=== PATIENT | female | born 1965 | race Caucasian/White ===

== ENCOUNTER 2022-09-02 13:11 | Outpatient (CLI) | payer MEDICAID, SELFPAY ==
--- OUTSIDE RECORDS SUMMARY | 2022-09-02 13:14 | XMS_ITS ---
:1965 Author Care Team Providers Name Role Phone Kari Ortez Primary Care Provider Unavailable Allergies Code Code System Name Reaction Severity Status Onset 622814 RxNorm Enbrel ? ? Active ? 083162 RxNorm Humira Headache Moderate to Severe Active ? Morphine Sulfate ? ? Active ? 272236 RxNorm Remicade Headache ? Active ? 738614 RxNorm Topamax ? ? Active ? Trazodone ? ? Active ? Medications Name Status Start Date Stop Date ? ? Belbuca 150 mcg buccal film Completed ? 05/18 PLACE 1 FILM BY BUCCAL ROUTE TWICE ROSA Y AGAINST THE INSIDE OF THE CHEEK, HOLDING IN PLACE FOR 5 SECONDS, Belbuca 75 mcg buccal film Completed ? 06/07 PLACE 1 FILM BY BUCCAL ROUTE TWICE ROSA Y AGAINST THE INSIDE OF THE CHEEK, HOLDING IN PLACE FOR 5 SECONDS, cefuroxime axetil 500 mg tablet Completed ? 06/07/2022 TAKE 1 TABLET BY MOUTH TWICE DAILY celecoxib 100 mg capsule Active ? Not jared ilable TAKE ONE CAPSULE BY MOUTH TWICE A DAY cephalexin 500 mg capsule Completed ? 2021 TAKE ONE CAPSULE BY MOUTH THREE TIMES DAILY cholecalciferol (vitamin D3) 1,250 mcg (50,000 unit) capsule Act barry ? Not available TK 1 C PO 1 TIME A WK FOR 12 WKS Cimzia 400 mg/2 mL (200 mg/mL x 2) subcutaneous syringe Active ? Not available kit ciprofloxacin 500 mg tablet Completed ? 01/15 TAKE 1 TABLET BY MOUTH TWICE DAILY clobetasol 0.05 % topical cream Completed ? 06/07/2022 TWICE A DAY TO AFFECTED AREA ON FEET FOR UP TO 2 WEEKS PER [place] H Cosentyx Pen 150 mg/mL subcutaneous Completed ? 01/27/2021 dextroamphetamine-amphetamine 10 mg tablet Active ? Not available TAKE ONE TABLET BY MOUTH TWICE A DAY dextroamphetamine-amphetamine 15 mg tablet Completed ? 06/07/2022 TAKE ONE TABLET BY MOUTH TWICE A DAY. AT LEAST 4-6 HOURS APART dextroamphetamine-amphetamine 5 mg tablet Completed ? 06/07/2022 diclofenac 1 % topical gel Active ? Not a vailable APPLY TOPICALLY 3 TIMES EVERY DAY TO THE AFFECTED AREA(S) FOR R O/OA dicyclomine 10 mg capsule Completed ? 2021 TAKE 1 CAPSULE BY MOUTH FOUR TIMES DAILY dicyclomine 20 mg tablet Completed ? 022 TAKE 1/2 TABLET (10MG) BY MOUTH FOUR TIMES A DAY estradiol 0.01% (0.1 mg/gram) vaginal cream Active ? Not available INSERT 1 GRAM vaginally 5 TIMES A WEEK IN THE EVENING Evenity 210 mg/2.34 mL (105 mg/1.17 mL x 2) subcutaneous syringe Active ? Not available Inject by subcutaneous route. fluconazole 150 mg tablet Completed ? 2021 TAKE ONE TABLET BY MOUTH ONCE fluticasone propionate 50 mcg/actuation nasal spray,suspension A ctive ? Not available INSTILL 2 SPRAYS IN EACH NOSTRIL DAILY gabapentin 300 mg capsule Active ? Not av ailable TAKE ONE CAPSULE BY MOUTH TWICE A DAY hydrocodone 5 mg-acetaminophen 325 mg tablet Completed ? 01/27/2021 TK 1 TO 2 TS PO Q 6 H PRN ketorolac 10 mg tablet Completed ? 2 TAKE ONE TABLET BY MOUTH THREE TIMES DAILY NEEDED meloxicam 15 mg tablet Completed ? 1 TAKE 1 TABLET BY MOUTH EVERY DAY WITH FOOD NEEDED ondansetron 4 mg disintegrating tablet Completed ? 06/07/2022 take 1 tablet by mouth every 8 hours if needed for nausea oxycodone 10 mg tablet Completed ? 1 oxycodone 5 mg tablet Completed ? 01/27/2021 TAKE 1 TABLET BY MOUTH EVERY 4 TO 6 HOURS NEEDED FOR POST-OP PAIN oxycodone-acetaminophen 7.5 mg-325 mg tablet Active ? Not available TAKE ONE TABLET BY MOUTH EVERY SIX HOURS NEEDED, M AX 3/DAY FOR CHRONIC PAIN Stimulant Laxative Plus 8.6 mg-50 mg tablet Active ? Not available TAKE TWO TABLETS BY MOUTH TWICE DAILY EVERY DAY NEEDED. sumatriptan 50 mg tablet Active ? Not jared ilable TAKE ONE TABLET BY MOUTH AT ONSET OF HE ADACHE, MAY REPEAT EVERY 2 HOURS NEEDED. MAX 200MG/24HRS tizanidine 4 mg tablet Completed ? 1 TK 1 T PO Q 8 H PRN trazodone 100 mg tablet Active ? Not avai lable TAKE ONE TABLET BY MOUTH EVERY DAY FOR INSOMNIA trazodone 50 mg tablet Completed ? 2 TAKE ONE TABLET BY MOUTH DAILY vitamin A Completed ? 06/07/2022 Problems No Known Problems Procedures Date Name Performed by ? 09/17/2020 Unlisted Px Foot/toes Information not av ailable Notes: Left Foot tendon Repair, Heel s pur & Fascia Release. ? Gastric Bypass for Obesity Information n ot available Notes: *Surgery Date: 2005 ? Augmentation of Breast with Immediate In sertion of Breast Prosthesis Information not available Notes: *Surgery Date: 1999 ? Hysterectomy NOS Information not avai lable Notes: *Surgery Date: 2005 ? Operation on Bladder Information not jared ilable Notes: *Surgery Date: 2007 *Notes: Santi dder sling Notes: 05/26/2020: *Procedure Name: *O THER ENT Surgery Results Lab Results Date Name Specimen Result Interpretation Description Value Range Status Address ? 01/27/2021 HPV DNA, VAGINA&VAGINA ? HPV negative negative [facility] High-risk High for HPV [facility]. type 16. Health - Type 16 Lab: [address], [place] ? ? VAGINA&VAGINA ? HPV negative negative [facility] High for HPV for HPV [facility] Risk type 18. type 18. Health - Type 18 Lab: [address], [place] ? ? VAGINA&VAGINA ? HPV negative negative [facility] Other for other for other [facility] High high risk high risk Heal th - Risk HPV HPV Lab: [address], [place] 01/27/2021 Pap, LB VAGINA&VAGINA ? Case see note ? [facility] - Lab: [address], [place] ? Hemoglobin ? Finger 12.0 g/dL 12.0-15.0 ? [id number] (Hb), stick g/dL ale_burnsv il Fingerstick Hemoglo le: [address], [place] Past Encounters 06/07/2022 Gynecologic Examination; Dyspareunia; At [facility] Korey Melendez DO: [address] [facility] [address], [address], [place] [address], Ph. Social History Tobacco Smoking Status Never Smoker Vaccine List None recorded. Plan of Care Reminders Provider Appointments None recorded. ? ? Lab None recorded. ? ? Referral None recorded. ? ? Procedures None recorded. ? ? Surgeries None recorded. ? ? Imaging None recorded. ? ? Vitals 06/07/2022 11:00AM G_ANNUAL EXAM Height Weight BMI Blood Pressure 5 ft 6 in 145 lbs 23.4 kg/m2 120/72 mm[Hg] 01/27/2021 01:30PM G_ANNUAL EXAM Height Weight BMI Blood Pressure 5 ft 6 in 170 lbs 27.4 kg/m2 134/82 mm[Hg] 09/17/2019 Height Weight BMI Blood Pressure 5 ft 6 in 177.63 lbs 28.67 kg/m2 122/84 mm[Hg] 04/25/2018 Height Weight BMI Blood Pressure 5 ft 6 in 183 lbs 29.54 kg/m2 110/76 mm[Hg] 04/05/2018 Height Weight BMI Blood Pressure 5 ft 6 in 183 lbs 29.54 kg/m2 132/84 mm[Hg]
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
--- OUTSIDE RECORDS SUMMARY | 2022-09-02 13:14 | XMS_ITS | Clinical Summary ---
:1965 Author Organization [facility] [place] [address] Care Team Providers Name Role Phone Lito Rajan MD Primary Care Provider Pablo Oliver MD Unavailable Allergies Active Allergy Reactions Severity Noted Date Comments Etanercept Headache 12/24/2014 PN: Headaches Adalimumab Headache 06/26/2020 Methotrexate Itching 04/12/2018 Morphine Nausea And Vomiting 07/22/2006 Prednisone Agitation Unknown 09/30/2016 Pregabalin Headache 12/24/2014 PN: Headache, b rain fogginess Infliximab Headache 06/26/2020 Medications Medication Sig Dispensed Refills Start Date End Date Status fluticasone, 50 mcg Inhale 2 Sprays 0 Active per actuation, nasal into both nostrils (FLONASE) 50 once daily. mcg/Actuation nasal spray acetaminophen SR Take 2 tablets by 0 01/12/2014 Active (TYLENOL ARTHRITIS) mouth. 650 mg Extended-Release tablet diphenhydrAMINE-aceta Take 2 tablets by 0 Active minophen 25-500 mg mouth. (TYLENOL PM) 25-500 mg tablet estrogens, conjugated 0 04/06/2018 Active (PREMARIN) 0.625 mg/gram vaginal cream dextroamphetamine-amp Take 5 mg by mouth 0 9 Active hetamine (ADDERALL) 5 2 times daily mg tablet tiZANidine (ZANAFLEX) TK 1 T PO Q 8 H 0 04/06/2019 Active 4 mg tablet PRN Ascorbic Take by mouth. 0 06/26/2020 Acti ve Acid-Collagen (COLLAGEN PLUS VITAMIN C) 125-740 mg cap lactobacillus 0 Active combination no.4 (PROBIOTIC) 3 billion cell cap cholecalciferol, 0 Act barry Vitamin D3, (VITAMIN D-3) 2,000 unit tablet oxyCODONE-acetaminoph Take 1 tablet by 0 06/26/2020 Active en, 7.5-325 mg, mouth every 4 (PERCOCET) per tablet hours if needed for Pain diclofenac sodium Apply topically to 0 06/26/2020 Active (SOLARAZE) 3 % gel affected area(s) 2 times daily. secukinumab Inject 0 06/26/2020 Active (COSENTYX) 150 mg/mL subcutaneous. syrg biotin 1 mg cap Take 1 capsule by 0 06/26/2020 Active mouth. multivitamin capsule 0 Active romosozumab-aqqg Inject 2.34 mL 0 08/07/2020 Active (EVENITY) subcutaneous every 210mg/2.34mL ( 4 weeks. 105mg/1.17mLx2) syringe ergocalciferol Take 50,000 units 0 Active (VITAMIN D2; DRISDOL) by mouth. 50,000 unit capsule Magnesium Oxide 500 Take by mouth. 0 Active mg tab sumatriptan succinate Take by mouth. 0 Active (IMITREX ORAL) VITAMIN A ORAL Take by mouth. 0 Active CALCIUM ORAL Take by mouth. 0 Ac tive WalkerIndications: Walker with front 1 Device 0 09/16/2020 Active Ankle instability, wheels for home left use. celecoxib (CELEBREX) Take 1 Capsule 60 Capsule 0 05/08/2021 Active 100 mg (100 mg) by mouth capsuleIndications: 2 times daily if Peroneal tendonitis, needed for Pain. 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 Peroneal tendon injury, left, subsequent encounter Ankle instability, left 08/07/2020 Osteoporosis with current pathological fracture 2019 Routine adult health maintenance 11/04/2016 Overview: Colonoscopy 10/2016 normal repeat in 10 y ears History of marijuana use 09/15/2016 Chronic back pain greater than 3 months duration 09/15 ARTHRITIS, RHEUMATOID 01/11/2013 Trochanteric and glut medius bursitis 01/12/2012 Esophageal reflux 12/22/2005 HEADACHE 08/10/2005 ARTHRITIS, RHEUMATOID 02/13/2004 ALLERGIES 06/23/2001 DISORDER, DEPRESSIVE NEC 10/11/2000 Resolved Problems Problem Noted Date Resolved Date SINUSITIS 12/16/2003 12/30/2003 MOOD SWINGS 12/10/2003 01/12/2012 OBESITY - NOS 12/10/2003 09/15/2016 Immunizations Name Administration Dates Next Due Influenza, IIV3 (Age >=3 years) 08/31/2006, 08/10/2005 Td, Preservative Free (age >= 7 Years) 07/18/2006 Tuberculin (PPD) 06/24/2004 Family History Medical History Relation Name Comments Skin cancer Father Skin cancer Maternal Grandfather Relation Name Status Comments Father Maternal Grandfather Social History Tobacco Use Types Packs/Day Years Used Date Never Smoker 0 Smokeless Tobacco: Never Used Tobacco Cessation: Counseling Given: Yes Alcohol Use Standard Drinks/Week Comments Yes 0 (1 standard drink = 0.6 oz pure alcoho l) Alcoholic Drinks - occasional Physical Activity Answer Date Recorded On average, how many days per week do you engage in moderate 0 days 06/26/2020 to strenuous exercise (like walking fast, running, jogging, dancing, swimming, biking, or other activities that cause a light or heavy sweat)? On average, how many minutes do you engage in exercise at No t asked this level? Sex Assigned at Date Recorded Not on file Obstetrics History Last Filed Vital Signs Vital Sign Reading Time Taken Comments Blood Pressure 117/63 09/16/2020 3:30 PM HEAD MIXER Pulse 72 09/16/2020 3:30 PM HEAD MIXER Temperature 36 ??C (96.8 ??F) 09/16/2020 3:30 PM HEAD MIXER Respiratory Rate 16 09/16/2020 3:30 PM HEAD MIXER Oxygen Saturation 98% 09/16/2020 3:30 PM HEAD MIXER Inhaled Oxygen Concentration - - Weight 75.1 kg (165 lb 9.1 oz) 09/16/2020 8:30 AM HEAD MIXER Height 167.6 cm (5' 6) 09/16/2020 8:30 AM HEAD MIXER Body Mass Index 26.72 09/16/2020 8:30 AM HEAD MIXER Plan of Treatment Scheduled Procedures Name Priority Associated Diagnoses Date/Time REPAIR TENDON LEG Tier 4 Compartment syndrome of right lower extremity, subsequent encounter Health Maintenance Due Date Last Done Comments COVID-19 vaccine series (#1) 02/12/1967 Tdap 1977 Depression screening for age 12+ 1978 Mammogram for age 45-75 05/16/2013 05/16/2012 Tetanus booster 07/18/2016 07/18/2006 Zoster (shingles) series for age 1008/14/2016 50+ (1 of 2) Lipids for age 45-75 05/16/2017 05/16/2012, 04/22/2004, 04/22/2004 Pap test for age 21-65 03/21/2021 03/21/2018, 03/21/2018, 08/17/2011, Additional history exists BMI (ht and wt on same day) for 06/26/2021 06/26/2020, 03/17, age 18+ 06/11/2016 Influenza for age 50-64 06/17/2022 08/31/2006, 08/10/2005 Colonoscopy through age 75 11/04/2026 11/04/2016, 7, 11/04/2016 Hepatitis C screening for age Completed 01/17/2004 18-79 Medical Devices Implanted Type Area Automatic Typewriter Inspector Device Shelf Model / Identifier Expiration Date Ser ial / Lot Ancr Sut 2.3mm Iconix 2 W/2 Strand #2 Force Fiber - [id number] Left: Mt 07/09/2021 [id number] / Implanted: Qty: 1 on 09/16/2020 by Angelina soto, Dwayne Taylor MD at [facility] [employer] / [id number] Results Not on filefrom Last 3 Months Insurance Payer Benefit Plan / Subscriber ID Effective Dates Phone Addre ss Type Group ARE [employer] [id number] 2021-Present [address] [place] [address] UTY Contract 10/17/2006 [address] CONTRACT,JANEI (Work) [address] [address] [place] [id number] Advance Directives Latest Code Status on File Code Status Date Activated Date Inactivated Comments Full Code 09/16/2020 7:37 AM 09/16/2020 5:31 PM Code Status Discussion: Per Existing Order Discussed Full Code 07/25/2006 6:08 PM 07/28/2006 2:46 PM Full Code 07/25/2006 8:50 AM 07/25/2006 6:08 PM Care Teams Certified Orthotist Practice Manager Relationship Specialty Start Date End Date Lito Rajan MD PCP - General 01/31/08 Pablo Oliver MD Internal Medicine 07/02/20 [id number] [address] [place] [id number]
[2022-09-02 15:22] LABS: Chloride* 107 mmol/L (96-114); Potassium* 4.1 mmol/L (3.6-5.1); Sodium* 140 mmol/L (135-149)
[2022-09-02 15:25] LABS: Blood Urea Nitrogen* 21 mg/dL (7-30); Carbon Dioxide* 27 mmol/L (20-32); Creatinine* 0.5 mg/dL (0.5-1.5); Estimated Glomerular Filt Rate 110 ml/min; Glucose* 67 mg/dL (60-115)
== END 2022-09-02 13:12 | disposition home or self-care (01) ==
LOC: NFLDREF 13:12
PROVIDERS: PCP Internal Medicine; Visit Provider Internal Medicine
DX: R53.83 Other fatigue (principal)
CPT/HCPCS: 80048

== ENCOUNTER 2022-09-22 13:20 | Outpatient (CLI) | payer MEDICAID, SELFPAY ==
--- OUTSIDE RECORDS SUMMARY | 2022-09-22 13:38 | XMS_ITS | Encounter Summary ---
:1965 Author Organization [facility] Address [address] [place] [address]. [place] [address] Care Team Providers Name Role Phone Frw, None Unavailable Unavailable Clinic, [facility] Primary Care Provider [phone] Reason for Visit Auth/Cert (Routine) Specialty Diagnoses / Procedures Referred By Contact Refer red To Contact Surgery Diagnoses Stenosis, spinal, lumbar Stenosis, spinal, lumbar [M48.061] Periop Services Procedures PERC LAMINO-/LAMINECTOMY INDIR IMAG GUIDE LUMBAR ZZC ARTHRODESIS ANT INTERBODY INC DISCECTOMY, CERVICAL BELOW C2 CERVICAL 5- CERVICAL 6 ANTERIOR CERVICAL DISCECTOMY AND FUSION [address] [place] [address] Phone: Fax: Referral ID Status Reason Start Date Expiration Date Visits Requ ested Visits Authorized [id number] 1 1 Encounter Details Date Type Department Care Team Description 09/07/2022 Surgery [facility] , 1. Anterior cervical PeriOp Services Andreas Hull MD decompression, C5-C6. 2. [address] [facility] [place]ED[place] [address] fusion, C5-C6. 3. [id number] [place] [address] Anterior [phone] instrumentation , C5-C6. (Work) 4. Placement of titanium interbody graft, C5-C6. Surgery Details Date/Time Status Location OR Service Patient Case Case Traum a Class Class Type Case? 11/22/22 2:20 Posted OR OR 04 Orthopedics Same Day PM Surgery Panel 1 Procedure [facility] Anes Op Region Wound Class Commen ts 1. Anterior cervical decompression, Bilateral General Spine I-Clean C5-C6. 2. Anterior cervical fusion, C5-C6. 3. Anterior instrumentation, C5-C6. 4. Placement of titanium interbody graft, C5-C6. Surgeon Surgeon Role Service Panel Andreas Alex MD Primary Orthopedics 1 Andreas Alex MD Primary Orthopedics 1 Rajendra Watson PA-C Assisting Orthopedics 1 Special Needs Spinal Cord Simulator, [facility] (pt to bring controller)[facility] documented in this encounter Social History Tobacco Use Types Packs/Day Years Used Date Smoking Tobacco: Never Smokeless Tobacco: Never Tobacco Cessation: Counseling Given: Not Answered Comments: Vape pen for cannibus Alcohol Use Standard Drinks/Week Comments Not Currently 0 (1 standard drink = 0.6 oz pure alcoho l) Sex Assigned at Date Recorded Female 08/31/2022 2:31 PM NECKTIE CENTRALIZING MACHINE OPERATOR Travel History Travel Start Travel End [place] 07/25/2022 08/25/2022 COVID-19 Exposure Response Date Recorded In the last 10 days, have you been in contact No / Unsure 09/07/2022 12:38 PM NECKTIE CENTRALIZING MACHINE OPERATOR with someone who was confirmed or suspected to have Coronavirus/COVID-19? documented as of this encounter Last Filed Vital Signs Vital Sign Reading Time Taken Comments Blood Pressure 114/80 09/07/2022 1:57 PM NECKTIE CENTRALIZING MACHINE OPERATOR Pulse 60 09/07/2022 1:57 PM NECKTIE CENTRALIZING MACHINE OPERATOR Temperature 37.4 ??C (99.4 ??F) 09/07/2022 1:57 PM NECKTIE CENTRALIZING MACHINE OPERATOR Respiratory Rate 16 09/07/2022 1:57 PM NECKTIE CENTRALIZING MACHINE OPERATOR Oxygen Saturation 96% 09/07/2022 1:57 PM NECKTIE CENTRALIZING MACHINE OPERATOR Inhaled Oxygen Concentration - - Weight 65.9 kg (145 lb 4.8 oz) 09/07/2022 1:10 PM NECKTIE CENTRALIZING MACHINE OPERATOR Height 165.1 cm (5' 5) 08/25/2022 1:00 PM NECKTIE CENTRALIZING MACHINE OPERATOR Body Mass Index 24.18 08/25/2022 1:00 PM NECKTIE CENTRALIZING MACHINE OPERATOR documented in this encounter Discharge Summaries Andreas Alex MD - 09/08/2022 6:27 AM CST Physician Discharge Summary Patient ID: Rukhsana Ortizland [id number] 57 year old 1965 Admit date: 09/07/2022 Discharge date and time: 09/08/2022 Admitting Physician: Andreas Alex MD Discharge Physician: same Admission Diagnoses: Stenosis, spinal, lumbar [M48.061] Cervical radiculopathy [M54.12] Discharge Diagnoses: same Admission Condition: good Discharged Condition: good Indication for Admission: cervical surgery Hospital Course: unremarkable Consults: none Significant Diagnostic Studies: none Treatments: surgery: ACDF C5-C6 Discharge Exam: GENERAL APPEARANCE: healthy, alert and no distress EYES: Eyes grossly normal to inspection, PERRL and conjunctivae and sclerae normal HENT: ear canals and TM's normal, nose and mouth without ulcers or lesions, oropharynx clear and oral mucous membranes moist NECK: no adenopathy, no asymmetry, masses, or scars and thyroid normal to palpation RESP: lungs clear to auscultation - no rales, rhonchi or wheezes BREAST: normal without masses, tenderness or nipple discharge and no palpable axillary masses or adenopathy CV: regular rates and rhythm, normal S1 S2, no S3 or S4, no murmur, click or rub, no peripheral edema and peripheral pulses strong ABDOMEN: soft, nontender, no hepatosplenomegaly, no masses and bowel sounds normal (female): normal female external genitalia, vaginal mucosa pink, moist, well rugated and normal cervix, adnexae, and uterus without masses. Normal vaginal discharge MS: no musculoskeletal defects are noted and gait is age appropriate without ataxia SKIN: no suspicious lesions or rashes NEURO: Normal strength and tone, sensory exam grossly normal, mentation intact and speech normal PSYCH: mentation appears normal and affect normal/bright Disposition: home Patient Instructions: Current Discharge Medication List START taking these medications Details acetaminophen (TYLENOL) 325 MG tablet Take 2 tablets (650 mg) by mouth every 4 hours as needed for mild pain Qty: 50 tablet, Refills: 0 Associated Diagnoses: Cervical radiculopathy gabapentin (NEURONTIN) 300 MG capsule Take two capsules by mouth at bedtime first night, then increase to three capsules by mouth at bedtime second night and following nights Qty: 45 capsule, Refills: 0 Associated Diagnoses: Cervical radiculopathy hydrOXYzine (ATARAX) 25 MG tablet Take 1 tablet (25 mg) by mouth every 6 hours as needed for itching(and nausea) Qty: 30 tablet, Refills: 0 Associated Diagnoses: Cervical radiculopathy methocarbamol (ROBAXIN) 750 MG tablet Take 1 tablet (750 mg) by mouth every 6 hours as needed for muscle spasms (muscle spasm) Qty: 60 tablet, Refills: 0 Associated Diagnoses: Cervical radiculopathy oxyCODONE (ROXICODONE) 5 MG tablet Take 1-2 tablets (5-10 mg) by mouth every 4 hours as needed for moderate to severe pain Qty: 26 tablet, Refills: 0 Associated Diagnoses: Cervical radiculopathy senna-docusate (SENOKOT-S/PERICOLACE) 8.6-50 MG tablet Take 1 tablet by mouth daily Qty: 30 tablet, Refills: 0 Associated Diagnoses: Cervical radiculopathy CONTINUE these medications which have NOT CHANGED Details diphenhydrAMINE-acetaminophen (TYLENOL PM) 25-500 MG tablet Take 2 tablets by mouth nightly as needed Magnesium Oxide 500 MG TABS Take by mouth 2 times daily multivitamin w/minerals (THERA-VIT-M) tablet Take 1 tablet by mouth daily !! NONFORMULARY daily [place] !! NONFORMULARY daily Medical Cannibus THC (liquid), CBD (pills) oxyCODONE-acetaminophen (PERCOCET) 7.5-325 MG per tablet Take 1 tablet by mouth every 6 hours as needed for severe pain Up to 4 times per day as needed SUMAtriptan (IMITREX) 25 MG tablet Take by mouth at onset of headache for migraine Not sure of dose TRAZODONE HCL PO Take 100 mg by mouth nightly as needed for sleep TYLENOL ARTHRITIS EXT RELIEF 650 MG OR TBCR 2 TABLETS EVERY 8 HOURS NEEDED !! - Potential duplicate medications found. Please discuss with provider. STOP taking these medications celecoxib (CELEBREX) 100 MG capsule Comments: Reason for Stopping: Activity: activity as tolerated, activity as tolerated and no driving for today, ambulate in house and no heavy lifting, pushing, pulling with the implant side for 2 months Diet: regular diet Wound Care: keep wound clean and dry Follow-up with Rk in 6 weeks. Signed: Andreas Alex MD 09/08/2022 6:27 AM TIE CENTRALIZING MACHINE OPERATOR documented in this encounter Medications at Time of Discharge Medication Sig Dispensed Refills Start Date End Date acetaminophen (TYLENOL) Take 2 tablets (650 50 tablet 0 325 MG tabletIndications: mg) by mouth every 4 Cervical radiculopathy hours as needed for mild pain diphenhydrAMINE-acetamino Take 2 tablets by 0 phen (TYLENOL PM) 25-500 mouth nightly as MG tablet needed gabapentin (NEURONTIN) Take two capsules by 45 capsule 0 300 MG mouth at bedtime capsuleIndications: first night, then Cervical radiculopathy increase to three capsules by mouth at bedtime second night and following nights hydrOXYzine (ATARAX) 25 Take 1 tablet (25 mg) 30 tablet 0 1 11/07/2021 MG tabletIndications: by mouth every 6 Cervical radiculopathy hours as needed for itching (and nausea) Magnesium Oxide 500 MG Take by mouth 2 times 0 TABS daily methocarbamol (ROBAXIN) Take 1 tablet (750 60 tablet 0 08/18 750 MG tabletIndications: mg) by mouth every 6 Cervical radiculopathy hours as needed for muscle spasms (muscle spasm) multivitamin w/minerals Take 1 tablet by 0 (THERA-VIT-M) tablet mouth daily NONFORMULARY daily [place] 0 NONFORMULARY daily Medical 0 Cannibus THC (liquid), CBD (pills) oxyCODONE (ROXICODONE) 5 Take 1-2 tablets 26 tablet 0 09/07 MG tabletIndications: (5-10 mg) by mouth Cervical radiculopathy every 4 hours as needed for moderate to severe pain oxyCODONE-acetaminophen Take 1 tablet by 0 (PERCOCET) 7.5-325 MG per mouth every 6 hours tablet as needed for severe pain Up to 4 times per day as needed senna-docusate Take 1 tablet by 30 tablet 0 09/07/2022 (SENOKOT-S/PERICOLACE) mouth daily 8.6-50 MG tabletIndications: Cervical radiculopathy SUMAtriptan (IMITREX) 25 Take by mouth at 0 MG tablet onset of headache for migraine Not sure of dose TRAZODONE HCL PO Take 100 mg by mouth 0 nightly as needed for sleep TYLENOL ARTHRITIS EXT 2 TABLETS EVERY 8 0 RELIEF 650 MG OR TBCR HOURS NEEDED documented as of this encounter Progress Notes Jackie Mcneil, PT - 09/08/2022 11:00 AM CST 09/08/22 0904 Appointment Info Signing Clinician's Name / Credentials (PT) BUBBA Wade Student Supervision On-site supervision provided;Direct supervision provided;Line of sight supervision provided;Direct Patient Contact Provided;Therapy services provided with the co-signing licensed therapist guiding and directing the services, and providing the skilled judgement and assessment throughout the session Living Environment People in Home spouse Living Environment Comments Patient reports that she lives in a renovated garage with single step toenter Self-Care Usual Activity Tolerance moderate Current Activity Tolerance moderate Equipment Currently Used at Home cane, straight (when ambulating longer distances secondary to left hip pain) Fall history within last six months no General Information Onset of Illness/Injury or Date of Surgery 09/07/22 Referring Physician Andreas Alex MD Patient/Family Therapy Goals Statement (PT) Return to home Pertinent History of Current Problem (include personal factors and/or comorbidities that impact the POC) POD#1 s/p anterior fusion C5-6 Existing Precautions/Restrictions (Per MD: activity as tolerated, activity as tolerated and no driving for today, ambulate in house and no heavy lifting, pushing, pulling with the implant side for 2 months) Cognition Orientation Status (Cognition) oriented x 4 Pain Assessment Patient Currently in Pain Yes, see Vital Sign flowsheet (at left hip and cervical spine) Integumentary/Edema Integumentary/Edema Comments see nursing notes Posture Posture Not impaired Range of Motion (ROM) Range of Motion ROM deficits secondary to surgical procedure;ROM deficits secondary to pain Strength (Manual Muscle Testing) Strength (Manual Muscle Testing) strength is WFL Bed Mobility Comment, (Bed Mobility) Independent with head of bed raised Transfers Comment, (Transfers) Graded assist from SBA to independent with no assistive device Gait/Stairs (Locomotion) Comment, (Gait/Stairs) Patient amb over 300 feet with graded assist from SBA to independent. Patientwith no loss of balance, does have antalgic gait pattern secondary to left hip pain. Patient negotiated 4 steps with 2 handrails and SBA, negotiated 4 steps with single handrail and SBA. Balance Balance Comments No loss of balance noted during session; patient did state that her balance has been decreasing lately. Clinical Impression Criteria for Skilled Therapeutic Intervention Evaluation only PT Diagnosis (PT) Impaired mobility following surgical procedure Influenced by the following impairments pain Functional limitations due to impairments patient is able to demonstrate all functional mobility required for discharge to home Clinical Presentation (PT Evaluation Complexity) Stable/Uncomplicated Clinical Presentation Rationale clinical judgement Clinical Decision Making (Complexity) low complexity Anticipated Equipment Needs at Discharge (PT) (none- patient has cane for use at home if needed.) Risk & Benefits of therapy have been explained evaluation/treatment results reviewed;care plan/treatment goals reviewed;risks/benefits reviewed;current/potential barriers reviewed;participants voiced agreement with care plan;participants included;patient PT Total Evaluation Time PT Eval, Low Complexity Minutes ([id number]) 15 PT Discharge Planning PT Plan dc PT Discharge Recommendation (DC Rec) home with assist PT Rationale for DC Rec Patient demonstrated safe, functional mobility for return to home with spouse providing supervision with single stair negotiation PT Brief overview of current status SBA with amb over 300 feet, supervision with stair negotiation Total Session Time Total Session Time (sum of timed and untimed services) 15 Armida Adams RN - 09/07/2022 5:59 PM CST Per REMINGTON Neumann, 6 prescriptions sent via secure tube to 6th floor ortho at this time. 6th floor notified of access code. Andreas Tariq MD - 09/07/2022 5:24 PM CST Pre operative history and physical exam was evaluated. Patient is safe to proceed with surgery. Pastmedical history pertinent for chronic anemia. Expected blood loss <50mL ?? Andreas Alex MD Orthopedic Spine Surgery [facility] Pager- [phone] TIE CENTRALIZING MACHINE OPERATOR Ronel Mujica RN - 09/07/2022 2:44 PM CST Nasal nosin done as well as preop sages wipes in anterior neck area. Ronel Mujica RN on 09/07/2022 at 2:46 PM TIE CENTRALIZING MACHINE OPERATOR Ronel Mujica RN - 09/07/2022 2:30 PM CST Patient H&P states that patient is not cleared for surgery. Pre admitting called the office ofthe doctor for clarification and the office reports that the doctor is out of the office until afterThanksgiving. MAYUR Laurent has reviewed the chart and is okay proceeding with surgery as planned with no further labs or testing. Ronel Mujica RN on 09/07/2022 at 2:33 PM TIE CENTRALIZING MACHINE OPERATOR documented in this encounter H&P Notes Ed Laurent DO - 09/07/2022 2:08 PM CST I have reviewed the surgical (or preoperative) H&P that is linked to this encounter, and examined the patient. There are no significant changes Clinical Conditions Present on Arrival: Clinically Significant Risk Factors Present on Admission TIE CENTRALIZING MACHINE OPERATOR Source Note - Outside, Provider - 09/06/2022 2:38 PM NECKTIE CENTRALIZING MACHINE OPERATOR documented in this encounter Miscellaneous Notes Plan of Care - Niya Gerber RN - 09/07/2022 11:50 PM CST Patient vital signs are at baseline: No. 02 - 2L Patient able to ambulate as they were prior to admission or with assist devices provided by therapies during their stay: No. ax1 with walker and gait belt. Patient MUST void prior to discharge: Yes Patient able to tolerate oral intake: Yes Pain has adequate pain control using Oral analgesics: Yes Does patient have an identified motorcoach driver: Yes Has goal D/C date and time been discussed with patient: No A&Ox4. Voiding adequately via bedside commode. 650cc, clear, yellow. Dressing C,D&I. TIE CENTRALIZING MACHINE OPERATOR Plan of Care - Reema Streeter RN - 09/07/2022 11:33 PM CST Patient vital signs are at baseline: Yes Patient able to ambulate as they were prior to admission or with assist devices provided by therapies during their stay: No, Reason: PT eval needed Patient MUST void prior to discharge: Yes Patient able to tolerate oral intake: Yes Pain has adequate pain control using Oral analgesics: Yes Does patient have an identified motorcoach driver: Yes Has goal D/C date and time been discussed with patient: Yes A&Ox4, VS WNL on RA. No pain or discomfort reported at this time. NS @ 75ml.hr running to PIV. KAYLEEN out per MD order. PRN oxycodone given for pain. Explained POC, patient verbalized understanding. Will continue to monitor and provide cares. TIE CENTRALIZING MACHINE OPERATOR Op Note - Andreas Alex MD - 09/07/2022 5:47 PM CST Procedure DATE OF SERVICE: 09/07/2022 SURGEON: Andreas Parra MD. SUCTION WORKER: Rajendra Watson PA-C. PREPROCEDURE DIAGNOSIS: 1. Bilateral C5-C6 foraminal stenosis. 2. C5-C6 spondylosis. POSTPROCEDURE DIAGNOSIS: 1. same PROCEDURE: 1. Anterior cervical decompression, C5-C6. 2. Anterior cervical fusion, C5-C6. 3. Anterior instrumentation, C5-C6. 4. Placement of titanium interbody graft, C5-C6. IMPLANTS: ZEVO CERVICAL, [employer] TITAN TC INTERBODY CAGE, [employer] 3mL ANGELLA, demineralized bone matrix, [employer] FINDINGS: Severe bilateral C5-C6 foraminal stenosis ANESTHESIA: General tracheal tube anesthesia. ESTIMATED BLOOD LOSS: 10mL COMPLICATIONS: No intraoperative complications noted. OPERATIVE INDICATIONS: Severe Right C6 cervical radiculopathy. After the failure of reasonable conservative treatments, the risks and benefits of surgical management were discussed in detail with the patient. PROCEDURE: The patient was seen and identified in the preoperative holding area. The appropriate site was marked with the surgeon's initials. Written consent was obtained and documented. The patient was brought to the operating room and induced under general anesthesia. IV prophylactic antibiotics were given according to patient allergies and adverse reactions. After induction of general anesthesia, the patient was positioned supine on a radiolucent table. Care was taken to make sure extremities were well padded. The shoulders were lightly taped to the distal end of the table. A bumpwas placed in between the shoulder blades. A time out was taken per protocol. A transverse skin incision was made centered overlying the appropriate interspace. Lateral fluoroscopy confirmed we were at the appropriate level with a satisfactory trajectory. The platysma was then elevated and split transversely. The interval between the sternocleidomastoid and the strap musculature was explored deeply, and the interval between the carotid sheath and trachea and esophagus. The pre-vertebral fascia was split, and then a marker was placed at the C5-C6 interspace. Lateral fluoroscopy confirmed we were at the appropriate level. I then elevated the longus colli bilaterally and placeda self-retaining retractor. Once the self-retaining retractor was in place, we then made an annulotomy. I then secured [place] pins and light distraction was applied. I then performed a complete discectomy from uncovertebral joint to uncovertebral joint. A Midas was used to thin posterior uncovertebralspurring back to the PLL, and #1 and #2 kerrisons were used to resect portions of the PLL and decompress centrally and into the neural foramen bilaterally. After completion of the decompression, I was easily able to pass a small nerve hook in the neural foramen. We then decorticated the inferior endplate and superior endplates and then placed sequential trials. I placed a 6mm x 14mm Titan TC titaniuminterbody graft with mineralized bone matrix into the interbody space. We then secured a 19mm ZEVO 1 level plate with 3.5 mm variable angled screws. The standard locking mechanism was engaged, and I inspected the plate for fit and soft tissue. A 7 [place] round KAYLEEN drain was placed deep to the fascia, and the wound was closed in layers. There were no intraoperative complications during today's case. Sponge and needle counts were correct at the end of the case. Estimated blood loss was 10mL. Rajendra Watson PA-C assisted with the procedure. His role included, but was not limited to, skilled retraction of sensitive soft tissue structures, assistance with manipulation of the retractor system,assistance with placement of anterior instrumentation and multilayered wound closure. The assistanceof a skilled spine PA was required for both safety and efficacy during this procedure. These duties could not be safely performed by other operating room personnel. TIE CENTRALIZING MACHINE OPERATOR Brief Op Note - Andreas Alex MD - 09/07/2022 5:45 PM CST [facility] Brief Operative Note Pre-operative diagnosis: Stenosis, spinal, lumbar [M48.061] Post-operative diagnosis Same as pre-operative diagnosis Procedure: Procedure(s): CERVICAL 5- CERVICAL 6 ANTERIOR CERVICAL DISCECTOMY AND FUSION Surgeon: Surgeon(s) and Role: * Andreas Alex MD - Primary * Rajendra Watson PA-C - Assisting Anesthesia: General Estimated Blood Loss: Less than 10 ml Drains: Dustin-Arora Specimens: * No specimens in log * Findings: None. Complications: None. Implants: Implant Name Type Inv. Item Serial No. Sports Reporter Lot No. [id number] No. Used Action GRAFT BONE PUTTY ANGELLA DBM 1ML [id number] Bone/Tissue/Biologic GRAFT BONE PUTTY ANGELLA DBM 1ML [id number] [employer] N/A 1 Implanted CAGE SPNL 16X6MM ENDOSKELETON TC 6D 14MM MED CRV [id number] - [id number] Metallic Hardware/[place] CAGE SPNL 16X6MM ENDOSKELETON TC 6D 14MM MED CRV [id number] [employer] [id number] N/A 1 Implanted IMP PLATE CERV MEDT ZEVO 19MM 1 LVL [id number] - [id number] Metallic Hardware/[place] IMP PLATE CERV MEDT ZEVO 19MM 1 LVL [id number] [employer] 8004 [id number] N/A 1 Implanted IMP SCR MEDT ZEVO 3.5X15MM SD [place] [id number] - [id number] Metallic Hardware/[place] IMP SCR MEDT ZEVO 3.5X15MM SD [place] [id number] [employer] 8004 [id number] N/A 4 Implanted TIE CENTRALIZING MACHINE OPERATOR Pre-Procedure - Andreas Alex MD - 09/07/2022 2:52 PM CST Pre operative history and physical exam was evaluated. Patient is safe to proceed with surgery. Pastmedical history pertinent for chronic anemia. Expected blood loss <50mL Andreas Alex MD Orthopedic Spine Surgery [facility] Pager- [phone] TIE CENTRALIZING MACHINE OPERATOR Pharmacy-Admission Medication History - Fidel Patel RPH - 09/07/2022 1:59 PM CST Medication history and patient interview completed by pre-admitting nurse (Paz Good RN). Reviewed by pharmacist. Fidel Patel RPh Prior to Admission medications Medication Sig Last Dose Taking? Auth Provider Longterm End Date celecoxib (CELEBREX) 100 MG capsule Take 100 mg by mouth 2 times daily 08/24/2022 Yes Reported, Patient Yes diphenhydrAMINE-acetaminophen (TYLENOL PM) 25-500 MG tablet Take 2 tablets by mouth nightly as needed More than a month Yes Reported, Patient Magnesium Oxide 500 MG TABS Take by mouth 2 times daily 09/07/2022 at 0400 Yes Reported, Patient multivitamin w/minerals (THERA-VIT-M) tablet Take 1 tablet by mouth daily 09/06/2022 Yes Reported, Patient NONFORMULARY daily Lemon [place] 09/06/2022 Yes Reported, Patient NONFORMULARY daily Medical Cannibus THC (liquid), CBD (pills) 09/07/2022 at 0800 Yes Reported, Patient oxyCODONE-acetaminophen (PERCOCET) 7.5-325 MG per tablet Take 1 tablet by mouth every 6 hours as needed for severe pain Up to 4 times per day as needed 09/07/2022 at 0400 Yes Reported, Patient SUMAtriptan (IMITREX) 25 MG tablet Take by mouth at onset of headache for migraine Not sure of dose 09/06/2022 Yes Reported, Patient TRAZODONE HCL PO Take 100 mg by mouth nightly as needed for sleep 09/06/2022 Yes Reported, Patient Yes TYLENOL ARTHRITIS EXT RELIEF 650 MG OR TBCR 2 TABLETS EVERY 8 HOURS NEEDED 09/07/2022 at 0400 YesReported, Patient TIE CENTRALIZING MACHINE OPERATOR documented in this encounter Plan of Treatment Not on filedocumented as of this encounter Procedures Procedure Name Priority Date/Time Associated Diagnosis Comme nts XR SURGERY ASHLEY Routine 09/07/2022 5:20 PM Result s for this FLUORO LESS THAN 5 NECKTIE CENTRALIZING MACHINE OPERATOR procedure are in MIN W STILLS the results section. DECOMPRESSION, 09/07/2022 3:22 PM Stenosis, spinal, SPINE, CERVICAL, 1 NECKTIE CENTRALIZING MACHINE OPERATOR lumbar LEVEL, ANTERIOR APPROACH, WITH FUSION Special Needs Spinal Cord Simulator, [employer] (pt to bring controller)[facility] E[facility] CARDIAC - HIM SCAN 09/02/2022 12:00 AM NECKTIE CENTRALIZING MACHINE OPERATOR documented in this encounter Results XR Surgery ASHLEY L/T 5 Min Fluoro w Stills (09/07/2022 5:20 PM NECKTIE CENTRALIZING MACHINE OPERATOR) Specimen (Source) Anatomical Location Collection Method / Collectio n Time Received Time / Laterality Volume Narrative RADIANT - 09/07/2022 5:21 PM NECKTIE CENTRALIZING MACHINE OPERATOR This exam was marked as non-reportable because it will not be read by a radiologist or a [place] non-radiologis t provider. Andreas Alex MD IMG DIAGNOSTIC IMAGING ORD ERABLES Performing Organization Address City/State/ZIP Code Phon e Number RADIANT EKG CARDIAC - HIM SCAN (09/02/2022 12:00 AM NECKTIE CENTRALIZING MACHINE OPERATOR) Specimen (Source) Anatomical Location Collection Method / Collectio n Time Received Time / Laterality Volume 09/02/2022 Narrative This result has an attachment that is no t available. Provider Outside ECG ORDERABLES documented in this encounter Visit Diagnoses Diagnosis Cervical radiculopathy - Primary Brachial neuritis or radiculitis nos Stenosis, spinal, lumbar Spinal stenosis, lumbar region, without neurogenic claudication documented in this encounter Administered Medications Inactive Administered Medications - up to 3 most recent administrations Medication Order MAR Action Action Date Dose Rate Site bisacodyl (DULCOLAX) suppository 10 mg 10 mg, Rectal, DAILY PRN, constipation, Use if Magnesi um hydroxide (MILK of MAGNESIA) not effective after 24 hours. May discontinu e if patient having bowel movement., Starting on Tue09/07/22 at 1725, Hold for loose stools. dexamethasone (DECADRON) injection 4 mg Given 09/08/2022 10:00 AM NECKTIE CENTRALIZING MACHINE OPERATOR 4 mg 4 mg, Intravenous, EVERY 6 HOURS, Administer over 1 Minutes, First dose on Tue09/07/22 at 2200, For 3 doses Given 09/08/2022 4:50 AM NECKTIE CENTRALIZING MACHINE OPERATOR 4 mg Given 09/07/2022 10:33 PM NECKTIE CENTRALIZING MACHINE OPERATOR 4 mg diphenhydrAMINE (BENADRYL) capsule 25 mg 25 mg, Oral, EVERY 6 HOURS PRN, itching, anxiety, Starting on Tue09/07/22 at 1956, Caution to be used when administering multiple Central Nervous System (PROCESS INSPECTOR) depressing meds within a short time frame. famotidine (PEPCID) injection 20 mg 20 mg, Intravenous, Administer over 2 Minutes, 2 TIMES DAILY, First dose on Tue09/07/22 at 1999, If unable to take oral For ordered IV doses 1-20 mg, give IV Push diluted with 5-10 mL NS over a minimum of 2 minutes. famotidine (PEPCID) tablet 20 mg Given 09/08/2022 8:13 AM NECKTIE CENTRALIZING MACHINE OPERATOR 20 mg 20 mg, Oral, 2 TIMES DAILY, First dose on Tue09/07/22 at 2000 Given 09/07/2022 8:34 PM NECKTIE CENTRALIZING MACHINE OPERATOR 20 mg fentaNYL (PF) (SUBLIMAZE) injection 25 m cg Given 09/07/2022 6:14 PM NECKTIE CENTRALIZING MACHINE OPERATOR 25 mcg 25 mcg, Intravenous, EVERY 5 MIN PRN, moderate pain (4-6), Give fentaNYL (SUBLIMAZE) first if HYDROmorphone (DILAUDID) also ordered., Starting on Tue09/07/22 at 1801, Administer fentaNYL (SUBLIMAZE) for acute pain control. Move to HYDROmorphone (DILAUDID): -IF patient has received up to 200 mcg of fentaNYL (SUBLIMAZE) OR - IF patient has received 2 doses of fentaNYL (SUBLIMAZE) AND continues to have pain score greater than or equal to six (6) or is unable to participate in post op recovery due to pain. Wait 5 minutes AFTER last fentaNYL (SUBLIMAZE) dose before administering HYDROmorphone (DILADUDID). Postop Anesthesia Phase I only. Notify Provider to assess for uncontrolled pain or analgesic side effects. DO NOT revert back to fentanyl (SUBLIMAZE) after moving to HYDROmorphone (DILAUDID)., PACU Given 09/07/2022 6:08 PM NECKTIE CENTRALIZING MACHINE OPERATOR 25 mcg gabapentin (NEURONTIN) capsule 100 mg Given 09/08/2022 8:13 AM NECKTIE CENTRALIZING MACHINE OPERATOR 100 mg 100 mg, Oral, 3 TIMES DAILY, First dose on Tue09/08/22 at 0800, For post-operative pain gabapentin (NEURONTIN) capsule 300 mg Given 09/07/2022 2:08 PM NECKTIE CENTRALIZING MACHINE OPERATOR 300 mg 300 mg, Oral, PRE-OP/PRE-PROCEDURE, Starting on Tue09/07/22 at 1400, For 1 dose, Indications: Neuropathic Pain, Do not administer for stage 2 spine procedures., Pre-procedure hemostatic matrix Given 09/07/2022 4:04 PM 1 kit Operative Site/Surgical (SURGIFLO) kit NECKTIE CENTRALIZING MACHINE OPERATOR Site PRN, Starting on Tue09/07/22 at 1604, Intra-procedure HYDROmorphone (DILAUDID) injection 0.2 m g 0.2 mg, Intravenous, EVERY 2 HOURS PRN, moderate pain (4-6), Starting on Tue09/07/22 at 1956, IF patient unable to take oral pain medication or pain not controlled with oral analgesics. Hold IV PRN opioid do se for analgesic side effects. Notify provider to assess for u ncontrolled pain or analgesic side effects. HYDROmorphone (DILAUDID) injection 0.4 m g Given 09/07/2022 6:37 PM NECKTIE CENTRALIZING MACHINE OPERATOR 0.4 mg 0.4 mg, Intravenous, EVERY 5 MIN PRN, severe pain (7-10), Starting on Tue09/07/22 at 1801, Use FentaNYL (SUBLIMAZE) first if ordered. Administer HYDROmorphone (DILAUDID) up to a total of 2 mg for moderate or severe pain. Notify Provider to assess for uncontrolled pain or analgesic side effects., PACU Given 09/07/2022 6:26 PM NECKTIE CENTRALIZING MACHINE OPERATOR 0.4 mg Given 09/07/2022 6:19 PM NECKTIE CENTRALIZING MACHINE OPERATOR 0.4 mg HYDROmorphone (PF) (DILAUDID) injection 0.5 mg 0.5 mg, Intravenous, EVERY 2 HOURS PRN, severe pain (7 -10), Starting on Tue09/07/22 at 1956, IF patient unable to take oral pain medication or pain not controlled with oral analgesics. Hold IV PRN opioid do se for analgesic side effects. Notify provider to assess for u ncontrolled pain or analgesic side effects. hydrOXYzine (ATARAX) tablet 25 mg Given 09/07/2022 6:36 PM NECKTIE CENTRALIZING MACHINE OPERATOR 25 mg 25 mg, Oral, EVERY 6 HOURS PRN, other, adjuvant pain, Starting on Tue09/07/22 at 1834 ketorolac (TORADOL) injection 15 mg Given 09/07/2022 6:34 PM NECKTIE CENTRALIZING MACHINE OPERATOR 15 mg 15 mg, Intravenous, ONCE PRN, inflammatory pain, Starting on Tue09/07/22 at 1818, For 1 dose, Can cause pain on injection. If ordered intravenously (IV) : administer through a running maintenance fluid over 1 minute followed by a flush. If patient complains of pain on injection, may dilute 15-30 mg in 5 mL and push over 1 to 2 minutes. , PACU lactated ringers infusion New Bag 09/07/2022 5:55 PM NECKTIE CENTRALIZING MACHINE OPERATOR at 25 mL/hr, Intravenous, CONTINUOUS, IF patient NOT on dialysis., Pre-procedure, Starting on Tue09/07/22 at 1430, Until Tue09/07/22 at 1800 Restarted 09/07/2022 5:15 PM NECKTIE CENTRALIZING MACHINE OPERATOR New Bag 09/07/2022 2:27 PM NECKTIE CENTRALIZING MACHINE OPERATOR 25 mL/hr lactated ringers infusion Rate/Dose Verify 09/07/2022 6:00 PM NECKTIE CENTRALIZING MACHINE OPERATOR 100 mL/hr at 100 mL/hr, Intravenous, CONTINUOUS, Continue until IV catheter is weaned, PACU/Phase II, Starting on Tue09/07/22 at 1830, Until Tue09/07/22 at 1954 lidocaine (LMX4) cream Topical, EVERY 1 HOUR PRN, pain, with VA D insertion, Starting on Tue09/07/22 at 1955, Apply at least 30 minutes prior to VAD insertion in divided doses as needed for size of site for insertion. MAX Dose: 2.5 g (?? of 5 g tube) Do NOT give if patient has a history of allergy to any local anesthetic or any joe product. Do NOT use both lidocaine intradermal/subcu taneous injection and the lidocaine cream on the same site. lidocaine 1 % 0.1-1 mL 0.1-1 mL, Other, EVERY 1 HOUR PRN, mild pain with VAD insertion, Starting on Tue09/07/22 at 1955, MAX dose 1 mL subcutan eous OR intradermal along the side of the vein in divided doses as needed for VAD insertion. Do NOT give if patient has a history of allergy to any local anesthet ic or any joe product. Do NOT use both lidocaine intradermal/subcutaneous injec tion and the lidocaine cream on the same site. magnesium hydroxide (MILK OF MAGNESIA) s uspension 30 mL 30 mL, Oral, DAILY PRN, constipation, Us e if preventive measures (senna-docusate, docusate, and polyethylene glycol) are n ot effective., Starting on Tue09/07/22 at 1725, Shake well. Hold for loose stools. methocarbamol (ROBAXIN) tablet 750 mg Given 09/08/2022 8:13 AM NECKTIE CENTRALIZING MACHINE OPERATOR 750 mg 750 mg, Oral, EVERY 6 HOURS PRN, muscle spasms, Starting on Tue09/07/22 at 1955, Hold for sedation. Given 09/07/2022 8:34 PM NECKTIE CENTRALIZING MACHINE OPERATOR 750 mg naloxone (NARCAN) injection 0.2 mg 0.2 mg, Intravenous, EVERY 2 MIN PRN, op ioid reversal, Starting on Tue09/07/22 at 1955, Administer intravenous route when available and notify provider when administered. For unintended sedation or respiratory depression if all of the below criteria are met: ~ respiratory rate LES S than or EQUAL to 8. ~SaO2 less than 92% and or/end-tidal CO2 is greater than 50. ~ the patient is receiving an opioid, has unintended sedations assessed as RASS (-3), and is cur rently not on mechanical ventilation. RASS scale moderate (-3) is movement or eye opening to voice but no eye contact. Patient Monitoring Once the patient has demonstrated a response to the naloxone, continue to monitor respiratory rate, depth, oxygen saturation and end-tidal CO2 (if available) every 15 mi nutes x 2, then every 30 minutes x 2, then every 1 hour x 1 after each naloxone dose. Consider tr ansfer to ICU if patient respiratory parameters have not improved after 4 nalox one doses. naloxone (NARCAN) injection 0.2 mg 0.2 mg, Intramuscular, EVERY 2 MIN PRN, opioid reversal, Starting on Tue09/07/22 at 1955, Administer intramuscular if an intravenous ro [place] is not available and notify provider when administered. For unintended rebecca tion or respiratory depression if all of the below criteria are met: ~ respiratory rate LESS than or EQUAL to 8. ~SaO2 less than 92% and or/end-tidal CO2 i s greater than 50. ~ the patient is receiving an opioid, has unin tended sedations assessed as RASS (-3), and is currently not on mechanical ventilati on. RASS scale moderate (-3) is movement or eye opening to voice but no eye contact. Patient Monitoring Once the patient has demonstrated a response to the naloxone, continue to m onitor respiratory rate, depth, oxygen saturation and end-tidal CO2 (if availab le) every 15 minutes x 2, then every 30 minutes x 2, then every 1 hour x 1 after each naloxone dose. Consider transfer to ICU if patient respiratory parameters have not improved after 4 naloxone doses. naloxone (NARCAN) injection 0.4 mg 0.4 mg, Intravenous, EVERY 2 MIN PRN, op ioid reversal, Starting on Tue09/07/22 at 1955, Administer intravenous route when available and notify provider when administered. For unintended sedation or respiratory depression if all of the below criteria are met: ~ respiratory rate LES S than or EQUAL to 8. ~ SaO2 less than 92% and or/end-tidal CO2 is greater than 50. ~ the patient is receiving an opioid, has unintended sedation assessed as RASS (-4 ) or (-5) and patient is currently not on mechanical ventilation. RASS scale (-4) is deep sedation with no response to voice but movement or eye opening to physical stimulation. R ASS scale (-5) is unarousable. Patient Monitoring Once the patient has demonstrated a response to the naloxone, continue to monitor respiratory rate, depth, oxygen saturation and end-tidal CO2 (if available) every 15 mi nutes x 2, then every 30 minutes x 2, then every 1 hour x 1 after each naloxone dose. Consider tr ansfer to ICU if patient respiratory parameters have not improved after 4 nalox one doses. naloxone (NARCAN) injection 0.4 mg 0.4 mg, Intramuscular, EVERY 2 MIN PRN, opioid reversal, Starting on Tue09/07/22 at 1955, Administer intramuscular if an intravenous ro [place] is not available and notify provider when administered. For unintended rebecca tion or respiratory depression if all of the below criteria are met: ~ respiratory rate LESS than or EQUAL to 8. ~ SaO2 less than 92% and or/end-tidal CO2 is greater than 50. ~ the patient is receiving an opioid, has unin tended sedation assessed as RASS (-4) or (-5) and patient is currently not on mechanical ventil ation. RASS scale (-4) is deep sedation with no response to voice but movement o r eye opening to physical stimulation. RASS scale (-5) is unarousa ble. Patient Monitoring Once the patient has demonstrated a response to the nalox one, continue to monitor respiratory rate, depth, oxygen saturation and end-tidal CO2 (if availab le) every 15 minutes x 2, then every 30 minutes x 2, then every 1 hour x 1 after each naloxone dose. Consider transfer to ICU if patient respiratory parameters have not improved after 4 naloxone doses. ondansetron (ZOFRAN ODT) ODT tab 4 mg 4 mg, Oral, EVERY 6 HOURS PRN, nausea, v omiting, Starting on Tue09/07/22 at 1955, This is Step 1 of nausea and vomiting management. If n ausea not resolved in 15 minutes, go to Step 2 prochlorperazine (COMPAZINE). Do not push through foil backing. Peel back foil and gently remove. Place on to ngue immediately. Administration with liquid unnecessary W ith dry hands, peel back foil backing and gently remove tablet. Do not push oral d isintegrating tablet through foil backing. Administer immediately on tongue and oral disintegrati ng tablet dissolves in seconds, then swallow with saliva. Liquid not required . ondansetron (ZOFRAN) injection 4 mg 4 mg, Intravenous, EVERY 6 HOURS PRN, nausea, vomiting , Administer over 2-5 Minutes, Starting on Tue09/07/22 at 195 6, This is Step 1 of nausea and vomiting management. If nausea not resolved in 15 minutes, go t o Step 2 prochlorperazine (COMPAZINE). Irritant. oxyCODONE (ROXICODONE) tablet 10 mg Given 09/08/2022 10:32 AM NECKTIE CENTRALIZING MACHINE OPERATOR 10 mg 10 mg, Oral, EVERY 4 HOURS PRN, moderate pain (4-6), Starting on Tue09/07/22 at 1856, Hold oral PRN dose for analgesic side effects. Notify provider to assess for uncontrolled pain or analgesic side effects. Hold while on IV HORSE RACE TIMER or with regular IV opioid dosing. Given 09/08/2022 6:51 AM NECKTIE CENTRALIZING MACHINE OPERATOR 10 mg Given 09/08/2022 1:25 AM NECKTIE CENTRALIZING MACHINE OPERATOR 10 mg oxyCODONE (ROXICODONE) tablet 15 mg 15 mg, Oral, EVERY 4 HOURS PRN, severe pain (7-10), St arting on Tue09/07/22 at 1856, Hold oral PRN dose for analgesic s minh effects. Notify provider to assess for uncontrolled pain or analgesic side effe cts. Hold while on IV HORSE RACE TIMER or with regular IV opioid dosing. polyethylene glycol (MIRALAX) Packet 17 g 17 g, Oral, DAILY, First dose on Tue09/08/22 at 0800, To prevent constipation. Mixed prescribed dose in 8 ounces of water, juice or s gordo. Administer daily starting at 0900 on POD 1. Hold for loose stools. 1 Pa cket = 17 grams. Mix each gram with at least 1/2 ounce (15 mL) of water - 8 ounces for 17 g dose, 4 ounces for 8.5 g dose, 2 ounces for 4 g dose. F ollow with the same volume of water. Hold for loose stools unless being administer ed as part of a bowel prep regimen or bowel clean out. senna-docusate (SENOKOT-S/PERICOLACE) Given 09/08/2022 8:[address] 1 tablet 8.6-50 MG per tablet 1 tablet 1 tablet, Oral, 2 TIMES DAILY, First dose on Tue09/07/22 at 2000, To prevent constipation. Hold for loose stools Hold for loose stools. Given 09/07/2022 8:34 PM NECKTIE CENTRALIZING MACHINE OPERATOR 1 tablet sodium chloride (PF) 0.9% PF flush 3 mL Given 09/07/2022 2:29 PM NECKTIE CENTRALIZING MACHINE OPERATOR 3 mLs 3 mL, Intracatheter, EVERY 8 HOURS, First dose on Tue09/07/22 at 1430, to lock peripheral IV dormant line, Pre-procedure sodium chloride (PF) 0.9% PF flush 3 mL Given 09/08/2022 8:12 AM NECKTIE CENTRALIZING MACHINE OPERATOR 3 mLs 3 mL, Intracatheter, EVERY 8 HOURS, First dose on Tue09/07/22 at 2000, to lock peripheral IV dormant line sodium chloride (PF) 0.9% PF flush 3 mL 3 mL, Intracatheter, EVERY 1 MIN PRN, li ne flush, other, to ensure patency or to lock dormant line, Starting on Tue09/07/22 at 1956 sodium chloride 0.9% infusion Rate/Dose Verify 09/08/2022 7:53 AM NECKTIE CENTRALIZING MACHINE OPERATOR 75 mL/hr at 75 mL/hr, Intravenous, CONTINUOUS, Starting on Tue09/07/22 at 2000, Until Tue09/08/22 at 1301 New Bag 09/07/2022 8:35 PM NECKTIE CENTRALIZING MACHINE OPERATOR 75 mL/hr thrombin 5000 units vial Given 09/07/2022 4:03 PM 5,000 Units Operative PRN, Starting on Tue NECKTIE CENTRALIZING MACHINE OPERATOR Site /Surgical Site 09/07/22 at 1603, Intra-procedure documented in this encounter Active and Recently Administered Medications Times are shown in NECKTIE CENTRALIZING MACHINE OPERATOR. Scheduled Medication Order 09/06/2022 09/07/2022 09/08/2022 ceFAZolin Sodium (ANCEF) injection 2 g (COMPLETED) 1538 (Given - Provider: Mitch Holland, AURA MISHRA) Routine, 2 g, Intravenous, PRE-OP/PRE-MD OCEDURE, Starting on Tue09/07/22 at 1400, For 1 dose, Give first dose within 1 hour PRIOR to incision. If patient weight is greater than or equal to 120 kg incre ase dose to 3 g., Indications: Perioperative Pharmacop rophylaxis, Pre-procedure dexamethasone (DECADRON) injection 4 mg (COMPLETED) 7710 (Given - Provider: Niya Gerber RN) 0450 (Given - Provider: Reema Streeter RN) 1000 (Given - Provider: Pao Zelaya, REMINGTON) 4 mg, Intravenous, EVERY 6 HOURS, Admini ster over 1 Minutes, First dose on Tue09/07/22 at 2200, For 3 doses famotidine (PEPCID) injection 20 mg(Linked Group 1) 2033 (See Alternative - Provider: Niya Gerber RN) 812 (See Alternative - Provider: Zoya Zelaya, REMINGTON) 20 mg, Intravenous, Administer over 2 Mi nutes, 2 TIMES DAILY, First dose on Tue09/07/22 at 2000, If unable to take oral For ordered IV doses 1-20 mg, give IV Push diluted with 5-10 mL NS over a minimum of 2 minutes. famotidine (PEPCID) tablet 20 mg(Linked Group 1) 2033 (Given - Provider: Niya Gerber RN) 812 (Given - Provider: Pao keyes RN) 20 mg, Oral, 2 TIMES DAILY, First dose on Tue09/07/22 at 2000 gabapentin (NEURONTIN) capsule 100 mg 812 (Given - Provider: Pao Zelaya RN) 100 mg, Oral, 3 TIMES DAILY, First dose on Tue09/08/22 at 0800, For post- operative pain gabapentin (NEURONTIN) capsule 300 mg (COMPLETED) 1407 (Given - Provider: Ronel Mujica RN) 300 mg, Oral, PRE-OP/PRE-PROCEDURE, Star ting on Tue09/07/22 at 1400, For 1 dose, Indications: Neuropathic Pain, Do not administer for stage 2 spine procedures., Pre-procedure polyethylene glycol (MIRALAX) Packet 17 g 813 (z Missed (do not use) - Provider: Pao Zelaya, REMINGTON - Reason: Patient/family refused) 17 g, Oral, DAILY, First dose on Tue at 0800, To prevent constipation. Mixed prescribed dose in 8 ounces of water, juice or soda. Administer daily starting at 0900 on POD 1. Hold for loose stoo ls. 1 Packet = 17 grams. Mix each gram w ith at least 1/2 ounce (15 mL) of water - 8 ounces for 17 g dose, 4 ounces for 8.5 g dose, 2 ounces for 4 g dose. Follow with the same volume of water. Hold for l oose stools unless being administered as part of a bowel prep regimen or bowel clean out. senna-docusate (SENOKOT-S/PERICOLACE) 8.6-50 MG per tablet 1 tablet 2033 (Given - Provider: Niya Gerber RN) 0813 (Given - Provider: Pao keyes RN) 1 tablet, Oral, 2 TIMES DAILY, First dos e on Tue09/07/22 at 2000, To prevent constipation. Hold for loose stools Hold for loose stools. sodium chloride (PF) 0.9% PF flush 3 mL (CANCELED) 1429 (Given - Provider: Ronel Mujica, REMINGTON) 3 mL, Intracatheter, EVERY 8 HOURS, Firs t dose on Tue09/07/22 at 1430, to lock peripheral IV dormant line, Pre-procedure sodium chloride (PF) 0.9% PF flush 3 mL 2025 (z Missed (do not use) - Provider: Niya Gerber RN - Reason: IV Infusing) 0456 (z Missed (do not use) - Provider: Reema Stereter RN - Reason: IV Infusing)0812 (Given - Provider: Pao Zelaya, REMINGTON)1200 (Canceled Entry - Provider: Orders Generic Provider - Comment: Automatically canceled at discont 3 mL, Intracatheter, EVERY 8 HOURS, Firs t dose on Tue09/07/22 at 2000, to lock peripheral IV dormant line inue of medic ation order) Continuous Medication Order 09/06/2022 09/07/2022 09/08/2022 lactated ringers infusion (CANCELED) 142 7 (New Bag - Provider: Ronel Mujica RN)1714 (Paused - Provider: Giovany Hernandez APRN SCREW SUPERVISOR - Comment: Switch to gravity)1715 (Restarted - Provider: Giovany Hernandez APRN SCREW SUPERVISOR)1755 (New Bag - Provider: Giovany Hernandez APRN SCREW SUPERVISOR) at 25 mL/hr, Intravenous, CONTINUOUS, IF patient NOT on dialysis., Pre- procedure, Starting on Tue09/07/22 at 1430, Until Tue09/07/22 at 1800 lactated ringers infusion (CANCELED) 180 0 (Rate/Dose Verify - Provider: Armida Bermeo RN) at 100 mL/hr, Intravenous, CONTINUOUS, C ontinue until IV catheter is weaned, PACU/Phase II, Starting on Tue09/07/22 at 1830, Until Tue09/07/22 at 195 sodium chloride 0.9% infusion 2034 (New Bag - Pr ovider: Niya Gerber, RN) 0753 (Rate/Dose Verify - Provider: Pao Zelaya, RN)0754 (Stopped - Provider: Pao Zelaya, REMINGTON) at 75 mL/hr, Intravenous, CONTINUOUS, St arting on Tue09/07/22 at 2000, Until Tue09/08/22 at 1301 PRN Medication Order 09/06/2022 09/07/2022 09/08/2022 bisacodyl (DULCOLAX) suppository 10 mg 10 mg, Rectal, DAILY PRN, constipation, Use if Magnesium hydroxide (MILK of MAGNESIA) not effective after 24 hours. May discontinue if patient having bowel movement., Starting on Tue09/07/22 at 1725, Hold for loose stools. diphenhydrAMINE (BENADRYL) capsule 25 mg 25 mg, Oral, EVERY 6 HOURS PRN, itching, anxiety, Starting on Tue09/07/22 at 1956, Caution to be used when administering multiple Central Nervous System (PROCESS INSPECTOR) depressing meds within a short time frame. fentaNYL (PF) (SUBLIMAZE) injection 25 mcg (CANCELED) 1807 (Given - Provider: Armida Bemreo, REMINGTON)1813 (Given - Provider: Armida Bermeo RN) 25 mcg, Intravenous, EVERY 5 MIN PRN, mo derate pain (4-6), Give fentaNYL (SUBLIMAZE) first if HYDROmorphone (DILAUDID) also ordered., Starting on Tue09/07/22 at 1801, Administer fentaNYL (SUBLIMAZE) fo r acute pain control. Move to HYDROmorph one (DILAUDID): -IF patient has received up to 200 mcg of fentaNYL (SUBLIMAZE) OR - IF patient has received 2 doses of fentaNYL (SUBLIMAZE) AND continues to have pain score greater than or equal to six (6) or is unable to participate in post op recovery due to pain. Wait 5 minutes AFTER last fentaNYL (SUBLIMAZE) dose before administering HYDROmorphone (DILADUDID ). Postop Anesthesia Phase I only. Notif y Provider to assess for uncontrolled pain or analgesic side effects. DO NOT revert back to fentanyl (SUBLIMAZE) after moving to HYDROmorphone (DILAUDID)., PACU hemostatic matrix (SURGIFLO) kit (CANCELED) 1604 (Given - Provider: Andreas Alex MD) PRN, Starting on Tue09/07/22 at 1604, Intra-procedure HYDROmorphone (DILAUDID) injection 0.2 mg(Linked Group 2) 0.2 mg, Intravenous, EVERY 2 HOURS PRN, moderate pain (4-6), Starting on Tue09/07/22 at 1956, IF patient unable to take oral pain medication or pain not controlled with oral analgesics. Hold IV PRN opi oid dose for analgesic side effects. Not hector provider to assess for uncontrolled pain or analgesic side effects. HYDROmorphone (DILAUDID) injection 0.4 mg (CANCELED) 181 (Given - Provider: Armida Bermeo RN)182 (Given - Provider: Armida Bermeo RN)183 (Given - Provider: Armida Bermeo RN) 0.4 mg, Intravenous, EVERY 5 MIN PRN, se aleida pain (7-10), Starting on Tue09/07/22 at 1801, Use FentaNYL (SUBLIMAZE) first if ordered. Administer HYDROmorphone (DILAUDID) up to a total of 2 mg for moder ate or severe pain. Notify Provider to a ssess for uncontrolled pain or analgesic side effects., PACU HYDROmorphone (PF) (DILAUDID) injection 0.5 mg(Linked Group 2) 0.5 mg, Intravenous, EVERY 2 HOURS PRN, severe pain (7-10), Starting on Tue09/07/22 at 1956, IF patient unable to take oral pain medication or pain not controlled with oral analgesics. Hold IV PRN opio id dose for analgesic side effects. Noti fy provider to assess for uncontrolled pain or analgesic side effects. hydrOXYzine (ATARAX) tablet 25 mg 1835 (Given - Provider: Armida Bermeo RN) 25 mg, Oral, EVERY 6 HOURS PRN, other, a djuvant pain, Starting on Tue09/07/22 at 1834 ketorolac (TORADOL) injection 15 mg (COMPLETED) 1833 (Given - Provider: Armida Bermeo RN) 15 mg, Intravenous, ONCE PRN, inflammato ry pain, Starting on Tue09/07/22 at 1818, For 1 dose, Can cause pain on injection. If ordered intravenously (IV) : administer through a running maintenance fluid over 1 minute followed by a flush. If p atient complains of pain on injection, may dilute 15-30 mg in 5 mL and push over 1 to 2 minutes. , PACU lidocaine (LMX4) cream Topical, EVERY 1 HOUR PRN, pain, with VA D insertion, Starting on Tue09/07/22 at 195, Apply at least 30 minutes prior to VAD insertion in divided doses as needed for size of site for insertion. MAX Dos e: 2.5 g (?? of 5 g tube) Do NOT give if patient has a history of allergy to any local anesthetic or any joe product. Do NOT use both lidocaine intradermal/subcutaneous injection and the lidocaine cream on the same site. lidocaine 1 % 0.1-1 mL (CANCELED) 1545 (Given - Provider: Mercedes Ortega MD) 0.1-1 mL, Other, EVERY 1 HOUR PRN, mild pain with VAD insertion, Starting on Tue09/07/22 at 1428, MAX dose 1 mL subcutaneous OR intradermal along the side of the vein in divided doses as needed for VAD insertion. Do NOT give if patient has a history of allergy to any local anesthetic or any joe product. Do NOT use both lidocaine intradermal/subcutaneous injection and the lidocaine cream on the same site., Pre-procedure lidocaine 1 % 0.1-1 mL 0.1-1 mL, Other, EVERY 1 HOUR PRN, mild pain with VAD insertion, Starting on Tue09/07/22 at 1956, MAX dose 1 mL subcutaneous OR intradermal along the side of the vein in divided doses as needed for VAD insertion. Do NOT give if patient has a history of allergy to any local anesthetic or any joe product. Do NOT use both lidocaine intradermal/subcutaneous injection and the lidocaine cream on the same site. magnesium hydroxide (MILK OF MAGNESIA) suspension 30 mL 30 mL, Oral, DAILY PRN, constipation, Us e if preventive measures (senna- docusate, docusate, and polyethylene glycol) are not effective., Starting on Tue09/07/22 at 1725, Shake well. Hold for loose stools. methocarbamol (ROBAXIN) tablet 750 mg 2033 (Give n - Provider: Niya Gerber, RN) 0813 (Given - Provider: Pao Zelaya, REMINGTON) 750 mg, Oral, EVERY 6 HOURS PRN, muscle spasms, Starting on Tue09/07/22 at 1956, Hold for sedation. naloxone (NARCAN) injection 0.2 mg(Linked Group 3) 0.2 mg, Intravenous, EVERY 2 MIN PRN, op ioid reversal, Starting on Tue09/07/22 at 1955, Administer intravenous route when available and notify provider when administered. For unintended sedation or res piratory depression if all of the below criteria are met: ~ respiratory rate LESS than or EQUAL to 8. ~SaO2 less than 92% and or/end-tidal CO2 is greater than 50. ~ the patient is receiving an opioid, h as unintended sedations assessed as RASS (-3), and is currently not on mechanical ventilation. RASS scale moderate (-3) is movement or eye opening to voice but no eye contact. Patient Monitoring Once th e patient has demonstrated a response to the naloxone, continue to monitor respiratory rate, depth, oxygen saturation and end-tidal CO2 (if available) every 15 minutes x 2, then every 30 minutes x 2, th en every 1 hour x 1 after each naloxone dose. Consider transfer to ICU if patient respiratory parameters have not improved after 4 naloxone doses. naloxone (NARCAN) injection 0.2 mg(Linked Group 3) 0.2 mg, Intramuscular, EVERY 2 MIN PRN, opioid reversal, Starting on Tue09/07/22 at 1955, Administer intramuscular if an intravenous route is not available and notify provider when administered. For un intended sedation or respiratory depress ion if all of the below criteria are met: ~ respiratory rate LESS than or EQUAL to 8. ~SaO2 less than 92% and or/end- tidal CO2 is greater than 50. ~ the patient i s receiving an opioid, has unintended se dations assessed as RASS (-3), and is currently not on mechanical ventilation. RASS scale moderate (-3) is movement or eye opening to voice but no eye contact. Pa tient Monitoring Once the patient has de monstrated a response to the naloxone, continue to monitor respiratory rate, depth, oxygen saturation and end-tidal CO2 (if available) every 15 minutes x 2, then every 30 minutes x 2, then every 1 hour x 1 after each naloxone dose. Consider transfer to ICU if patient respiratory parameters have not improved after 4 naloxone doses. naloxone (NARCAN) injection 0.4 mg(Linked Group 3) 0.4 mg, Intravenous, EVERY 2 MIN PRN, op ioid reversal, Starting on Tue09/07/22 at 1955, Administer intravenous route when available and notify provider when administered. For unintended sedation or res piratory depression if all of the below criteria are met: ~ respiratory rate LESS than or EQUAL to 8. ~ SaO2 less than 92% and or/end-tidal CO2 is greater than 50. ~ the patient is receiving an opioid, has unintended sedation assessed as RASS (-4) or (-5) and patient is currently not on mechanical ventilation. RASS scale (-4) is deep sedation with no response to voice but movement or eye opening to ph ysical stimulation. RASS scale (-5) is u narousable. Patient Monitoring Once the patient has demonstrated a response to the naloxone, continue to monitor respiratory rate, depth, oxygen saturation and en d-tidal CO2 (if available) every 15 ayaka alfreda x 2, then every 30 minutes x 2, then every 1 hour x 1 after each naloxone dose. Consider transfer to ICU if patient respiratory parameters have not improved after 4 naloxone doses. naloxone (NARCAN) injection 0.4 mg(Linked Group 3) 0.4 mg, Intramuscular, EVERY 2 MIN PRN, opioid reversal, Starting on Tue09/07/22 at 1955, Administer intramuscular if an intravenous route is not available and notify provider when administered. For un intended sedation or respiratory depress ion if all of the below criteria are met: ~ respiratory rate LESS than or EQUAL to 8. ~ SaO2 less than 92% and or/end-tidal CO2 is greater than 50. ~ the patient is receiving an opioid, has unintended s edation assessed as RASS (-4) or (-5) and patient is currently not on mechanical ventilation. RASS scale (-4) is deep sedation with no response to voice but movem ent or eye opening to physical stimulati on. RASS scale (-5) is unarousable. Patient Monitoring Once the patient has demonstrated a response to the naloxone, continue to monitor respiratory rate, depth, oxygen saturation and end-tidal CO2 (if available) every 15 minutes x 2, then every 30 minutes x 2, then every 1 hour x 1 after each naloxone dose. Consider transfer to ICU if patient respiratory parameters have not improved after 4 naloxone doses. ondansetron (ZOFRAN ODT) ODT tab 4 mg(Linked Group 4) 4 mg, Oral, EVERY 6 HOURS PRN, nausea, v omiting, Starting on Tue09/07/22 at 1955, This is Step 1 of nausea and vomiting management. If nausea not resolved in 15 minutes, go to Step 2 prochlorperazine ( COMPAZINE). Do not push through foil ilan magui. Peel back foil and gently remove. Place on tongue immediately. Administration with liquid unnecessary With dry hands, peel back foil backing and gently kandi ve tablet. Do not push oral disintegrati ng tablet through foil backing. Administer immediately on tongue and oral disintegrating tablet dissolves in seconds, then swallow with saliva. Liquid not required. ondansetron (ZOFRAN) injection 4 mg(Linked Group 4) 4 mg, Intravenous, EVERY 6 HOURS PRN, na usea, vomiting, Administer over 2-5 Minutes, Starting on Tue09/07/22 at 1955, This is Step 1 of nausea and vomiting management. If nausea not resolved in 15 ayaka alfreda, go to Step 2 prochlorperazine (COMPAZINE). Irritant. oxyCODONE (ROXICODONE) tablet 10 mg(Linked Group 5) 1857 (Given - Provider: Armida Bermeo RN) 0125 (Given - Provider: Reema Streeter, REM[place]) 0651 (Given - Provider: Reema Streeter, REMINGTON)1032 (Given - Provider: Pao Zelaya RN) 10 mg, Oral, EVERY 4 HOURS PRN, moderate pain (4-6), Starting on Tue09/07/22 at 1856, Hold oral PRN dose for analgesic side effects. Notify provider to assess for uncontrolled pain or analgesic side ef fects. Hold while on IV HORSE RACE TIMER or with regular IV opioid dosing. oxyCODONE (ROXICODONE) tablet 15 mg(Linked Group 5) 1856 (See Alternative - Provider: Armida Bermeo, [place]) 0125 (See Alternative - Provider: Reema Streeter, RN)0651 (See Alternative - Provider: Reema Streeter, REMINGTON)1032 (See Alternative - Provider: Pao Zelaya RN) 15 mg, Oral, EVERY 4 HOURS PRN, severe p ain (7-10), Starting on Tue09/07/22 at 1856, Hold oral PRN dose for analgesic side effects. Notify provider to assess for uncontrolled pain or analgesic side eff ects. Hold while on IV HORSE RACE TIMER or with regular IV opioid dosing. sodium chloride (PF) 0.9% PF flush 3 mL 3 mL, Intracatheter, EVERY 1 MIN PRN, li ne flush, other, to ensure patency or to lock dormant line, Starting on Tue09/07/22 at 195 thrombin 5000 units vial (CANCELED) 1603 (Given - Provider: Andreas Parra MD) PRN, Starting on Tue09/07/22 at 1603, Intra-procedure Linked Groups Order Group 1: famotidine (PEPCID) tablet 20 mgJump to med 20 mg, Oral, 2 TIMES DAILY, First dose o n Tue09/07/22 at 2000 Or famotidine (PEPCID) injection 20 mgJump to med 20 mg, Intravenous, Administer over 2 Mi nutes, 2 TIMES DAILY, First dose on Tue09/07/22 at 2000
If unable to take oral For ordered IV doses 1-20 mg, give IV Push diluted with 5-10 mL NS over a minimum of 2 minutes.
Group 2: HYDROmorphone (DILAUDID) injection 0.2 mgJump to med 0.2 mg, Intravenous, EVERY 2 HOURS PRN, moderate pain (4-6), Starting on Tue09/07/22 at 1956
IF patient unable to take oral pain medication or pain not controlled with oral analgesics. Hold IV PRN opioid dose for analgesic side effe cts. Notify provider to assess for uncontrolled pain or analgesic side effects.
Or HYDROmorphone (PF) (DILAUDID) injection 0.5 mgJump to med 0.5 mg, Intravenous, EVERY 2 HOURS PRN, severe pain (7-10), Starting on Tue09/07/22 at 1955
IF patient unable to take oral pain medication or pain not controlled with oral analgesics. Hold IV PRN opioid dose for analgesic side effec ts. Notify provider to assess for uncontrolled pain or analgesic side effects.
Group 3: naloxone (NARCAN) injection 0.2 mgJump to med 0.2 mg, Intravenous, EVERY 2 MIN PRN, op ioid reversal, Starting on Tue09/07/22 at 1955
Administer intravenous route when available and notify provider when administered. For unintende d sedation or respiratory depression if all of the below criteria are met: ~ respiratory rate LESS than or EQUAL to 8. ~SaO2 less than 92% and or/end-tidal CO2 is greater than 50.&amp ;nbsp;~ the patient is receiving an opio id, has unintended sedations assessed as RASS (-3), and is currently not on mechanical ventilation. RASS scale moderate (-3) is movement or eye opening to voice but no eye contact.&nb sp; Patient Monitoring Once the patient has demonstrated a response to the naloxone, continue to monitor respiratory rate, depth, oxygen sat uration and end-tidal CO2 (if available) every 15 minutes x 2, then every 30 minutes x 2, then every 1 hour x 1 after each naloxone dose. Consider transfer to ICU if patient respirato ry parameters have not improved after 4 naloxone doses.
Or naloxone (NARCAN) injection 0.4 mgJump to med 0.4 mg, Intravenous, EVERY 2 MIN PRN, op ioid reversal, Starting on Tue09/07/22 at 1955
Administer intravenous route when available and notify provider when administered. For unintende d sedation or respiratory depression if all of the below criteria are met: ~ respiratory rate LESS than or EQUAL to 8. ~ SaO2 less than 92% and or/end-tidal CO2 is greater than 50.&amp ;nbsp;~ the patient is receiving an opio id, has unintended sedation assessed as RASS (-4) or (-5) and patient is currently not on mechanical ventilation. RASS scale (-4) is deep sedat ion with no response to voice but moveme nt or eye opening to physical stimulation. RASS scale (-5) is unarousable. Patient Monitoring O nce the patient has demonstrated a respo nse to the naloxone, continue to monitor respiratory rate, depth, oxygen saturation and end-tidal CO2 (if available) every 15 minutes x 2, then every 30 minutes x 2, then every 1 hour x 1 after each nal oxone dose. Consider transfer to ICU if patient respiratory parameters have not improved after 4 naloxone doses.
Or naloxone (NARCAN) injection 0.2 mgJump to med 0.2 mg, Intramuscular, EVERY 2 MIN PRN, opioid reversal, Starting on Tue09/07/22 at 1956
Administer intramuscular if an intravenous route is not available and notify provider when administered . For unintended sedation or respir atory depression if all of the below criteria are met: ~ respiratory rate LESS than or EQUAL to 8. ~SaO2 less than 92% and or/end-tidal CO2 is greater than 50. ~ the patient is receiving an opioid, has unintended sedations assessed as RASS (-3), and is currently not on mechanical ventilation. RASS scale moderate (-3) is movement or eye opening to voic e but no eye contact. Patient Monitoring Once the patient has demonstrated a response to the naloxone, continue to monitor respiratory rate, depth, oxygen saturation and end- tidal CO2 (if available) every 15 minutes x 2, then every 30 minutes x 2, then every 1 hour x 1 after each naloxone dose. Consider transfer to ICU if patient respiratory parameters romero ve not improved after 4 naloxone doses.
Or naloxone (NARCAN) injection 0.4 mgJump to med 0.4 mg, Intramuscular, EVERY 2 MIN PRN, opioid reversal, Starting on Tue09/07/22 at 1956
Administer intramuscular if an intravenous route is not available and notify provider when administered . For unintended sedation or respir atory depression if all of the below criteria are met: ~ respiratory rate LESS than or EQUAL to 8. ~ SaO2 less than 92% and or/end-tidal CO2 is greater than 50. ~ the patient is receiving an opioid, has unintended sedation assessed as RASS (-4) or (-5) and patient is currently not on mechanical ventilation. RASS scale (-4) is deep sedation with no resp onse to voice but movement or eye opening to physical stimulation. RASS scale (-5) is unarousable. Patie nt Monitoring Once the patient has demonstrated a response to the naloxone, continue to monitor respiratory rate, depth, oxygen saturation and end-tidal CO2 (if available) every 15 minutes x 2, then every 30 minutes x 2, then every 1 hour x 1 after each naloxone dose. Consider transfer to ICU if patient respiratory parameters have not improved after 4 naloxone doses.
Group 4: ondansetron (ZOFRAN ODT) ODT tab 4 mgJump to med 4 mg, Oral, EVERY 6 HOURS PRN, nausea, v omiting, Starting on Tue09/07/22 at 1956
This is Step 1 of nausea and vomiting management. If nausea not resolved in 15 minutes, go t o Step 2 prochlorperazine (COMPAZINE). D o not push through foil backing. Peel back foil and gently remove. Place on tongue immediately. Administration with liquid unnecessary With dry hands, pe el back foil backing and gently remove t ablet. Do not push oral disintegrating tablet through foil backing. Administer immediately on tongue and oral disintegrating tablet dissolves in seconds, then swallow with saliva. Liquid not required.
Or ondansetron (ZOFRAN) injection 4 mgJump to med 4 mg, Intravenous, EVERY 6 HOURS PRN, na usea, vomiting, Administer over 2-5 Minutes, Starting on Tue09/07/22 at 1956
This is Step 1 of nausea and vomiting management. If darlene sea not resolved in 15 minutes, go to St ep 2 prochlorperazine (COMPAZINE). Irritant.
Group 5: oxyCODONE (ROXICODONE) tablet 10 mgJump to med 10 mg, Oral, EVERY 4 HOURS PRN, moderate pain (4-6), Starting on Tue09/07/22 at 1856
Hold oral PRN dose for analgesic side effects. Notify provider to assess for uncontrolled pain or analgesic side effects. Hold while on IV HORSE RACE TIMER or w ith regular IV opioid dosing.
Or oxyCODONE (ROXICODONE) tablet 15 mgJump to med 15 mg, Oral, EVERY 4 HOURS PRN, severe p ain (7-10), Starting on Tue09/07/22 at 1856
Hold oral PRN dose for analgesic side effects. Notify provider to assess for uncontrolled pain or analgesic side effects. Hold while on IV HORSE RACE TIMER or wi th regular IV opioid dosing.
documented in this encounter Care Teams Windows Migration Technician Relationship Specialty Start Date End Date Frw, None PCP - Family Practice 12/31/11 [facility], Sarah PCP - General 09/07/[address] [address] documented as of this encounter
--- OUTSIDE RECORDS SUMMARY | 2022-09-22 13:38 | XMS_ITS | Encounter Summary ---
:1965 Author Organization [facility] Address [address] [place] [address]. [place] [address] Care Team Providers Name Role Phone Unavailable Primary Care Provider Unavailable Reason for Visit Reason Onset Date Comments Refill Request 05/04/2006 diflucan Encounter Details Date Type Department Care Team Description 05/04/2006 Refill [facility] Armida Lanier Refill Request (diflucan) in [place] [employer] [address] [place] [phone] Social History Tobacco Use Types Packs/Day Years Used Date Smoking Tobacco: Never Alcohol Use Standard Drinks/Week Comments Yes 0 (1 standard drink = 0.6 oz pure alcoho l) Sex Assigned at Date Recorded 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 Has yeast infection and would like rx for diflucan. Will you ok in [place]'s absence? documented in this encounter Plan of Treatment Not on filedocumented as of this encounter Visit Diagnoses Not on filedocumented in this encounter
--- OUTSIDE RECORDS SUMMARY | 2022-09-22 13:38 | XMS_ITS | Encounter Summary ---
:1965 Author Organization [facility] Address [address] [place] [address]. 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 documented in this encounter Results SURGICAL PATHOLOGY (05/25/2006 12:00 AM CDT) Component Value Ref Test Analysis Performed At [facility] Range Method Time Signature Copath Report Patient Name: RUKHSANA MANZO MR#: [id number] Specimen #: [id number] Collected: 05/25/2006 Received: 05/25/2006 Reported: 05/26/2006 14:23 Ordering Phy(s): SUKHDEV ASHFORD SPECIMEN(S): Vaginal mucosa FINAL DIAGNOSIS: Vaginal mucosa, resected tissue: ? - Portions of vaginal mucosa. Electronically signed out by: Zcak White M.D. CLINICAL HISTORY: Rectocele, cystocele and urinary incontinence. GROSS: The specimen container labeled with the patient's name and s ource as vaginal mucosa contains six portions of mucosa measuring f rom 16 x 6 x 2 millimeters up to 80 x 11 x 2 millimeters. ??A few clamp m arks are identified, otherwise the surfaces are unremarkable. ??No se ctions are submitted. (Alfa/naomi) (05/25/06) TESTING LAB LOCATION: [address] [address] COLLECTION SITE: Client: [facility] Location: 10 (W) Specimen (Source) Anatomical Collection Method Collection Time Re ceived Time Location / / Volume Laterality 05/25/2006 05/25/2006 11:3 2 AM CDT Sukhdev Ashford MD LABORATORY Performing Organization Address City/State/ZIP Code Phon e Number COPATH documented in this encounter Visit Diagnoses Not on filedocumented in this encounter Care Teams Assessment Director Relationship Specialty Start Date End Date Sukhdev Ashford MD PCP - Obstetrics/Gynecology 05/05/0612/29 documented as of this encounter
--- OUTSIDE RECORDS SUMMARY | 2022-09-22 13:38 | XMS_ITS | Encounter Summary ---
:1965 Author Organization [place] Address [address] [place] [address]. [place] [address] Care Team Providers Name Role Phone Unavailable Primary Care Provider Unavailable Reason for Visit Reason Comments Counseling HRT Encounter Details Date Type Department Care Team Description 03/18/2006 Office Visit [facility] Polly Ashford UMATOID ARTHRITIS (H) (Primary Dx); System in Jean Ortiz MD CYSTOCELE, MIDLINE; RESTORER PAPER AND PRINTS [facility] RECTOCELE; [address] [facility] SYMPTOMATIC FEMALE CLIMACTERIC STATE; [place] [address] FEMALE STRESS INCONTINENCE [id number] [place], [place] [id number] Social History Tobacco Use Types Packs/Day Years Used Date Smoking Tobacco: Never Alcohol Use Standard Drinks/Week Comments Yes 0 (1 standard drink = 0.6 oz pure alcoho l) Sex Assigned at Date Recorded 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 She is status post PRISCA/BSO, on Estratest. Desire is absent, arrousal and orgasm are about 50/50, about half the time she can achieve orgasm. No menopausal symptoms like hot flushes, sleep problems, etc. Relationship is good. She also complains of something falling out, doesn't look right down there. Not every day but sometimes feels a mass coming out. Has MIKAYLA, has to stop walking if she has to sneeze. OBJECTIVE: PELVIC EXAM: Lymph: no enlarged groin nodes External genitalia: normal development, normal BUS, no lesions and rectocele at introitus with valsalva Perineum: normal skin, no lesions,poor support Urethra meatus: normal , no lesion or caruncle Urethra: normal, nontender Bladder: nontender, no masses, not enlarged, has cystocele Vagina:normal mucosa and ruggae, no lesions not atrophic, Gr 2+ cystocele and Gr 2 rectocele (lower 1/2 of vagina) upper posterior vagina and apex supported Cervix/uterus: surgically absent RV: confirms above Rectum: no hemorrhoids, no bleeding Pt also examined in the standing position. She has Gr2 cystocele, Gr 2 rectocele, no sig vaginal vault descensus with valsalva. Rectovaginal exam shows no enterocele, and confirms above ASSESSMENT: 1.Symptomatic pelvic relaxation. Has cystourethrocele, lower 1/2 of vagina rectocele,and poor perineal support status post PRISCA/BSO. Has reasonable vaginal vault support 2.Decrease in desire, likely due to BSO. Not helped by estratest 3. MIKAYLA PLAN: 1. Discussed pelvic organ prolapse, cystourethrocele, rectocele, stress incontinence, TVT, surgical correction of cystocele/rectocele. Risks, benefits, alternatives, and side effects thoroughly discussed with Rukhsana and questions answered. 2. RTC for urodynamics 3. Stop estratest, start vivelle dot 0.5mg KARLEY and called [facility] for 2.5mg testosterone patch, advised may take up to 6 months for symptoms to improve, will check testosterone levels when I see her back. Can call for po testosterone in oil if doesn't like patch (from [facility]). 4. Will schedule AP repair probable TVT (depending on results of urodynamics) at the time of urodynamic testing. Total encounter time was 30 minutes with 25 minutes of counseling regarding HRT, libido, pelvic organ prolapse, stress incontinence, documented in this encounter Nursing Notes 03/18/2006 8:15 AM CDT >> LIZBETH LEBLANC 03/18/2006 8:26 am Talk regarding testosterone documented in this encounter Plan of Treatment Not on filedocumented as of this encounter Visit Diagnoses Diagnosis Rheumatoid arthritis(714.0) - Primary Rheumatoid arthritis Cystocele, midline Rectocele Symptomatic menopausal or female climact brianna states Female stress incontinence documented in this encounter
--- OUTSIDE RECORDS SUMMARY | 2022-09-22 13:38 | XMS_ITS | Clinical Summary ---
:1965 Author Organization [place] Address [address] [place] [address]. [place] [address] Care Team Providers Name Role Phone Frw, None Unavailable Unavailable Clinic, [facility] Primary Care Provider Allergies Active Allergy Reactions Severity Noted Date Comments Adalimumab Headache 06/26/2020 Etanercept Headache 12/24/2014 PN: Headaches Infliximab Headache 06/26/2020 Methotrexate Itching 04/12/2018 Morphine GI Disturbance 05/24/2006 Nausea and vo miting Prednisone Other (See Comments) 09/30/2016 Pregabalin Headache 12/24/2014 PN: Headache, b rain fogginess Medications Medication Sig Dispensed Refills Start End Status Date Date TYLENOL ARTHRITIS EXT 2 TABLETS 0 Active RELIEF 650 MG OR TBCR EVERY 8 HOURS NEEDED diphenhydrAMINE-acetam Take 2 0 Active inophen (TYLENOL PM) tablets by 25-500 MG tablet mouth nightly as needed Magnesium Oxide 500 MG Take by 0 Active TABS mouth 2 times daily multivitamin Take 1 0 Active w/minerals tablet by (THERA-VIT-M) tablet mouth daily NONFORMULARY daily Lemon 0 Activ e [place] SUMAtriptan (IMITREX) Take by 0 Active 25 MG tablet mouth at onset of headache for migraine Not sure of dose oxyCODONE-acetaminophe Take 1 0 Active n (PERCOCET) 7.5-325 tablet by MG per tablet mouth every 6 hours as needed for severe pain Up to 4 times per day as needed TRAZODONE HCL PO Take 100 mg 0 A ctive by mouth nightly as needed for sleep NONFORMULARY daily 0 Active Medical Cannibus THC (liquid), CBD (pills) acetaminophen Take 2 50 tablet 0 09/07/20 Active (TYLENOL) 325 MG tablets (650 22 tabletIndications: mg) by mouth Cervical radiculopathy every 4 hours as needed for mild pain oxyCODONE (ROXICODONE) Take 1-2 26 tablet 0 09/07/20 Active 5 MG tablets 22 tabletIndications: (5-10 mg) by Cervical radiculopathy mouth every 4 hours as needed for moderate to severe pain hydrOXYzine (ATARAX) Take 1 30 tablet 0 09/07/20 Active 25 MG tablet (25 22 tabletIndications: mg) by mouth Cervical radiculopathy every 6 hours as needed for itching (and nausea) senna-docusate Take 1 30 tablet 0 09/07/20 Activ e (SENOKOT-S/PERICOLACE) tablet by 22 8.6-50 MG mouth daily tabletIndications: Cervical radiculopathy methocarbamol Take 1 60 tablet 0 09/07/20 Active (ROBAXIN) 750 MG tablet (750 22 tabletIndications: mg) by mouth Cervical radiculopathy every 6 hours as needed for muscle spasms (muscle spasm) gabapentin (NEURONTIN) Take two 45 capsule 0 09/07/20 Active 300 MG capsules by 22 capsuleIndications: mouth at Cervical radiculopathy bedtime first night, then increase to three capsules by mouth at bedtime second night and following nights REMICADE 100 MG IV 400mg every 0 Discontinued SOLR six weeks 022 (Medicatio n Reconcilia tion Clean Up) WELLBUTRIN SR## 150 MG 1 TABLET 0 Discontinued OR TB12 TWICE DAILY 022 (Medicat ion Reconcilia tion Clean Up) AMITRIPTYLINE HCL 10 1/2 tablet 0 Discontinued MG OR TABS daily 022 (Medicati on Reconcilia tion Clean Up) HYDROXYCHLOROQUINE 2 tablets 0 D iscontinued SULFATE 200 MG OR TABS daily 022 (Medication Reconcilia tion Clean Up) FELDENE 20 MG OR CAPS 2 capsules 0 Discontinued daily 022 (Medicatio n Reconcilia tion Clean Up) METHOTREXATE SODIUM 10 one tablet 0 Discontinued MG OR TABS weekly 022 (Medicati on Reconcilia tion Clean Up) VALIUM 10 MG OR TABS 1 or 2 0 Discontinued tablets 022 (Medicatio n before IV Reconcilia tion starts Clean Up) VICODIN 5-500 MG OR 1-2 tablets 40 1 05/26/20 Discontinued TABS every 6 hrs 06 022 (Medicat ion as needed Reconcilia tion for pain Clean Up) TESTOSTERONE 2.5 one patch Q 1 month 6 08/17/20 D iscontinued MG/24HR TD PT24 48 hrs, 06 022 (Med ication Women's Reconcilia tion Health Clean Up) [facility] [phone] VIVELLE 0.05 MG/24HR 1 PATCH 1 month 1 10/02/20 Discontinued TD PTTW TWICE WEEKLY 07 022 (Medica tion Reconcilia tion Clean Up) celecoxib (CELEBREX) Take 100 mg 0 05/08/20 Discontinued 100 MG capsule by mouth 2 (Sto p at times daily Discharg e) Active Problems Problem Noted Date Rheumatoid arthritis 03/18/2006 Overview: Problem list name updated by allan jessica. Provider to review Female stress incontinence 03/18/2006 Rectocele 03/18/2006 Cystocele, midline 03/18/2006 Encounters Date Type Specialty Care Team Description 09/07/2022 Anesthesia Event Surgery Monty Laughlin MD Lehnhoff, Sounally Phollurxa, [employer]UR[employer] SALES AND SERVICE ADVISOR 09/07/2022 Surgery Surgery Abi, 1. Anterio r cervical Andreas Hull MD decompression, C5-C6. 2. Anterior cer vical fusion, C5-C6. 3. Anterior instrumentation , C5-C6. 4. Place ment of titanium interb neal graft, C5-C6. 09/07/2022 - Hospital Encounter Orthopedics Abi, Cerv ical radiculopathy 09/08/2022 Andreas Hull MD (Primary Dx) 09/07/2022 Travel 08/25/2022 Travel 08/25/2022 Orders Only Lab Abi, Pre-operat barry Hull MD laboratory exam ination (Primary Dx) from Last 3 Months Family History Medical History Relation Comments Hypertension Father Relation Status Comments Father Social History Tobacco Use Types Packs/Day Years Used Date Smoking Tobacco: Never Smokeless Tobacco: Never Tobacco Cessation: Counseling Given: Not Answered Comments: Vape pen for cannibus Alcohol Use Standard Drinks/Week Comments Not Currently 0 (1 standard drink = 0.6 oz pure alcoho l) Sex Assigned at Date Recorded Female 08/31/2022 2:31 PM LEAD CUSTODIAN Travel History Travel Start Travel End [place] 07/25/2022 08/25/2022 COVID-19 Exposure Response Date Recorded In the last 10 days, have you been in contact No / Unsure 09/07/2022 12:38 PM LEAD CUSTODIAN with someone who was confirmed or suspected to have Coronavirus/COVID-19? Last Filed Vital Signs Vital Sign Reading Time Taken Comments Blood Pressure 100/61 09/08/2022 7:26 AM LEAD CUSTODIAN Pulse 60 09/08/2022 7:26 AM LEAD CUSTODIAN Temperature 36.7 ??C (98 ??F) 09/08/2022 7:26 AM LEAD CUSTODIAN Respiratory Rate 13 09/08/2022 7:26 AM LEAD CUSTODIAN Oxygen Saturation 98% 09/08/2022 7:26 AM LEAD CUSTODIAN Inhaled Oxygen Concentration - - Weight 65.9 kg (145 lb 4.8 oz) 09/07/2022 1:10 PM LEAD CUSTODIAN Height 165.1 cm (5' 5) 08/25/2022 1:00 PM LEAD CUSTODIAN Body Mass Index 24.18 08/25/2022 1:00 PM LEAD CUSTODIAN Plan of Treatment Health Maintenance Due Date Last Done Comments ADVANCE CARE PLANNING 1965 ANNUAL REVIEW OF HM ORDERS 1966 CT COLONOGRAPHY 1966 FIT-DNA (Cologuard) 1965 FIT 1965 FLEX SIG 1965 COVID-19 Vaccine (#1) 02/12/1967 COLONOSCOPY 1976 COLORECTAL CANCER SCREENING 1976 HIV SCREENING 1981 HEPATITIS C SCREENING 1984 PAP 1987 YEARLY PREVENTIVE VISIT 09/12/2007 09/12/2006 MAMMO SCREENING 09/12/2008 09/12/2006, 09/12/2006 LIPID 2011 ZOSTER IMMUNIZATION (1 of 2016 2) HEPATITIS B IMMUNIZATION (2 04/25/2018 03/28/2018 of 3 - 3-dose series) PHQ-2 (once per calendar 10/17/2021 year) INFLUENZA VACCINE (#1) 2022 07/13/2018, 07/16/2013, 07/24/2012, Additional history exists DTAP/TDAP/TD IMMUNIZATION 08/21/2030 08/21/2020, 06/12/2009 , (4 - Td or Tdap) 07/18/2006 Pneumococcal Vaccine: Aged Out 07/13/2018 No longer eligible Pediatrics (0 to 5 Years) based on patient's age and At-Risk Patients (6 to to co mplete this topic 64 Years) IPV IMMUNIZATION Aged Out No longer eligi ble based on patient 's age to complete this topic MENINGITIS IMMUNIZATION Aged Out No longe r eligible based on patient 's age to complete this topic Medical Devices Implanted Type Area Fancy Packer Device Shelf Model / Identifier Expiration Serial / Date Lot Graft Bone Putty Nancy Dbm 1ml [id number] - [id number] Bone/Tissu e N/A: Spine [employer] [id number] 06/19/2025 [id number] / Implanted: Qty: 1 on 09/07/2022 by Andreas Bui MD at [facility] /Biologic Cervical [id number] / Imp Scr Medt Zevo 3.5x15mm Sd Va [id number] - [id number] Metallic N/A: Spine [employer] [id number] / Implanted: Qty: 4 on 09/07/2022 by Andreas Bui MD at [facility] Hardware/An Cervical / chor [id number] 2021 Procedures Procedure Name Priority Date/Time Associated Comments Diagnosis XR SURGERY ASHLEY Routine 09/07/2022 5:20 PM Result s for this FLUORO LESS THAN 5 LEAD CUSTODIAN procedure are in MIN W STILLS the results section. ANE AIRWAY ETT Routine 09/07/2022 3:49 PM Results for this PERFORMABLE LEAD CUSTODIAN procedure are i n the results section. DECOMPRESSION, SPINE, 09/07/2022 3:22 PM Stenosis, spi nal, CERVICAL, 1 LEVEL, LEAD CUSTODIAN lumbar ANTERIOR APPROACH, WITH FUSION Special Needs Spinal Cord Simulator, Medtr onic (pt to bring controller)[facility] CARDIAC - HIM SCAN 09/02/2022 12:00 AM LEAD CUSTODIAN from Last 3 Months Results XR Surgery ASHLEY L/T 5 Min Fluoro w Stills (09/07/2022 5:20 PM LEAD CUSTODIAN) Specimen (Source) Anatomical Location Collection Method / Collectio n Time Received Time / Laterality Volume Jose KELLEY - 09/07/2022 5:21 PM LEAD CUSTODIAN This exam was marked as non-reportable because it will not be read by a radiologist or a [place] non-radiologis t provider. Andreas Alex MD IMG DIAGNOSTIC IMAGING ORD ERABLES Performing Organization Address City/State/ZIP Code Phon e Number RADIANT ANE AIRWAY ETT PERFORMABLE (09/07/2022 3:49 PM LEAD CUSTODIAN) Narrative Mitch Holland APRN SALES AND SERVICE ADVISOR - 09/07/2022 3:49 PM LEAD CUSTODIAN Mitch Holland APRN SALES AND SERVICE ADVISOR ? 09/07/2022 ??4:04 PM Airway ? Patient location during procedure : OR ? Procedure Start/Stop Times: 09/07 3:49 PM Staff - ? SALES AND SERVICE ADVISOR: Mitch Holland APRN SALES AND SERVICE ADVISOR ? Performed By: SALES AND SERVICE ADVISOR Consent for Airway ? Urgency: elective Indications and Patient Condition ? Indications for airway management : luanne-procedural ? Induction type:intravenous ? Mask difficulty assessment: 1 - v ent by mask Final Airway Details ? Final airway type: endotracheal a irway ? Successful airway: ETT - single Endotracheal Airway Details ? ETT size (mm): 7.0 ? Cuffed: yes ? Cuff volume (mL): 4 ? Successful intubation technique: video laryngoscopy ? VL Blade Size: Glidescope 3 ? Grade View of Cords: 1 ? Adjucts: stylet ? Position: Right ? Measured from: lips ? Secured at (cm): 21 ? Bite block used: Soft Post intubation assessment ? Placement verified by: capnometry ? Number of attempts at approach: 1 ? Number of other approaches attemp neymar: 0 ? Secured with: plastic tape ? Ease of procedure: easy ? Dentition: Intact and Unchanged Medication(s) Administered Medication Administration Time: 09/07/20 3:49 PM Additional Comments ? DL not attempted; Glidescope used d/t patient having c-spine surgery Mercedes Ortega MD DC ANESTHESIA EKG CARDIAC - HIM SCAN (09/02/2022 12:00 AM LEAD CUSTODIAN) Specimen (Source) Anatomical Location Collection Method / Collectio n Time Received Time / Laterality Volume 09/02/2022 Narrative This result has an attachment that is no t available. Provider Outside ECG ORDERABLES from Last 3 Months Insurance Payer Benefit Plan / Subscriber ID Effective Dates Phone Addre ss Type Group MEDICA MEDICA CHOICE [id number] 2006-Present [phone] [address] [address] [facility] [place] [address] [facility] PMAP [id number] 2021-Present [phone] [address] [place] [address] RUKHSANA MANZO [facility] 1965 [phone] [address] (Home) [facility] [phone] [place], [place] (Work) [address] Advance Directives For more information, please contact: [phone] Latest Code Status on File Code Status Date Activated Date Inactivated Comments Full Code 09/07/2022 7:56 PM 09/08/2022 1:01 PM All basic and advanced life-sustaining interventions are performed as telly ropriate Question Answer Comments Code status determined by: Discussion with patient/ legal de cision maker Care Teams Supervisor Costuming Relationship Specialty Start Date End Date Frw, None PCP - Family Practice 12/31/11 Obstetrics/Gynecology ClinicSarah PCP - General 09/07/[address] [address]
--- OUTSIDE RECORDS SUMMARY | 2022-09-22 13:38 | XMS_ITS | Encounter Summary ---
:1965 Author Organization [place] Address [address] [place] [address]. [place] [address] Care Team Providers Name Role Phone Polly Ashford MD Unavailable Reason for Visit Reason Comments Physical Encounter Details Date Type Department Care Team Description 09/12/[address] [facility] Polly Ashford HEADING MACHINE OPERATOR System in Jean Ortiz MD EXAMINATION (Primary FLOOR FINISHER HELPER [facility] Dx) [address] [facility] [place], [place] [address] [address] [place], [place] [id number] (Wo rk) Social History Tobacco Use Types Packs/Day Years Used Date Smoking Tobacco: Never Alcohol Use Standard Drinks/Week Comments Yes 0 (1 standard drink = 0.6 oz pure alcoho l) Sex Assigned at Date Recorded Female 08/31/2022 2:31 PM HEAD BOYS TENNIS COACH Travel History Travel Start Travel End [place] 07/25/2022 08/25/2022 documented as of this encounter Last Filed Vital Signs Vital Sign Reading Time Taken Comments Blood Pressure 108/72 09/12/2006 9:00 AM HEAD BOYS TENNIS COACH Pulse - - Temperature - - Respiratory Rate - - Oxygen Saturation - - Inhaled Oxygen Concentration - - Weight 87 kg (191 lb 12.8 oz) 09/12/2006 9:00 AM HEAD BOYS TENNIS COACH Height 168.3 cm (5' 6.25) 09/12/2006 9:00 AM HEAD BOYS TENNIS COACH Body Mass Index 30.72 09/12/2006 9:00 AM HEAD BOYS TENNIS COACH documented in this encounter Progress Notes Polly Ashford - 09/12/2006 9:43 AM CST Rukhsana is a 41 year old here for her annual exam. Obstetric History T3 P0 TAB0 SAB1 E0 M0 L3 using hysterectomy for contraception. Principal Cloud Architect HX: no abnormal paps. HPI: Had John and gastric banding in July. PAST MEDICAL HISTORY: Past Medical History Diagnosis Date ??? RHEUMATOID ARTHRITIS ??? ALLERGY, UNSPECIFIED seasonal allergies ??? ESOPHAGEAL REFLUX ??? POSTOP VAGINAL PROLAPSE 05/26/06 Hospitalized PAST SURGICAL HISTORY: Past Surgical History Procedure Date ??? Hysterectomy, vaginal TVH,BSO ??? Rw other (abstracted) diagnostic laparoscopy ??? Rw other (abstracted) sinus surgery x3 ??? Rw other (abstracted) bilateral breast implants ??? Combined ant/post colporrhaphy 05/25/06 ??? Sling oper stres incontinence 05/25/06 CURRENT MEDICATIONS: Current outpatient prescriptions Medication Sig ??? TESTOSTERONE 2.5 MG/24HR TD PT24 one patch Q 48 hrs, [facility] [phone] ??? VICODIN 5-500 MG OR TABS 1-2 tablets every 6 hrs as needed for pain ??? VALIUM 10 MG OR TABS 1 or 2 tablets before IV starts ??? TYLENOL ARTHRITIS EXT RELIEF 650 MG OR TBCR 2 TABLETS EVERY 8 HOURS NEEDED ??? AMITRIPTYLINE HCL 10 MG OR TABS 1/2 tablet daily ??? HYDROXYCHLOROQUINE SULFATE 200 MG OR TABS 2 tablets daily ??? METHOTREXATE SODIUM 10 MG OR TABS one tablet weekly ??? REMICADE 100 MG IV SOLR 400mg every six weeks ??? WELLBUTRIN SR## 150 MG OR TB12 1 TABLET TWICE DAILY ??? VIVELLE 0.05 MG/24HR TD PTTW 1 PATCH TWICE WEEKLY ??? FELDENE 20 MG OR CAPS 2 capsules daily ALLERGIES: Morphine FAMILY HX: Family History Problem Relation ??? Hypertension Father ROS: REVIEW OF SYSTEMS: NEUROLOGIC: Negative, has longstanding headaches, frontal, on amityrptiline EYES: Negative ENT: Negative GI: Negative, GERD better after John BREAST: Negative : Negative HEADING MACHINE OPERATOR: Negative, occ has some dyspareunia, needs some lube CV: Negative PULMONARY: Negative MUSCULOSKELETAL: Negative PSYCH: Negative SOCIAL HISTORY: History Social History ??? Marital Status: Spouse Name: Kobe Number of Children: 3 ??? 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 Tobacco Use: Never ??? Alcohol Use: Yes ??? Drug Use: Not on file ??? Sexually Active: Yes -- Male partner(s) Control/ Protection: Surgical Other Topics Concern ??? Caffeine No ??? Exercise No ??? Seat Belt Yes ??? Self Exams No Social History Narrative ??? No narrative on file HEALTH HABITS: calcium intake adequate, last dT < 10 yrs, last lipids never done, last mammogram jaxson be today (first), last pap N/A and was normal PHYSICAL EXAM: This is a well-developed, well-nourished female in no apparent distress. ENT: ENT exam normal, no neck nodes or sinus tenderness. NECK: Supple, no adenopathy and thyroid normal. LUNGS: Normal - CTA without rales, rhonchi, or wheezing.. HEART: Regular rate, rhythm and No murmur, rub, gallop. BREASTS: fibrocystic in nature, status post augmentation mammoplasty. ABDOMEN: Benign, Soft, flat, non-tender, No masses, organomegaly and No inguinal nodes. PELVIC EXAM: Lymph: no enlarged groin nodes External genitalia: normal development, normal BUS, no lesions Perineum: normal skin, no lesions, good support Urethra meatus: normal , no lesion or caruncle Urethra: normal, nontender Bladder: nontender, no masses, not enlarged Vagina:normal mucosa and ruggae, no lesions not atrophic Cervix:surgically abscent Uterus: surgically abscent Adnexa: not palpable RV: not indicated Rectum: no hemorrhoids, no bleeding EXTREMITIES: Normal. NEUROLOGIC: Normal. SKIN: scattered benign nevi ASSESSMENT AND PLAN: Annual Principal Cloud Architect exam status post TVH, AP repair, TVT. 2. status post gastric bypass, John, doing well post op, has lost about 30 pounds. 3. HRT-doing well on vivelle and testosterone. Has only been on testosterone for 4-5 months, has't noticed a big difference yet. Advised can take up to 6 months to notice improvement 4. Deep dyspareunia-pushing on apex reproduces pain-no granulation tissue seen. Try dilator Health maintenance includes: fasting lipid profile, mammogram. BOYS TENNIS COACH documented in this encounter Plan of Treatment Not on filedocumented as of this encounter Visit Diagnoses Diagnosis Routine gynecological examination - Prim brennan documented in this encounter Care Teams Superintendent Division Relationship Specialty Start Date End Date Polly Ashford MD PCP - Obstetrics/Gynecology 05/05/0612/29 documented as of this encounter
--- OUTSIDE RECORDS SUMMARY | 2022-09-22 13:38 | XMS_ITS | Encounter Summary ---
:1965 Author Organization [place] Address [address] [place], [place] [address]. [place] [address] Care Team Providers Name Role Phone Frw, None Unavailable Unavailable Clinic, [facility] Primary Care Provider [phone] Encounter Details Date Type Department Care Team Description 08/25/2022 Orders Only [facility] Abi, Pre-o [facility] Laboratory Andreas Hull MD laboratory examination [address] [facility] ([facility] [place], [place] [facility] [id number] [phone] [place] [address] Social History Tobacco Use Types Packs/Day Years Used Date Smoking Tobacco: Never Smokeless Tobacco: Never Comments: Vape pen for cannibus Alcohol Use Standard Drinks/Week Comments Not Currently 0 (1 standard drink = 0.6 oz pure alcoho l) Sex Assigned at Date Recorded Female 08/31/2022 2:31 PM CYBER INCIDENT HANDLER Travel History Travel Start Travel End [place] 07/25/2022 08/25/2022 COVID-19 Exposure Response Date Recorded In the last 10 days, have you been in contact with No / Unsu re 08/25/2022 11:54 AM CYBER INCIDENT HANDLER someone who was confirmed or suspected to have Coronavirus/COVID-19? documented as of this encounter Plan of Treatment Scheduled Orders Name Type Priority Associated Diagnoses Order S chedule Asymptomatic COVID-19 Virus Lab Routine Pre-operative laboratory Expected: 08/25/2022 (Coronavirus) by PCR examination (Approx imate), Nasopharyngeal Expires: 120 06/2022 documented as of this encounter Visit Diagnoses Diagnosis Pre-operative laboratory examination - P rimary Pre-procedural laboratory examination documented in this encounter Care Teams Gas Meter Repairer Relationship Specialty Start Date End Date Frw, None PCP - Family Practice 12/31/11 Obstetrics/Gynecology ClinicSarah PCP - General 09/07/[address] [address] documented as of this encounter
--- OUTSIDE RECORDS SUMMARY | 2022-09-22 13:38 | XMS_ITS | Encounter Summary ---
:1965 Author Organization [facility] Address [address] [place] [address]. [place] [address] Care Team Providers Name Role Phone Polly Ashford MD Unavailable Reason for Visit Reason Comments HOSP D/C TVT, AP repair Encounter Details Date Type Department Care Team Description 05/26/2006 Orders Only [facility] Diana Ashford, in [place] SKIVING MACHINE OPERATOR [address] [facility] [place] [address] [address] [phone] [place], [place] [address] (Wo rk) Social History Tobacco Use Types Packs/Day Years Used Date Smoking Tobacco: Never Alcohol Use Standard Drinks/Week Comments Yes 0 (1 standard drink = 0.6 oz pure alcoho l) Sex Assigned at Date Recorded Female 08/31/2022 2:31 PM 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
--- OUTSIDE RECORDS SUMMARY | 2022-09-22 13:38 | XMS_ITS | Encounter Summary ---
:1965 Author Organization [facility] Address [address] [place] [address]. [place] [address] Care Team Providers Name Role Phone Frw, None Unavailable Unavailable Clinic, [facility] Primary Care Provider [phone] Reason for Visit Auth/Cert (Routine) Specialty Diagnoses / Procedures Referred By Contact Refer red To Contact Surgery Diagnoses Stenosis, spinal, lumbar Stenosis, spinal, lumbar [M48.061] Periop Services Procedures PERC LAMINO-/LAMINECTOMY INDIR IMAG GUIDE LUMBAR ZZC ARTHRODESIS ANT INTERBODY INC DISCECTOMY, CERVICAL BELOW C2 CERVICAL 5- CERVICAL 6 ANTERIOR CERVICAL DISCECTOMY AND FUSION [address] [place], [place] [address] Phone: Fax: Referral ID Status Reason Start Date Expiration Date Visits Requ ested Visits Authorized [id number] 1 1 Encounter Details Date Type Department Care Team Description 09/07/2022 Anesthesia Event [facility] Monty Casas MD [facility] ANESTHESIA [address] [facility] [address] [place] [address] PeriOp Services Mitch Holland APRN CRNA [facility] ANESTHESIA [address] [place], [place] [id number] [address] [place] [address] Anesthesia Record Procedure Summary Procedure Name Responsible Anesthesia Start Anesthesia Stop Time Anesthesiologist Time 1. Anterior Monty Laughlin MD 09/07/22 1538 09/07 1806 cervical decompression, C5-C6. 2. Anterior cervical fusion, C5-C6. 3. Anterior instrumentation, C5-C6. 4. Placement of titanium interbody graft, C5-C6. (Bilateral: Spine) Events Date Time Event Comment 09/07/2022 1426 1510 CHECK PILOT Ready for Procedure 1538 An Start 1542 AN REASSESS I attest that I have identified and re-evaluated the patient immediately before the induction of anesthesia and I am satisfied that t he anesthetic plan is suitable for the patient's condition and procedure. The f irst vital signs recorded are pre- inducti on. Mitch Holland APRN CHECK PILOT 1542 An Start Data 1546 An Induction 1546 MD Present 1549 An Intubation 1550 MD Present 1643 MD Present 1730 MD Present 1740 MD Present 1754 AN Extubation All extubation c riteria met prior to removal. 1756 an stop data 1757 MD Present 1803 Present 1806 An Stop Electronically s igned by Giovany Hernandez APRN CHECK PILOT on September 07, 2022 6:06 PM Name Total midazolam 1 mg/mL 2 mg fentaNYL 50 mcg/mL 200 mcg propofol 10 mg/mL 200 mg propofol infusion (mcg/kg/min) 348.48 mg rocuronium 10 mg/mL 50 mg glycopyrrolate 0.2 mg/mL 0.4 mg neostigmine 1 mg/mL 3 mg ondansetron 2 mg/mL 4 mg dexamethasone (DECADRON) 4 mg/mL 8 mg HYDROmorphone 1 mg/mL 1 mg phenylephrine (RIP-SYNEPHRINE) injection 200 mcg lidocaine 1 % 0.1-1 mL 5 mL ceFAZolin Sodium (ANCEF) injection 2 g 2 g lactated ringers infusion 1,000 mL Agents Name NO HELIOX O2 N2O Air Exp Sevoflurane Exp Isoflurane Exp Desflurane Exp N2O Ins Sevoflurane Ins Isoflurane Ins Desflurane O2 Auxiliary Blood No blood administrations on file. Lines, Drains, and Airways Type Details Placement Removal Incision/Surgical Site 09/07/22; 1615; Neck 09/07/22 1615 by Liz Brown RN Peripheral IV 09/07/22; 1427; 22 G; 09/07/22 1427 by 09/08/22 0957 by Left; Hand; Estebo, Ronel, Laura Burden, Chlorhexidine; None; RN Tolerated well ETT Placement Date: 09/07/22 154 by 09/07/22 175 b y 09/07/22; Placement LuizdannieMitch Kyl e S, APRN Time: 1549 (created Phollur[employer], GEOGRAPHIC INFORMATION SYSTEM SURVEYOR CHECK PILOT CHECK PILOT via procedure documentation); Mask Ventilation: 1; Induction Type: Intravenous; Ease of Intubation: Easy; Technique: Video laryngoscopy; ETT Type: Single; Tube Size: 7 mm; VL Blade Size: [place] scope 3; Grade View: 1; Adjucts: Stylet; Placement Person: CHECK PILOT; Attempts: 1; Depth: 21 cm Closed/Suction Drain 09/07/22; 1716; 1; 09/07/221716 by 2 0620 by Anterior, Left; Neck; Rebecca Eisenberg, Pao Stringer, Bulb; 7 Qatari RN documented in this encounter Social History Tobacco Use Types Packs/Day Years Used Date Smoking Tobacco: Never Smokeless Tobacco: Never Comments: Vape pen for cannibus Alcohol Use Standard Drinks/Week Comments Not Currently 0 (1 standard drink = 0.6 oz pure alcoho l) Sex Assigned at Date Recorded Female 08/31/2022 2:31 PM ELECTRIC VEHICLE ELECTRICIAN Travel History Travel Start Travel End [place] 07/25/2022 08/25/2022 COVID-19 Exposure Response Date Recorded In the last 10 days, have you been in contact No / Unsure 09/07/2022 12:38 PM ELECTRIC VEHICLE ELECTRICIAN with someone who was confirmed or suspected to have Coronavirus/COVID-19? documented as of this encounter OR Notes Anesthesia Postprocedure Evaluation - Markos Madrigal MD - 09/07/2022 7:08 PM CST Patient: Rukhsana Manzo Procedure: Procedure(s): CERVICAL 5- CERVICAL 6 ANTERIOR CERVICAL DISCECTOMY AND FUSION Anesthesia Type: General Note: Postop Pain Control: Uneventful Sign Out: Well controlled pain PONV: No Neuro/Psych: Uneventful Sign Out: Acceptable/Baseline neuro status Airway/Respiratory: Uneventful Sign Out: Acceptable/Baseline resp. status CV/Hemodynamics: Uneventful Sign Out: Acceptable CV status Other NRE: NONE DID A NON-ROUTINE EVENT OCCUR? No Last vitals: Vitals Value Taken Time BP 125/80 09/07/22 1905 Temp 99.1 ??F (37.3 ??C) 09/07/22 1851 Pulse 70 09/07/22 1907 Resp 14 09/07/22 1907 SpO2 96 % 09/07/22 190 Vitals shown include unvalidated device data. Electronically Signed By: Markos Madrigal MD September 07, 2022 7:08 PM TRIC VEHICLE ELECTRICIAN Anesthesia Postprocedure Evaluation - Monty Laughlin MD - 09/07/2022 6:11 PM CST Patient: Rukhsana Manzo Procedure: Procedure(s): CERVICAL 5- CERVICAL 6 ANTERIOR CERVICAL DISCECTOMY AND FUSION Anesthesia Type: General Note: Disposition: Admission Postop Pain Control: Uneventful Sign Out: Well controlled pain PONV: No Neuro/Psych: Uneventful Sign Out: Acceptable/Baseline neuro status Airway/Respiratory: Uneventful Sign Out: Acceptable/Baseline resp. status CV/Hemodynamics: Uneventful Sign Out: Acceptable CV status Other NRE: NONE DID A NON-ROUTINE EVENT OCCUR? No Last vitals: Vitals Value Taken Time BP 161/95 09/07/22 1800 Temp Pulse 84 09/07/22 1810 Resp 14 09/07/22 1810 SpO2 97 % 09/07/22 181 Vitals shown include unvalidated device data. Electronically Signed By: Monty Laughlin MD September 07, 2022 6:11 PM TRIC VEHICLE ELECTRICIAN Anesthesia Procedure Notes - Mitch Holland APRN CRNA - 09/07/2022 4:03 PM CSTAssociated Order(s): Airway Airway Patient location during procedure: OR Procedure Start/Stop Times: 09/07/2022 3:49 PM Staff - CHECK PILOT: Mitch Holland APRN CHECK PILOT Performed By: CHECK PILOT Consent for Airway Urgency: elective Indications and Patient Condition Indications for airway management: luanne-procedural Induction type:intravenous Mask difficulty assessment: 1 - vent by mask Final Airway Details Final airway type: endotracheal airway Successful airway: ETT - single Endotracheal Airway Details ETT size (mm): 7.0 Cuffed: yes Cuff volume (mL): 4 Successful intubation technique: video laryngoscopy VL Blade Size: Glidescope 3 Grade View of Cords: 1 Adjucts: stylet Position: Right Measured from: lips Secured at (cm): 21 Bite block used: Soft Post intubation assessment Placement verified by: capnometry Number of attempts at approach: 1 Number of other approaches attempted: 0 Secured with: plastic tape Ease of procedure: easy Dentition: Intact and Unchanged Medication(s) Administered Medication Administration Time: 09/07/2022 3:49 PM Additional Comments DL not attempted; Glidescope used d/t patient having c-spine surgery TRIC VEHICLE ELECTRICIAN Anesthesia Preprocedure Evaluation - Ed Laurent DO - 09/07/2022 2:24 PM CST Anesthesia Pre-Procedure Evaluation Patient: Rukhsana Manzo : 1965 Procedure : Procedure(s): CERVICAL 5- CERVICAL 6 ANTERIOR CERVICAL DISCECTOMY AND FUSION Past Medical History: Diagnosis Date ??? Allergy, unspecified not elsewhere classified seasonal allergies ??? Arthritis ??? 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 Rheumatoid arthritis(714.0) Past Surgical History: Procedure Laterality Date ??? ABDOMEN SURGERY 2007 gastric bypass ??? HC SLING OPERATION FOR STRESS INCONTINENCE 05/25/2006 ??? HYSTERECTOMY, VAGINAL TVH,BSO ??? ORTHOPEDIC SURGERY Left foot surgery and facia release ??? RW OTHER (ABSTRACTED) diagnostic laparoscopy ??? RW OTHER (ABSTRACTED) sinus surgery x3 ??? RW OTHER (ABSTRACTED) bilateral breast implants ??? ZZC COMBINED ANT/POST COLPORRHAPHY 05/25/2006 Allergies Allergen Reactions ??? Adalimumab Headache ??? Etanercept Headache PN: Headaches ??? Infliximab Headache ??? Methotrexate Itching ??? Morphine GI Disturbance Nausea and vomiting ??? Prednisone Other (See Comments) ??? Pregabalin Headache PN: Headache, brain fogginess Social History Tobacco Use ??? Smoking status: Never ??? Smokeless tobacco: Never ??? Tobacco comments: Vape pen for cannibus Substance Use Topics ??? Alcohol use: Not Currently Wt Readings from Last 1 Encounters: 09/07/22 65.9 kg (145 lb 4.8 oz) Anesthesia Evaluation ROS/MED HX ENT/Pulmonary: - neg pulmonary ROS Neurologic: - neg neurologic ROS Cardiovascular: (+) -----valvular problems/murmurs Murmur without limitations. METS/Exercise Tolerance: Hematologic: - neg hematologic ROS Musculoskeletal: (+) arthritis, GI/Hepatic: Comment: IBS (+) GERD, Renal/Genitourinary: - neg Renal ROS Endo: - neg endo ROS Psychiatric/Substance Use: Comment: ADHD (+) psychiatric history depression Infectious Disease: - neg infectious disease ROS Malignancy: - neg malignancy ROS Other: Physical Exam Airway Mallampati: II Neck ROM: full Respiratory Devices and Support Dental Cardiovascular cardiovascular exam normal Rhythm and rate: regular Pulmonary pulmonary exam normal OUTSIDE LABS: CBC: Lab Results Component Value Date HGB 11.7 05/26/2006 HGB 11.9 05/25/2006 BMP: No results found for: NA, POTASSIUM, CHLORIDE, CO2, BUN, CR, GLC COAGS: No results found for: PTT, INR, FIBR POC: No results found for: BGM, HCG, HCGS HEPATIC: No results found for: ALBUMIN, PROTTOTAL, ALT, AST, GGT, ALKPHOS, BILITOTAL, BILIDIRECT, ANTOINETTE OTHER: No results found for: PH, LACT, A1C, JOYCELYN, PHOS, MAG, LIPASE, AMYLASE, TSH, T4, T3, CRP, SED Anesthesia Plan ASA Status: 2 Anesthesia Type: General. - Airway: ETT Induction: Intravenous, Propofol. Maintenance: Balanced. Techniques and Equipment: - Airway: Video-Laryngoscope Consents Anesthesia Plan(s) and associated risks, benefits, and realistic alternatives discussed. Questions answered and patient/entry level account representative(s) expressed understanding. - Discussed: - Discussed with: Patient Postoperative Care Pain management: IV analgesics, Oral pain medications, Multi-modal analgesia. PONV prophylaxis: Ondansetron (or other 5HT-3), Dexamethasone or Solumedrol Comments: Ed Laurent DO TRIC VEHICLE ELECTRICIAN documented in this encounter Miscellaneous Notes Anesthesia Care Transfer Note - Giovany Hernandez APRN CRNA - 09/07/2022 6:06 PM ELECTRIC VEHICLE ELECTRICIAN Patient: Rukhsana Manzo Procedure: Procedure(s): CERVICAL 5- CERVICAL 6 ANTERIOR CERVICAL DISCECTOMY AND FUSION Diagnosis: Stenosis, spinal, lumbar [M48.061] Diagnosis Additional Information: No value filed. Anesthesia Type: General Note: Oropharynx: oropharynx clear of all foreign objects Level of Consciousness: awake Oxygen Supplementation: face mask Level of Supplemental Oxygen (L/min / FiO2): 6 Independent Airway: airway patency satisfactory and stable Dentition: dentition unchanged Vital Signs Stable: post-procedure vital signs reviewed and stable Report to RN Given: handoff report given Patient transferred to: PACU Handoff Report: Identifed the Patient, Identified the Reponsible Provider, Reviewed the pertinent medical history, Discussed the surgical course, Reviewed Intra-OP anesthesia mangement and issues during anesthesia, Set expectations for post-procedure period and Allowed opportunity for questions and acknowledgement of understanding Vitals: Vitals Value Taken Time BP 161/95 09/07/22 1800 Temp 37 Pulse 79 09/07/22 1805 Resp 19 09/07/22 1805 SpO2 100 % 09/07/22 1805 Vitals shown include unvalidated device data. Electronically Signed By: Giovany Hernandez APRN CRNA September 07, 2022 6:06 PM TRIC VEHICLE ELECTRICIAN documented in this encounter Plan of Treatment Not on filedocumented as of this encounter Procedures Procedure Name Priority Date/Time Associated Comments Diagnosis ANE AIRWAY ETT Routine 09/07/2022 3:49 PM Results for this PERFORMABLE ELECTRIC VEHICLE ELECTRICIAN procedure are i n the results section. documented in this encounter Results ANE AIRWAY ETT PERFORMABLE (09/07/2022 3:49 PM ELECTRIC VEHICLE ELECTRICIAN) Narrative Mitch Holland APRN CRNA - 09/07/2022 3:49 PM ELECTRIC VEHICLE ELECTRICIAN Mitch Holland APRN CRNA ? 09/07/2022 ??4:04 PM Airway ? Patient location during procedure : OR ? Procedure Start/Stop Times: 09/07 3:49 PM Staff - ? CHECK PILOT: Mitch Holland APRN CRNA ? Performed By: CHECK PILOT Consent for Airway ? Urgency: elective Indications [...] patient having c-spine surgery Mercedes Ortega MD [place] ANESTHESIA documented in this encounter Visit Diagnoses Not on filedocumented in this encounter Administered Medications Inactive Administered Medications - up to 3 most recent administrations Medication Order MAR Action Action Date Dose Rate Site ceFAZolin Sodium (ANCEF) injection 2 Given 09/07/2022 3:38 PM CS T 2 g g Routine, 2 g, Intravenous, PRE-OP/PRE-PROCEDURE, Starting on Tue09/07/22 at 1400, For 1 dose, Give first dose within 1 hour PRIOR to incision. If patient weight is greater than or equal to 120 kg increase dose to 3 g., Indications: Perioperative Pharmacoprophylaxis, Pre-procedure dexamethasone (DECADRON) injection Given 09/07/2022 3:46 PM ELECTRIC VEHICLE ELECTRICIAN 8 mg Intravenous, PRN, Administer over 1 Minutes, Starting on Tue09/07/22 at 1546, Anesthesia Intra-op fentaNYL (PF) (SUBLIMAZE) injection Given 09/07/2022 5:54 PM ELECTRIC VEHICLE ELECTRICIAN 100 mcg Intravenous, PRN, Administer over 3-5 Minutes, Starting on Tue09/07/22 at 1546, Anesthesia Intra-op Given 09/07/2022 3:46 PM ELECTRIC VEHICLE ELECTRICIAN 100 mcg glycopyrrolate (ROBINUL) injection Given 09/07/2022 5:27 PM ELECTRIC VEHICLE ELECTRICIAN 0.4 mg Intravenous, PRN, Administer over 1-2 Minutes, Starting on Tue09/07/22 at 1727, Anesthesia Intra-op HYDROmorphone (DILAUDID) injection Given 09/07/2022 4:40 PM ELECTRIC VEHICLE ELECTRICIAN 0.5 mg Intravenous, PRN, Starting on Tue09/07/22 at 1611, Anesthesia Intra-op Given 09/07/2022 4:11 PM ELECTRIC VEHICLE ELECTRICIAN 0.5 mg lactated ringers infusion New Bag 09/07/2022 5:55 PM ELECTRIC VEHICLE ELECTRICIAN at 25 mL/hr, Intravenous, CONTINUOUS, IF patient NOT on dialysis., Pre-procedure, Starting on Tue09/07/22 at 1430, Until Tue09/07/22 at 1800 Restarted 09/07/2022 5:15 PM ELECTRIC VEHICLE ELECTRICIAN New Bag 09/07/2022 2:27 PM ELECTRIC VEHICLE ELECTRICIAN 25 mL/hr lidocaine 1 % 0.1-1 mL Given 09/07/2022 3:46 PM ELECTRIC VEHICLE ELECTRICIAN 5 mLs 0.1-1 mL, Other, EVERY 1 HOUR PRN, [...] lidocaine cream on the same site., Pre-procedure midazolam (VERSED) injection Given 09/07/2022 3:40 PM ELECTRIC VEHICLE ELECTRICIAN 2 mg Intravenous, Administer over 2 Minutes, PRN, Starting on Tue09/07/22 at 1540, Anesthesia Intra-op neostigmine (PROSTIGMINE) injection Given 09/07/2022 5:27 PM ELECTRIC VEHICLE ELECTRICIAN 3 mg Intravenous, PRN, Starting on Tue09/07/22 at 1727, Anesthesia Intra-op ondansetron (ZOFRAN) injection Given 09/07/2022 5:27 PM ELECTRIC VEHICLE ELECTRICIAN 4 mg Intravenous, PRN, Administer over 2-5 Minutes, Starting on Tue09/07/22 at 1727, Anesthesia Intra-op phenylephrine (RIP-SYNEPHRINE) injection Bolus 09/07/2022 4:06 PM ELECTRIC VEHICLE ELECTRICIAN 100 mcg Intravenous, CONTINUOUS PRN, Starting on Tue09/07/22 at 1558, Anesthesia Intra-op New Bag 09/07/2022 3:58 PM ELECTRIC VEHICLE ELECTRICIAN 100 mcg propofol (DIPRIVAN) injection 10 mg/mL v ial Given 09/07/2022 3:46 PM ELECTRIC VEHICLE ELECTRICIAN 200 mg Intravenous, PRN, Starting on Tue09/07/22 at 1546, Anesthesia Intra-op propofol (DIPRIVAN) injection New Bag 09/07/2022 3:52 PM 60 mc g/kg/min 23.76 mL/hr 10 mg/mL vial ELECTRIC VEHICLE ELECTRICIAN Intravenous, CONTINUOUS PRN, Starting on Tue09/07/22 at 1552, Anesthesia Intra-op rocuronium injection Given 09/07/2022 4:43 PM ELECTRIC VEHICLE ELECTRICIAN 10 mg Intravenous, PRN, Starting on Tue09/07/22 at 1546, Anesthesia Intra-op Given 09/07/2022 3:46 PM ELECTRIC VEHICLE ELECTRICIAN 40 mg documented in this encounter Care Teams Seam Stay Stitcher Relationship Specialty Start Date End Date Frw, None PCP - Family Practice 12/31/11 [facility] PCP - General 09/07/[address] [address] documented as of this encounter
--- OUTSIDE RECORDS SUMMARY | 2022-09-22 13:38 | XMS_ITS | Encounter Summary ---
:1965 Author Organization [facility] Address [address] [place] [address]. [place] [address] Care Team Providers Name Role Phone Polly Ashford MD Unavailable Encounter Details Date Type Department Care Team Description 09/12/2006 Allied Health/Nurse [facility] Visit System in [place] NEOP-RECT [facility] [address] [place] [address] Social History Tobacco Use Types Packs/Day Years Used Date Smoking Tobacco: Never Alcohol Use Standard Drinks/Week Comments Yes 0 (1 standard drink = 0.6 oz pure alcoho l) Sex Assigned at Date Recorded Female 08/31/2022 2:31 PM MERCHANDISING REPRESENTATIVE Travel History Travel Start Travel End [place] 07/25/2022 08/25/2022 documented as of this encounter Plan of Treatment Pending Results Name Type Priority Associated Diagnoses Date/Ti me MAMMOGRAM, BOTH Imaging Routine Screening [facility] 09/12/2006 10:06 AM MERCHANDISING REPRESENTATIVE BREASTS (DIAG) Neop-Rectum Scheduled Orders Name Type Priority Associated Diagnoses Order S chedule Mammo screening* Imaging Ordered: documented as of this encounter Procedures Procedure Name Priority Date/Time Associated Diagnosis Comme nts C MAMMOGRAM, Routine 09/12/2006 10:26 AM Results for this SCREENING MERCHANDISING REPRESENTATIVE procedure are i n the results section. C MAMMOGRAM, BOTH Routine 09/12/2006 10:06 AM Screening Mal BREASTS (DIAG) MERCHANDISING REPRESENTATIVE Neop-Rectum documented in this encounter Results MAMMOGRAM, SCREENING (09/12/2006 10:26 AM MERCHANDISING REPRESENTATIVE) P athologist Signature MAMMOGRAM IMAGING RADIOLOGY IMPRESSION: RESULTS ARC BIRADS Category No. 1, negative. Anatomical Region Laterality Modality Other Specimen (Source) Anatomical Collection Method Collection Time Re ceived Time Location / / Volume Laterality 09/12/2006 10:26 AM MERCHANDISING REPRESENTATIVE Impressions 09/16/2006 11:36 PM MERCHANDISING REPRESENTATIVE BILATERAL SCREENING MAMMOGRAM: Breast symptoms: ??None. Previous mammography: Baseline. ?? Breast parenchyma: Heterogeneously dense . Comment: Bilateral subpectoral implants are seen and appear intact. ?? I believe these are saline. ??Breast tis eligio is felt to be unremarkable without radiographic sign of malignancy. ?? IMAGING IMPRESSION: ??ARC BIRADS Categor y No. 1, negative. A letter has been sent to the patient. This study was evaluated with the assist ance of CAD (R2 v5.3). Suzanna Weber M.D. Polly Ashford MD SPECIAL IMAGING STUDIES documented in this encounter Visit Diagnoses Diagnosis Screening for malignant neoplasm of the rectum documented in this encounter Care Teams Lieutenant Ballistics Relationship Specialty Start Date End Date Polly Ashford MD PCP - Obstetrics/Gynecology 05/05/0612/29 documented as of this encounter
--- OUTSIDE RECORDS SUMMARY | 2022-09-22 13:38 | XMS_ITS | Encounter Summary ---
:1965 Author Organization [facility] Address [address] [place] [address]. [place] [address] Care Team Providers Name Role Phone Frw, None Unavailable Unavailable Encounter Details Date Type Department Care Team Description 08/25/2022 Travel Social History Tobacco Use Types Packs/Day Years Used Date Smoking Tobacco: Never Smokeless Tobacco: Never Comments: Vape pen for cannibus Alcohol Use Standard Drinks/Week Comments Not Currently 0 (1 standard drink = 0.6 oz pure alcoho l) Sex Assigned at Date Recorded Female 08/31/2022 2:31 PM SOCIAL MEDIA MANAGER Travel History Travel Start Travel End [place] 07/25/2022 08/25/2022 COVID-19 Exposure Response Date Recorded In the last 10 days, have you been in contact with No / Unsu re 08/25/2022 11:54 AM SOCIAL MEDIA MANAGER someone who was confirmed or suspected to have Coronavirus/COVID-19? documented as of this encounter Plan of Treatment Not on filedocumented as of this encounter Visit Diagnoses Not on filedocumented in this encounter Care Teams Radio Television Technical Director Relationship Specialty Start Date End Date Frw, None PCP - Obstetrics/Gynecology Family Practice 12/31/11 documented as of this encounter
--- OUTSIDE RECORDS SUMMARY | 2022-09-22 13:38 | XMS_ITS | Encounter Summary ---
:1965 Author Organization [place] Address [address] [place] [address]. [place] [address] Care Team Providers Name Role Phone Polly Ashford MD Unavailable Encounter Details Date Type Department Care Team Description 05/25/2006 Hospital Laboratory [facility] Diana Ashford System in Jean Ortiz MD [facility] [address] [place] [address] [place] [address] [place] [address] [id number] [place], [place] [id number] (Wo rk) Social History Tobacco Use Types Packs/Day Years Used Date Smoking Tobacco: Never Alcohol Use Standard Drinks/Week Comments Yes 0 (1 standard drink = 0.6 oz pure alcoho l) Sex Assigned at Date Recorded Female 08/31/2022 2:31 PM VP ANCILLARY Travel History Travel Start Travel End [place] 07/25/2022 08/25/2022 documented as of this encounter Plan of Treatment Not on filedocumented as of this encounter Procedures Procedure Name Priority Date/Time Associated Comments Diagnosis HCL HEMOGLOBIN STAT 05/25/2006 7:07 AM Results for this NONLAB CDT procedure are i n the results section. ABO/RH TYPE & SCREEN Routine 05/25/2006 7:06 AM R esults for this CDT procedure are i n the results section. documented in this encounter Results HGB (05/25/2006 7:07 AM CDT) athologist Signature Hemoglobin 11.9 11.7 - 15.7 [facility] g/dL LAB/RAD Specimen Anatomical Collection Method Collection Time Receive d Time (Source) Location / / Volume Laterality 05/25/2006 7:07 AM 6 7:12 CDT AM CDT Polly Ashford MD LABORATORY Performing Organization Address City/State/ZIP Code Phon e Number [facility] [address] ABO/RH TYPE & SCREEN (05/25/2006 7:06 AM CDT) Analysis Performed At [facility] Time Signature ABO/Rh(D) A [facility] ABO/Rh(D) Pos [facility] Antibody Neg [facility] Specimen 05/28/2006 [facility] [place] Number [id number] [facility] Specimen Anatomical Collection Method Collection Time Receive d Time (Source) Location / / Volume Laterality 05/25/2006 7:06 AM 6 7:11 CDT AM CDT Polly Ashford MD LABORATORY Performing Organization Address City/State/ZIP Code Phon e Number [facility] [address] documented in this encounter Visit Diagnoses Not on filedocumented in this encounter Care Teams Infrastructure Tech Relationship Specialty Start Date End Date Polly Ashford MD PCP - Obstetrics/Gynecology 05/05/0612/29 documented as of this encounter
--- OUTSIDE RECORDS SUMMARY | 2022-09-22 13:38 | XMS_ITS | Encounter Summary ---
:1965 Author Organization [place] Address [address] [place] [address]. [place] [address] Care Team Providers Name Role Phone Polly Ashford MD Unavailable [facility], None Unavailable Unavailable 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 Cystocele and rectocele. 2. Stress incontinence. POSTOPERATIVE DIAGNOSES: 1. Cystocele and rectocele. 2. Stress incontinence. OPERATION: 1. Anterior and posterior repair. 2. Tension free vaginal taping procedure. 3. Perineoplasty. SURGEON: Makeda ASSIST: Kevin ANESTHESIA: Spinal ESTIMATED BLOOD LOSS: 100 ml COMPLICATIONS: None INDICATIONS: The patient is a 40 year old status post total abdominal hysterectomy/ bilateral salpingo-oophorectomy who has a history of stress incontinence and a bulge at the introitus that hurts. She had urodynamically confirmed stress incontinence with no evidence of detrusor instability, intrinsic sphincter deficiency, or voiding dysfunction. She had a normal post void residual. On exam in the clinic, both in the supine and standing position, she had reasonable apical support with descent only a couple of centimeters down into the vagina. She had a Grade 3 cystocele and rectocele. After discussion regarding risks, benefits and alternatives, she elected to proceed with tension free vaginal tape and cystocele, rectocele repair. All her questions were answered. OPERATIVE FINDINGS: She had a large rectocele and cystocele. She again had pretty decent apical support both at the beginning and the end of the case. She did have large perineal defect that was recognized at the time of surgery which was repaired. PROCEDURE: After administration of spinal anesthesia, the patient is placed in dorsal lithotomy position, prepped and draped in usual sterile fashion. The apex was grasped with two Rosalba clamps and the anterior vagina infiltrated with 0.25% Marcaine with epinephrine. The apex was incised transversely and a midline incision made along the anterior vagina to within 2 centimeters of the urethral meatus. The endopelvic fascia is dissected off the vaginal mucosa bilaterally. The cystourethrocele was closed using #0 Vicryl interrupted box stitch suture. The perivaginal space was developed to the level of the urogenital diaphragm lateral to the urethra after an 18 Ukrainian Dotson was placed into the vagina. The Dotson guide was placed into the Dotson. The patient was marked 1 centimeter above and 2 centimeters lateral to the midline. The tension free vaginal tape device was then directed toward the patient's right shoulder with the guide placed against the patient's right thigh. The left side was similarly placed with the tension free vaginal tape device directed towards the patient's left shoulder and then once through the urogenital diaphragm up to the rae on the pubic area. The Dotson guide was placed along the patient's left thigh. The Dotson was removed and the cystoscope introduced. Cystoscopy confirmed an intact bladder and urethra with no evidence of tape in the bladder. The Dotson was drained and the tension free vaginal tape snugged to within 1 finger breadth of the urethra. The mesh was cut at the skin and the skin edges re-approximated using Dermabond. Excess vaginal mucosa was trimmed away and the anterior vagina and apex were closed using 2-0 Vicryl continuous locking suture. The rectocele was then performed. The perineum and posterior vagina were infiltrated with 0.25% Marcaine with epinephrine. A large V-shaped portion of skin from the level of the introitus to half way down the peroneal body was excised, and the intervening portion of skin removed. A midline incision was made along the posterior vagina and the endopelvic fascia was dissected sharply away from the vagina on each side. The rectocele was closed using #0 Vicryl continuous locking suture. The perineoplasty was performed using #0 Vicryl interrupted suture. The posterior vagina was then closed using 2-0 Vicryl continuous locking suture, and the perineum closed in the manner of an episiotomy repair. Sponge and needle counts are correct. She had minimal bleeding throughout the case. Sponge, needle and instrument counts were correct. Polly Ashford M.D. WINSTON/robin cc: Diana Strauss [place], [place] documented in this encounter Plan of Treatment Not on filedocumented as of this encounter Visit Diagnoses Not on filedocumented in this encounter Care Teams Development Trainer Relationship Specialty Start Date End Date Polly Ashford, PCP - 05/05/06 Obstetrics/Gynecology Frw, None PCP - Family Practice 12/31/11 Obstetrics/Gynecology [facility] PCP - General 09/07/[address] [address] documented as of this encounter
--- OUTSIDE RECORDS SUMMARY | 2022-09-22 13:38 | XMS_ITS | Encounter Summary ---
:1965 Author Organization [place] Address [address] [place] [address]. 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 documented as of this encounter Plan of Treatment Not on filedocumented as of this encounter Visit Diagnoses Not on filedocumented in this encounter Care Teams Back Filler Operator Relationship Specialty Start Date End Date Frw, None PCP - Family Practice 12/31/11 [facility]necology [facility] PCP - General 09/07/22 [facility] [address] [place], [place] [id number] documented as of this encounter
--- OUTSIDE RECORDS SUMMARY | 2022-09-22 13:38 | XMS_ITS | Encounter Summary ---
:1965 Author Organization [place] Address [address] [place] [address]. 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 documented in this encounter Results HGB (05/26/2006 6:12 AM CDT) P athologist Signature Hemoglobin 11.7 11.7 - 15.7 [facility] g/dL [place] [facility] Specimen Anatomical Collection Method Collection Time Receive d Time (Source) Location / / Volume Laterality 05/26/2006 6:12 AM 6:32 CDT AM CDT Polly Ashford MD LABORATORY Performing Organization Address City/State/ZIP Code Phon e Number [facility] [address] documented in this encounter Visit Diagnoses Not on filedocumented in this encounter Care Teams Quantitative Analyst Marketing Relationship Specialty Start Date End Date Polly Ashford MD PCP - Obstetrics/Gynecology 05/05/06 documented as of this encounter
--- OUTSIDE RECORDS SUMMARY | 2022-09-22 13:38 | XMS_ITS | Encounter Summary ---
:1965 Author Organization [place] Address [address] [place] [address]. [place] [address] Care Team Providers Name Role Phone Polly Ashford MD Unavailable Reason for Visit Reason Comments Surgical Followup 05/25/06 TVT A/P Encounter Details Date Type Department Care Team Description 07/07/2006 Office Visit [facility] Polly Ashford [facility] EENING MAL NEOP-RECTUM (Primary Dx); System in Jean Ortiz MD FEMALE STRESS INCONTINENCE; SUPERINTENDENT [facility] RE[facility]; [address] [facility], [place] [employer], [place] [address] [address] [place], [place] [phone] (Wo rk) Social History Tobacco Use Types Packs/Day Years Used Date Smoking Tobacco: Never Alcohol Use Standard Drinks/Week Comments Yes 0 (1 standard drink = 0.6 oz pure alcoho l) Sex Assigned at Date Recorded 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 She is status post AP repair and TVT. No stress incontinence, discharge has stopped, minimal urgency. Can walk and sneeze at the same time. She did well after surgery. No problems with bowel or bladder. Is not bleeding. Has resumed intercourse last week end, had pain at apex, it felt funny per . OBJECTIVE: vagina healing well, no granulation tissue. She does have a little suture at the apex andis tender still at apex. ASSESSMENT: normal post op check status post APrepair and TVT, little tender at apex still. She did have a problem with granulation tissue with her TVH in the past but has none on exam today PLAN: Advised to wait to resume intercourse for 2 weeks or so Will RTC in Aug for annual, recheck, mammogram order placed (has never had one). Having laparoscopicbariatric surgery in July. documented in this encounter Plan of Treatment Not on filedocumented as of this encounter Visit Diagnoses Diagnosis Screening for malignant neoplasm of the rectum - Primary Female stress incontinence Rectocele Cystocele, midline documented in this encounter Care Teams Sas Programmer Remote Relationship Specialty Start Date End Date Polly Ashford MD PCP - Obstetrics/Gynecology 05/05/0612/29 documented as of this encounter
--- OUTSIDE RECORDS SUMMARY | 2022-09-22 13:38 | XMS_ITS | Encounter Summary ---
:1965 Author Organization [place] Address [address] [place] [address]. [place] [address] Care Team Providers Name Role Phone Polly Ashford MD Unavailable Reason for Visit Reason Comments Urodynamic Study and preop AP repair/TVT Encounter Details Date Type Department Care Team Description 05/09/2006 Office Visit [facility] Polly Ashford STRESS INCONTINENCE (Primary Dx); System in Jean Ortiz MD RECTOCELE; BUNDLE CLERK [facility], [place] [address] [facility] [place], [place] [address] [address] [place], [place] [phone] Social History Tobacco Use Types Packs/Day Years Used Date Smoking Tobacco: Never Alcohol Use Standard Drinks/Week Comments Yes 0 (1 standard drink = 0.6 oz pure alcoho l) Sex Assigned at Date Recorded 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 Travel History Travel Start Travel End [place] 07/25/2022 08/25/2022 documented as of this encounter Last Filed Vital Signs Vital Sign Reading Time Taken Comments Blood Pressure 114/70 05/09/2006 9:30 AM CDT Pulse - - Temperature - - Respiratory Rate - - Oxygen Saturation - - Inhaled Oxygen Concentration - - Weight 103.4 kg (228 lb) 05/09/2006 9:30 AM CDT Height 165.7 cm (5' 5.25) 05/09/2006 9:30 AM CDT Body Mass Index 37.65 05/09/2006 9:30 AM CDT documented in this encounter Progress Notes Armida Lanier - 05/10/2006 11:30 AM CDT Addended by: ARMIDA LANIER on: 05/10/2006 11:30:19 AM Modules accepted: Orders, Medications Polly Ashford - 05/09/2006 1:06 PM CDT Ms Manzo is here for a preop history and physical for cystocele and rectocele repair and TVT scheduled on 05/25/06. She is also here for urodynamics. Her Dx is Symptomatic cystocele, rectocele and stress incontinence. She is a 40 year old woman P3 HPI: She is status post TVH/BSO and has noticed a bulge and pressure at the intoitus. She also has stress incontinence, in particular, she can't go for a walk and laugh at the same time or else she'll lose urine. She has no urge incontinence, no urge symptoms, nocturia X 1. She was started on transdermal vivelle and testosterone patch. Libido is MUCH better already, doing well. Past Medical History Diagnosis Date ??? RHEUMATOID ARTHRITIS ??? ALLERGY, UNSPECIFIED seasonal allergies ??? ESOPHAGEAL REFLUX Current outpatient prescriptions Medication Sig ??? AMITRIPTYLINE HCL 10 MG OR TABS 1 tablet daily ??? METHOTREXATE unsure of dose ??? REMICADE 100 MG IV SOLR 400mg every six weeks ??? NEW MED hydrochloraquine 2 tablets daily ??? FELDENE OR 2 tablet once daily ??? WELLBUTRIN SR## 150 MG OR TB12 1 TABLET TWICE DAILY ??? PROTONIX OR 1 TABLET DAILY ??? RA CO-Q10 10 MG OR TABS 1 tablet daily ??? FLAX SEED OIL OR 1 tablet daily ??? VIVELLE 0.05 MG/24HR TD PTTW 1 PATCH TWICE WEEKLY ??? TESTOSTERONE 2.5 MG/24HR TD PT24 one patch Q 48 hrs, [facility] [phone] allergies: Review of patient's allergies indicates no known allergies. Past Surgical History Procedure Date ??? Hysterectomy, vaginal TVH,BSO ??? Rw other (abstracted) diagnostic laparoscopy ??? Rw other (abstracted) sinus surgery x3 ??? Rw other (abstracted) bilateral breast implants History Social History ??? Marital Status: Spouse Name: Kobe Number of Children: 3 ??? 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 Tobacco Use: Never ??? Alcohol Use: Yes ??? Drug Use: Not on file ??? Sexually Active: Yes -- Male partners Control/ Protection: Surgical Other Topics Concern ??? Caffeine No ??? Exercise No ??? Seat Belt Yes ??? Self Exams No Social History Narrative ??? No narrative on file ROS: (normal unless otherwise noted above) REVIEW OF SYSTEMS: NEUROLOGIC: Negative EYES: Negative ENT: Negative GI: Negative BREAST: Negative : As above CHARGE ACCOUNT AUTHORIZER: Negative CV: Negative PULMONARY: Negative MUSCULOSKELETAL: Has Rheumatoid Arthritis, gets next Remicade on Tuesday PSYCH: Negative Old records reviewed and summarized above On Exam Vitals as above, well developed, well nourished woman in NAD. HEENT: no lesions Neck: trachea midline, no masses,no lymphadenopathy or thyromegaly. CV: RRR no murmur, no significant edema, good pulses throughout. Lungs: CTA x 2, normal respiratory effort. Back: normal spinal or CVAT Abd: soft, non tender, no masses, no HSM noted. no rebound or guarding. pelvic exam deferred to exam under anesthesia (see previous note) Ext: warm, superficial varicosities, no calf tenderness Neurologic: normal Musculoskeletal: Normal gait and posture, good ROM, and appropriate strength noted. Assessment: symptomatic cystourethrocele and rectocele, stress incontinence OR CONCERNS: Diabetes no, Latex, tape or metal allergy none, herbal meds CoQ-10, flax seed Plan: cystocele/rectocele repair, TVT. See urodynamic study done below. She will call and bring in all her meds/doses prior to surgery. Advised to stop Feldene now. May take Valium she has had home with sip of water just prior to surgery (stresses out about needles). Will stop Co-Q 10. The patient indicates understanding of diagnosis; risks, benefits and possible complications were explained at length (including but not limited to infection, bleeding, injury to other organs). The possibility of need for further procedures or change in the procedure. The patients questions were answered. Patient agrees to surgery. The risks, benefits, alternatives to TVT discussed with patient including but not limited to bleeding, infection, transfusion risks, risk of perforation of bladder or internal organs, risk of urinary retention, need for machine long goods helper catheter use, need for future operations,need to take down mesh or future surgery due to mesh erosion. All questions answered. Written consent was obtained including risk and testing for body fluid exposure. Patient was advisedto be NPO after midnight. Urodynamic Study CM. Patient voided and a clean catch urine analysis was not obtained. 2. The urethra was cleansed with betadine and a catheter placed into the bladder. The post void residual was 0cc. 3. The transducer was then threaded through the catheter and the abdominal transducer placed into the vagina. The initial pressure was 25cm H20. The machine was calibrated to zero.The bladder was then filled with sterile water with one amp of indigo carmine. 4. First sensation to void was at 123 cc 5. Initial urge to void was at 188 cc 6. Maximal capacity was at 390 cc 7. There was one small detrusor contractions, with no visible loss of urine 8. maximum bladder pressure was 10 cm H20 B. LEAK POINT PRESSURE: 1. The patient was then asked to slowly valsalva, there was one leak with a maximum valsalva pressure of 41 cm H20 (normal >60cm H20) 2. The patient then coughed with no visible loss of urine at >100 cm H20. C. MAXIMUM URETHRAL CLOSURE PRESSURE: 1. the transducer was slowly withdrawn, maximum urethral closure pressure was 66 cm H20 (normal >20cm H20) D. UROFLOW STUDY: 1. max flow rate (Qmax) was 27 cc/sec (normal > 20 cc/sec) 2. time to max void 9 sec 3. voiding time 20 sec (15-20 sec normal) 4. voided volume 380 cc (at least 200cc) 5. no evidence of obstructed voiding, no evidence of valsalva voiding. 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 Has cystourethrocele, rectocele PLAN: AP repair, TVT (see above). documented in this encounter Plan of Treatment Not on filedocumented as of this encounter Procedures Procedure Name Priority Date/Time Associated Diagnosis Comme nts HC CYSTOMETROGRAM COMPLEX Routine 05/09/2006 1:[address] ress CDT Incontinence URETHRA PRESSURE PROFILE Routine 05/09/2006 1:[address] CDT Incontinence HC VOIDING PRESSURE Routine 05/09/2006 1:04 PM Female Stress STUDY, INTRA-ABDOMINAL CDT Incontinence HC COMPLEX UROFLOWMETRY Routine 05/09/2006 1:[address] CDT Incontinence documented in this encounter Visit Diagnoses Diagnosis Female stress incontinence - Primary Rectocele Cystocele, midline documented in this encounter Care Teams Grocery Clerk Relationship Specialty Start Date End Date Polly Ashford MD PCP - Obstetrics/Gynecology 05/05/0612/29 documented as of this encounter
--- OUTSIDE RECORDS SUMMARY | 2022-09-22 13:38 | XMS_ITS | Encounter Summary ---
:1965 Author Organization [place] Address [address] [place] [address]. [place] [address] Care Team Providers Name Role Phone Polly Ashford MD Unavailable Reason for Visit Reason Onset Date Comments Refill Request 10/02/2007 Yogi Encounter Details Date Type Department Care Team Description 10/02/[address] 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 Thank You! OR DEVOPS ENGINEER documented in this encounter Plan of Treatment Not on filedocumented as of this encounter Visit Diagnoses Not on filedocumented in this encounter Care Teams Plastic Molding Operator Relationship Specialty Start Date End Date Polly Ashford MD PCP - Obstetrics/Gynecology 05/05/0612/29 documented as of this encounter
--- OUTSIDE RECORDS SUMMARY | 2022-09-22 13:38 | XMS_ITS | Encounter Summary ---
:1965 Author Organization [facility] Address [address] [place] [address]. [place] [address] Care Team Providers Name Role Phone Frw, None Unavailable Unavailable Clinic, [facility] Primary Care Provider [phone] Reason for Visit Auth/Cert (Routine) Specialty Diagnoses / Procedures Referred By Contact Refer red To Contact Surgery Diagnoses Stenosis, spinal, lumbar Stenosis, spinal, lumbar [M48.061] Rh Periop Services Procedures PERC LAMINO-/LAMINECTOMY INDIR IMAG GUIDE LUMBAR ZZC ARTHRODESIS ANT INTERBODY INC DISCECTOMY, CERVICAL BELOW C2 CERVICAL 5- CERVICAL 6 ANTERIOR CERVICAL DISCECTOMY AND FUSION [address] [place], [place] [address] Phone: Fax: Referral ID Status Reason Start Date Expiration Date Visits Requ ested Visits Authorized [id number] 1 1 Encounter Details Date Type Department Care Team Description 09/07/2022 - Hospital Encounter [facility] rvical 09/08/2022 [facility] Spine re, Andreas G, radiculopathy [address] MD (Primary Dx) [place], [place] [address] ORTHOPEDICS [id number] [place] [address] Social History Tobacco Use Types Packs/Day Years Used Date Smoking Tobacco: Never Smokeless Tobacco: Never Tobacco Cessation: Counseling Given: Not Answered Comments: Vape pen for cannibus Alcohol Use Standard Drinks/Week Comments Not Currently 0 (1 standard drink = 0.6 oz pure alcoho l) Sex Assigned at Date Recorded Female 08/31/2022 2:31 PM LEASE BUYER Travel History Travel Start Travel End [place] 07/25/2022 08/25/2022 COVID-19 Exposure Response Date Recorded In the last 10 days, have you been in contact No / Unsure 09/07/2022 12:38 PM LEASE BUYER with someone who was confirmed or suspected to have Coronavirus/COVID-19? documented as of this encounter Last Filed Vital Signs Vital Sign Reading Time Taken Comments Blood Pressure 100/61 09/08/2022 7:26 AM LEASE BUYER Pulse 60 09/08/2022 7:26 AM LEASE BUYER Temperature 36.7 ??C (98 ??F) 09/08/2022 7:26 AM LEASE BUYER Respiratory Rate 13 09/08/2022 7:26 AM LEASE BUYER Oxygen Saturation 98% 09/08/2022 7:26 AM LEASE BUYER Inhaled Oxygen Concentration - - Weight 65.9 kg (145 lb 4.8 oz) 09/07/2022 1:10 PM LEASE BUYER Height 165.1 cm (5' 5) 08/25/2022 1:00 PM LEASE BUYER Body Mass Index 24.18 08/25/2022 1:00 PM LEASE BUYER documented in this encounter Discharge Summaries Andreas Alex MD - 09/08/2022 6:27 AM CST Physician Discharge Summary Patient ID: Rukhsana Hung [facility] [id number] 57 year old 1965 Admit date: 09/07/2022 [...] by mouth daily !! NONFORMULARY daily Lemon Cuero !! NONFORMULARY daily Medical Cannibus THC (liquid), [...] Signed: Andreas Alex MD 09/08/2022 6:27 AM E BUYER documented in this encounter Medications at Time [...] (THERA-VIT-M) tablet mouth daily NONFORMULARY daily Lemon Cuero 0 NONFORMULARY daily Medical 0 Cannibus THC [...] Evaluation Time PT Eval, Low Complexity Minutes (59968) 15 PT Discharge Planning PT Plan dc [...] (sum of timed and untimed services) 15 E BUYER Armida Bermeo RN - 09/07/2022 5:59 PM CST Per [place] Neumann, 6 prescriptions sent via secure tube to 6th floor ortho at this time. 6th floor notified of access code. E BUYER Andreas Alex MD - 09/07/2022 5:24 PM CST Pre operative history and physical exam was evaluated. Patient is safe to proceed with surgery. Pastmedical history pertinent for chronic anemia. Expected blood loss <50mL ?? Andreas Alex MD Orthopedic Spine Surgery [facility] Pager- [phone] E BUYER Ronel Mujica RN - 09/07/2022 2:44 PM CST Nasal nosin done as well as preop sages wipes in anterior neck area. Ronel Mujica RN on 09/07/2022 at 2:46 PM Ronel Lorenzo RN - 09/07/2022 2:30 PM CST Patient [...] Mujica RN on 09/07/2022 at 2:33 PM E BUYER documented in this encounter H&P Notes Ed Laurent DO - 09/07/2022 2:08 PM CST I have reviewed the surgical (or preoperative) H&P that is linked to this encounter, and examined the patient. There are no significant changes Clinical Conditions Present on Arrival: Clinically Significant Risk Factors Present on Admission E BUYER Source Note - Outside, Provider - 09/06/2022 2:38 PM LEASE BUYER documented in this encounter Miscellaneous Notes Plan [...] analgesics: Yes Does patient have an identified coach mechanic: Yes Has goal D/C date and time been discussed with patient: No A&Ox4. Voiding adequately via bedside commode. 650cc, clear, yellow. Dressing C,D&I. E BUYER Plan of Care - Reema Streeter RN [...] analgesics: Yes Does patient have an identified coach mechanic: Yes Has goal D/C date and time been discussed with patient: Yes A&Ox4, VS WNL on RA. No pain or discomfort reported at this time. NS @ 75ml.hr running to PIV. KAYLEEN out per MD order. PRN oxycodone given for pain. Explained POC, patient verbalized understanding. Will continue to monitor and provide cares. E BUYER Op Note - Andreas Alex MD - 09/07/2022 5:47 PM CST Procedure DATE OF SERVICE: 09/07/2022 SURGEON: Andreas Parra MD. FIELD HAND: Rajendra Watson PA-C. PREPROCEDURE DIAGNOSIS: 1. Bilateral [...] then made an annulotomy. I then secured [place] pins and light distraction was applied. I [...] for fit and soft tissue. A 7 Icelandic round KAYLEEN drain was placed deep to [...] safely performed by other operating room personnel. E BUYER Brief Op Note - Andreas Alex MD - 09/07/2022 5:45 PM CST [facility] Brief Operative Note Pre-operative diagnosis: Stenosis, spinal, [...] Implant Name Type Inv. Item Serial No. Associate School Psychologist Lot No. [id number] No. Used Action GRAFT BONE PUTTY ANGELLA DBM 1ML [id number] - [id number] Bone/Tissue/Biologic GRAFT BONE PUTTY ANGELLA DBM 1ML [id number] [employer] N/A 1 Implanted CAGE SPNL 16X6MM ENDOSKELETON TC 6D 14MM MED CRV [id number] - [id number] Metallic Hardware/[place] CAGE SPNL 16X6MM ENDOSKELETON TC 6D 14MM MED CRV [id number] [employer] [id number] N/A 1 Implanted IMP PLATE CERV MEDT ZEVO 19MM 1 LVL [id number] - [id number] Metallic Hardware/[place] IMP PLATE CERV MEDT ZEVO 19MM 1 LVL [id number] [employer] 8004 [id number] N/A 1 Implanted IMP SCR MEDT ZEVO 3.5X15MM SD [place] [id number] - [id number] Metallic Hardware/[place] IMP SCR MEDT ZEVO 3.5X15MM SD [place] [id number] [employer] 8004 [id number] N/A 4 Implanted E BUYER Pre-Procedure - Andreas Alex MD - 09/07/2022 2:52 PM CST Pre operative history and physical exam was evaluated. Patient is safe to proceed with surgery. Pastmedical history pertinent for chronic anemia. Expected blood loss <50mL Andreas Alex MD Orthopedic Spine Surgery [facility] Pager- [phone] E BUYER Pharmacy-Admission Medication History - Fidel Patel RPH - 09/07/2022 1:59 PM CST Medication history and patient interview completed by pre-admitting nurse (Paz Good RN). Reviewed by pharmacist. Fidel Patel RPh Prior to Admission medications Medication Sig Last Dose Taking? Auth Provider Custodial End Date celecoxib (CELEBREX) 100 MG capsule [...] 09/06/2022 Yes Reported, Patient NONFORMULARY daily Lemon Cuero 09/06/2022 Yes Reported, Patient NONFORMULARY daily Medical [...] HOURS NEEDED 09/07/2022 at 0400 YesReported, Patient E BUYER documented in this encounter Plan of Treatment Not on filedocumented as of this encounter Procedures Procedure Name Priority Date/Time Associated Diagnosis Comme nts XR SURGERY ASHLEY Routine 09/07/2022 5:20 PM Result s for this FLUORO LESS THAN 5 LEASE BUYER procedure are in MIN W STILLS the results section. DECOMPRESSION, 09/07/2022 3:22 PM Stenosis, spinal, SPINE, CERVICAL, 1 LEASE BUYER lumbar LEVEL, ANTERIOR APPROACH, WITH FUSION Special Needs Spinal Cord Simulator, Medtr onic (pt to bring controller)[facility] - HIM SCAN 09/02/2022 12:00 AM LEASE BUYER documented in this encounter Results XR Surgery ASHLEY L/T 5 Min Fluoro w Stills (09/07/2022 5:20 PM LEASE BUYER) Specimen (Source) Anatomical Location Collection Method / Collectio n Time Received Time / Laterality Volume Narrative [facility] - 09/07/2022 5:21 PM LEASE BUYER This exam was marked as non-reportable because it will not be read by a radiologist or a [facility] non-radiologis t provider. Andreas Alex MD IMG DIAGNOSTIC IMAGING ORD ERABLES Performing Organization Address City/State/ZIP Code Phon e Number [facility] EKG CARDIAC - HIM SCAN (09/02/2022 12:00 AM LEASE BUYER) Specimen (Source) Anatomical Location Collection Method / Collectio n Time Received Time / Laterality Volume 09/02/2022 Narrative This result has an attachment that is no t available. Provider Outside ECG ORDERABLES documented in this encounter Visit Diagnoses Diagnosis Cervical radiculopathy - Primary Brachial neuritis or radiculitis nos documented in this encounter Administered Medications Inactive [...] injection 4 mg Given 09/08/2022 10:00 AM LEASE BUYER 4 mg 4 mg, Intravenous, EVERY 6 HOURS, Administer over 1 Minutes, First dose on Tue09/07/22 at 2200, For 3 doses Given 09/08/2022 4:50 AM LEASE BUYER 4 mg Given 09/07/2022 10:33 PM LEASE BUYER 4 mg diphenhydrAMINE (BENADRYL) capsule 25 mg 25 mg, Oral, EVERY 6 HOURS PRN, itching, anxiety, Starting on Tue09/07/22 at 1956, Caution to be used when administering multiple Central Nervous System (CAROUSEL OPERATOR) depressing meds within a short time frame. famotidine (PEPCID) injection 20 mg 20 mg, Intravenous, Administer over 2 Minutes, 2 TIMES DAILY, First dose on Tue09/07/22 at 2000, If unable to take oral For ordered IV doses 1-20 mg, give IV Push diluted with 5-10 mL NS over a minimum of 2 minutes. famotidine (PEPCID) tablet 20 mg Given 09/08/2022 8:13 AM LEASE BUYER 20 mg 20 mg, Oral, 2 TIMES DAILY, First dose on Tue09/07/22 at 2000 Given 09/07/2022 8:34 PM LEASE BUYER 20 mg fentaNYL (PF) (SUBLIMAZE) injection 25 m cg Given 09/07/2022 6:14 PM LEASE BUYER 25 mcg 25 mcg, Intravenous, EVERY 5 [...] HYDROmorphone (DILAUDID)., PACU Given 09/07/2022 6:08 PM LEASE BUYER 25 mcg gabapentin (NEURONTIN) capsule 100 mg Given 09/08/2022 8:13 AM LEASE BUYER 100 mg 100 mg, Oral, 3 TIMES DAILY, First dose on Tue09/08/22 at 0800, For post-operative pain gabapentin (NEURONTIN) capsule 300 mg Given 09/07/2022 2:08 PM LEASE BUYER 300 mg 300 mg, Oral, PRE-OP/PRE-PROCEDURE, Starting on Tue09/07/22 at 1400, For 1 dose, Indications: Neuropathic Pain, Do not administer for stage 2 spine procedures., Pre-procedure HYDROmorphone (DILAUDID) injection 0.2 m g 0.2 [...] 0.4 m g Given 09/07/2022 6:37 PM LEASE BUYER 0.4 mg 0.4 mg, Intravenous, EVERY 5 MIN PRN, severe pain (7-10), Starting on Tue09/07/22 at 1801, Use FentaNYL (SUBLIMAZE) first if ordered. Administer HYDROmorphone (DILAUDID) up to a total of 2 mg for moderate or severe pain. Notify Provider to assess for uncontrolled pain or analgesic side effects., PACU Given 09/07/2022 6:26 PM LEASE BUYER 0.4 mg Given 09/07/2022 6:19 PM LEASE BUYER 0.4 mg HYDROmorphone (PF) (DILAUDID) injection 0.5 [...] tablet 25 mg Given 09/07/2022 6:36 PM LEASE BUYER 25 mg 25 mg, Oral, EVERY 6 HOURS PRN, other, adjuvant pain, Starting on Tue09/07/22 at 1834 ketorolac (TORADOL) injection 15 mg Given 09/07/2022 6:34 PM LEASE BUYER 15 mg 15 mg, Intravenous, ONCE PRN, [...] ringers infusion New Bag 09/07/2022 5:55 PM LEASE BUYER at 25 mL/hr, Intravenous, CONTINUOUS, IF patient NOT on dialysis., Pre-procedure, Starting on Tue09/07/22 at 1430, Until Tue09/07/22 at 1800 Restarted 09/07/2022 5:15 PM LEASE BUYER New Bag 09/07/2022 2:27 PM LEASE BUYER 25 mL/hr lactated ringers infusion Rate/Dose Verify 09/07/2022 6:00 PM LEASE BUYER 100 mL/hr at 100 mL/hr, Intravenous, CONTINUOUS, Continue until IV catheter is weaned, PACU/Phase II, Starting on Tue09/07/22 at 1830, Until Tue09/07/22 at 1954 lidocaine (LMX4) cream Topical, EVERY 1 HOUR PRN, pain, with VA D insertion, Starting on Tue09/07/22 at 1956, Apply at least 30 minutes prior to [...] tablet 750 mg Given 09/08/2022 8:13 AM LEASE BUYER 750 mg 750 mg, Oral, EVERY 6 HOURS PRN, muscle spasms, Starting on Tue09/07/22 at 1956, Hold for sedation. Given 09/07/2022 8:34 PM LEASE BUYER 750 mg naloxone (NARCAN) injection 0.2 mg 0.2 mg, Intravenous, EVERY 2 MIN PRN, op ioid reversal, Starting on Tue09/07/22 at 195, Administer intravenous route when available and notify [...] 1955, Administer intramuscular if an intravenous ro joe is not available and notify provider when [...] op ioid reversal, Starting on Tue09/07/22 at 1956, Administer intravenous route when available and notify [...] PRN, opioid reversal, Starting on Tue09/07/22 at 1956, Administer intramuscular if an intravenous ro joe is not available and notify provider when [...] nausea, v omiting, Starting on Tue09/07/22 at 1956, This is Step 1 of nausea and [...] tablet 10 mg Given 09/08/2022 10:32 AM LEASE BUYER 10 mg 10 mg, Oral, EVERY 4 HOURS PRN, moderate pain (4-6), Starting on Tue09/07/22 at 1856, Hold oral PRN dose for analgesic side effects. Notify provider to assess for uncontrolled pain or analgesic side effects. Hold while on IV TAKE DOWN SORTER or with regular IV opioid dosing. Given 09/08/2022 6:51 AM LEASE BUYER 10 mg Given 09/08/2022 1:25 AM LEASE BUYER 10 mg oxyCODONE (ROXICODONE) tablet 15 mg 15 mg, Oral, EVERY 4 HOURS PRN, severe pain (7-10), St arting on Tue09/07/22 at 1856, Hold oral PRN dose for analgesic s minh effects. Notify provider to assess for uncontrolled pain or analgesic side effe cts. Hold while on IV TAKE DOWN SORTER or with regular IV opioid dosing. polyethylene [...] for loose stools. Given 09/07/2022 8:34 PM LEASE BUYER 1 tablet sodium chloride (PF) 0.9% PF flush 3 mL Given 09/07/2022 2:29 PM LEASE BUYER 3 mLs 3 mL, Intracatheter, EVERY 8 HOURS, First dose on Tue09/07/22 at 1430, to lock peripheral IV dormant line, Pre-procedure sodium chloride (PF) 0.9% PF flush 3 mL Given 09/08/2022 8:12 AM LEASE BUYER 3 mLs 3 mL, Intracatheter, EVERY 8 HOURS, First dose on Tue09/07/22 at 2000, to lock peripheral IV dormant line sodium chloride (PF) 0.9% PF flush 3 mL 3 mL, Intracatheter, EVERY 1 MIN PRN, li ne flush, other, to ensure patency or to lock dormant line, Starting on Tue09/07/22 at 1956 sodium chloride 0.9% infusion Rate/Dose Verify 09/08/2022 7:53 AM LEASE BUYER 75 mL/hr at 75 mL/hr, Intravenous, CONTINUOUS, Starting on Tue09/07/22 at 2000, Until Tue09/08/22 at 1301 New Bag 09/07/2022 8:35 PM LEASE BUYER 75 mL/hr documented in this encounter Active and Recently Administered Medications Times are shown in LEASE BUYER. Scheduled Medication Order 09/06/2022 09/07/2022 09/08/2022 ceFAZolin Sodium (ANCEF) injection 2 g (COMPLETED) 153 (Given - Provider: Mitch Holland APRN CRNA) Routine, 2 g, Intravenous, PRE-OP/PRE-NH OCEDURE, Starting on Tue09/07/22 at 1400, For 1 dose, Give first dose within 1 hour PRIOR to incision. If patient weight is greater than or equal to 120 kg incre ase dose to 3 g., Indications: Perioperative Pharmacop rophylaxis, Pre-procedure dexamethasone (DECADRON) injection 4 mg (COMPLETED) 2232 (Given - Provider: Niya Gerber RN) 0450 (Given - Provider: Reema Streeter RN) 1000 (Given - Provider: Pao Zelaya, [place]) 4 mg, Intravenous, EVERY 6 HOURS, Admini ster over 1 Minutes, First dose on Tue09/07/22 at 2200, For 3 doses famotidine (PEPCID) injection 20 mg(Linked Group 1) 2033 (See Alternative - Provider: Niya Gerber RN) 08 (See Alternative - Provider: Zoya Zelaya, [place]) 20 mg, Intravenous, Administer over 2 Mi nutes, 2 TIMES DAILY, First dose on Tue09/07/22 at 2000, If unable to take oral For ordered IV doses 1-20 mg, give IV Push diluted with 5-10 mL NS over a minimum of 2 minutes. famotidine (PEPCID) tablet 20 mg(Linked Group 1) 2033 (Given - Provider: Niya Gerber RN) 08 (Given - Provider: Pao keyes RN) 20 mg, Oral, 2 TIMES DAILY, First dose on Tue09/07/22 at 2000 gabapentin (NEURONTIN) capsule 100 mg 812 (Given - Provider: Pao Zelaya, [place]) 100 mg, Oral, 3 TIMES DAILY, First dose on Tue09/08/22 at 0800, For post- operative pain gabapentin (NEURONTIN) capsule 300 mg (COMPLETED) 140 (Given - Provider: Ronel Mujica RN) 300 mg, Oral, PRE-OP/PRE-PROCEDURE, Star ting on Tue09/07/22 at 1400, For 1 dose, Indications: Neuropathic Pain, Do not administer for stage 2 spine procedures., Pre-procedure polyethylene glycol (MIRALAX) Packet 17 g 0814 (z Missed (do not use) - Provider: Pao Zelaya, RN - Reason: Patient/family refused) 17 g, Oral, [...] Missed (do not use) - Provider: Reema Streeter RN - Reason: IV Infusing)0812 (Given - Provider: Pao Zelaya, RN)1200 (Canceled Entry - Provider: Orders Generic Provider - Comment: Automatically canceled at discont 3 mL, Intracatheter, EVERY 8 HOURS, Firs t dose on Tue09/07/22 at 2000, to lock peripheral IV dormant line inue of medic ation order) Continuous Medication Order 09/06/2022 09/07/2022 09/08/2022 lactated ringers infusion (CANCELED) 142 7 (New Bag - Provider: Ronel Mujica RN)1714 (Paused - Provider: Giovany Hernandez APRN CRNA - Comment: Switch to gravity)1715 (Restarted - Provider: Giovany Hernandez APRN CRNA)1755 (New Bag - Provider: Giovany Hernandez APRN CRNA) at 25 mL/hr, Intravenous, CONTINUOUS, IF patient NOT on dialysis., Pre- procedure, Starting on Tue09/07/22 at 1430, Until Tue09/07/22 at 1800 lactated ringers infusion (CANCELED) 180 0 (Rate/Dose Verify - Provider: Armida Bermeo RN) at 100 mL/hr, Intravenous, CONTINUOUS, C ontinue until IV catheter is weaned, PACU/Phase II, Starting on Tue09/07/22 at 1830, Until Tue09/07/22 at 1954 sodium chloride 0.9% infusion 2034 (New Bag - Pr ovider: Niya Gerber RN) 0753 (Rate/Dose Verify - Provider: Pao Zelaya, [place])0754 (Stopped - Provider: Pao Zelaya, [place]) at [...] used when administering multiple Central Nervous System (CAROUSEL OPERATOR) depressing meds within a short time frame. fentaNYL (PF) (SUBLIMAZE) injection 25 mcg (CANCELED) 1807 (Given - Provider: Armida Bermeo RN)1813 (Given - Provider: Armida Bermeo RN) 25 [...] effects. HYDROmorphone (DILAUDID) injection 0.4 mg (CANCELED) 1818 (Given - Provider: Armida Bermeo RN)1825 (Given - Provider: Armida Bermeo, [place])1836 (Given - Provider: Armida Bermeo, [place]) 0.4 mg, Intravenous, EVERY 5 MIN PRN, [...] 25 mg 1835 (Given - Provider: Armida Bermeo, [place]) 25 mg, Oral, EVERY 6 HOURS PRN, other, a djuvant pain, Starting on Tue09/07/22 at 1834 ketorolac (TORADOL) injection 15 mg (COMPLETED) 1833 (Given - Provider: Armida Bermeo, [place]) 15 mg, Intravenous, ONCE PRN, inflammato ry [...] VA D insertion, Starting on Tue09/07/22 at 1956, Apply at least 30 minutes prior to [...] site. lidocaine 1 % 0.1-1 mL (CANCELED) 1546 (Given - Provider: Mercedes Ortega MD) 0.1-1 [...] Tue09/07/22 at 1955, MAX dose 1 mL subcutaneous OR intradermal [...] mg 2033 (Give n - Provider: Niya Gerber RN) 08 (Given - Provider: Pao Zelaya RN) 750 mg, Oral, EVERY 6 HOURS PRN, muscle spasms, Starting on Tue09/07/22 at 1955, Hold for sedation. naloxone (NARCAN) injection 0.2 [...] HOURS PRN, nausea, v omiting, Starting on Tue09/07/221955, This is Step 1 of nausea and [...] oxyCODONE (ROXICODONE) tablet 10 mg(Linked Group 5) 1856 (Given - Provider: Armida Bermeo RN) 0125 (Given - Provider: Reema Streeter, [place]) 0651 (Given - Provider: Reema Streeter, [place])1032 (Given - Provider: Pao Zelaya, [place]) 10 mg, Oral, EVERY 4 HOURS PRN, moderate pain (4-6), Starting on Tue09/07/22 at 1856, Hold oral PRN dose for analgesic side effects. Notify provider to assess for uncontrolled pain or analgesic side ef fects. Hold while on IV TAKE DOWN SORTER or with regular IV opioid dosing. oxyCODONE (ROXICODONE) tablet 15 mg(Linked Group 5) 1856 (See Alternative - Provider: Armida Bermeo RN) 0125 (See Alternative - Provider: Reema Streeter RN)0651 (See Alternative - Provider: Reema Streeter RN)1032 (See Alternative - Provider: Pao Zelaya, [place]) 15 mg, Oral, EVERY 4 HOURS PRN, severe p ain (7-10), Starting on Tue09/07/22 at 1856, Hold oral PRN dose for analgesic side effects. Notify provider to assess for uncontrolled pain or analgesic side eff ects. Hold while on IV TAKE DOWN SORTER or with regular IV opioid dosing. sodium chloride (PF) 0.9% PF flush 3 mL 3 mL, Intracatheter, EVERY 1 MIN PRN, li ne flush, other, to ensure patency or to lock dormant line, Starting on Tue09/07/22 at 1956 thrombin 5000 units vial (CANCELED) 1603 (Given [...] moderate pain (4-6), Starting on Tue09/07/22 at 1955
IF patient [...] op ioid reversal, Starting on Tue09/07/22 at 1956
Administer intravenous route when available and notify [...] PRN, opioid reversal, Starting on Tue09/07/22 at 1955
Administer intramuscular if an intravenous route is [...] analgesic side effects. Hold while on IV TAKE DOWN SORTER or w ith regular IV opioid dosing.
Or oxyCODONE (ROXICODONE) tablet 15 mgJump to med 15 mg, Oral, EVERY 4 HOURS PRN, severe p ain (7-10), Starting on Tue09/07/22 at 1856
Hold oral PRN dose for analgesic side effects. Notify provider to assess for uncontrolled pain or analgesic side effects. Hold while on IV TAKE DOWN SORTER or wi th regular IV opioid dosing.
documented in this encounter Care Teams Pcts Relationship Specialty Start Date End Date Frw, None PCP - Family Practice 12/31/11 [facility] P[facility] - General 09/07/[address] [address] documented as of this encounter
--- OUTSIDE RECORDS SUMMARY | 2022-09-22 13:38 | XMS_ITS | Encounter Summary ---
:1965 Author Organization [facility] Address [address] [place] [address]. [place] [address] Care Team Providers Name Role Phone Polly Ashford MD Unavailable Reason for Visit Reason Onset Date Comments Refill Request 08/17/2006 testosterone patch Encounter Details Date Type Department Care Team Description 08/17/2006 Refill [facility] Polly Ashford Ref ill Request System in Jean Ortiz MD (testosterone patch) COMIC BOOK ARTIST [facility] [address] [place] [address] [address] [facility] [phone] [place], [place] [address] (Wo rk) Social History Tobacco Use Types Packs/Day Years Used Date Smoking Tobacco: Never Alcohol Use Standard Drinks/Week Comments Yes 0 (1 standard drink = 0.6 oz pure alcoho l) Sex Assigned at Date Recorded Female 08/31/2022 2:31 PM PHARMACY AFFAIRS ASSISTANT Travel History Travel Start Travel End [place] 07/25/2022 08/25/2022 documented as of this encounter Miscellaneous Notes Telephone Encounter - Lisseth Dumont ([place]) - 08/19/2006 12:50 PM PHARMACY AFFAIRS ASSISTANT Rx [facility] been [email or web address] as ordered by Dr. Ashford. [facility] A[facility] ASSIST[facility] Telephone Encounter - Polly Ashford - 08/19/2006 9:48 AM CST Needs to be called in , someone can do this, I approved it, thanks. Their fax doesn't doesn't work. [facility] AFFAIRS ASSISTANT Telephone Encounter - Conchis Chicas - 08/17/2006 4:46 PM CST Accepting this Rx will FAX it directly to the pharmacy. [facility] AFFAIRS ASSISTANT documented in this encounter Plan of Treatment Not on filedocumented as of this encounter Visit Diagnoses Not on filedocumented in this encounter Care Teams [employer] Relationship Specialty Start Date End Date Polly Ashford MD PCP - Obstetrics/Gynecology 05/05/0612/29 documented as of this encounter
--- OUTSIDE RECORDS SUMMARY | 2022-09-22 13:39 | XMS_ITS | Clinical Summary ---
:1965 Author Organization [employer] [facility] [place] [address] Care Team Providers Name Role Phone Lito [...] Comments Blood Pressure 117/63 09/16/2020 3:30 PM LABOR AND DELIVERY REGISTERED NURSE Pulse 72 09/16/2020 3:30 PM LABOR AND DELIVERY REGISTERED NURSE Temperature 36 ??C (96.8 ??F) 09/16/2020 3:30 PM LABOR AND DELIVERY REGISTERED NURSE Respiratory Rate 16 09/16/2020 3:30 PM LABOR AND DELIVERY REGISTERED NURSE Oxygen Saturation 98% 09/16/2020 3:30 PM LABOR AND DELIVERY REGISTERED NURSE Inhaled Oxygen Concentration - - Weight 75.1 kg (165 lb 9.1 oz) 09/16/2020 8:30 AM LABOR AND DELIVERY REGISTERED NURSE Height 167.6 cm (5' 6) 09/16/2020 8:30 AM LABOR AND DELIVERY REGISTERED NURSE Body Mass Index 26.72 09/16/2020 8:30 AM LABOR AND DELIVERY REGISTERED NURSE Plan of Treatment Scheduled Procedures Name Priority Associated Diagnoses Date/Time REPAIR TENDON LEG Tier 4 Compartment syndrome of right lower extremity, subsequent encounter Health Maintenance Due Date Last Done Comments COVID-19 vaccine series (#1) 02/12/1967 Tdap 1977 Depression screening for age 12+ 1978 HIV for age 15-65 1981 Mammogram for age 45-75 05/16/2013 05/16/2012 Tetanus [...] 01/17/2004 18-79 Medical Devices Implanted Type Area Commercial Pest Control Technician Device Shelf Model / Identifier Expiration Date Ser ial / Lot Ancr Sut 2.3mm Iconix 2 W/2 Strand #2 Force Fiber - [id number] Left: Mt 07/09/2021 [id number] / Implanted: Qty: 1 on 09/16/2020 by Angelina soto, Dwayne Taylor MD at [facility] / [id number] Results Not on filefrom Last 3 Months Insurance Payer Benefit Plan / Subscriber ID Effective Dates Phone Addre ss Type Group [employer] KOBE ONEAL [place] [id number] 2021-Present [address] [place] [address] UTY Contract 10/17/2006 [address] CONTRACT,BAY (Work) [address] [place] [place] [id number] Advance Directives Latest Code Status on File Code Status Date Activated Date Inactivated Comments Full Code 09/16/2020 7:37 AM 09/16/2020 5:31 PM Code Status Discussion: Per Existing Order Discussed Full Code 07/25/2006 6:08 PM 07/28/2006 2:46 PM Full Code 07/25/2006 8:50 AM 07/25/2006 6:08 PM Care Teams Twisting Operator Relationship Specialty Start Date End Date Lito Rajan MD PCP - General 01/31/08 Pablo Oliver MD Internal Medicine 07/02/[address] [place] [address] [place] [address]
--- OUTSIDE RECORDS SUMMARY | 2022-09-22 13:39 | XMS_ITS | Encounter Summary ---
:1965 Author Organization [facility] [facility] Address [address], [place] [address] Care Team Providers Name Role Phone Lito Rajan MD Primary Care Provider Reason for Visit Reason Comments Prior Authorization For Medication Cimzia Encounter Details Date Type Department Care Team Description 08/13/2021 Telephone [facility] [address] Ashley Malcolm DO Prior Authorization For Rheumatology [address] Medication (Cimzia) [address] [place] [phone] Social History Tobacco Use Types Packs/Day Years Used Date Smoking Tobacco: Never Alcohol Use Standard Drinks/Week Comments Yes 0 (1 standard drink = 0.6 oz pure alcoho l) Sex Assigned at Date Recorded Not on file documented as of this encounter Nursing Notes Maria Elena Luna - 08/13/2021 12:21 PM CDT PA to insurance for Cimzia is Approved- script t'd to speciality pharmacy- [facility]. Maria Elena Luna - 08/13/2021 11:40 AM CDT ----- Message from Ashley Malcolm DO sent at 08/13/2021 10:00 AM CDT ----- Patient is transferring care to PN. She previously was getting Cimzia injections at her previous Rheum office. Can we please find out what specialty pharmacy I should be sending the Cimzia to? I want her to be able to self inject.Thanks! documented in this encounter Plan of Treatment Upcoming Encounters Date Type Specialty Care Team Description 01/06/2023 Appointment Rheumatology Malcolm, Ashley Kam, DO [address] [facility] [place] [address] (Wo rk) documented as of this encounter Visit Diagnoses Not on filedocumented in this encounter Care Teams Blocker Polishing Relationship Specialty Start Date End Date Lito Rajan MD PCP - General 11/11/[address] [place] [address] documented as of this encounter
--- OUTSIDE RECORDS SUMMARY | 2022-09-22 13:39 | XMS_ITS | Encounter Summary ---
:1965 Author Organization [employer] Address [address], [place] [address] Care Team Providers Name Role Phone Lito Rajan MD Primary Care Provider Reason for Visit Reason Comments CONSULT Encounter Details Date Type Department Care Team Description 08/13/2021 Office Visit Ashley Auguste, Spondyloarthropathy (Primary Dx); Rheumatology [address] Encounter for long-term (cur rent) use of medications; [address] [facility] Ankylosing spondylitis, unspecified site of spine (HRC); Drive [facility], Osteoporosis, unspecified os teoporosis type, unspecified pathological fracture presence; [facility] [address] Iron deficiency anemia, unspecified iron deficiency anemia type [id number] [phone] Social History Tobacco Use Types Packs/Day Years Used Date Smoking Tobacco: Never Alcohol Use Standard Drinks/Week Comments Yes 0 (1 standard drink = 0.6 oz pure alcoho l) Sex Assigned at Date Recorded Not on file documented as of this encounter Last Filed Vital Signs Vital Sign Reading Time Taken Comments Blood Pressure 125/91 08/13/2021 9:21 AM CDT Pulse 76 08/13/2021 9:21 AM CDT Temperature 37.1 ??C (98.7 ??F) 08/13/2021 9:21 AM CDT Respiratory Rate - - Oxygen Saturation - - Inhaled Oxygen Concentration - - Weight 71.7 kg (158 lb) 08/13/2021 9:21 AM CDT Height 172.7 cm (5' 8) 08/13/2021 9:21 AM CDT Body Mass Index 24.02 08/13/2021 9:21 AM CDT documented in this encounter Patient Instructions Patient InstructionsAshley Malcolm DO - 08/13/2021 9:15 AM CDT Osteoporosis: - take vitamin d 800 units daily - take calcium 600 mg daily - eat dairy daily to get calcium - I will check your calcium and vitamin D levels today : - I will get you the Cimzia to your door - I want to you start injecting yourself every two weeks - I will get labs today for your and RA documented in this encounter Progress Notes Ashley Malcolm DO - 08/13/2021 9:15 AM CDT In Rheumatology Consultation 08/13/21 This patient is referred by herself for evaluation of RA and ? Rukhsana Manzo is a 55 y.o. female who comes in for rheumatoid arthritis and ankylosing spondylitis. Today the patient is here to establish care for her ankylosing spondylitis and osteoporosis. The patient was seen in [address] Kemp who helped her understand her fibromyalgia diagnosis. She previously saw Patty DUNAWAY of this teething at [facility] (Retired) Rheumatology and was diagnosed with RA. She was on MTX for a short period of time before developing itching. She switched to Enbrel and Remicade. After seeing our colleague in 2014 she went ahead to [place] where she was diagnosed with ankylosing spondylitis based off of an HLA B27 and MRI of the pelvis demonstrating enthesitis. She was also found to have musculoskeletal a ultrasound evidence of synovitis of the metacarpal joints. She then transferred care to [facility] due to distance to the [place] and has been on Cimzia and Evenity for her and osteoporosis. She has finished 1 year of Evenity just this past month. She does not have any first degree relatives with autoimmune disease. She has some distant relativeswith JRA and RA. Past medical history is significant for FMS, ADHD, s/p sary-en-Y gastric bypass and chronic migraines. She had a left ankle arthroscopy with ligament reconstruction at [facility]. Exam Vitals: 08/13/21 0921 BP: (!) 125/91 Pulse: 76 Temp: 98.7 ??F (37.1 ??C) Gen: NAD, AOx3 Skin: Skin without evidence of psoriasis, oral ulcers, or alopecia. No nail fold capillary dilation or drop off. No Raynaud's. No skin break down or thinning at nailbeds MSK: No evidence of synovitis or joint effusion. All joints with normal and symmetrical range of motion Lab/Imaging Labs: No applicable labs for us to review Imaging: No applicable imaging for us to review Assessment and Plan 55 y.o. female who comes in establish care for ankylosing spondylitis -diagnosed at male based on H lay B27, pelvic enthesitis on MRI and musculoskeletal ultrasound evidence of synovitis at metacarpal joints -currently on Cimzia -diagnosed with osteoporosis at [facility]. Recently finished of Evenity x 1 year 1) ankylosing spondylitis -get baseline labs hepatitis-B, hepatitis-C, HIV and QuantiFERON gold -will transition Cimzia prescriptions to us 2) osteoporosis - will need to cap the evenity with either a bisphosphonate or denosumab. We will plan for Reclast infusions x2 years -infusion plan place today -will check baseline calcium, PTH, phosphorus, and vitamin-D 3) are deficiency anemia -will check hemogram, and iron studies -due to history of gastric bypass she may need parental iron Follow-up in 4 months Orders Placed This Encounter Procedures ??? TB QuantiFERON Gold Plus ??? Anti-CCP Antibody ??? Rheumatoid Factor, Quant ??? HEMOGRAM/PLTS [3114] ??? ALK P'TASE, TOTAL [0104] ??? CALCIUM ??? INTACT PTH ??? PHOSPHORUS [0123] ??? VITAMIN D 25-HYDROXY, TOTAL [4583] ??? RAJESH - Ferritin ??? Total Iron and Iron Binding Capacity Billing based on: Time More than 63 minutes was spent in preparing for the visit and during the visit. >50% spent counseling. documented in this encounter Plan of Treatment Upcoming Encounters Date Type Specialty Care Team Description 01/06/2023 Appointment Rheumatology Malcolm, Ashley Kam DO [address] [facility] [address] [address] (Wo rk) documented as of this encounter Results Total Iron and Iron Binding Capacity (08/13/2021 10:19 AM CDT) athologist Signature Iron 125 50 - 170 08/13/2021 [facility] mcg/dL 12:57 PM CDT LABORATORY Transferrin 324 180 - 382 08/13/2021 [facility] mg/dL 12:57 PM CDT LABORATORY TIBC, Calculated 405 240 - 450 08/13/2021 [facility] mcg/dL 12:57 PM CDT LABORATORY % Saturation, 31 10 - 50 % 08/13/2021 [facility] Calculated 12:57 PM CDT LABORATORY Specimen Anatomical Collection Method / Collection Time Recei marcos Time (Source) Location / Volume Laterality Blood Venipuncture / 08/13/2021 10:19 1 Unknown AM CDT 10:19 AM CDT Ashley Kam [facility] DO LAB_1 Performing Organization Address City/[facility]/ZIP Code Phon e Number [facility] [address] [place] [address] RAJESH - Ferritin (08/13/2021 10:19 AM CDT) athologist Signature Ferritin 26 9 - 204 08/13/2021 [facility] ng/mL 12:51 PM CDT LABORATORY Specimen Anatomical Collection Method / Collection Time Recei marcos Time (Source) Location / Volume Laterality Blood Venipuncture / 08/13/2021 10:19 1 Unknown AM CDT 10:19 AM CDT Ashley Eddy [facility] DO LAB_1 Performing Organization Address City/[facility] Phon e Number [facility] [address] [place] [address] (ABNORMAL) VITAMIN D 25-HYDROXY, TOTAL [4583] (08/13/2021 10:19 AM CDT) athologist Signature Vitamin D, 122 (H) 30 - 80 08/13/2021 [facility] 25-OH, Total ng/mL 1:10 PM CDT LABORATORY Specimen Anatomical Collection Method / Collection Time Recei marcos Time (Source) Location / Volume Laterality Blood Venipuncture / 08/13/2021 10:19 1 Unknown AM CDT 10:19 AM CDT Narrative [facility] - 08/13/2021 1:10 P M CDT Expected values Deficiency: <20 ng/mL Insufficiency: 20-29 ng/mL Optimum: 30-80 ng/mL Possible toxicity: >80 ng/mL Ashley Malcolm DO LAB_1 Performing Organization Address City/[facility]/ZIP Code Phon e Number [facility] [address] [place] [address] PHOSPHORUS [0123] (08/13/2021 10:19 AM CDT) athologist Signature Phosphorus 3.8 2.3 - 4.7 08/13/2021 [place] mg/dL 11:01 AM CDT LABORATORY Specimen Anatomical Collection Method / Collection Time Recei marcos Time (Source) Location / Volume Laterality Blood Venipuncture / 08/13/2021 10:19 1 Unknown AM CDT 10:19 AM CDT Ashley Malcolm DO LAB_1 Performing Organization Address [facility]/ZIP Code Phon e Number [facility] [address] [place] [address] INTACT PTH (08/13/2021 10:19 AM CDT) athologist Signature Intact PTH 39 10 - 100 08/13/2021 [facility] pg/mL 12:34 PM CDT LABORATORY Specimen Anatomical Collection Method / Collection Time Recei marcos Time (Source) Location / Volume Laterality Blood VENOUS BLOOD Venipuncture / 08/13/2021 10:19 1 SPECIMEN / Unknown Unknown AM CDT 10:19 AM CDT Ashley Malcolm DO LAB_1 Performing Organization Address [facility]/ZIP Code Phon e Number [facility] [address] [place] [address] CALCIUM (08/13/2021 10:19 AM CDT) athologist Signature Calcium 9.8 8.4 - 10.4 08/13/2021 [place] mg/dL 11:01 AM CDT LABORATORY Specimen Anatomical Collection Method / Collection Time Recei marcos Time (Source) Location / Volume Laterality Blood Venipuncture / 08/13/2021 10:19 1 Unknown AM CDT 10:19 AM CDT Ashley Kam Malcolm DO LAB_1 Performing Organization Address [facility]/ZIP Code Phon e Number [facility] [address] [place], [place] [phone] ALK P'TASE, TOTAL [0104] (08/13/2021 10:19 AM CDT) athologist Signature Alkaline 92 40 - 150 08/13/2021 [place] Phosphatase U/L 11:01 AM CDT LABORATORY Specimen Anatomical Collection Method / Collection Time Recei marcos Time (Source) Location / Volume Laterality Blood Venipuncture / 08/13/2021 10:19 1 Unknown AM CDT 10:19 AM CDT Ashley Kam Malcolm DO LAB_1 Performing Organization Address City/State/ZIP Code Phon e Number [facility] [address] [place] [address] HEMOGRAM/PLTS [3114] (08/13/2021 10:19 AM CDT) P athologist Signature WBC 5.7 3.5 - 10.5 08/13/2021 [place] x10(9)/L 10:25 AM CDT LABORATORY RBC 4.01 3.90 - 08/13/2021 [place] 5.03 10:25 AM CDT LABORATORY x10(12)/L Hemoglobin 12.2 12.0 - 08/13/2021 [place] 15.5 g/dL 10:25 AM CDT LABORATORY HCT 38.3 34.9 - 08/13/2021 [place] 44.5 % 10:25 AM CDT LABORATORY MCV 95.5 80.0 - 08/13/2021 [place] 100.0 fL 10:25 AM CDT LABORATORY MCH 30.4 27.6 - 08/13/2021 [place] 33.3 pg 10:25 AM CDT LABORATORY MCHC 31.9 31.5 - 08/13/2021 [place] 35.2 g/dL 10:25 AM CDT LABORATORY RDW 12.9 11.9 - 08/13/2021 [place] 15.5 % 10:25 AM CDT LABORATORY Platelets 298 150 - 450 08/13/2021 [place] x10(9)/L 10:25 AM CDT LABORATORY Automated NRBC 0 <=0 /100 08/13/2021 [place] WBC 10:25 AM CDT LABORATORY Specimen Anatomical Collection Method / Collection Time Recei marcos Time (Source) Location / Volume Laterality Blood Venipuncture / 08/13/2021 10:19 1 Unknown AM CDT 10:19 AM CDT Ashley [employer] LAB_1 Performing Organization Address City/State/ZIP Code Phon e Number [facility] [address] [place], [place] [phone] (ABNORMAL) Rheumatoid Factor, Quant (08/13/2021 10:19 AM CDT) [facility] Method Time Signature Rheumatoid 49 (H) <=30 IU/mL 08/13/2021 [facility] Factor, 12:46 PM CDT LABORATORY Quantitative Specimen Anatomical Collection Method / Collection Time Recei marcos Time (Source) Location / Volume Laterality Blood Venipuncture / 08/13/2021 10:19 1 Unknown AM CDT 10:19 AM CDT [employer] DO LAB_1 Performing Organization Address City/State/ZIP Code Phon e Number [facility] [address] [place] [address] Anti-CCP Antibody (08/13/2021 10:19 AM CDT) [facility] gist Method Time Signature Anti-CCP Antibody 1 <7 U/mL 2021 [facility] 12:51 PM CENTRAL LAB CDT Anti-CCP Antibody Negative Negative 2021 [facility] Interpretation 12:51 PM CENTRAL LAB CDT Specimen Anatomical Collection Method / Collection Time Recei marcos Time (Source) Location / Volume Laterality Blood Venipuncture / 08/13/2021 10:19 1 Unknown AM CDT 10:19 AM CDT [employer] DO LAB_1 Performing Organization Address [facility] Phon e Number [facility] [address] [address] Hepatitis B Surface Antigen (08/13/2021 10:19 AM CDT) [facility] Method Time Signature Hepatitis B Negative Negative 08/13/2021 [facility] Surface (Non (Non 12:40 PM LABORATORY Antigen Reactive) Reactive) CDT Specimen Anatomical Collection Method / Collection Time Recei marcos Time (Source) Location / Volume Laterality Blood Venipuncture / 08/13/2021 10:19 1 Unknown AM CDT 10:19 AM CDT Ashley Eddy Malcolm DO LAB_1 Performing Organization Address [facility] Phon e Number [facility] [address] [place] [address] HIV 1/2 Ag/Ab 4th Generation (08/13/2021 10:19 AM CDT) [facility] Method Time Signature HIV 1/2 Negative Negative 08/13/2021 [facility] Antigen/Antib (Non (Non 4:29 PM CDT LABORATORY neal (4th Reactive) Reactive) generation) Comment: HIV-1 p24 Antigen and HIV-1/HIV -2 Antibody not detected Specimen Anatomical Collection Method / Collection Time Recei marcos Time (Source) Location / Volume Laterality Blood Venipuncture / 08/13/2021 10:19 1 Unknown AM CDT 10:19 AM CDT Ashley Eddy Malcolm DO LAB_1 Performing Organization Address [facility] Phon e Number [facility] [address] [place] [address] Hepatitis C Antibody, with Reflex (08/13/2021 10:19 AM CDT) [facility] Method Time Signature Hepatitis C Negative Negative 08/13/2021 [facility] Antibody (Non (Non 4:29 PM CDT LABORATORY Reactive) Reactive) Comment: Antibodies to HCV not detected. Does not exclude the possiblity of exposure to HCV. Specimen Anatomical Collection Method / Collection Time Recei marcos Time (Source) Location / Volume Laterality Blood Venipuncture / 08/13/2021 10:19 1 Unknown AM CDT 10:19 AM CDT Ashley Q Malcolm DO LAB_1 Performing Organization Address City/State/ZIP Code Phon e Number [facility] [address] [place] [address] documented in this encounter Visit Diagnoses Diagnosis Spondyloarthropathy (HRC) - Primary Spondylosis of unspecified site without mention of myelopathy Encounter for long-term (current) use of medications Encounter for long-term (current) use of other medications Ankylosing spondylitis, unspecified site of spine (HRC) Osteoporosis, unspecified osteoporosis t ype, unspecified pathological fracture presence (HRC) Iron deficiency anemia, unspecified iron deficiency anemia type documented in this encounter Care Teams Computer Network Support Specialist Relationship Specialty Start Date End Date Lito Rajan MD PCP - General 11/11/141999 [place] [address] documented as of this encounter
--- OUTSIDE RECORDS SUMMARY | 2022-09-22 13:39 | XMS_ITS | Encounter Summary ---
:1965 Author Organization [facility] Address [address], [place] [address] Care Team Providers Name Role Phone Lito Rajan MD Primary Care Provider Encounter Details Date Type Department Care Team Description 12/24/2014 Lab Visit [facility] [address] [place] [address] Social History Tobacco Use Types Packs/Day Years Used Date Smoking Tobacco: Never Assessed Sex Assigned at Date Recorded Not on file documented as of this encounter Plan of Treatment Upcoming Encounters Date Type Specialty Care Team Description 01/06/2023 Appointment Rheumatology Malcolm, Ashley Kam, DO [address] [facility] [place] [address] [address] (Wo rk) documented as of this encounter Procedures Procedure Name Priority Date/Time Associated Diagnosis Comme nts THYROID STIMULATING Routine 12/24/2014 10:28 Fibromyalgia Resu lts for this HORMONE AM CDT procedure are i n the results section. VITAMIN D Routine 12/24/2014 10:28 Fibromyalgia Results for this 25-HYDROXY, TOTAL AM CDT procedure are in the results section. documented in this encounter Results Vitamin D 25-Hydroxy, Total (12/24/2014 10:28 AM CDT) P athologist Signature Vitamin D 25 Oh 48 20 - 80 [facility] CONVERSION ng/mL Comment: Deficiency = <20 Adequate ??= 20-29 Preferred = 30-50 Uncertain safety = 51-80 High = >80 Specimen Anatomical Collection Method Collection Time Receive d Time (Source) Location / / Volume Laterality 12/24/2014 10:28 12/24/2014 1:28 AM CDT PM CDT Narrative HP CONVERSION - 12/24/2014 3:14 PM CDT Performed at [facility], [facility] [place] [address] Tosha Kemp MD LAB_1 Performing Organization Address [facility] Phon e Number HP CONVERSION THYROID STIMULATING HORMONE (12/24/2014 10:28 AM CDT) athologist Signature Thyroid 1.69 0.20 - HP CONVERSION Stimulating 4.50 mIU/L Hormone Specimen Anatomical Collection Method Collection Time Receive d Time (Source) Location / / Volume Laterality 12/24/2014 10:28 12/24/2014 1:28 AM CDT PM CDT Narrative HP CONVERSION - 12/24/2014 2:18 PM CDT Performed at [facility], [address] [place], [place] [address] Tosha Kemp MD LAB_1 Performing Organization Address [facility] Phon e Number HP CONVERSION documented in this encounter Visit Diagnoses Diagnosis Fibromyalgia Mylagia and myositis, unspecified documented in this encounter Care Teams Aircraft Maintenance Supervisor Relationship Specialty Start Date End Date Lito Rajan MD PCP - General 11/11/141999 [place] [address] documented as of this encounter
--- OUTSIDE RECORDS SUMMARY | 2022-09-22 13:39 | XMS_ITS | Encounter Summary ---
:1965 Author Organization [employer] Address [address] [address] Care Team Providers Name Role Phone Lito Rajan MD Primary Care Provider Reason for Visit Reason Comments Follow-up Encounter Details Date Type Department Care Team Description 06/22/2022 Office Visit [place] Ashley Malcolm DO Ankylosing spondylitis, unspecified site of spine (HRC) (Primary Dx); Rheumatology [address] [place] [address] Encounter for long-term (cur rent) use of medications [address] [place], [place] [id number] [place] [phone] (Wo rk) Social History Tobacco Use Types Packs/Day Years Used Date Smoking Tobacco: Never Smokeless Tobacco: Never Alcohol Use Standard Drinks/Week Comments Yes 0 (1 standard drink = 0.6 oz pure alcoho l) Sex Assigned at Date Recorded Not on file documented as of this encounter Last Filed Vital Signs Vital Sign Reading Time Taken Comments Blood Pressure 120/74 06/22/2022 11:32 AM CDT Pulse 54 06/22/2022 11:32 AM CDT Temperature 36.9 ??C (98.4 ??F) 06/22/2022 11:32 AM CDT Respiratory Rate - - Oxygen Saturation - - Inhaled Oxygen Concentration - - Weight - - Height - - Body Mass Index - - documented in this encounter Progress Notes Ashley Malcolm DO - 06/22/2022 11:45 AM CDT Rheumatology Follow Up 06/22/2022 Follow Up Rheum History: Ms Anais is a patient we met in Jul 2021 with previously diagnosed and FMS. She was diagnosed with at [place] due to +HLA B27, pelvic enthesitis on MRI and ultrasound evidence of synovitis on US. Cimzia was started at [place] with good effect. She was diagnosed with FMS by our colleague Dr Kemp in 2014. She was diagnosed with osteoporosis at [facility] and placed on Evenity for one year.We started her on Reclast when we met her Current Treatment: Cimzia and Reclast Previous Treatment: MTX, Enbrel, Remicade and Evenity Interval History: We last saw the patient in March. At that time her ankylosing spondylitis was well controlled with Cimzia. The patient has osteoporosis was also on schedule with a Reclast infusion due in 2022. Finally she also had her fibromyalgia under decent control with lifestyle management. Today the patient states that not much has changed. She continues to do okay from all 3 of the above. She continues to take her Cimzia on a monthly basis. She notes some flaring of FMS symptoms for 2-3days after each Cimzia. She also notes that she has been on the road a lot lately and her diet has not been as strict. As a result, she does have more days with a sensation of bruising on her hands. Normally she does not really use her percocet, but recently she has needed it more. She does mention some numbness down both of her hands that other specialists feel is cervical radiculopathy. Surgery has been brought up. She has an EMG in the future She continues to use THC and CBD based products to help her with her symptoms. She has not needed toincrease frequency or dose. Exam Vitals: 06/22/22 1132 BP: 120/74 Pulse: (!) 54 Temp: 98.4 ??F (36.9 ??C) Gen: NAD, AOx3 Skin: Skin without evidence of psoriasis, oral ulcers, or alopecia. No nail fold capillary dilation or drop off. No Raynaud's. No skin break down or thinning at nailbeds MSK: No evidence of synovitis or joint effusion. All joints with normal and symmetrical range of motion Assessment and Plan 56 y.o. female here for follow up of ankylosing spondylitis - appears to be in clinical remission today -on Cimzia - on exam and history, a lot of her pain components/fatigue seem to be mostly FMS related. 1) ankylosing spondylitis -will grab a CBC today. She will not be due for any other labs for approximately a year 2) osteoporosis -at her next visit I will go ahead and write orders for her next Reclast. -I will also plan on ordering a bone scan for 2022. If her bone scan looks appropriate I will likelyinitiate a drug holiday 3) FMS - we spoke at length about dietary considerations, stretching, utilizing yoga regularly, and ensuring that she gets good rest - she will continue to use her THC and CBD products - hopefully as she winds down her traveling a bit, her stress levels will also calm down Orders Placed This Encounter Procedures Complete Blood Count -W/Diff Standing Status: Future Standing Expiration Date: 07/22/2022 Billing based on: Time Total time for the visit was 45 minutes including, but not limited to, zkh-[id number]-eu-face time spent reviewing records, counseling, and coordination of care. documented in this encounter Plan of Treatment Upcoming Encounters Date Type Specialty Care Team Description 01/06/2023 Appointment Rheumatology Ashley Malcolm DO [address] [facility] [address] (Wo rk) documented as of this encounter Visit Diagnoses Diagnosis Ankylosing spondylitis, unspecified site of spine (HRC) - Primary Encounter for long-term (current) use of medications Encounter for long-term (current) use of other medications documented in this encounter Care Teams Language Tutor Relationship Specialty Start Date End Date Lito Rajan MD PCP - General 11/11/141999 [place] [address] documented as of this encounter
--- OUTSIDE RECORDS SUMMARY | 2022-09-22 13:39 | XMS_ITS ---
:1965 Author Care Team Providers Name Role Phone Kari Ortez Primary Care Provider Unavailable Allergies Code Code System Name Reaction Severity Status Onset 878106 RxNorm Enbrel ? ? Active ? 617687 RxNorm Humira Headache Moderate to Severe Active ? Morphine Sulfate ? ? Active ? 370049 RxNorm Remicade Headache ? Active ? 354536 RxNorm Topamax ? ? Active ? Trazodone [...] HPV DNA, VAGINA&VAGINA ? HPV negative negative [facility] High-risk High for HPV for [facility] type 16. type 16. Health - Type 16 Lab: [address], [place] ? ? VAGINA&VAGINA ? HPV negative negative [facility] for HPV for HPV [facility] Risk type 18. type 18. Health - Type 18 Lab: [address], [place] ? ? VAGINA&VAGINA ? HPV negative negative [facility] Other for other for other Felix ria High high risk high risk Heal th - Risk HPV HPV Lab: [address], [place] 01/27/2021 Pap, LB VAGINA&VAGINA ? Case see note ? Com plete [facility] Report [facility] - Lab: [address], [place] ? Hemoglobin ? Finger 12.0 g/dL 12.0-15.0 ? Ix482_veshvo (Hb), stick g/dL ale_burnsv il Fingerstick Hemoglo le: [address] , Blood beatrice [address] [place] [address] Past Encounters Encounter Date Diagnosis Provider 06/07/2022 Gynecologic Examination; Korey Jaqua, DO: [address] Dyspareunia; Atrophic Vulva [address], [address], [place] [address], Ph. Social History Tobacco Smoking Status Never [...]
--- OUTSIDE RECORDS SUMMARY | 2022-09-22 13:39 | XMS_ITS | Encounter Summary ---
:1965 Author Organization [facility] Address [address] [address] Care Team Providers Name Role Phone Lito Rajan MD Primary Care Provider Reason for Visit Reason Onset Date Comments Refill Prior Authorization For Medication 07/19/2022 Fatou CEVALLOS continuation Encounter Details Date Type Department Care Team Description 07/19/2022 Refill Dora Jhony Malcolm, Refill; Prior Rheumatology [address] [facility] Authorization [place] [address] [address] [facility] Medication ([place] [address] [place], [place] continuation) [phone] (Wo rk) Social History Tobacco Use Types Packs/Day Years Used Date Smoking Tobacco: Never Smokeless Tobacco: Never Alcohol Use Standard Drinks/Week Comments Yes 0 (1 standard drink = 0.6 oz pure alcoho l) Sex Assigned at Date Recorded Not on file documented as of this encounter Nursing Notes Sharona Sams RN - 07/26/2022 10:36 AM CDT Renewed medication per medication refill standing order. Requested Prescriptions Signed Prescriptions Disp Refills injection certolizumab pegol (CIMZIA PREFILLED) 2 X 200 MG/ML 2 Each 11 Sig: Inject 2 mL (400 mg) subcutaneously every 4 weeks. Indications: Rheumatic Disease causing Vertebrae Inflammation, M45.9 Authorizing Provider: JHONY MALCOLM Ordering User: SHARONA SAMS Maria Elena Luna - 07/21/2022 8:47 AM CDT Images from the original note were not included. Guillezia Renewal is approved. Maria Elena Luna - 07/20/2022 1:15 PM CDT Susan PA renewal sent to plan. Sharona Sams RN - 07/19/2022 2:17 PM CDT LV: 06/22/22 NV: 01/06/23 Patient had CBC, labs on 06/22/22 and values were within refill range. Routing for PA documented in this encounter Plan of Treatment Upcoming Encounters Date Type Specialty Care Team Description 01/06/2023 Appointment Rheumatology Malcolm, Jhony Q, DO [address] [facility] [address] (Wo rk) documented as of this encounter Visit Diagnoses Not on filedocumented in this encounter Care Teams Field Marketing Specialist Relationship Specialty Start Date End Date Lito Rajan MD PCP - General 11/11/141999 [place] [address] documented as of this encounter
--- OUTSIDE RECORDS SUMMARY | 2022-09-22 13:39 | XMS_ITS | Encounter Summary ---
:1965 Author Organization [facility] Address [address] [place] [address] Care Team Providers Name Role Phone Lito Rajan MD Primary Care Provider Encounter Details Date Type Department Care Team Description 07/17/2021 Orders Only Initial Department Provider, Chelsey, [address] [place], [place] [address] Interface provider [phone] [place] [address] Social History Tobacco Use Types Packs/Day Years Used Date Smoking Tobacco: Never Alcohol Use Standard Drinks/Week Comments Yes 0 (1 standard drink = 0.6 oz pure alcoho l) Sex Assigned at Date Recorded Not on file documented as of this encounter Plan of Treatment Upcoming Encounters Date Type Specialty Care Team Description 01/06/2023 Appointment Rheumatology Ashley Malcolm, DO [address] [facility] [address] (Wo rk) documented as of this encounter Procedures Procedure Name Priority Date/Time Associated Diagnosis Comme nts MRI-SCAN 07/17/2021 Results for thi s procedure are in the resu lts section. documented in this encounter Results MRI-SCAN (07/17/2021) Anatomical Region Laterality Modality Other Narrative This result has an attachment that is no t available. Interface Provider DUMMY/OTHER/AR documented in this encounter Visit Diagnoses Not on filedocumented in this encounter Care Teams Title Insurance Agent Relationship Specialty Start Date End Date Lito Rajan MD PCP - General 11/11/141999 [place], [place] [address] documented as of this encounter
--- OUTSIDE RECORDS SUMMARY | 2022-09-22 13:39 | XMS_ITS | Encounter Summary ---
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
--- OUTSIDE RECORDS SUMMARY | 2022-09-22 13:39 | XMS_ITS | Encounter Summary ---
:1965 Author Organization [employer] Address [address] [place] [address]. [place] [address] Care Team Providers Name Role Phone Unavailable Primary Care Provider Unavailable Reason for Visit Reason Comments [facility] JAYDON Encounter Details Date Type Department Care Team Description 06/24/[address] 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
--- OUTSIDE RECORDS SUMMARY | 2022-09-22 13:39 | XMS_ITS | Encounter Summary ---
:1965 Author Organization [facility] Address [address], [place] [address] Care Team Providers Name Role Phone Lito Rajan MD Primary Care Provider Reason for Visit Reason Comments Medication Questions Encounter Details Date Type Department Care Team Description 08/13/[address] [facility] [address] Ashley Malcolm DO Medication Questions Rheumatology [address] [facility] [address] [facility] [place] [address] [phone] Social History Tobacco Use Types Packs/Day Years Used Date Smoking Tobacco: Never Smokeless Tobacco: Never Alcohol Use Standard Drinks/Week Comments Yes 0 (1 standard drink = 0.6 oz pure alcoho l) Sex Assigned at Date Recorded Not on file documented as of this encounter Nursing Notes Florence Loja LPN - 08/16/2022 11:51 AM CDT Patient informed. Verbalized understanding. Ashley Madera DO - 08/16/2022 11:13 AM CDT Cimzia is okay to hold for one shot before the surgery if it is within a week. If it is not, then hold for one shot after the surgery Chelsy Shipley - 08/13/2022 4:23 PM CDT Patient calling, she is scheduled for surgery on 09/07/22 and she wonders how long to hold Cimizia and or her other medications prior to surgery and when to resume after surgery. Please advise. Ok for Tuesday. documented in this encounter Plan of Treatment Upcoming Encounters Date Type Specialty Care Team Description 01/06/2023 Appointment Rheumatology Ashley Malcolm, DO [address] [facility] [place] [address] (Wo rk) documented as of this encounter Visit Diagnoses Not on filedocumented in this encounter Care Teams Specification Manager Relationship Specialty Start Date End Date Lito Rajan MD PCP - General 11/11/141999 [place] [address] documented as of this encounter
--- OUTSIDE RECORDS SUMMARY | 2022-09-22 13:39 | XMS_ITS | Encounter Summary ---
:1965 Author Organization [facility] Address [address] [address] Care Team Providers Name Role Phone Lito Rajan MD Primary Care Provider Reason for Visit Reason Comments IV,THERAPY Encounter Details Date Type Department Care Team Description 12/23/2021 Telephone [facility] Jhony Arnold DO IV,THERAPY [address] [facility] [address] [place], [place] [address] [place] [address] [phone] (Wo rk) Social History Tobacco Use Types Packs/Day Years Used Date Smoking Tobacco: Never Alcohol Use Standard Drinks/Week Comments Yes 0 (1 standard drink = 0.6 oz pure alcoho l) Sex Assigned at Date Recorded Not on file documented as of this encounter Progress Notes Jhony Malcolm DO - 12/28/2021 10:06 AM CDT Addended by: JHONY MALCOLM on: 12/28/2021 10:06 AM Modules accepted: Orders documented in this encounter Nursing Notes Chelsy Shipley - 12/28/2021 10:30 AM CDT Patient has a lab appointment scheduled for today a 10:30am. Jhony Malcolm DO - 12/28/2021 10:06 AM CDT Please have patient draw lab today before her reclast infusion. Robyn Cline RPh - 12/23/2021 12:07 PM CST Rukhsana Manzo has an appointment to receive Reclast (zoledronic acid) infusion next Tuesday12/28/21.Patient does not have a recent SCr - last SCR is from 04/23/19 in Care Everywhere. Recommend rechecking serum creatinine prior to patient's reclast infusion. Thank you, Robyn Cline RPh 12/23/2021 S PERFORMANCE MANAGER documented in this encounter Plan of Treatment Upcoming Encounters Date Type Specialty Care Team Description 01/06/2023 Appointment Rheumatology Jhony Malcolm DO [address] [facility] [address] (Wo rk) documented as of this encounter Visit Diagnoses Diagnosis Osteoporosis, unspecified osteoporosis t ype, unspecified pathological fracture presence (HRC) - Primary documented in this encounter Care Teams Box Printer Relationship Specialty Start Date End Date Lito Rajan MD PCP - General 11/11/141999 [place] [address] documented as of this encounter
--- OUTSIDE RECORDS SUMMARY | 2022-09-22 13:39 | XMS_ITS | Encounter Summary ---
:1965 Author Organization [facility] Address [address], [place] [address] Care Team Providers Name Role Phone Lito Rajan MD Primary Care Provider Reason for Visit Reason Comments Follow-up Encounter Details Date Type Department Care Team Description 12/22/2021 Office Visit [place] Ashley Malcolm DO Ankylosing spondylitis, unspecified site of spine (HRC) (Primary Dx); Rheumatology [address] [place] [address] Encounter for long-term (cur rent) use of medications [address] [place] [address] [place], [place] [phone] (Wo rk) Social History Tobacco Use Types Packs/Day Years Used Date Smoking Tobacco: Never Alcohol Use Standard Drinks/Week Comments Yes 0 (1 standard drink = 0.6 oz pure alcoho l) Sex Assigned at Date Recorded Not on file documented as of this encounter Patient Instructions Patient InstructionsAshley Malcolm DO - 12/22/2021 11:45 AM CST Please get the shingrix vaccine Please get scheduled for Reclast infusion ER LINE CUTTER OPERATOR documented in this encounter Progress Notes Ashley Malcolm DO - 12/22/2021 11:45 AM CST Rheumatology Follow Up 12/22/2021 Follow Up Rheum History: Ms Manzo is a patient we met in Jul 2021 with previously diagnosed and FMS. She was diagnosed with at [place] due to +HLA B27, pelvic enthesitis on MRI and ultrasound evidence of synovitis on US. Cimzia was started at [place] with good effect. She was diagnosed with FMS by our colleague Dr Kemp in 2014. She was diagnosed with osteoporosis at [facility] and placed on Evenity for one year.We started her on Reclast when we met her Current Treatment: Cimzia and Reclast Previous Treatment: MTX, Enbrel, Remicade and Evenity Interval History: We first established with Ms Manzo at our previous visit in Jul 2021. At that time we noted her completion of Evenity and planned to start her on Reclast x 2 years. We ordered it but she never got the infusion At her last visit we also took over her Cimzia prescriptions. Since then, the patient has been doing well from an standpoint. She notes that she has been experiencing night sweats for the past few weeks. In addition, she has had 18lb weight loss since Aug 2021. She recently had a CT chest abdomen pelvis at [place] that was benign Exam Gen: NAD, AOx3 HEENT: No adenopathy. No scalp tenderness, temporal artery tenderness or jaw tenderness with palpation Skin: Skin without evidence of psoriasis, oral ulcers, or alopecia. No nail fold capillary dilation or drop off. No Raynaud's. No skin break down or thinning at nailbeds MSK: No evidence of synovitis or joint effusion. All joints with normal and symmetrical range of motion Assessment and Plan 56 y.o. female here for follow up of - on Cimzia - no reclast yet 1) - continue Cimzia - no labs indicated today 2) osteoporosis - will have patient schedule the Reclast before she leaves today Follow up in 6 months Billing based on: Time Total time for the visit was 30 minutes including, but not limited to, tko-tuir-mj-face time spent reviewing records, counseling, and coordination of care. ER LINE CUTTER OPERATOR documented in this encounter Plan of Treatment Upcoming Encounters Date Type Specialty Care Team Description 01/06/2023 Appointment Rheumatology Ashley Malcolm DO [address] [facility] [place] [address] (Wo rk) documented as of this encounter Visit Diagnoses Diagnosis Ankylosing spondylitis, unspecified site of spine (HRC) - Primary Encounter for long-term (current) use of medications Encounter for long-term (current) use of other medications documented in this encounter Care Teams Poultry Barn Manager Relationship Specialty Start Date End Date Lito Rajan MD PCP - General 11/11/141999 [place] [address] documented as of this encounter
--- OUTSIDE RECORDS SUMMARY | 2022-09-22 13:39 | XMS_ITS | Encounter Summary ---
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
--- OUTSIDE RECORDS SUMMARY | 2022-09-22 13:39 | XMS_ITS | Encounter Summary ---
:1965 Author Organization [employer] Address [address] [address] Care Team Providers Name Role Phone Lito Rajan MD Primary Care Provider Encounter Details Date Type Department Care Team Description 12/28/2021 Lab Visit [facility] Age-related osteoporosis [address] [place] [address] fracture [phone] Social History Tobacco Use Types Packs/Day Years Used Date Smoking Tobacco: Never Alcohol Use Standard Drinks/Week Comments Yes 0 (1 standard drink = 0.6 oz pure alcoho l) Sex Assigned at Date Recorded Not on file documented as of this encounter Plan of Treatment Upcoming Encounters Date Type Specialty Care Team Description 01/06/2023 Appointment Rheumatology Malcolm, Ashley Kam, DO [address] [facility] [place] [address] [address] (Wo rk) documented as of this encounter Procedures Procedure Name Priority Date/Time Associated Diagnosis Comme nts CREATININE / GFR STAT 12/28/2021 10:33 AM Age-related Resu lts for this CDT osteoporosis without procedu re are in current pathological the res ults fracture section. TSH, SENSITIVE Routine 12/28/2021 10:33 AM Age-related Result s for this CDT osteoporosis without procedu re are in current pathological the res ults fracture section. documented in this encounter Results TSH (12/28/2021 10:33 AM CDT) P athologist Signature TSH, Sensitive 0.68 0.30 - 12/28/2021 [facility] 4.50 7:07 PM CDT LABORATORY uIU/mL Specimen Anatomical Collection Method / Collection Time Recei marcos Time (Source) Location / Volume Laterality Blood Venipuncture / 12/28/2021 10:33 2 Unknown AM CDT 10:33 AM CDT Ashley Malcolm DO LAB_1 Performing Organization Address City/[facility]/ZIP Code Phon e Number [facility] [address] [place] [address] Creatinine - STAT (12/28/2021 10:33 AM CDT) P athologist Signature Creatinine 0.70 0.55 - 12/28/2021 [place] 1.02 mg/dL 11:24 AM CDT LABORATORY GFR, Estimated >60 >60 12/28/2021 [place] mL/min/1.7 11:24 AM CDT LABORATORY 3m2 Specimen Anatomical Collection Method / Collection Time Recei marcos Time (Source) Location / Volume Laterality Blood Venipuncture / 12/28/2021 10:33 2 Unknown AM CDT 10:33 AM CDT Ashley Malcolm DO LAB_1 Performing Organization Address City/[facility] Phon e Number [facility] [address] [place] [address] documented in this encounter Visit Diagnoses Diagnosis Age-related osteoporosis without current pathological fracture (HRC) Senile osteoporosis documented in this encounter Care Teams Dynamics Ax Technical Architect Relationship Specialty Start Date End Date Lito Rajan MD PCP - General 11/11/141999 [place] [address] documented as of this encounter
--- OUTSIDE RECORDS SUMMARY | 2022-09-22 13:39 | XMS_ITS | Encounter Summary ---
:1965 Author Organization [employer] Address [address] [address] Care Team Providers Name Role Phone Lito Rajan MD Primary Care Provider Reason for Visit Reason Comments Infusion Infusion Therapy Plan (Routine) - Authorized Specialty Diagnoses / Procedures Referred By Contact Refer red To Contact Diagnoses Age-related osteoporosis without current pathological fracture (HRC) Ashley Malcolm DO [facility] [address] [facility] [address] [address] [place], [place] [address] [place] [address] Fax: Referral ID Status Reason Start Date Expiration Date Visits V isits Requested Authorized [id number] Authorized 08/13/2021 11/12/2022 999 [id number] Encounter Details Date Type Department Care Team Description 12/28/2021 [facility] [address] [facility] [place] [address] current pathological [phone] fracture (Prima ry Dx) Social History Tobacco Use Types Packs/Day Years Used Date Smoking Tobacco: Never Alcohol Use Standard Drinks/Week Comments Yes 0 (1 standard drink = 0.6 oz pure alcoho l) Sex Assigned at Date Recorded Not on file documented as of this encounter Last Filed Vital Signs Vital Sign Reading Time Taken Comments Blood Pressure 114/66 12/28/2021 11:52 AM CDT Pulse 67 12/28/2021 11:52 AM CDT Temperature 37 ??C (98.6 ??F) 12/28/2021 10:55 AM CDT Respiratory Rate - - Oxygen Saturation 98% 12/28/2021 10:55 AM CDT Inhaled Oxygen Concentration - - Weight 68.3 kg (150 lb 8 oz) 12/28/2021 10:55 AM CDT Height - - Body Mass Index 22.88 08/13/2021 9:21 AM CDT documented in this encounter Medications at Time of Discharge Medication Sig Dispensed Refills Start Date End Date amphetamine-dextroamphe Take 10 mg by mouth two 0 08/12/2021 tamine (ADDERALL) 10 MG times a day. tablet BELBUCA [address] 1 FILM BY BUCCAL [address] TWICE DAILY AGAINST THE INSIDE OF THE CHEEK, HOLDING IN PLACE FOR 5 SECONDS, celecoxib (CELEBREX) TAKE 1 CAPSULE (100 MG) 0 100 MG capsule BY MOUTH 2 TIMES DAILY certolizumab pegol Inject 2 mL 1 Kit 11 08/13/2021 (CIMZIA) 2 X 200 MG subcutaneously every 4 injectionIndications: weeks. Indications: Ankylosing Spondylitis, Rheumatic Disease M45.9 causing Vertebrae Inflammation, M45.9 diclofenac (VOLTAREN) 1 Apply 2 g to skin 4 0 % gel times a day. dicyclomine (BENTYL) 20 TAKE 1/2 TABLET (10MG) 0 06/29/2021 MG tablet BY MOUTH FOUR TIMES A DAY drug not in Indications: Vit D and K 0 computerIndications: [place] Iron benadryl Vit D and K [place] mucinex Iron benadryl mucinex estradiol (ESTRACE) 0.1 INSERT 1 GRAM VAGINALLY 0 06/16/2021 MG/GM vaginal cream 2 TIMES A WEEK IN THE EVENING fexofenadine (HIPOLITO) Take 180 mg by mouth 0 180 MG tablet daily as needed. fluticasone (AKA Indications: PN: 3 12/07/2014 FLONASE) 50 MCG/ACT [facility] nasal Dec 24, 2014 9:21 AM solutionIndications: Received from: External [facility] Dec 24, 2014 9:21 AM Received from: External Pharmacy oxyCODONE-acetaminophen TAKE ONE TABLET BY MOUTH 0 07/20/2021 (PERCOCET) 7.5-325 MG EVERY SIX HOURS tablet NEEDED, MAX 3/DAY FOR CHRONIC PAIN SUMAtriptan (AKA Indications: PN: 4 12/05/2014 IMITREX) 50 MG [facility] tabletIndications: Dec 24, 2014 9:21 AM [facility] Received from: External [facility] Dec 24, 2014 9:21 Pharmacy AM Received from: External Pharmacy traZODone (DESYREL) 50 0 08/12/2021 MG tablet documented as of this encounter Progress Notes Litzy Najera RN - 12/28/2021 11:00 AM CDT Dx: Age-related osteoporosis without current pathological fracture (HRC) Ashley Malcolm DO Is this the first dose: Yes, medication information given to patient. History of previous infusion reactions? NA Premedications: None 12/28/2021: Creatinine 0.70 Creatinine Clearance 97.433 ML/MIN Patient arrived for Reclast infusion. Vital signs stable. No signs of infection. Pt confirmed she is taking the Calcium but not taking Vitamin D. They will let the dentist know theyare on Reclast. If major dental work is needed, they will consult with their provider so the procedure can be scheduled properly. Tolerated infusion well. Discharged in stable condition. Will return to clinic for next infusion as scheduled yearly . Litzy Najera RN 12:00 PM 12/28/2021 documented in this encounter Plan of Treatment Upcoming Encounters Date Type Specialty Care Team Description 01/06/2023 Appointment Rheumatology MalcolmAshley DO [address] [facility] [place] [address] [address] (Wo rk) documented as of this encounter Visit Diagnoses Diagnosis Age-related osteoporosis without current pathological fracture (HRC) - Primary Senile osteoporosis documented in this encounter Administered Medications Inactive Administered Medications - up to 3 most recent administrations Medication Order DEC Action Action Date Dose Rate Site sodium chloride 0.9% injection Given 12/28/2021 11:55 AM CDT 10 mL 10-60 mL 10-60 mL, Intravenous, PRN BEFORE&AFTER MEDICATIONS OR LAB DRAW, Line Patency, Starting on Tue12/28/21 at 1125, Until Tue12/28/21 at 1400, For 1 day Given 12/28/2021 11:30 AM CDT 10 mL zoledronic acid (RECLAST) infusion 5 mg Started 12/28/2021 11:32 AM CDT 5 mg 5 mg, Intravenous, Administer over 20 Minutes, ONCE, On Tue12/28/21 at 1145, For 1 dose, Hold if patients creatinine clearance is less than 35 mL/minute. Preparation: Single glove, gown; face mask optional Administration: Single glove documented in this encounter Care Teams Dry Man Relationship Specialty Start Date End Date Lito Rajan MD PCP - General 11/11/141999 [place] [address] documented as of this encounter
--- OUTSIDE RECORDS SUMMARY | 2022-09-22 13:39 | XMS_ITS | Encounter Summary ---
:1965 Author Organization [employer] Address [address], [place] [address] Care Team Providers Name Role Phone Lito Rajan MD Primary Care Provider Encounter Details Date Type Department Care Team Description 06/22/2022 Lab Visit [facility] Ankylosing spondylitis, unsp ecified site of spine (HRC); [address] Encounter for long-term (cur rent) use of medications [place], [place] [id number] Social History Tobacco Use Types Packs/Day Years Used Date Smoking Tobacco: Never Smokeless Tobacco: Never Alcohol Use Standard Drinks/Week Comments Yes 0 (1 standard drink = 0.6 oz pure alcoho l) Sex Assigned at Date Recorded Not on file documented as of this encounter Plan of Treatment Upcoming Encounters Date Type Specialty Care Team Description 01/06/2023 Appointment Rheumatology Malcolm, Ashley Kam, DO [address] [facility] [place] [address] [address] (Wo rk) documented as of this encounter Procedures Procedure Name Priority Date/Time Associated Diagnosis Comme nts CBC AND DIFFERENTIAL Routine 06/22/2022 12:21 Ankylosing Res ults for this PANEL PM CDT spondylitis, procedure are i n unspecified site of the resu lts spine (HRC) section. Encounter for long-term (current) use of medications COMPLETE BLOOD Routine 06/22/2022 12:21 Ankylosing Results f or this COUNT-W/DIFF PM CDT spondylitis, procedure are i n unspecified site of the resu lts spine (HRC) section. Encounter for long-term (current) use of medications documented in this encounter Results (ABNORMAL) Complete Blood Count-W/Diff (06/22/2022 12:21 PM CDT) [facility] Method Time Signature WBC 5.0 3.5 - 10.5 06/22/2022 [place] x10(9)/L 12:32 PM CDT LABORATORY RBC 3.51 (L) 3.90 - 06/22/2022 [place] 5.03 12:32 PM CDT LABORATORY x10(12)/L Hemoglobin 10.9 (L) 12.0 - 06/22/2022 [place] 15.5 g/dL 12:32 PM CDT LABORATORY HCT 32.7 (L) 34.9 - 06/22/2022 [place] 44.5 % 12:32 PM CDT LABORATORY MCV 93.2 80.0 - 06/22/2022 [place] 100.0 fL 12:32 PM CDT LABORATORY MCH 31.1 27.6 - 06/22/2022 [place] 33.3 pg 12:32 PM CDT LABORATORY MCHC 33.3 31.5 - 06/22/2022 [place] 35.2 g/dL 12:32 PM CDT LABORATORY RDW 11.9 11.9 - 06/22/2022 [place] 15.5 % 12:32 PM CDT LABORATORY Platelets 221 150 - 450 06/22/2022 [place] x10(9)/L 12:32 PM CDT LABORATORY Automated NRBC 0 <=0 /100 06/22/2022 [place] WBC 12:32 PM CDT LABORATORY Neutrophil 2.4 1.7 - 7.0 06/22/2022 [place] Absolute 10(9)/L 12:32 PM CDT LABORATORY Lymphocyte 2.0 1.0 - 4.8 06/22/2022 [place] Absolute 10(9)/L 12:32 PM CDT LABORATORY Monocytes 0.4 0.2 - 0.9 06/22/2022 [place] Absolute 10(9)/L 12:32 PM CDT LABORATORY Eosinophil 0.2 0.0 - 0.5 06/22/2022 [place] Absolute 10(9)/L 12:32 PM CDT LABORATORY Basophil 0.0 0.0 - 0.3 06/22/2022 [place] Absolute 10(9)/L 12:32 PM CDT LABORATORY Immature Gran % 0.2 0.0 - 0.5 06/22/2022 [place] % 12:32 PM CDT LABORATORY Specimen Anatomical Collection Method / Collection Time Recei marcos Time (Source) Location / Volume Laterality Blood Venipuncture / 06/22/2022 12:21 2 Unknown PM CDT 12:22 PM CDT Ashley Q Malcolm DO LAB_1 Performing Organization Address City/State/[facility] Code Phon e Number [facility] [address] [place] [address] documented in this encounter Visit Diagnoses Diagnosis Ankylosing spondylitis, unspecified site of spine (HRC) Encounter for long-term (current) use of medications Encounter for long-term (current) use of other medications documented in this encounter Care Teams Psychodramatist Relationship Specialty Start Date End Date Lito Rajan MD PCP - General 11/11/141999 [place] [address] documented as of this encounter
--- OUTSIDE RECORDS SUMMARY | 2022-09-22 13:39 | XMS_ITS | Encounter Summary ---
:1965 Author Organization [facility] Address [address], [place] [address] Care Team Providers Name Role Phone Lito Rajan MD Primary Care Provider Reason for Visit Reason Comments Medication Questions Encounter Details Date Type Department Care Team Description 12/29/2021 Telephone [facility] [address] Ashley Malcolm DO Medication Questions Rheumatology [address] [facility] [address] [facility] [place] [address] [phone] Social History Tobacco Use Types Packs/Day Years Used Date Smoking Tobacco: Never Alcohol Use Standard Drinks/Week Comments Yes 0 (1 standard drink = 0.6 oz pure alcoho l) Sex Assigned at Date Recorded Not on file documented as of this encounter Nursing Notes Camila Ac LPN - 12/29/2021 11:44 AM CDT Called and left a detailed message for patient and encouraged them to call back with any questions or concerns. Ashley Madera DO - 12/29/2021 10:33 AM CDT None whatsoever. Adeline. Camila Ac LPN - 12/29/2021 10:26 AM CDT Pt just started Reclast yesterday. She is going in for surgery through podiatry to have fascia release from her calf right side. She will be talking to them on 01/31 to discuss timing and procedure. Pt is asking if she needs to know anything about the Reclast and surgery. Any timing issues? Please advise. documented in this encounter Plan of Treatment Upcoming Encounters Date Type Specialty Care Team Description 01/06/2023 Appointment Rheumatology Malcolm, Ashley Kam, DO [address] [place] [facility] [place] [address] (Wo rk) documented as of this encounter Visit Diagnoses Not on filedocumented in this encounter Care Teams Work And Family Life Consultant Relationship Specialty Start Date End Date Lito Rajan MD PCP - General 11/11/14[address] [place] [address] documented as of this encounter
--- OUTSIDE RECORDS SUMMARY | 2022-09-22 13:39 | XMS_ITS | Encounter Summary ---
:1965 Author Organization [employer] Address [address] [place] [id number] Care Team Providers Name Role Phone Lito Rajan MD Primary Care Provider Reason for Visit Reason Comments CONSULT Encounter Details Date Type Department Care Team Description 12/24/2014 Initial Consult [facility] Kmep (Primary Dx); Rheumatology MD Tos[place] Depression; [id number] [facility] [address] [place] [id number] [facility] [phone] [place], [place] [id number] Social History Tobacco Use Types Packs/Day Years Used Date Smoking Tobacco: Never Assessed Sex Assigned at Date Recorded Not on file documented as of this encounter Last Filed Vital Signs Vital Sign Reading Time Taken Comments Blood Pressure 133/81 12/24/2014 9:23 AM CDT Pulse 66 12/24/2014 9:23 AM CDT Temperature - - Respiratory Rate - - Oxygen Saturation - - Inhaled Oxygen Concentration - - Weight 84.4 kg (186 lb) 12/24/2014 9:23 AM CDT Height - - Body Mass Index - - documented in this encounter Progress Notes Tosha Kemp MD - 12/24/2014 11:08 AM CDT Subjective: Self-referral for an evaluation of fibromyalgia. History of present illness: A 49-year-old female who was accompanied by her for anevaluation of fibromyalgia. She would like to understand more about this condition and what else shecan do. The patient has had long-standing history of her musculoskeletal symptoms. The outside records were partially available to review. About 18 years ago, she developed discomfort over her knees, ankles and hands. She was evaluated by Dr. Patty Buckley at [facility] at that time. This outside record was not available for me to review. Several blood tests were performed. She was told that she might have had a false positive result. She was told to have rheumatoid arthritis and started on methotrexate. Methotrexate was associated with itching and that was discontinued. She was on various doses of prednisone which did not seem to help much according to her. The last time she was on prednisone was about more than a year ago. Remicade was subsequently added. She thought that Remicade helped some but did not take care of symptoms completely. She was on it for approximately 3 years. This was switched to Enbrel weekly. She did not find Enbrel was helpful and it was associated with significant headache. The last dose of Enbrel was about 5-7 years ago. She subsequently saw another envelope press operator in [place]. She was not clear if it was this envelope press operator or her primary care physician at that time who made the diagnosis of fibromyalgia for her. Shewas not suggested to restart the medication for rheumatoid arthritis. Since then, the patient has been managed for fibromyalgia through her primary care physician. She was on Vicodin for quite some time but subsequently tapered her off it. It was slightly helpful. She currently takes Flexeril as needed only at nighttime. This is helpful to actual records sleep as poor sleep could worsen her joint symptoms. Tylenol arthritis helps minimally. She also tried tramadol in the past which was slightly helpful. She cannot take nonsteroidal anti- inflammatory agents due to history of gastric bypass. Cymbalta was tried at one time but the dose was unclear. She did not recall why it was discontinued. Neurontin was not helpful. Lyrica was associated with significant migraine and poor vision. Amitriptiline was not helpful. She currently takes Effexor for her underlying depression. She also has had trouble with insomnia. According to her , she has some snoring but not excessively. She has never been witnessed to have apnea while sleeping. She always wakes up feeling unrefreshed. The joint symptoms are currently described as generalized deep aching in both upper and lower extremities on both sides. Weather changes, and poor sleep could worsen the joint symptoms. She has not noticed an obviously swollen joint despite ongoing joint symptoms. She reported no symptoms or history that might be suggestive of psoriasis, uveitis/iritis, bleeding tendency, peptic ulcer disease/GI bleeding, significant ischemic heart disease/congestive heart failure, thrombotic events, known hepatic/renal disease, previous blood transfusion or IV drug use, jaundic e/hepatitis. Her both grandparents had arthritis at that time was unclear. A cousin has JRA. A distant aunt has rheumatoid arthritis. There is no obvious family history of any other connective tissue diseases or other inflammatory autoimmune arthritis. A complete review of systems is otherwise unremarkable except for occasional chills, brain fogginess, double vision, occasional swollen glands over her neck areas, intermittent shortness of breath, nausea/vomiting and diarrhea, heartburn, intermittent food choking, headache, difficulty sleeping, anxiety and depression, and history of 1 miscarriage. Past Medical History: Fibromyalgia. ADHD. Nasal allergies. Status post gastric bypass 2004, Marcel-en-[id number], and bladder surgery. Migraine headache. Family and social history: She is stable mother. 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 Nonsmoker. Drinks alcohol during the weekend socially. with 3 children. Current medications: Please see the most updated medication lists in the EMR. These are reviewed. Adverse drug reactions: Topamax. Morphine. Methotrexate (itching). Enbrel caused headache. Physical exams: BP 133/81 Pulse 66 Wt 186 lb (84.369 kg) General appearance: A well-appearing overweight middle-aged female who was not in her acute physical distress. Skin: No rash, tophus, nodules, open-wound ulcers, Raynaud changes, telangiectasia, sclerodermatous and dermatomyositis skin changes, psoriasis, psoriatic nail or anything suggesting vasculitis, erythema nodosum. Normal nailfold capillaries. HEENT: No psoriasis or alopecia on the scalp. No conjunctivitis, scleritis or active uveitis or synaechia. Normal extra ocular movements. No sinus tenderness. No malar rash, discoid rash, oral or nasalmucosal ulcers. No nasal septal perforation. No thyromegaly. Respiratory: Normal respiratory effort. Lungs are clear with good breath sounds. Heart: RR without audible murmurs, rubs, or gallops. Musculoskeletal exams: All 4 extremities were examined. Minimal hypertrophic changes over her PIP joints suggestive of osteoarthritis. No significant synovitis/inflammatory arthritis/dactylitis/enthesitis or effusion in any other remaining joints. fibromyalgia tender spots. Normal gait, normal muscle power and tone proximally and distally. Laboratory exams: No laboratory evaluation within [facility]. Outside records were reviewed. No laboratory test results available. Assessment and plans: 1. Fibromyalgia. 2. No clinical evidence of rheumatoid arthritis. Pain is rated as 5. RAPID 3 score is 11.3. I don't think that she has clinical rheumatoid arthritis or systemic autoimmune inflammatory arthritis at this point. She has been off prednisone for longer than a year and Enbrel for at least 5 years.She has no clinical joint effusion, synovitis/inflammatory arthritis that might be suggestive of systemic autoimmune inflammatory arthritis. Either her initial diagnosis of rheumatoid arthritis was a mild form of rheumatoid arthritis and subsequently went away or she had a transient inflammatory arthritis mimicking rheumatoid arthritis which eventually went away without the requirement of disease modifying agent. On examination, apart from minimal hand osteoarthritis appropriate for her age, her of her peripheral joints are normal. His minimal peripheral joint osteoarthritis does not account for her ongoing joint symptoms. The chronic generalized widespread pain not associated with inflammatory arthritis in the clinical background of having anxiety/depression, poor sleep, and multiple tender spot is suggestive of fibromyalgia. We discussed about diagnosis of fibromyalgia. Information was provided. I also discussed with the patient about the common clinical findings associated with fibromyalgia. These include migraine headache, tingling and numbness, chronic pelvic pain, underlying psychiatric illness including anxiety and depression, lack of exercise, insomnia and TMJ syndrome. We discussed about centralized mediated pain theory (central augmentation or central sensitization)related to fibromyalgia. It has been increasingly recognized that fibromyalgia is a central nervous system disease and not a problem derived from musculoskeletal systems. Medications for rheumatologic con ditions are not usually helpful for this condition. Medications which have been shown to be helpful for fibromyalgia involve medications that modulate neurotransmitters in the brain. These medications include tricyclic antidepresants like Flexeril, Amitriptyline, nortriptiline and newer generation of dual-uptake inhibitors like duloxetin (Cymbalta) and Milnacipran (Savella); quetiapine (Seroquel); anti-seizure meds like gabapentin (Neurontin),pregabalin (Lyrica); anti-parkinsonian like pramipexole (Mirapex); anti-narcolepsy (sodium oxybate). Opioid and narcotics have not been shown to be helpful. Even with these available medications, most medications only help symptoms in 60-70% of patients andonly reduce pain score by 40%. Medication treatment still does not fully address this condition and there is no current curative treatment for this condition yet. I would recommend that the patient discuss with her primary care physician to try one of the above recommended medications, which patient can tolerate, finds helpful and preferrably covered by her insurance. The dose should be started slowly and titrated up gradually to the maximal tolerated dose per symptoms. I will suggest that she take Flexeril daily a full bedtime to help at sure could sleep. Shecould discuss with her primary care provider to consider Savella or duloxetine (again) for her depression as this will also help for her underlying fibromyalgia as well. Sleep rastafari and aerobic exercises are critical to manage fibromyalgia. I recommend that the patient discuss with the patient's physician to manage insomnia. Additional use of cyclobenzaprine or atricyclic antidepressants like amitriptyline 1-2 hours before bedtime could also be considered. I also recommend that the patient do an aerobic exercise especially low-impact exercises like pool therapy and stationary bicycling at least 30 minutes a day, 3 times a week. Ar Chi has recent been shown to be helpful and patient can try that as well. As there has been no records of checking her thyroid function and vitamin D level, I would suggest that she have blood tests today for TSH and vitamin D level to rule out thyroid dysfunction and severevitamin D deficiency as the cause of symptoms mimicking fibromyalgia. I will correspond with the patient regarding test results. The patient will have a followup with her primary care physician with the above recommendation. Total time 60 minutes, 40 minutes counseling. documented in this encounter Plan of Treatment Upcoming Encounters Date Type Specialty Care Team Description 01/06/2023 Appointment Rheumatology Malcolm, Ashley Kam DO [address] [id number] (Wo [id number]) documented as of this encounter Visit Diagnoses Diagnosis Fibromyalgia - Primary Mylagia and myositis, unspecified Depression Depressive disorder, not elsewhere class ified Migraine Migraine, unspecified, without mention o f intractable migraine without mention of status migrainosus documented in this encounter Care Teams Clam Shucker Relationship Specialty Start Date End Date Lito Rajan MD PCP - General 11/11/141999 [place] [address] documented as of this encounter
--- OUTSIDE RECORDS SUMMARY | 2022-09-22 13:39 | XMS_ITS | Encounter Summary ---
:1965 Author Organization [email or web address] Address [address], [place] [address] Care Team Providers Name Role Phone Lito Rajan MD Primary Care Provider Encounter Details Date Type Department Care Team Description 08/13/2021 Lab Visit [facility] Spondyloarthropathy; [id number] [address] Encounter for long-term (cur rent) use of medications; [place] [address] Ankylosing spondylitis, unsp ecified site of spine (HRC); [phone] Osteoporosis, u nspecified osteoporosis type, unspecified pathological fracture presence; Iron deficiency anemia, unspecified iron deficiency anemia type Social History Tobacco Use Types Packs/Day Years Used Date Smoking Tobacco: Never Alcohol Use Standard Drinks/Week Comments Yes 0 (1 standard drink = 0.6 oz pure alcoho l) Sex Assigned at Date Recorded Not on file documented as of this encounter Plan of Treatment Upcoming Encounters Date Type Specialty Care Team Description 01/06/2023 Appointment Rheumatology Malcolm, Ashley Kam, DO [address] [facility] [place] [address] [address] (Wo rk) documented as of this encounter Procedures Procedure Name Priority Date/Time Associated Diagnosis Comme nts TB QUANTIFERON Routine 08/13/2021 10:19 Spondyloarthrop athy Results for this GOLD PLUS AM CDT Encounter for long-term proc edure are in (current) use of the results medications section. Ankylosing spondylitis, unspecified site of spine (HRC) TB QUANTIFERON Routine 08/13/2021 10:19 Spondyloarthrop athy Results for this GOLD PLUS MITOGEN AM CDT Encounter for long-term procedure are in (current) use of the results medications section. Ankylosing spondylitis, unspecified site of spine (HRC) TB QUANTIFERON Routine 08/13/2021 10:19 Spondyloarthrop athy Results for this GOLD PLUS TB2 AM CDT Encounter for long-term pro cedure are in (current) use of the results medications section. Ankylosing spondylitis, unspecified site of spine (HRC) TB QUANTIFERON Routine 08/13/2021 10:19 Spondyloarthrop athy Results for this GOLD PLUS TB1 AM CDT Encounter for long-term pro cedure are in (current) use of the results medications section. Ankylosing spondylitis, unspecified site of spine (HRC) TB QUANTIFERON Routine 08/13/2021 10:19 Spondyloarthrop athy Results for this GOLD PLUS NIL AM CDT Encounter for long-term pro cedure are in (current) use of the results medications section. Ankylosing spondylitis, unspecified site of spine (HRC) HIV 1/2 AG/AB 4TH Routine 08/13/2021 10:19 Spondyloarthr opathy Results for this GEN AM CDT Encounter for long-term proc edure are in (current) use of the results medications section. Ankylosing spondylitis, unspecified site of spine (HRC) VITAMIN D Routine 08/13/2021 10:19 Osteoporosis, unspecifie d Results for this 25-HYDROXY, TOTAL AM CDT osteoporosis type, proc edure are in unspecified pathological the results fracture presence section. INTACT PTH Routine 08/13/2021 10:19 Osteoporosis, unspecifie d Results for this AM CDT osteoporosis type, procedure are in unspecified pathological the results fracture presence section. ANTI-CCP AB Routine 08/13/2021 10:19 Spondyloarthropathy Resu lts for this AM CDT procedure are i n the results section. COMPLETE BLOOD Routine 08/13/2021 10:19 Osteoporosis, unspecif ied Results for this COUNT-NO DIFF AM CDT osteoporosis type, procedur e are in unspecified pathological the results fracture presence section. RHEUMATOID FACTOR, Routine 08/13/2021 10:19 Spondyloarthropath y Results for this QUANT AM CDT procedure are i n the results section. HEPATITIS C Routine 08/13/2021 10:19 Spondyloarthrop athy Results for this ANTIBODY, WITH AM CDT Encounter for long-term pr ocedure are in REFLEX (current) use of the results medications section. Ankylosing spondylitis, unspecified site of spine (HRC) FERRITIN Routine 08/13/2021 10:19 Iron deficiency anemia, Results for this AM CDT unspecified iron procedure a re in deficiency anemia type the r esults section. HBSAG (HEPATITIS B Routine 08/13/2021 10:19 Spondyloarth ropathy Results for this SURFACE AG) AM CDT Encounter for long-term proc edure are in (current) use of the results medications section. Ankylosing spondylitis, unspecified site of spine (HRC) PHOSPHORUS Routine 08/13/2021 10:19 Osteoporosis, unspecifie d Results for this AM CDT osteoporosis type, procedure are in unspecified pathological the results fracture presence section. IRON PROFILE Routine 08/13/2021 10:19 Iron deficiency anemia, Results for this (IRON,TIBC,%SAT.(C AM CDT unspecified iron proce dure are in ALC)) deficiency anemia type the r esults section. CALCIUM Routine 08/13/2021 10:19 Osteoporosis, unspecifie d Results for this AM CDT osteoporosis type, procedure are in unspecified pathological the results fracture presence section. ALKALINE Routine 08/13/2021 10:19 Osteoporosis, unspecifie d Results for this PHOSPHATASE, TOTAL AM CDT osteoporosis type, pro cedure are in unspecified pathological the results fracture presence section. documented in this encounter Results TB QuantiFERON Gold Plus Mitogen (08/13/2021 10:19 AM CDT) P athologist Signature MITOGEN >10.000 IU/mL 2021 [facility] 12:11 PM CDT LABORATORY Specimen Anatomical Collection Method / Collection Time Recei marcos Time (Source) Location / Volume Laterality Blood Venipuncture / 08/13/2021 10:19 Unknown AM CDT 10:19 AM CDT Ashley Malcolm DO LAB_1 Performing Organization Address City/State/ZIP Code Phon e Number [facility] [address] [place] [address] TB QuantiFERON Gold Plus TB2 (08/13/2021 10:19 AM CDT) athologist Signature TB2 0.060 IU/mL 2021 [facility] 12:12 PM CDT LABORATORY Specimen Anatomical Collection Method / Collection Time Recei marcos Time (Source) Location / Volume Laterality Blood Venipuncture / 08/13/2021 10:19 1 Unknown AM CDT 10:19 AM CDT [facility] LAB_1 Performing Organization Address [facility] Phon e Number [facility] [address] [place] [address] TB QuantiFERON Gold Plus TB1 (08/13/2021 10:19 AM CDT) athologist Signature TB1 0.100 IU/mL 2021 [facility] 12:12 PM CDT LABORATORY Specimen Anatomical Collection Method / Collection Time Recei marcos Time (Source) Location / Volume Laterality Blood Venipuncture / 08/13/2021 10:19 1 Unknown AM CDT 10:19 AM CDT [facility] LAB_1 Performing Organization Address City/[facility] Phon e Number [facility] [address] [place] [address] TB QuantiFERON Gold Plus NIL (08/13/2021 10:19 AM CDT) [facility] Method Time Signature TB QuantiFERON Negative, M. Negative, M. 2021 [facility] T Gold Plus tuberculosis tuberculosis 12:12 PM LABORATORY Infection NOT Infection NOT CDT likely likely NIL 0.085 IU/mL 2021 [facility] 12:12 PM LABORATORY CDT TB1-NIL 0.02 IU/mL 2021 [facility] 12:12 PM LABORATORY CDT TB2-NIL -0.03 IU/mL 2021 [facility] 12:12 PM LABORATORY CDT Mitogen-NIL 9.92 IU/mL 2021 [facility] 12:12 PM LABORATORY CDT Specimen Anatomical Collection Method / Collection Time Recei marcos Time (Source) Location / Volume Laterality Blood Venipuncture / 08/13/2021 10:19 1 Unknown AM CDT 10:19 AM CDT Narrative [facility] - 2021 12:12 PM CDT Nil ?TB1-Nil ? TB2-Nil ?Mitogen-Nil ??Result ?Interpretation (IU/ml) ??(IU/mL) ? (IU/mL) ?(IU/mL) <=8.0 ? >=0.35 & ? Any ?Any ?Positive ?M. tuberculosis ?>=25% Nil ?infection likely <=8.0 ? Any ?>=0.35 & ? Any ?Positive ?M. tuberculosis ? >=25% Nil ? infection likely <=8.0 ? <0.35 or ? <0.35 or ? >=0.50 ? Negative ?M. tuberculosis ?>=0.35 & ? >=0.35 & ?infection NOT ?<25% Nil ? <25% Nil ?likely <=8.0 ? <0.35 or ? <0.35 or ? <0.50 ? Indeterminate ??M. tuberculosis ?>=0.35 & ? >=0.35 & ?infection cannot ?<25% Nil ? <25% Nil ?be determined >8.0 ?Any ?Any ?Any ? Indeterminate ??M. tuberculosis ? infection cannot ? be determined. Important: Diagnosing or excluding tuber culosis disease, and assessing the probability of LTBI, requires a combination of epidemiological, historical, medical, and diagnostic findings that should be maryhcuy en into account when interpreting QFT-Pl us results. See general guidance on the diagnosis and treatment of TB disease and LTBI (https://www.cdc.gov/tb/publications/guidelines/default.htm). The magnitude of the measured IFN-gamma level cannot be correlated to stage or degree of infection, level of immune responsiveness, or likelihood for progression to active disease. A positive TB respons e in persons who are negative to Mitogen is rare, but has been seen in patients with TB disease. This indicates the IFN-gamma response to TB antigens is greater than that to Mitogen, which is possible a s the level of Mitogen does not maximall y stimulate IFN-gamma production by lymphocytes. Ashley Malcolm DO LAB_1 Performing Organization Address City/State/ZIP Code Phon e Number [facility] [address] [place] [address] Total Iron and Iron Binding Capacity (08/13/2021 10:19 AM CDT) athologist Signature Iron 125 50 - 170 08/13/2021 [facility] mcg/dL 12:57 PM CDT LABORATORY Transferrin 324 180 - 382 08/13/2021 [facility] mg/dL 12:57 PM CDT LABORATORY TIBC, Calculated 405 240 - 450 08/13/2021 [facility] mcg/dL 12:57 PM CDT LABORATORY % Saturation, 31 10 - 50 % 08/13/2021 [facility] Calculated 12:57 PM CDT LABORATORY Specimen Anatomical Collection Method / Collection Time Recei marcos Time (Source) Location / Volume Laterality Blood Venipuncture / 08/13/2021 10:19 1 Unknown AM CDT 10:19 AM CDT Ashley Eddy [facility] LAB_1 Performing Organization Address [facility]/ZIP [facility] Phon e Number [facility] [address] [place] [address] RAJESH - Ferritin (08/13/2021 10:19 AM CDT) athologist Signature Ferritin 26 9 - 204 08/13/2021 [facility] ng/mL 12:51 PM CDT LABORATORY Specimen Anatomical Collection Method / Collection Time Recei marcos Time (Source) Location / Volume Laterality Blood Venipuncture / 08/13/2021 10:19 1 Unknown AM CDT 10:19 AM CDT Ashley Eddy [facility] LAB_1 Performing Organization Address City/[facility] Phon e Number [facility] [address] [place] [address] (ABNORMAL) VITAMIN D 25-HYDROXY, TOTAL [4583] (08/13/2021 10:19 AM CDT) athologist Signature Vitamin D, 122 (H) 30 - 80 08/13/2021 [facility] 25-OH, Total ng/mL 1:10 PM CDT LABORATORY Specimen Anatomical Collection Method / Collection Time Recei marcos Time (Source) Location / Volume Laterality Blood Venipuncture / 08/13/2021 10:19 1 Unknown AM CDT 10:19 AM CDT [facility] - 08/13/2021 1:10 P M CDT Expected values Deficiency: <20 ng/mL Insufficiency: 20-29 ng/mL Optimum: 30-80 ng/mL Possible toxicity: >80 ng/mL Ashley Malcolm DO LAB_1 Performing Organization Address [facility]/ZIP Code Phon e Number [facility] [address] [place] [address] PHOSPHORUS [[id number]] (08/13/2021 10:19 AM CDT) P athologist Signature Phosphorus 3.8 2.3 - 4.7 08/13/2021 [place] mg/dL 11:01 AM CDT LABORATORY Specimen Anatomical Collection Method / Collection Time Recei marcos Time (Source) Location / Volume Laterality Blood Venipuncture / 08/13/2021 10:19 1 Unknown AM CDT 10:19 AM CDT [facility] Performing Organization Address City/[facility] Code Phon e Number [facility] [facility] [address] [place] [address] INTACT PTH (08/13/2021 10:19 AM CDT) P athologist Signature Intact PTH 39 10 - 100 08/13/2021 [facility] pg/mL 12:34 PM CDT LABORATORY Specimen Anatomical Collection Method / Collection Time Recei marcos Time (Source) Location / Volume Laterality Blood VENOUS BLOOD Venipuncture / 08/13/2021 10:19 1 SPECIMEN / Unknown Unknown AM CDT 10:19 AM CDT [facility] Performing Organization Address City/[facility] Code Phon e Number [facility] [address] [place] [address] CALCIUM (08/13/2021 10:19 AM CDT) P athologist Signature Calcium 9.8 8.4 - 10.4 08/13/2021 [place] mg/dL 11:01 AM CDT LABORATORY Specimen Anatomical Collection Method / Collection Time Recei marcos Time (Source) Location / Volume Laterality Blood Venipuncture / 08/13/2021 10:19 1 Unknown AM CDT 10:19 AM CDT Ashley Fishero DO LAB_1 Performing Organization Address City/State/ZIP Code Phon e Number [facility] [address] [place], [place] [address] ALK P'TASE, TOTAL [[id number]] (08/13/2021 10:19 AM CDT) athologist Signature Alkaline 92 40 - 150 08/13/2021 [place] Phosphatase U/L 11:01 AM CDT LABORATORY Specimen Anatomical Collection Method / Collection Time Recei marcos Time (Source) Location / Volume Laterality Blood Venipuncture / 08/13/2021 10:19 1 Unknown AM CDT 10:19 AM CDT Ashley Kam Malcolm DO LAB_1 Performing Organization Address City/[facility]/ZIP Code Phon e Number [facility] [facility] [address] [place], [place] [address] HEMOGRAM/PLTS [[id number]] (08/13/2021 10:19 AM CDT) athologist Signature WBC 5.7 3.5 - 10.5 08/13/2021 [place] x10(9)/L 10:25 AM CDT LABORATORY RBC 4.01 3.90 - 08/13/2021 [place] 5.03 10:25 AM CDT LABORATORY x10(12)/L Hemoglobin 12.2 12.0 - 08/13/2021 [place] 15.5 g/dL 10:25 AM CDT LABORATORY HCT 38.3 34.9 - 08/13/2021 [place] 44.5 % 10:25 AM CDT LABORATORY MCV 95.5 80.0 - 08/13/2021 [place] 100.0 fL 10:25 AM CDT LABORATORY MCH 30.4 27.6 - 08/13/2021 [place] 33.3 pg 10:25 AM CDT LABORATORY MCHC 31.9 31.5 - 08/13/2021 [place] 35.2 g/dL 10:25 AM CDT LABORATORY RDW 12.9 11.9 - 08/13/2021 [place] 15.5 % 10:25 AM CDT LABORATORY Platelets 298 150 - 450 08/13/2021 [place] x10(9)/L 10:25 AM CDT LABORATORY Automated NRBC 0 <=0 /100 08/13/2021 [place] WBC 10:25 AM CDT LABORATORY Specimen Anatomical Collection Method / Collection Time Recei marcos Time (Source) Location / Volume Laterality Blood Venipuncture / 08/13/2021 10:19 1 Unknown AM CDT 10:19 AM CDT Ashley Eddy Malcolm DO LAB_1 Performing Organization Address City/[facility]/ZIP Code Phon e Number [facility] [address] [place] [address] (ABNORMAL) Rheumatoid Factor, Quant (08/13/2021 10:19 AM CDT) [facility] Method Time Signature Rheumatoid 49 (H) <=30 IU/mL 08/13/2021 [facility] Factor, 12:46 PM CDT LABORATORY Quantitative Specimen Anatomical Collection Method / Collection Time Recei marcos Time (Source) Location / Volume Laterality Blood Venipuncture / 08/13/2021 10:19 1 Unknown AM CDT 10:19 AM CDT [employer] DO LAB_1 Performing Organization Address City/[facility]/ZIP Code Phon e Number [facility] [address] [place] [address] Anti-CCP Antibody (08/13/2021 10:19 AM CDT) [facility] Method Time Signature Anti-CCP Antibody 1 <7 U/mL 2021 [facility] 12:51 PM CENTRAL LAB CDT Anti-CCP Antibody Negative Negative 2021 [facility] Interpretation 12:51 PM CENTRAL LAB CDT Specimen Anatomical Collection Method / Collection Time Recei marcos Time (Source) Location / Volume Laterality Blood Venipuncture / 08/13/2021 10:19 1 Unknown AM CDT 10:19 AM CDT [employer] DO LAB_1 Performing Organization Address City/[facility]/ZIP Code Phon e Number [facility] [address] [place] [address] Hepatitis B Surface Antigen (08/13/2021 10:19 AM CDT) [facility] Method Time Signature Hepatitis B Negative Negative 08/13/2021 [facility] Surface (Non (Non 12:40 PM LABORATORY Antigen Reactive) Reactive) CDT Specimen Anatomical Collection Method / Collection Time Recei marcos Time (Source) Location / Volume Laterality Blood Venipuncture / 08/13/2021 10:19 1 Unknown AM CDT 10:19 AM CDT [employer] DO LAB_1 Performing Organization Address [facility] Phon e Number [facility] [address] [place] [address] HIV 1/2 Ag/Ab 4th Generation (08/13/2021 10:19 AM CDT) [facility] Method Time Signature HIV 1/2 Negative Negative 08/13/2021 [facility] Antigen/Antib (Non (Non 4:29 PM CDT LABORATORY neal (4th Reactive) Reactive) generation) Comment: HIV-1 p24 Antigen and HIV-1/HIV -2 Antibody not detected Specimen Anatomical Collection Method / Collection Time Recei marcos Time (Source) Location / Volume Laterality Blood Venipuncture / 08/13/2021 10:19 1 Unknown AM CDT 10:19 AM CDT [employer] DO LAB_1 Performing Organization Address [facility] Phon e Number [facility] [address] [place] [address] Hepatitis C Antibody, with Reflex (08/13/2021 10:19 AM CDT) [facility] Method Time Signature Hepatitis C Negative Negative 08/13/2021 [facility] Antibody (Non (Non 4:29 PM CDT LABORATORY [...] Organization Address City/State/ZIP Code Phon e Number [facility] [address] [place] [address] documented in this encounter Visit Diagnoses Diagnosis Spondyloarthropathy (HRC) Spondylosis of unspecified site without mention of myelopathy Encounter for long-term (current) use of medications Encounter for long-term (current) use of other medications Ankylosing spondylitis, unspecified site of spine (HRC) Osteoporosis, unspecified osteoporosis t ype, unspecified pathological fracture presence (HRC) Iron deficiency anemia, unspecified iron deficiency anemia type documented in this encounter Care Teams Public Relations Counselor Relationship Specialty Start Date End Date Lito Rajan MD PCP - General 11/11/141999 [place] [address] documented as of this encounter
--- OUTSIDE RECORDS SUMMARY | 2022-09-22 13:39 | XMS_ITS | Encounter Summary ---
:1965 Author Organization [employer] Address [address] [place] [address] Care Team Providers Name Role Phone Lito Rajan MD Primary Care Provider Encounter Details Date Type Department Care Team Description 12/28/2021 Telephone [facility] [place] [address] [id number] [place] [address] [place], [place] [phone] (Wo rk) Social History Tobacco Use Types Packs/Day Years Used Date Smoking Tobacco: Never Alcohol Use Standard Drinks/Week Comments Yes 0 (1 standard drink = 0.6 oz pure alcoho l) Sex Assigned at Date Recorded Not on file documented as of this encounter Nursing Notes Ashley Malcolm DO - 12/28/2021 3:09 PM CDT I will add it on to the lab she suzy five hours ago and fax over the results to [facility]. Save betty blood draw Litzy Najera RN - 12/28/2021 12:01 PM CDT Pt was in today for her Reclast. PCP called her and told her the last Thyroid test was done on 03/06/2021. It was 1.3 She is wondering if you can send a new order to her PCP so she can have it drawn there. Fax to [facility] Dr Rajan is Routing to provider to review and advise Litzy Najera RN 12:04 PM 12/28/2021 documented in this encounter Plan of Treatment Upcoming Encounters Date Type Specialty Care Team Description 01/06/2023 Appointment Rheumatology Malcolm, Ashley Kam DO [address] [facility] N [address] (Wo rk) documented as of this encounter Results TSH (12/28/2021 10:33 AM CDT) athologist Signature TSH, Sensitive 0.68 0.30 - 12/28/2021 [facility] 4.50 7:07 PM CDT LABORATORY uIU/mL Specimen Anatomical Collection Method / Collection Time Recei marcos Time (Source) Location / Volume Laterality Blood Venipuncture / 12/28/2021 10:33 2 Unknown AM CDT 10:33 AM CDT Ashley Q Malcolm DO LAB_1 Performing Organization Address City/State/ZIP Code Phon e Number [facility] [address] [place] [address] documented in this encounter Visit Diagnoses Diagnosis Age-related osteoporosis without current pathological fracture (HRC) - Primary Senile osteoporosis documented in this encounter Care Teams Machine Binder Stripper Relationship Specialty Start Date End Date Lito Rajan MD PCP - General 11/11/141999 [place] [address] documented as of this encounter
--- OUTSIDE RECORDS SUMMARY | 2022-09-22 13:39 | XMS_ITS | Encounter Summary ---
:1965 Author Organization [employer] [place] Address [address], [place] [address] Care Team Providers Name Role Phone Lito Rajan MD Primary Care Provider Encounter Details Date Type Department Care Team Description 12/25/2021 Notes/Orders [facility] Ashley Malcolm Q, DO Age-related [address] [place] [address] Blvd current pathological [phone] [place], [place] fracture ( Primary Dx) [id number] Social History Tobacco Use Types Packs/Day Years Used Date Smoking Tobacco: Never Alcohol Use Standard Drinks/Week Comments Yes 0 (1 standard drink = 0.6 oz pure alcoho l) Sex Assigned at Date Recorded Not on file documented as of this encounter Progress Notes Pretty Atkinson, RN - 12/25/2021 10:10 AM CST Patient has a reclast infusion on 12/28/2021. Cr has not been checked this year. Orders placed for a Cr per required parameters. Pretty Atkinson RN 10:12 AM 12/25/2021 [facility] documented in this encounter Plan of Treatment Upcoming Encounters Date Type Specialty Care Team Description 01/06/2023 Appointment Rheumatology Ashley Malcolm Q, DO [address] [facility] N [id number] (Wo rk) documented as of this encounter Results Creatinine - STAT (12/28/2021 10:33 AM CDT) P athologist Signature Creatinine 0.70 0.55 - 12/28/2021 [facility] 1.02 mg/dL 11:24 AM CDT LABORATORY GFR, Estimated >60 >60 12/28/2021 [facility] mL/min/1.7 11:24 AM CDT LABORATORY 3m2 Specimen Anatomical Collection Method / Collection Time Recei marcos Time (Source) Location / Volume Laterality Blood Venipuncture / 12/28/2021 10:33 2 Unknown AM CDT 10:33 AM CDT Ashley Q Malcolm DO LAB_1 Performing Organization Address City/State/ZIP Code Phon e Number [facility] [address] [place] [address] documented in this encounter Visit Diagnoses Diagnosis Age-related osteoporosis without current pathological fracture (HRC) - Primary Senile osteoporosis documented in this encounter Care Teams Wheel Truer Relationship Specialty Start Date End Date Lito Rajan MD PCP - General 11/11/141999 [place] [address] documented as of this encounter
--- OUTSIDE RECORDS SUMMARY | 2022-09-22 13:39 | XMS_ITS | Encounter Summary ---
:1965 Author Organization [facility] Address [address], [place] [address] Care Team Providers Name Role Phone Lito Rajan MD Primary Care Provider Reason for Visit Reason Comments Follow-up Encounter Details Date Type Department Care Team Description 04/06/2022 Office Visit [place] Ashley Malcolm DO Ankylosing spondylitis, unspecified site of spine (HRC) (Primary Dx); Rheumatology [address] [place] [address] Encounter for long-term (cur rent) use of medications [address] [place] [address] [place], [place] [phone] [id number] (Wo rk) Social History Tobacco Use Types Packs/Day Years Used Date Smoking Tobacco: Never Smokeless Tobacco: Never Alcohol Use Standard Drinks/Week Comments Yes 0 (1 standard drink = 0.6 oz pure alcoho l) Sex Assigned at Date Recorded Not on file documented as of this encounter Progress Notes Ashley Malcolm DO - 04/06/2022 3:15 PM CDT Rheumatology Follow Up 04/06/2022 Follow Up Rheum History: Ms Manzo is a patient we met in Jul 2021 with previously diagnosed and FMS. 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 Cimzia was started at [facility] with good effect. She was diagnosed with FMS by our colleague Dr Kemp in 2014. She was diagnosed with osteoporosis at [facility] and placed on Evenity for one year.We started her on Reclast when we met her ?? Current Treatment: Cimzia and Reclast ?? Previous Treatment: MTX, Enbrel, Remicade and Evenity Interval History: Since we last saw the patient in October, she had an illness while she is in [place] and since then she has had increased myofascial pain. For example she states that any type of physical activity tends to flare her up. In addition, her flares have also been associated with significant hyperalgesiaand sensitivity. She has tried a number of things including massage, medications such as very rare Percocet, stretching, heat and then also some THC. She notes that the stretching, the warm water, and the THC seems to help the most. She has not noticed any significant increase in her inflammatory arthritis or issues with her Cimzia. A Exam Gen: NAD, AOx3 Skin: Skin without evidence of psoriasis, oral ulcers, or alopecia. No nail fold capillary dilation or drop off. No Raynaud's. No skin break down or thinning at nailbeds MSK: No evidence of synovitis or joint effusion. All joints with normal and symmetrical range of motion. Some hyperalgesia within fibromyalgia tender points. Assessment and Plan 56 y.o. female here for follow up of - on Cimzia - s/p reclast x 15 Dec 2021 1) - continue Cimzia 2) Osteoporosis - repeat Reclast in 2022 and then initiate drug holiday - repeat DEXA scan in [id number] 3) myofascial pain/fibromyalgia -spoke to patient about conservative therapies including pool therapy, massage, Ar Chi, yoga, and low impact exercise -spoke to patient about using heat as a therapeutic measure -medical cannabis has been shown to help with sleep and pain -the patient is barely using Percocet. I advised her that there is a rebound associated with narcotics in myofascial pain syndromes. It does not mean that narcotics are contraindicated, however should be used sparingly Follow-up in 3 months Billing based on: Time Total time for the visit was 30 minutes including, but not limited to, woz-[id number]-face time spent reviewing records, counseling, and coordination of care. documented in this encounter Plan of Treatment Upcoming Encounters Date Type Specialty Care Team Description 01/06/2023 Appointment Rheumatology Malcolm, Ashley Q, DO [address] [place] [address] (Wo rk) documented as of this encounter Visit Diagnoses Diagnosis Ankylosing spondylitis, unspecified site of spine (HRC) - Primary Encounter for long-term (current) use of medications Encounter for long-term (current) use of other medications documented in this encounter Care Teams Chemical Compounder Helper Relationship Specialty Start Date End Date Lito Rajan MD PCP - General 11/11/14[address] [place] [address] documented as of this encounter
--- OUTSIDE RECORDS SUMMARY | 2022-09-22 13:39 | XMS_ITS | Clinical Summary ---
:1965 Author Organization [facility] Address [address] [place] [address] Care Team Providers Name Role Phone Lito Rajan MD Primary Care Provider Source Comments You are receiving this document as you are listed as the primary care provider,follow-up provider, or the patient has been referred to you for consultation.This is in compliance with the Medicare and Medicaid EHR Incentive Program,which states Providers who transition their patient to another setting of careor provider of care or refers their patient to another provider of care shouldprovide summarycare record for each transition of care or referral. [employer] Allergies Active Allergy Reactions Severity Noted Date Comments Etanercept 12/24/2014 PN: Headaches Morphine 12/24/2014 PN: Nausea and vomiting Pregabalin 12/24/2014 PN: Headache, b rain fogginess Medications Medication Sig Dispensed Refills Start Date End Date Status fluticasone (AKA Indications: PN: 3 12/07/2014 Active FLONASE) 50 MCG/ACT MILAN ROBLEDO nasal TueDec 24, 2014 9:21 solutionIndications AM Received from: : [facility] External [facility] TueDec 24, 2014 9:21 AM Received from: External Pharmacy SUMAtriptan (AKA Indications: PN: 4 12/05/2014 Active IMITREX) 50 MG MILAN ROBLEDO tabletIndications: TueDec 24, 2014 9:21 MILAN ROBLEDO AM Received from: [facility] TueDec 24, 2014 External Pharmacy 9:21 AM Received from: External Pharmacy amphetamine-dextroa Take 10 mg by mouth 0 08/12/2021 Active mphetamine two times a day. (ADDERALL) 10 MG tablet BELBUCA [address] 1 FILM BY 0 08/01/2021 Active buccal film BUCCAL ROUTE TWICE DAILY AGAINST THE INSIDE OF THE CHEEK, HOLDING IN PLACE FOR 5 SECONDS, celecoxib TAKE 1 CAPSULE (100 0 08/05/2021 Active (CELEBREX) 100 MG MG) BY MOUTH 2 TIMES capsule DAILY dicyclomine TAKE 1/2 TABLET 0 06/29/2021 A ctive (BENTYL) 20 MG (10MG) BY MOUTH FOUR tablet TIMES A DAY estradiol (ESTRACE) INSERT 1 GRAM 0 06/16/2021 Active 0.1 MG/GM vaginal VAGINALLY 2 TIMES A cream WEEK IN THE EVENING oxyCODONE-acetamino TAKE ONE TABLET BY 0 07/20/2021 Active phen (PERCOCET) MOUTH EVERY SIX HOURS 7.5-325 MG tablet NEEDED, MAX 3/DAY FOR CHRONIC PAIN traZODone (DESYREL) 0 08/12/2021 Active 50 MG tablet fexofenadine Take 180 mg by mouth 0 Active (HIPOLITO) 180 MG daily as needed. tablet drug not in Indications: Vit D 0 Active computerIndications and K Lemon [place] : Vit D and K Lemon benadryl mucinex [place] benadryl mucinex diclofenac Apply 2 g to skin 4 0 Active (VOLTAREN) 1 % gel times a day. certolizumab pegol Inject 2 mL 1 Kit 08/13/2021 Active (CIMZIA) 2 X 200 MG subcutaneously every injectionIndication 4 weeks. Indications: s: Ankylosing Rheumatic Disease Spondylitis, M45.9 causing Vertebrae Inflammation, M45.9 injection Inject 2 mL (400 mg) 2 Each 11 07/26/2022 Active certolizumab pegol subcutaneously every (CIMZIA PREFILLED) 4 weeks. Indications: 2 X 200 Rheumatic Disease MG/MLIndications: causing Vertebrae Ankylosing Inflammation, M45.9 Spondylitis, M45.9 Active Problems Problem Noted Date Age-related osteoporosis without current pathological fracture 08/13/2021 Depression 12/24/2014 Fibromyalgia 12/24/2014 Migraine 12/24/2014 Spondyloarthropathy 09/18/2007 Encounters Date Type Specialty Care Team Description 08/13/2022 Telephone Rheumatology MalcolmAshley, DO Medication Q uestions 07/19/2022 Refill Rheumatology MalcolmAshley DO Refill; Prio r Authorization For Medication (Guille shay) from Last 3 Months Social History Tobacco Use Types Packs/Day Years Used Date Smoking Tobacco: Never Smokeless Tobacco: Never Alcohol Use Standard Drinks/Week Comments Yes 0 (1 standard drink = 0.6 oz pure alcoho l) Sex Assigned at Date Recorded Not on file Last Filed Vital Signs Vital Sign Reading Time Taken Comments Blood Pressure 120/74 06/22/2022 11:32 AM CDT Pulse 54 06/22/2022 11:32 AM CDT Temperature 36.9 ??C (98.4 ??F) 06/22/2022 11:32 AM CDT Respiratory Rate - - Oxygen Saturation 98% 12/28/2021 10:55 AM CDT Inhaled Oxygen Concentration - - Weight 68.3 kg (150 lb 8 oz) 12/28/2021 10:55 AM CDT Height 172.7 cm (5' 8) 08/13/2021 9:21 AM CDT Body Mass Index 22.88 08/13/2021 9:21 AM CDT Plan of Treatment Upcoming Encounters Date Type Specialty Care Team Description 01/06/2023 Appointment Rheumatology MalcolmAshley DO [address] [facility] [id number] (Wo rk) Health Maintenance Due Date Last Done Comments Cervical Cancer Screening 1965 Due Colon Cancer Screening Plan 1965 Due HepB (1) 1965 Mammogram 1965 COVID-19 Vaccine (#1) 02/12/1967 Adult Preventive Visit 1984 Cholesterol 2011 Zoster/Shingles (1 of 2) 2016 Influenza (#1) 2022 07/13/2018, 07/16/2013, 07/24/2012, Additional history exists DTaP/Tdap/Td (3 - Tdap) 08/21/2030 08/21/2020, 06/12/2009 HepA Aged Out 03/28/2018 No longer eligib le based on patient 's age to complete this topic Pneumococcal Aged Out 07/13/2018 No longer eligib le based on patient 's age to complete this topic HIV Screening (Preventive Completed 08/13/2021 Services) Hep C Screening (Preventive Completed 08/13/2021 Services) Hib Aged Out No longer eligib le based on patient 's age to complete this topic IPV (Polio) Aged Out No longer eligib le based on patient 's age to complete this topic MCV4 Aged Out No longer eligib le based on patient 's age to complete this topic Insurance Payer Benefit Plan / Subscriber ID Effective Dates Phone Addre ss Type Group [facility] [id number] 2021-Present [phone] CLAIMS Medicaid [address] [place] [address] Care Teams Passenger Locomotive Engineer Relationship Specialty Start Date End Date Lito Rajan MD PCP - General 11/11/14[address] [place], [place] [id number]
[2022-09-22 14:46] LABS: Immature Reticulocyte Fraction 2.6 % (3.0-15.9); Reticulocyte Hemoglobin Equivi 31.7 pg (29.0-35.0); Reticulocyte Percent 0.7 % (0.5-2.0); Reticulocytes Absolute 0.03 # (0.03-0.08)
[2022-09-22 14:53] LABS: Iron* 134 ug/dL (37-170)
[2022-09-22 15:03] LABS: Percent Iron Saturation 37 % (20-50); Total Iron Binding Capacity 361 ug/dL (265-497)
[2022-09-22 15:51] LABS: Vitamin B12* > 1000 pg/mL (243-894)
== END 2022-09-22 13:21 | disposition home or self-care (01) ==
PROVIDERS: PCP Internal Medicine; Visit Provider Internal Medicine
DX: L08.9 Local infection of the skin and subcutaneous tissue, unspecified (principal)
CPT/HCPCS: 82607; 82746; 83540; 83550; 85045

== ENCOUNTER 2023-01-25 10:22 | Outpatient (CLI) | payer MEDICAID, SELFPAY ==
--- OUTSIDE RECORDS SUMMARY | 2023-01-25 10:24 | XMS_ITS | Continuity of Care Document ---
Author Name Unknown Organization [facility] Address [address] [place] [address] Phone Care Team Providers Care Solderer Name Role Phone [facility] Unavailable Unava ilable Procedures Procedure Date IMPLANT NEUROELECTRODES INSRT/REDO SPINE N GENERATOR Implt neurostim elctr each IMPLANT NEUROELECTRODES Imp neurosti pls gn any type IMPLANT NEUROELECTRODES Implt neurostim elctr each IMPLANT NEUROELECTRODES Advance Directives Directive Yes / No Effective Date File Name No Information Encounters Encounter Description Practice Location Reason(s) For Visit Diagnoses Date Provider Providers Copied on Encounter [facility], [address] [place] [address], [id number], tel:[phone] [facility] No Information [facility]. [address] [place] [address], [id number], [place]. tel:[phone] Referring Provider: Reyes Gaffney, [address] [facility] [place], [address] . tel:[phone] [facility], [address] [place] [address], [id number], tel:[phone] [facility] No Information [facility]. [address] [place] [address], [id number], . tel:[phone] Referring Provider: Reyes Gaffney, [address] [facility] [place], [address] . tel:[phone] Family History Family Member Type Diagnosis Age At Onset No Information Payers Payer name Insurance type Covered green party ID Authoriza tion(s) No Information Social History Type Description Quantity Date Captured Comments Sex Female Smoking Status No Information Chief Complaint And Reason For Visit No Information Reason For Referral Reason For Referral No Information Plan Of Treatment Date Type Action Status No Information History Of Present Illness Encounter Date Complaint History Of Prese nt Illness No Information Functional Status Date Functional Assessmen t No Information Instructions Date Instruction Additional Infor mation No Information Assessments Type Assessment Date No Information Patient Care Teams Name Effective Dates (start - stop) Status Members No Information
--- OUTSIDE RECORDS SUMMARY | 2023-01-25 10:24 | XMS_ITS | Continuity of Care Document ---
Author Name Unknown Organization [facility] Address [address] [place] [address] Care Team Providers Care Carpet Sewing Machine Operator Name Role Phone Alicia Boothe CRNA Unavailable Unavailable Procedures Procedure Date ANESTH, HEAD/NECK/PTRUNK ANESTH PERC IMG TX SP PROC ANESTH PERC IMG TX SP PROC ANESTH PERC IMG TX SP PROC Advance Directives Directive Yes / No Effective Date File Name No Information Encounters Encounter Description Practice Location Reason(s) For Visit Diagnoses Date Provider Providers Copied on Encounter [facility], [address] [place] [address], [id number], [facility] No Information 1 Tl Vargas. [address] [place] [address], [id number], . tel:[phone] Referring Provider: Reyes Gaffney, [address] [place] [address], [id number] . tel:[phone] [facility], [address] [place] [address], [id number], [facility] No Information 1 Margaret Skinner. [address] [place] [address], [place], [place], [id number], . tel:[phone] Referring Provider: Reyes Gaffney, [address] [place] [address], [id number] . tel:[phone] [facility], [address] [place] [address], [id number], [facility] [place] No Information 1 Michael Srivastava. [address] [facility], [facility], [place], [place], [id number], . tel:[phone] Referring Provider: Kari Clifton, [address] [facility] [place], [address] . tel:[phone] [facility], [address] [place], [place], [id number], [facility] [place] No Information 0 Ellyn Singh. [address] [facility], [facility], [place], [place], [id number], . tel:[phone] Referring Provider: Kari Clifton, [address] [facility] [place], [address] . tel:[phone] Family History Family Member Type Diagnosis Age At Onset No Information Payers Payer name Insurance type Covered constitution party ID Authoriza tiashwini(s) No Information Social History Type Description Quantity [...]
--- OUTSIDE RECORDS SUMMARY | 2023-01-25 10:24 | XMS_ITS | Continuity of Care Document ---
Author Name Unknown Organization [facility] Address [address] [place] [id number] Care Team Providers Care Director Of Vocational Training Name Role Phone [facility] Unavailable Unav ailable Procedures Procedure Date RF Lumb/Sacral Single Level BILATERAL De RF Lumb/Sacral 2nd Level RIGHT 20 RF Lumb/Sacral 2nd Level LEFT 0 Facet Inj Lumbar 2nd Level RIGHT 2019 Facet Jt Inj Lumbar LEFT Facet Jt Inj Lumbar RIGHT Facet Inj Lumbar 2nd Level LEFT 020 Facet Inj Lumbar 2nd Level RIGHT 2019 Facet Jt Inj Lumbar LEFT Facet Jt Inj Lumbar RIGHT Facet Inj Lumbar 2nd Level LEFT 020 Advance Directives Directive Yes / No Effective Date File Name No Information Encounters Encounter Description Practice Location Reason(s) For Visit Diagnoses Date Provider Providers Copied on Encounter [facility], [address] [place] [address], [id number], [facility] No Information [facility]. [address] [place], [place], [id number], [place]. tel:[phone] Referring Provider: Kari Clifton, [address] [place], [address]. tel:[phone] [facility], [address] [place], [place], [id number], [facility] No Information [facility]. [address] [place], [place], [id number], [place]. tel:[phone] Referring Provider: Kari Clifton, [address] [place], [address]. tel:[phone] [facility], [address] [place], [place], [id number], [place] [facility] [place] No Information [facility]. [address] [facility] [place], [place], [id number], . tel:[phone] Referring Provider: Kari Clifton, [address] [place], [address]. tel:[phone] Family History Family Member Type Diagnosis Age At Onset No Information Payers Payer name Insurance type Covered constitution party ID Authoriza tion(s) No Information Social [...]
--- OUTSIDE RECORDS SUMMARY | 2023-01-25 10:25 | XMS_ITS | Continuity of Care Document ---
Author Name Unknown Organization [facility] rosales Address [address] [place] [address] Phone Care Team Providers Care Econometrics Professor Name Role Phone Darien Shirlene MESSER Unavailable Unavailable Allergies, Adverse Reactions, Alerts Substance Reaction Status Criticality topiramate itchingnausea Active No Information methotrexate nausea Active No Information infliximab headaches Active No Information etanercept headaches Active No Information adalimumab headaches Active No Information morphine vomiting Active No Information Medications Medication Instructions Dosage Effective Dates (start - stop) Status Comments Percocet 7.5 mg-325 mg tablet take 1 tablet by oral route every 4 hours as needed, max 3 /day, acute on chronic pain - Active May fill 01/19/23 ; start 01/24/22 methocarbamol 750 mg tablet take 1 tablet by oral route 2 times every day as needed 750 MG - Active trazodone 100 mg tablet take 1 tablet by oral route every day after meals 100 MG - Active Celebrex 200 mg capsule take 1 capsule by oral route 2 times every day 200 MG - Active IRON (unknown strength) Not Available - Active Cimzia 400 mg/2 mL (200 mg/mL x 2) subcutaneous syringe kit inject 2 milliliter by subcutaneous route every 2 weeks as 2 equally divided injections at 2 injection sites in abdomen or thigh 400 MG - Active Benadryl 25 mg capsule take 1 capsule by oral route every night 25 MG - Active HIPOLITO ALLERGY (unknown strength) take 1 tablet by oral route every day Not Available - Active Mucinex 1,200 mg tablet, extended release take 1 tablet 1 to 2 times daily - Active medical cannabis ORAL - Active Adderall 5 mg tablet take 1 tablet by oral route 2 times every day before breakfast and at noon 5 MG - Active Imitrex 50 mg tablet take 1 tablet by oral route after onset of migraine; may repeat after 2 hours if headache returns,not to exceed 200mg in 24hrs 50 MG - Active Tylenol Arthritis Pain 650 mg tablet,extended release take 2 tablet by oral route every 8 hours as needed swallowing whole with water. Do not break, crush, dissolve and/or chew. 1300 MG - Active Vitamin D3 125 mcg (5,000 unit) tablet - Active Percocet 7.5 mg-325 mg tablet take 1 tablet by oral route every 4 hours as needed, max 3 /day, acute on chronic pain - No Longer Active Procedures Procedure Date Foll-up eval q3mo opiod tx OFFICE VISIT, EST TELEMEDICINE Foll-up eval q3mo opiod tx OFFICE/OUTPATIENT VISIT, EST Drug Urine Toxology With Chromatography Drug test def 8-14 classes Foll-up eval q3mo opiod tx OFFICE VISIT, EST TELEMEDICINE Foll-up eval q3mo opiod tx OFFICE VISIT, EST TELEMEDICINE Foll-up eval q3mo opiod tx OFFICE VISIT, EST TELEMEDICINE Foll-up eval q3mo opiod tx OFFICE VISIT, EST TELEMEDICINE Drug Urine Toxology With Chromatography Drug test def 8-14 classes Foll-up eval q3mo opiod tx OFFICE/OUTPATIENT VISIT, EST Foll-up eval q3mo opiod tx OFFICE VISIT, EST TELEMEDICINE Foll-up eval q3mo opiod tx OFFICE VISIT, EST TELEMEDICINE Foll-up eval q3mo opiod tx OFFICE VISIT, EST TELEMEDICINE INJ TRIGGER POINT, 1/2 MUSCL Kenalog Triamcinolone acetonide inj Foll-up eval q3mo opiod tx OFFICE VISIT, EST TELEMEDICINE Foll-up eval q3mo opiod tx OFFICE/OUTPATIENT VISIT, EST Drug Urine Toxology With Chromatography Drug test def 8-14 classes Foll-up eval q3mo opiod tx OFFICE VISIT, EST TELEMEDICINE Foll-up eval q3mo opiod tx OFFICE/OUTPATIENT VISIT, EST Foll-up eval q3mo opiod tx OFFICE VISIT, EST TELEMEDICINE Foll-up eval q3mo opiod tx OFFICE VISIT, EST TELEMEDICINE Foll-up eval q3mo opiod tx OFFICE VISIT, EST TELEMEDICINE ROUTINE BLOOD DRAW Drug Urine Toxology With Chromatography Drug test def 8-14 classes Foll-up eval q3mo opiod tx OFFICE/OUTPATIENT VISIT, EST PT RE EVAL EST PLAN CARE Foll-up eval q3mo opiod tx OFFICE/OUTPATIENT VISIT, EST SCS Post Op Satellite No Charge For Visit Per Prov IMPLANT NEUROELECTRODES ASC IMPLANT NEUROELECTRODES ASC INSRT/REDO SPINE N GENERATOR Foll-up eval q3mo opiod tx OFFICE/OUTPATIENT VISIT, EST ROUTINE BLOOD DRAW SCS Lead Pull Satellite ORTHOTIC MGMT AND TRAINING Initial Encou nter Lower Back LSO Brace SCS Mid Trial Satellite IMPLANT NEUROELECTRODES ASC IMPLANT NEUROELECTRODES ASC ANALYZE NEUROSTIM, COMPLEX Foll-up eval q3mo opiod tx OFFICE VISIT, EST TELEMEDICINE Foll-up eval q3mo opiod tx OFFICE VISIT, EST TELEMEDICINE PT EVAL MOD COMPLEX 30 MIN Psych Dx Eval Drug Urine Toxology With Chromatography Foll-up eval q3mo opiod tx Foll-up eval q3mo opiod tx OFFICE VISIT, EST TELEMEDICINE Foll-up eval q3mo opiod tx OFFICE VISIT, EST TELEMEDICINE Foll-up eval q3mo opiod tx OFFICE/OUTPATIENT VISIT, EST Drug Urine Toxology With Chromatography Foll-up eval q3mo opiod tx OFFICE VISIT, EST TELEMEDICINE Foll-up eval q3mo opiod tx OFFICE VISIT, EST TELEMEDICINE Foll-up eval q3mo opiod tx OFFICE VISIT, EST TELEMEDICINE 20 RF Lumb/Sacral Single Level BILATERAL De RF Lumb/Sacral 2nd Level RIGHT 20 RF Lumb/Sacral 2nd Level LEFT 0 Foll-up eval q3mo opiod tx OFFICE VISIT, EST TELEMEDICINE 20 Foll-up eval q3mo opiod tx OFFICE VISIT, EST TELEMEDICINE 20 Facet Jt In Or MBB j Lumbar BILATERAL No Facet In Or MBB j Lumbar 2nd Level LEFT Facet In Or MBB j Lumbar 2nd Level RIGHT Foll-up eval q3mo opiod tx OFFICE/OUTPATIENT VISIT, EST Facet Jt In Or MBB j Lumbar BILATERAL Oc Facet In Or MBB j Lumbar 2nd Level LEFT Facet In Or MBB j Lumbar 2nd Level RIGHT INJ TRIGGER POINT, 1/2 MUSCL Foll-up eval q3mo opiod tx OFFICE/OUTPATIENT VISIT, EST Foll-up eval q3mo opiod tx OFFICE/OUTPATIENT VISIT, EST Foll-up eval q3mo opiod tx OFFICE VISIT, EST TELEMEDICINE 20 OFFICE/OUTPATIENT VISIT, NEW DAST 15-30 MIN Drug test def 8-14 classes Advance Directives Directive Yes / No Effective Date File Name No Information Encounters Encounter Description Practice Location Reason(s) For Visit Diagnoses Date Provider Providers Copied on Encounter OFFICE VISIT, EST TELEMEDICINE [facility], [address] [place], [place], [id number] , [place] tel:[phone] [facility] low back pain (chief complaint) Chronic pain syndromeAnkylosing spondylitis of unspecified sites in spineRadiculopathy , lumbar regionPostlaminect eve syndrome, not elsewhere classifiedLong term (current) use of opiate analgesicOther long term care pharmacist (current) drug therapy 3 Violetta Shirlene. [address], [place], [id number] , [place]. tel: [phone] OFFICE/OUTPAT IENT VISIT, [facility], [address], [place], [id number] , [place] tel: [phone] [facility] low back pain (chief complaint) Chronic pain syndromeAnkylosing spondylitis of unspecified sites in spineRadiculopathy , lumbar regionLong term (current) use of opiate analgesicOther long term care pharmacist (current) drug therapyPostlaminec miguel syndrome, not elsewhere classified 3 Azjuan Shirlene. [address] [facility] [address], [place], [id number] , [place]. tel:[phone] Referring Provider: Braxton Burnette, [address] [place], [address] . tel:[phone] [facility], [address] [place], [id number] , [place] tel: [phone] [facility] No Information 3 [facility] [place] [address] [facility] [address], [place], [id number] , [place]. tel: [phone] OFFICE VISIT, EST TELEMEDICINE [facility], [address] [place], [id number] , [place] tel: [phone] [facility] low back pain (chief complaint) DepressionChronic pain syndromeRheumatoid arthritisPain in right hipAnkylosing spondylitis of unspecified sites in spineRadiculopathy , lumbar regionMyalgia, other siteFibromyalgiaLo ng term (current) use of opiate analgesicOther long term care pharmacist (current) drug therapy 3 [facility]. [address] [facility] [address], [place], [id number] , [place]. tel: [phone] OFFICE VISIT, EST TELEMEDICINE [facility], [address] [place], [id number] , [place] tel: [phone] [facility] low back pain (chief complaint) DepressionChronic pain syndromeRheumatoid arthritisPain in right hipAnkylosing spondylitis of unspecified sites in spineRadiculopathy , lumbar regionMyalgia, other siteFibromyalgiaLo ng term (current) use of opiate analgesicOther long term care pharmacist (current) drug therapy 2 [facility] Shirlene. [address], [place], [id number] , [place]. tel: [phone] Referring Provider: Braxton Burnette, [address] [place], [address] . tel:[phone] OFFICE VISIT, EST TELEMEDICINE [facility], [address] [place], [id number] , [place] tel: [phone] [facility] low back pain (chief complaint) DepressionChronic pain syndromeRheumatoid arthritisPain in right hipAnkylosing spondylitis of unspecified sites in spineRadiculopathy , lumbar regionMyalgia, other siteFibromyalgiaLo ng term (current) use of opiate analgesicOther long term care pharmacist (current) drug therapy 2 Nyongesa Shirlene. [address] [facility] [address], [place], [id number] , [place]. tel:[phone] OFFICE VISIT, EST TELEMEDICINE [facility], [address] [place], [id number] , [place] tel:[phone] [facility] low back pain (chief complaint) DepressionChronic pain syndromeRheumatoid arthritisPain in right hipAnkylosing spondylitis of unspecified sites in spineRadiculopathy , lumbar regionMyalgia, other siteFibromyalgiaLo ng term (current) use of opiate analgesicOther prison (current) drug therapy 2 Michelleleslie Shirlene. [address] [facility] [address], [place], [id number] , [place]. tel:[phone] Referring Provider: Braxton Burnette, [address] [place], [address] . tel:[phone] [facility], [address] [place] [address] [place], [place], [id number] , [place] tel: [phone] [facility] No Information 2 Michelleleslie Garber. [address] [facility] [address], [place], [id number] , [place]. tel:[phone] OFFICE/OUTPAT IENT VISIT, [facility], [address] [place] [address] [place], [id number] , [place] tel:[phone] [facility] low back pain (chief complaint) DepressionChronic pain syndromeRheumatoid arthritisPain in right hipAnkylosing spondylitis of unspecified sites in spineRadiculopathy , lumbar regionMyalgia, other siteFibromyalgiaLo ng term (current) use of opiate analgesicOther long term care pharmacist (current) drug therapy 2 Darien Garber. [address], [place], [id number] , [place]. [phone] Referring Provider: Braxton Burnette, [address] [place], [address] . tel:[phone] OFFICE VISIT, EST TELEMEDICINE [facility], [address] [place] [address] [place], [place], [id number] , [place] [phone] [facility] low back pain (chief complaint) DepressionChronic pain syndromeRheumatoid arthritisPain in right hipAnkylosing spondylitis of unspecified sites in spineRadiculopathy , lumbar regionMyalgia, other siteFibromyalgiaLo ng term (current) use of opiate analgesicOther prison (current) drug therapy 2 Darien Garber. [address] [facility] [address], [place], [id number] , [place]. tel:[phone] OFFICE VISIT, EST TELEMEDICINE [facility], [address] [place] [address] [place], [place], [id number] , [place] tel:[phone] [facility] low back pain (chief complaint) DepressionChronic pain syndromeRheumatoid arthritisPain in right hipAnkylosing spondylitis of unspecified sites in spineMyalgia, other siteRadiculopathy, lumbar regionFibromyalgia senior care (current) use of opiate analgesicOther long term care pharmacist (current) drug therapy 2 Darien Garber. [address] [facility] [address], [place], [id number] , [place]. [phone] Referring Provider: Braxton Burnette, [address] [place], [address] . tel:[phone] OFFICE VISIT, EST [facility], [address] [place] [address] [place], [id number] , [place] [phone] [facility] low back pain (chief complaint) DepressionChronic pain syndromeRheumatoid arthritisPain in right hipAnkylosing spondylitis of unspecified sites in spineRadiculopathy , lumbar regionFibromyalgia salvage determiner (current) use of opiate analgesicOther long term care pharmacist (current) drug therapyMyalgia, other site 2 Darien Garber. [address], [place], [id number] , [place]. tel:[phone] Referring Provider: Lito Rajan, [address], [address]. tel:[phone] [facility], [address], [place], [id number] , [place] tel:[phone] [facility] [place] Myalgia, other site 2 Darien Garber. [address], [place], [id number] , [place]. tel:[phone] Referring Provider: Braxton Burnette, [address] [place], [address] . tel:[phone] OFFICE VISIT, EST TELEMEDICINE [facility], [address] [place] [address], [id number] , [place] tel:[phone] [facility] low back pain (chief complaint) DepressionChronic pain syndromeRheumatoid arthritisPain in right hipAnkylosing spondylitis of unspecified sites in spineRadiculopathy , lumbar regionFibromyalgia salvage determiner (current) use of opiate analgesic 2 Darien Garber. [address] [facility] [facility] [address], [place], [id number] , [place]. tel:[phone] OFFICE/OUTPAT IENT VISIT, EST [facility], [address], [place], [id number] , [place] tel:[phone] [facility] low back pain (chief complaint) DepressionChronic pain syndromeRheumatoid arthritisPain in right hipFibromyalgiaLon g term (current) use of opiate analgesicAnkylosin g spondylitis of unspecified sites in spineRadiculopathy , lumbar regionEncounter for therapeutic drug level monitoring 2 Darien Garber. [address] [facility] [address] [facility] [address], [place], [id number] , [place]. [phone] Referring Provider: Lito Rajan, [address], [address]. tel:[phone] [facility], [address], [place], [id number] , [place] [phone] [facility] No Information 2 Darien Garber. [address] [facility] [address] [facility] [address], [place], [id number] , [place]. [phone] Referring Provider: Lito Rajan, [address], [address]. tel:[phone] OFFICE VISIT, EST TELEMEDICINE [facility], [address], [place], [id number] , [place] tel:[phone] [facility] low back pain (chief complaint) Rheumatoid arthritisDepressio nChronic pain syndromePain in right hipFibromyalgiaLon g term (current) use of opiate analgesic Apr-0 2 Darien Shirlene. [address] [address], [place], [id number] , [place]. [phone] Referring Provider: Braxton Burnette, [address] [place], [address] . tel:[phone] OFFICE/OUTPAT IENT VISIT, EST [facility], [address], [place], [id number] , [place] [phone] [facility] low back pain (chief complaint) Ankylosing spondylitis of unspecified sites in spineRadiculopathy , lumbar regionFibromyalgia DepressionLong term (current) use of opiate analgesicChronic pain syndromeRheumatoid arthritisMyalgia, other sitePain in right hip Mar-0 8- 2 Violetta Sharp. [address] [facility] [address] [address], [place], [id number] , [place]. [phone] Referring Provider: Braxton Burnette, [address] [place] [address] [place], [address] . tel:[phone] OFFICE VISIT, EST TELEMEDICINE [facility], [address] [place] [address] [place], [place], [id number] , [place] [phone] [facility] low back pain (chief complaint) Ankylosing spondylitis of unspecified sites in spineRadiculopathy , lumbar regionFibromyalgia DepressionLong term (current) use of opiate analgesicChronic pain syndromeRheumatoid arthritisMyalgia, other sitePain in right hip 2 Ny[address]esa Shirlene. [address] [place] [address] [address], [place], [id number] , [place]. [phone] Referring Provider: Lito Rajan, [address], [address]. tel:[phone] OFFICE VISIT, EST TELEMEDICINE [facility], [address] [place] [address] [place], [id number] , [place] [phone] [facility] low back pain (chief complaint) Ankylosing spondylitis of unspecified sites in spineRadiculopathy , lumbar regionFibromyalgia DepressionLong term (current) use of opiate analgesicChronic pain syndromeRheumatoid arthritisMyalgia, other sitePain in right hip 2 Nyongesa Shirlene. [address] [place] [address] [address], [place], [id number] , [place]. [phone] Referring Provider: Braxton Burnette, [address] [place] [address] [place], [address] . tel:[phone] OFFICE VISIT, EST TELEMEDICINE [facility], [address] [place] [address] [place], [id number] , [place] [phone] [facility] low back pain (chief complaint) Ankylosing spondylitis of unspecified sites in spineRadiculopathy , lumbar regionFibromyalgia DepressionLong term (current) use of opiate analgesicChronic pain syndromeRheumatoid arthritisMyalgia, other sitePain in right hip 1 [facility]. [address] [facility] [address], [place], [id number] , [place]. tel: [phone] Referring Provider: Braxton Burnette, [address], [address] . tel:[phone] [facility], [address] [place], [id number] , [place] tel: [phone] [facility] Radiculopathy, lumbar region Dave Limon. [address] [place], [id number] , [place]. tel: [phone] [facility], [address] [place] [address] [place], [id number] , [place] tel: [phone] [facility] No Information 1 [facility]. [address] [facility] [address], [place], [id number] , [place]. tel: [phone] Referring Provider: Braxton Burnette, [place], [address] . tel:[phone] OFFICE/OUTPAT IENT VISIT, [facility], [address] [place], [id number] , [place] tel: [phone] [facility] low back pain (chief complaint) Ankylosing spondylitis of unspecified sites in spineRadiculopathy , lumbar regionFibromyalgia DepressionLong term (current) use of opiate analgesicChronic pain syndromeRheumatoid arthritisMyalgia, other sitePain in right hipEncounter for therapeutic drug level monitoring 1 [facility]. [address] [facility] [address], [place], [id number] , [place]. tel: [phone] Referring Provider: Braxton Burnette, [place], [address] . tel:[phone] [facility], [address] [place] [address] [place], [id number] , [place] tel: [phone] [facility] [place] lumbago (chief complaint) Ankylosing spondylitis of unspecified sites in spineRadiculopathy , lumbar regionSpondylosis without myelopathy or radiculopathy, lumbar region Jul- 1 Enma Alexander. [address] [place] [address] [place], [id number] , [place]. tel:[phone] Referring Provider: Braxtno Burnette, [address] [place] [address] [place], [address] . tel:[phone] OFFICE/OUTPAT IENT VISIT, [facility], [address] [place] [address] [place], [id number] , [place] tel: [phone] [facility] low back pain (chief complaint) Radiculopathy, lumbar regionFibromyalgia Rheumatoid arthritisDepressio nLong term (current) use of opiate analgesicAnkylosin g spondylitis of unspecified sites in spineChronic pain syndrome 1 Michelleleslie Garber. [address] [facility] [address], [place], [id number] , [place]. tel:[phone] Referring Provider: Braxton Burnette, [address] [place] [address] [place], [address] . tel:[phone] [facility], [address] [place] [address] [place], [id number] , [place] tel:[phone] [facility] [place] Radiculopathy, lumbar region Jun- 1 Violettasa Garber. [address] [facility] [address], [place], [id number] , [place]. tel:[phone] Referring Provider: Braxton Burnette, [address] [place] [address] [place], [address] . tel:[phone] [facility], [address] [place] [address] [place], [address] , [place] tel: [phone] [facility] Radiculopathy, lumbar region Sep-2 1 Gulshan Chambers. [address] Hospital[facility] GrossBUFFY, [id number] , [place]. tel: [phone] Referring Provider: Braxton Burnette, [address] [place] [address] [place], [address] . tel:[phone] OFFICE/OUTPAT IENT VISIT, EST [facility], [address] [place], [id number] , [place] tel: [phone] [facility] Back Pain (chief complaint) FibromyalgiaRheuma toid arthritisDepressio nLong term (current) use of opiate analgesicMyalgia, other sitePain in right hipPain in left hipRadiculopathy, lumbar regionChronic pain syndromeAnkylosing spondylitis of unspecified sites in spine Sep- 1 [facility]. [address] [facility] [address], [place], [id number] , [place]. tel: [phone] Referring Provider: Braxton Burnette, [address] [place] [address] [place], [address] . tel:[phone] [facility], [address] [place] [address] [place], [id number] , [place] tel: [phone] [facility] No Information 1 [facility] Shirlene. [address] [facility] [address], [place], [id number] , [place]. tel: [phone] Referring Provider: Braxton Burnette, [address] [place] [address] [place], [address] . tel:[phone] [facility], [address] [place] [address] [place], [id number] , [place] tel: [phone] [facility] Radiculopathy, lumbar region 1 [facility] Shirlene. [address] [facility] [address], [place], [id number] , [place]. tel: [phone] Referring Provider: Braxton Burnette, [address] [place] [address] [place], [address] . tel:[phone] [facility], [address] [place], [place] [address], [id number] , [place] tel: [phone] [facility] [place] No Information 1 Darien Garber. [address] [place] [address] [address] [facility] [address], [place], [place], [id number] , [place]. tel:[phone] Referring Provider: Braxton Burnette, [address] [place] [address] [place], [address] . tel:[phone] [facility], [address] [place] [address] Corina ZhaoTWELVE [place], [id number] , [place] tel: [phone] [facility] Radiculopathy, lumbar region 1 Violetta Sharp. [address] [facility] [address], [place], [id number] , [place]. tel:[phone] Referring Provider: Braxton Burnette, [address] [place] [address] [place], [address] . tel:[phone] [facility], [address] [place], [place] [address]Y[place], [place], [id number] , [place] tel:[phone] [facility] Radiculopathy, lumbar region 1 Gulshan Chambers. [address] [place] [address] Rachid Zhao [place], [id number] , [place]. tel:[phone] Referring Provider: Braxton Burnette, [address] [place] [address] [place], [address] . tel:[phone] OFFICE VISIT, EST TELEMEDICINE [facility], [address] [place], [place] [address]ms Zhao [place], [id number] , [place] tel: [phone] [facility] [place] Back Pain (chief complaint) Chronic pain syndromeAnkylosing spondylitis of unspecified sites in spineFibromyalgiaR heumatoid arthritisDepressio nLong term (current) use of opiate analgesicMyalgia, other sitePain in right hipPain in left hipRadiculopathy, lumbar region 1 Darien Garber. [address] [facility] [address], [place], [id number] , [place]. tel:[phone] Referring Provider: Braxton Burnette, [address] [place] [address] [place], [address] . tel:[phone] OFFICE VISIT, EST TELEMEDICINE [facility], [address] [place] [address] [place], [id number] , [place] tel: [phone] [facility] [place] Back Pain (chief complaint) Chronic pain syndromeAnkylosing spondylitis of unspecified sites in spineFibromyalgiaR heumatoid arthritisDepressio nLong term (current) use of opiate analgesicMyalgia, other sitePain in right hipPain in left hipRadiculopathy, lumbar region 1 Darien Garber. [address] [facility] [address], [place], [id number] , [place]. tel:[phone] Referring Provider: Braxton Burnette, [address] [place] [address] [place], [address] . tel:[phone] [facility], [address] [place] [address] [place], [id number] , [place] tel:[phone] [facility] [place] lumbago (chief complaint) Ankylosing spondylitis of unspecified sites in spineRadiculopathy , lumbar regionSpondylosis without myelopathy or radiculopathy, lumbar region 1 Enma Alexander. [address] [facility] Rachid Zhao [place], [id number] , [place]. tel:[phone] Referring Provider: Braxton Burnette, [address] [place] [address] [place], [address] . tel:[phone] Psych Dx Eval [facility], [address] [place] [address] [place], [id number] , [place] tel:[phone] Telehealth Pain disorder with related psychological factors 1 Karen Conor Coronado. [address] [facility] PavelRachid galiBUFFY, [id number] , [place]. tel:[phone] Referring Provider: Braxton Burnette, [address] [place] [address] [place], [address] . tel:[phone] [facility], [address] [place] [address] [place], [id number] , [place] tel:[phone] [facility] No Information 1 [facility]. [address] [facility] [address], [facility], [place], [id number] , [place]. tel:[phone] Referring Provider: Braxton Burnette, [address] [place] [address] [place], [address] . tel:[phone] [facility], [address] [place] [address], [id number] , [place] tel:[phone] [facility] Back Pain (chief complaint) Chronic pain syndromeAnkylosing spondylitis of unspecified sites in spineFibromyalgiaR heumatoid arthritisDepressio nLong term (current) use of opiate analgesicMyalgia, other sitePain in right hipPain in left hipEncounter for therapeutic drug level monitoringRadiculo inga, lumbar region 1 [facility]. [address] [facility] [address], [employer], [place], [id number] , [place]. tel:[phone] Referring Provider: Braxton Burnette, [address] [place] [address] [place], [address] . tel:[phone] OFFICE VISIT, EST TELEMEDICINE [facility], [address] [place] [address] [place], [place], [id number] , [place] tel:[phone] [facility] Back Pain (chief complaint) Spondylosis without myelopathy or radiculopathy, lumbar regionChronic pain syndromeAnkylosing spondylitis of unspecified sites in spineFibromyalgiaR heumatoid arthritisDepressio nLong term (current) use of opiate analgesicMyalgia, other sitePain in right hipPain in left hip 1 [facility] Shirlene. [address] [facility] [address], [place], [id number] , [place]. tel:[phone] Referring Provider: Braxton Burnette, [address] [place], [address] . tel:[phone] OFFICE VISIT, [facility], [address] [facility] [place], [id number] , [place] [phone] [facility] Back Pain (chief complaint) Spondylosis without myelopathy or radiculopathy, lumbar regionChronic pain syndromeAnkylosing spondylitis of unspecified sites in spineFibromyalgiaR heumatoid arthritisDepressio nLong term (current) use of opiate analgesicMyalgia, other sitePain in right hipPain in left hip 1 [facility] Shirlene. [address] [facility] [address], [place], [id number] , [place]. [phone] Referring Provider: Braxton Burnette, [address] [place], [address] . tel:[phone] OFFICE/OUTPAT IENT VISIT, [facility], [facility] [place], [id number] , [place] tel:[phone] [facility] Back Pain (chief complaint) Spondylosis without myelopathy or radiculopathy, lumbar regionChronic pain syndromeAnkylosing spondylitis of unspecified sites in spineFibromyalgiaR heumatoid arthritisDepressio nLong term (current) use of opiate analgesicMyalgia, other sitePain in right hipPain in left hipEncounter for therapeutic drug level monitoring 1 [facility] Shirlene. [address] [facility] [address], [place], [id number] , [place]. [phone] Referring Provider: Braxton Burnette, [address] [place], [address] . tel:[phone] [facility], [address] [facility] Corina Zhao [place], [id number] , [place] tel: [phone] [facility] [place] No Information 1 [facility]. [address] [facility] [address], [place], [id number] , [place]. tel: [phone] Referring Provider: Braxton Burnette, [address] [facility] [place], [address] . tel:[phone] OFFICE VISIT, EST TELEMEDICINE [facility], [address] [place] [address] Corina Zhao [place], [id number] , [place] tel: [phone] [facility] Back Pain (chief complaint) Spondylosis without myelopathy or radiculopathy, lumbar regionChronic pain syndromeAnkylosing spondylitis of unspecified sites in spineFibromyalgiaR heumatoid arthritisDepressio nLong term (current) use of opiate analgesicMyalgia, other sitePain in right hipPain in left hip 1 [facility]. [address] [facility] [address], [place], [id number] , [place]. tel: [phone] Referring Provider: Braxton Burnette, [address] [place] [address] [place], [address] . tel:[phone] OFFICE VISIT, EST TELEMEDICINE [facility], [address] [place] [address] Yuan Zhaoa [place], [id number] , [place] tel: [phone] [facility] Back Pain (chief complaint) Spondylosis without myelopathy or radiculopathy, lumbar regionChronic pain syndromeAnkylosing spondylitis of unspecified sites in spineFibromyalgiaR heumatoid arthritisDepressio nLong term (current) use of opiate analgesicMyalgia, other site 1 [facility]. [address] [facility] [address], [place], [id number] , [place]. tel: [phone] Referring Provider: Braxton Burnette, [address] [facility] [place], [address] . tel:[phone] OFFICE VISIT, EST TELEMEDICINE [facility], [address] [facility] Corina Zhao [place], [id number] , [place] tel: [phone] [facility] [place] Back Pain (chief complaint) Spondylosis without myelopathy or radiculopathy, lumbar regionChronic pain syndromeAnkylosing spondylitis of unspecified sites in spineFibromyalgiaR heumatoid arthritisDepressio nLong term (current) use of opiate analgesicMyalgia, other site 0 Nyongesa Shirlene. [address] [facility] [address], [place], [place], [id number] , [place]. tel: [phone] Referring Provider: Braxton Burnette, [address] [place] [address] [place], [address] . tel:[phone] [facility], [address] [facility] Corina Zhao [place], [id number] , [place] tel: [phone] [facility] Spondylosis without myelopathy or radiculopathy, lumbar region 0 Elodia Pierce. [address] [place], [id number] , [place]. tel: [phone] Referring Provider: Braxton Burnette, [address] [place], [address] . tel:[phone] OFFICE VISIT, EST TELEMEDICINE [facility], [address] N[place]ina Gross [place], [id number] , [place] tel: [phone] [facility] [place] Back Pain (chief complaint) Spondylosis without myelopathy or radiculopathy, lumbar regionChronic pain syndromeAnkylosing spondylitis of unspecified sites in spineFibromyalgiaR heumatoid arthritisDepressio nLong term (current) use of opiate analgesicMyalgia, other site Sep- 0 Nyongesa Shirlene. [address] [facility] [address], [place], [place], [id number] , [place]. tel: [phone] Referring Provider: Braxton Burnette, [address] [facility] [place], [address] . tel:[phone] OFFICE VISIT, EST TELEMEDICINE [facility], [address] [facility] Corina ZhaoTWEL[place], [id number] , [place] tel:[phone] [facility] Back Pain (chief complaint) Chronic pain syndromeAnkylosing spondylitis of unspecified sites in spineFibromyalgiaR heumatoid arthritisDepressio nLong term (current) use of opiate analgesicMyalgia, other siteSpondylosis without myelopathy or radiculopathy, lumbar region 0 Nyongesa Shirlene. [address] [facility] [address], [place], [id number] , [place]. tel:[phone] Referring Provider: Braxton Burnette, [address] [place] [address] [place], [address] . tel:[phone] [facility], [address] [place] [address] [place], [id number] , [place] tel:[phone] [facility] Spondylosis without myelopathy or radiculopathy, lumbar region 0 Elodia Pierce. [address] [place]achid Zhao [place], [id number] , [place]. tel:[phone] Referring Provider: Braxton Burnette, [address] [place], [place] [address]T[place], [address] . tel:[phone] OFFICE/OUTPAT IENT VISIT, EST [facility], [address] [place] [address] Yuan [place]TW[place], [id number] , [place] tel:[phone] [facility] Back Pain (chief complaint) Spondylosis without myelopathy or radiculopathy, lumbar regionChronic pain syndromeAnkylosing spondylitis of unspecified sites in spineFibromyalgiaR heumatoid arthritisDepressio nLong term (current) use of opiate analgesicMyalgia, other site 0 Nyongesa Shirlene. [address] [facility] [address], [place], [id number] , [place]. tel:[phone] Referring Provider: Braxton Burnette, [address] [place], [address] . tel:[phone] [facility], [address] [place] [address] Corina Zhao [place], [id number] , [place] tel: [phone] [facility] [place] Spondylosis without myelopathy or radiculopathy, lumbar region Oct-2 6-202 0 Nyongesa Shirlene. [address] [facility] [address], [place], [id number] , [place]. tel: [phone] [facility], [address] [place] [address] Corina Zhao [place], [id number] , [place] tel: [phone] [facility] Spondylosis without myelopathy or radiculopathy, lumbar region Oct-2 3-202 0 Elodia Pierce. [address] [facility] Rachid Zhao [place], [id number] , [place]. tel: [phone] Referring Provider: Braxton Burnette, [address] [place] [address] [place], [address] . tel:[phone] OFFICE/OUTPAT IENT VISIT, [facility], [address] [place] [address] Corina Zhao [place], [id number] , [place] tel: [phone] [facility] Back Pain (chief complaint) Chronic pain syndromeAnkylosing spondylitis of unspecified sites in spineFibromyalgiaR heumatoid arthritisDepressio nLong term (current) use of opiate analgesicMyalgia, other siteSpondylosis without myelopathy or radiculopathy, lumbar region Sep-2 8-202 0 Nyongesa Shirlene. [address] [facility] [address], [place], [id number] , [place]. tel: [phone] Referring Provider: Lito Rajan, [address], [address]. tel:[phone] OFFICE/OUTPAT IENT VISIT, [facility], [address] [place] [address] Corina Zhao [place], [id number] , [place] tel: [phone] [facility] Back Pain (chief complaint) Chronic pain syndromeAnkylosing spondylitis of unspecified sites in spineFibromyalgiaR heumatoid arthritisDepressio nLong term (current) use of opiate analgesicEncounter for therapeutic drug level monitoring 0 Nyongesa Shirlene. [address] [facility] [address], [place], [id number] , [place]. tel:[phone] Referring Provider: Braxton Burnette, [address] [facility], [address] . tel:[phone] OFFICE VISIT, [facility], [address] [place] [address], [id number] , [place] [phone] [facility] Back Pain (chief complaint) Chronic pain syndromeAnkylosing spondylitis of unspecified sites in spineFibromyalgiaR heumatoid arthritisDepressio nLong term (current) use of opiate analgesic 0 Nyongesa Shirlene. [address] [facility] [address], [place], [id number] , [place]. tel:[phone] Referring Provider: Lito Rajan, [address], [address]. tel:[phone] OFFICE/OUTPAT IENT VISIT, [facility], [address] [place] [address], [id number] , [place] tel:[phone] [facility] Back Pain (chief complaint) Chronic pain syndromeAnkylosing spondylitis of unspecified sites in spineFibromyalgiaR heumatoid arthritisDepressio nEncounter for therapeutic drug level monitoringLong term (current) use of opiate analgesic 0 Nyongesa Shirlene. [address] [facility] [address], [place], [id number] , [place]. tel:[phone] Referring Provider: Lito Rajan [address], [address]. tel:[phone] Family History Family Member Type Diagnosis Age At Onset Daughter Problem RA Payers Payer name Insurance type Covered democrat ID Ron avtar(s) Albert BULLOCK [id number] Social History Type Description Quantity Date Captured Comments Alcohol Use Details 3 drinks monthly Caffeine Use Details Unknown Tobacco Use Status Current non-smoker Smoking Status Never smoker Sex Female Chief Complaint And Reason For Visit From encounter dated '01/07/2023 10:26'. low back pain (chief complaint). Description: Severity level is 6. Duration: chronic. The problem is stable. It occurs persistently. Symptoms are relieved by pain meds/drugs. Reason For Referral Reason For Referral No Information Plan Of Treatment Date Type Action Status Goal Order Annual PT. Due on due Goal Creatinine. Due on due Goal UDT. Due on due Goal PACU RN Paperwork. Due on due Goal OARS. Due on due Goal AST (SGOT). Due on due Goal [employer] Scanned. Due on due Goal ALT (SGPT). Due on due Goal HPV. Due on due Goal Weight. Due on d ue Goal Unhealthy drug use screening . Due on due Goal Tobacco Use. Due on 023 due Goal Lipid panel. Due on due Goal FIT. Due on due Goal PHQ-9. Due on du e Goal Zoster vaccine (1st). Due on due Goal FIT-DNA. Due on due Goal Hepatitis C screening. Due o n due Goal CT-Colonography. Due on due Goal Review Allergy List. Due on due Goal Medication Reconciliation. D ue on due Goal Update Social History. Due o n due Goal Height. Due on d ue Goal ALT (SGPT). Due on due Goal AST (SGOT). Due on due Goal PACU RN Paperwork. Due on due Goal UDT. Due on due Goal [employer] Scanned. Due on due Goal Order Annual PT. Due on due Goal Creatinine. Due on due Goal OARS. Due on due Goal Zoster vaccine (1st). Due on due Goal Tobacco Use. Due on due Goal Update Social History. Due o n due Goal Unhealthy drug use screening . Due on due Goal FIT. Due on due Goal Height. Due on d ue Goal CT-Colonography. Due on due Goal HPV. Due on due Goal Medication Reconciliation. D ue on due Goal Lipid panel. Due on due Goal Weight. Due on d ue Goal PHQ-9. Due on du e Goal Hepatitis C screening. Due o n due Goal FIT-DNA. Due on due Goal Review Allergy List. Due on due Goal UDT. Due on due Goal AST (SGOT). Due on due Goal ALT (SGPT). Due on due Goal [employer] Scanned. Due on due Goal Order Annual PT. Due on due Goal PACU RN Paperwork. Due on due Goal Creatinine. Due on due Goal OARS. Due on due Goal Update Social History. Due o n due Goal PHQ-9. Due on du e Goal CT-Colonography. Due on due Goal Unhealthy drug use screening . Due on due Goal Lipid panel. Due on due Goal Review Allergy List. Due on due Goal Height. Due on d ue Goal Hepatitis C screening. Due o n due Goal Weight. Due on d ue Goal Medication Reconciliation. D ue on due Goal HPV. Due on due Goal FIT. Due on due Goal Zoster vaccine (). Due on due Goal Tobacco Use. Due on due Goal FIT-DNA. Due on due Goal UDT. Due on due Goal AST (SGOT). Due on due Goal Creatinine. Due on due Goal ALT (SGPT). Due on due Goal [employer] Scanned. Due on due Goal OARS. Due on due Goal PACU RN Paperwork. Due on due Goal Order Annual PT. Due on due Goal Weight. Due on d ue Goal Medication Reconciliation. D ue on due Goal Unhealthy drug use screening . Due on due Goal CT-Colonography. Due on due Goal Review Allergy List. Due on due Goal PHQ-9. Due on du e Goal FIT. Due on due Goal Zoster vaccine (). Due on due Goal Lipid panel. Due on due Goal HPV. Due on due Goal Hepatitis C screening. Due o n due Goal FIT-DNA. Due on due Goal Height. Due on d ue Goal Tobacco Use. Due on due Goal Update Social History. Due o n due Goal UDT. Due on due Goal Order Annual PT. Due on due Goal [employer] Scanned. Due on due Goal OARS. Due on due Goal Creatinine. Due on due Goal ALT (SGPT). Due on due Goal AST (SGOT). Due on due Goal PACU RN Paperwork. Due on due Goal Medication Reconciliation. D ue on due Goal Review Allergy List. Due on due Goal Unhealthy drug use screening . Due on due Goal Weight. Due on d ue Goal CT-Colonography. Due on due Goal FIT. Due on due Goal Tobacco Use. Due on due Goal PHQ-9. Due on du e Goal Height. Due on d ue Goal HPV. Due on due Goal Lipid panel. Due on due Goal Zoster vaccine (1st). Due on due Goal Update Social History. Due o n due Goal Hepatitis C screening. Due o n due Goal FIT-DNA. Due on due Goal UDT. Due on due Goal PACU RN Paperwork. Due on due Goal OARS. Due on due Goal Order Annual PT. Due on due Goal Creatinine. Due on due Goal AST (SGOT). Due on due Goal [employer] Scanned. Due on due Goal ALT (SGPT). Due on due Goal PHQ-9. Due on du e Goal Tobacco Use. Due on due Goal Height. Due on d ue Goal HPV. Due on due Goal Update Social History. Due o n due Goal Zoster vaccine (1st). Due on due Goal Lipid panel. Due on due Goal FIT-DNA. Due on due Goal Hepatitis C screening. Due o n due Goal FIT. Due on due Goal Review Allergy List. Due on due Goal Weight. Due on d ue Goal CT-Colonography. Due on due Goal Medication Reconciliation. D ue on due Goal Unhealthy drug use screening . Due on due Goal OARS. Due on due Goal [employer] Scanned. Due on due Goal UDT. Due on due Goal ALT (SGPT). Due on due Goal PACU RN Paperwork. Due on due Goal Creatinine. Due on due Goal Order Annual PT. Due on due Goal AST (SGOT). Due on due Goal Zoster vaccine (1st). Due on due Goal PHQ-9. Due on du e Goal Hepatitis C screening. Due o n due Goal FIT-DNA. Due on due Goal Tobacco Use. Due on due Goal Medication Reconciliation. D ue on due Goal HPV. Due on due Goal CT-Colonography. Due on due Goal Height. Due on d ue Goal Unhealthy drug use screening . Due on due Goal Weight. Due on d ue Goal FIT. Due on due Goal Review Allergy List. Due on due Goal Update Social History. Due o n due Goal Lipid panel. Due on due Goal Creatinine. Due on due Goal AST (SGOT). Due on due Goal OARS. Due on due Goal PACU RN Paperwork. Due on due Goal Order Annual PT. Due on due Goal [employer] Scanned. Due on due Goal UDT. Due on due Goal ALT (SGPT). Due on due Goal Tobacco Use. Due on due Goal Review Allergy List. Due on due Goal Hepatitis C screening. Due o n due Goal Weight. Due on d ue Goal Zoster vaccine (1st). Due on due Goal Medication Reconciliation. D ue on due Goal Height. Due on d ue Goal FIT. Due on due Goal Lipid panel. Due on due Goal CT-Colonography. Due on due Goal HPV. Due on due Goal Update Social History. Due o n due Goal PHQ-9. Due on du e Goal FIT-DNA. Due on due Goal Unhealthy drug use screening . Due on due Goal Creatinine. Due on due Goal AST (SGOT). Due on due Goal OARS. Due on due Goal PACU RN Paperwork. Due on due Goal Order Annual PT. Due on due Goal [employer] Scanned. Due on due Goal UDT. Due on due Goal ALT (SGPT). Due on due Goal Tobacco Use. Due on due Goal Review Allergy List. Due on due Goal Hepatitis C screening. Due o n due Goal Weight. Due on d ue Goal Zoster vaccine (1st). Due on due Goal Medication Reconciliation. D ue on due Goal Height. Due on d ue Goal FIT. Due on due Goal Lipid panel. Due on due Goal CT-Colonography. Due on due Goal HPV. Due on due Goal Update Social History. Due o n due Goal PHQ-9. Due on du e Goal FIT-DNA. Due on due Goal Unhealthy drug use screening . Due on due Goal AST (SGOT). Due on due Goal UDT. Due on due Goal [employer] Scanned. Due on due Goal Creatinine. Due on due Goal ALT (SGPT). Due on due Goal OARS. Due on due Goal Order Annual PT. Due on due Goal PACU RN Paperwork. Due on due Goal Hepatitis C screening. Due o n due Goal Review Allergy List. Due on due Goal FIT-DNA. Due on due Goal Medication Reconciliation. D ue on due Goal Zoster vaccine (). Due on due Goal Height. Due on d ue Goal Unhealthy drug use screening . Due on due Goal PHQ-9. Due on du e Goal Lipid panel. Due on due Goal FIT. Due on due Goal Tobacco Use. Due on due Goal Weight. Due on d ue Goal CT-Colonography. Due on due Goal HPV. Due on due Goal Update Social History. Due o n due Goal UDT. Due on due Goal OARS. Due on due Goal ALT (SGPT). Due on due Goal PACU RN Paperwork. Due on due Goal Creatinine. Due on due Goal [employer] Scanned. Due on due Goal Order Annual PT. Due on due Goal AST (SGOT). Due on due Goal Tobacco Use. Due on due Goal Weight. Due on d ue Goal Medication Reconciliation. D ue on due Goal FIT. Due on due Goal Unhealthy drug use screening . Due on due Goal HPV. Due on due Goal Update Social History. Due o n due Goal CT-Colonography. Due on due Goal Hepatitis C screening. Due o n due Goal FIT-DNA. Due on due Goal PHQ-9. Due on du e Goal Lipid panel. Due on due Goal Review Allergy List. Due on due Goal Height. Due on d ue Goal Zoster vaccine (1st). Due on due Goal UDT. Due on due Goal [employer] Scanned. Due on due Goal PACU RN Paperwork. Due on due Goal Order Annual PT. Due on due Goal Creatinine. Due on due Goal AST (SGOT). Due on due Goal OARS. Due on due Goal ALT (SGPT). Due on due Goal Unhealthy drug use screening . Due on due Goal Lipid panel. Due on due Goal Hepatitis C screening. Due o n due Goal FIT-DNA. Due on due Goal PHQ-9. Due on du e Goal CT-Colonography. Due on due Goal Update Social History. Due o n due Goal Tobacco Use. Due on due Goal Height. Due on d ue Goal Zoster vaccine (). Due on due Goal Review Allergy List. Due on due Goal Weight. Due on d ue Goal HPV. Due on due Goal Medication Reconciliation. D ue on due Goal FIT. Due on due Goal Order Annual PT. Due on due Goal ALT (SGPT). Due on due Goal Creatinine. Due on due Goal UDT. Due on due Goal [employer] Scanned. Due on due Goal PACU RN Paperwork. Due on due Goal OARS. Due on due Goal AST (SGOT). Due on due Goal FIT-DNA. Due on due Goal Zoster vaccine (). Due on due Goal Height. Due on d ue Goal Medication Reconciliation. D ue on due Goal PHQ-9. Due on du e Goal Unhealthy drug use screening . Due on due Goal Hepatitis C screening. Due o n due Goal HPV. Due on due Goal CT-Colonography. Due on due Goal Review Allergy List. Due on due Goal FIT. Due on due Goal Weight. Due on d ue Goal Update Social History. Due o n due Goal Tobacco Use. Due on due Goal Lipid panel. Due on due Goal ALT (SGPT). Due on due Goal Order Annual PT. Due on due Goal PACU RN Paperwork. Due on due Goal Creatinine. Due on due Goal [employer] Scanned. Due on due Goal UDT. Due on due Goal AST (SGOT). Due on due Goal OARS. Due on due Goal PHQ-9. Due on du e Goal Weight. Due on d ue Goal Medication Reconciliation. D ue on due Goal FIT. Due on due Goal Unhealthy drug use screening . Due on due Goal FIT-DNA. Due on due Goal Zoster vaccine (1st). Due on due Goal Hepatitis C screening. Due o n due Goal CT-Colonography. Due on due Goal HPV. Due on due Goal Height. Due on d ue Goal Review Allergy List. Due on due Goal Tobacco Use. Due on due Goal Lipid panel. Due on due Goal Update Social History. Due o n due Goal PACU RN Paperwork. Due on due Goal ALT (SGPT). Due on due Goal AST (SGOT). Due on due Goal UDT. Due on due Goal Order Annual PT. Due on due Goal Creatinine. Due on due Goal [employer] Scanned. Due on due Goal OARS. Due on due Goal Weight. Due on d ue Goal PHQ-9. Due on du e Goal Tobacco Use. Due on due Goal Update Social History. Due o n due Goal CT-Colonography. Due on due Goal Unhealthy drug use screening . Due on due Goal Height. Due on d ue Goal Hepatitis C screening. Due o n due Goal FIT-DNA. Due on due Goal FIT. Due on due Goal Zoster vaccine (1st). Due on due Goal Medication Reconciliation. D ue on due Goal HPV. Due on due Goal Lipid panel. Due on due Goal Review Allergy List. Due on due Goal PACU RN Paperwork. Due on due Goal ALT (SGPT). Due on due Goal AST (SGOT). Due on due Goal UDT. Due on due Goal Order Annual PT. Due on due Goal Creatinine. Due on due Goal [employer] Scanned. Due on due Goal OARS. Due on due Goal Weight. Due on d ue Goal PHQ-9. Due on du e Goal Tobacco Use. Due on due Goal Update Social History. Due o n due Goal CT-Colonography. Due on due Goal Unhealthy drug use screening . Due on due Goal Height. Due on d ue Goal Hepatitis C screening. Due o n due Goal FIT-DNA. Due on due Goal FIT. Due on due Goal Zoster vaccine (1st). Due on due Goal Medication Reconciliation. D ue on due Goal HPV. Due on due Goal Lipid panel. Due on due Goal Review Allergy List. Due on due Goal OARS. Due on due Goal UDT. Due on due Goal AST (SGOT). Due on due Goal Order Annual PT. Due on due Goal Creatinine. Due on due Goal PACU RN Paperwork. Due on due Goal ALT (SGPT). Due on due Goal [employer] Scanned. Due on due Goal Medication Reconciliation. D ue on due Goal Height. Due on d ue Goal Update Social History. Due o n due Goal PHQ-9. Due on du e Goal Weight. Due on d ue Goal Review Allergy List. Due on due Goal Tobacco Use. Due on due Goal CT-Colonography. Due on due Goal FIT. Due on due Goal FIT-DNA. Due on due Goal Hepatitis C screening. Due o n due Goal HPV. Due on due Goal Lipid panel. Due on due Goal Unhealthy drug use screening . Due on due Goal Zoster vaccine (1st). Due on due Goal AST (SGOT). Due on due Goal Order Annual PT. Due on due Goal ALT (SGPT). Due on due Goal UDT. Due on due Goal [employer] Scanned. Due on due Goal Creatinine. Due on due Goal PACU RN Paperwork. Due on due Goal OARS. Due on due Goal Medication Reconciliation. D ue on due Goal Update Social History. Due o n due Goal Height. Due on d ue Goal Weight. Due on d ue Goal Tobacco Use. Due on due Goal Review Allergy List. Due on due Goal PHQ-9. Due on du e Goal AST (SGOT). Due on due Goal Order Annual PT. Due on due Goal ALT (SGPT). Due on due Goal UDT. Due on due Goal [employer] Scanned. Due on due Goal Creatinine. Due on due Goal PACU RN Paperwork. Due on due Goal OARS. Due on due Goal Medication Reconciliation. D ue on due Goal Update Social History. Due o n due Goal Height. Due on d ue Goal Weight. Due on d ue Goal Tobacco Use. Due on due Goal Review Allergy List. Due on due Goal PHQ-9. Due on du e Goal AST (SGOT). Due on due Goal Order Annual PT. Due on due Goal ALT (SGPT). Due on due Goal UDT. Due on due Goal [employer] Scanned. Due on due Goal Creatinine. Due on due Goal PACU RN Paperwork. Due on due Goal OARS. Due on due Goal Medication Reconciliation. D ue on due Goal Update Social History. Due o n due Goal Height. Due on d ue Goal Weight. Due on d ue Goal Tobacco Use. Due on due Goal Review Allergy List. Due on due Goal PHQ-9. Due on du e Goal AST (SGOT). Due on due Goal Order Annual PT. Due on due Goal ALT (SGPT). Due on due Goal UDT. Due on due Goal [employer] Scanned. Due on due Goal Creatinine. Due on due Goal PACU RN Paperwork. Due on due Goal OARS. Due on due Goal Medication Reconciliation. D ue on due Goal Update Social History. Due o n due Goal Height. Due on d ue Goal Weight. Due on d ue Goal Tobacco Use. Due on due Goal Review Allergy List. Due on due Goal PHQ-9. Due on du e Goal AST (SGOT). Due on due Goal Order Annual PT. Due on due Goal ALT (SGPT). Due on due Goal UDT. Due on due Goal [employer] Scanned. Due on due Goal Creatinine. Due on due Goal PACU RN Paperwork. Due on due Goal OARS. Due on due Goal Medication Reconciliation. D ue on due Goal Update Social History. Due o n due Goal Height. Due on d ue Goal Weight. Due on d ue Goal Tobacco Use. Due on due Goal Review Allergy List. Due on due Goal PHQ-9. Due on du e Goal AST (SGOT). Due on due Goal Order Annual PT. Due on due Goal ALT (SGPT). Due on due Goal UDT. Due on due Goal [employer] Scanned. Due on due Goal Creatinine. Due on due Goal PACU RN Paperwork. Due on due Goal OARS. Due on due Goal Medication Reconciliation. D ue on due Goal Update Social History. Due o n due Goal Height. Due on d ue Goal Weight. Due on d ue Goal Tobacco Use. Due on due Goal Review Allergy List. Due on due Goal PHQ-9. Due on du e Goal AST (SGOT). Due on due Goal Order Annual PT. Due on due Goal ALT (SGPT). Due on due Goal UDT. Due on due Goal P[employer] Scanned. Due on due Goal Creatinine. Due on due Goal PACU RN Paperwork. Due on due Goal OARS. Due on due Goal Medication Reconciliation. D ue on due Goal Update Social History. Due o n due Goal Height. Due on d ue Goal Weight. Due on d ue Goal Tobacco Use. Due on due Goal Review Allergy List. Due on due Goal PHQ-9. Due on du e Goal AST (SGOT). Due on due Goal Order Annual PT. Due on due Goal ALT (SGPT). Due on due Goal UDT. Due on due Goal P[employer] Scanned. Due on due Goal Creatinine. Due on due Goal PACU RN Paperwork. Due on due Goal OARS. Due on due Goal Medication Reconciliation. D ue on due Goal Update Social History. Due o n due Goal Height. Due on d ue Goal Weight. Due on d ue Goal Tobacco Use. Due on due Goal Review Allergy List. Due on due Goal PHQ-9. Due on du e Goal ALT (SGPT). Due on due Goal UDT. Due on due Goal [employer] Scanned. Due on due Goal Creatinine. Due on due Goal PACU RN Paperwork. Due on due Goal OARS. Due on due Goal AST (SGOT). Due on due Goal Order Annual PT. Due on due Goal Medication Reconciliation. D ue on due Goal Update Social History. Due o n due Goal Height. Due on d ue Goal Weight. Due on d ue Goal Tobacco Use. Due on due Goal Review Allergy List. Due on due Goal PHQ-9. Due on du e Goal ALT (SGPT). Due on due Goal UDT. Due on due Goal P[employer] Scanned. Due on due Goal Creatinine. Due on due Goal PACU RN Paperwork. Due on due Goal OARS. Due on due Goal AST (SGOT). Due on due Goal Order Annual PT. Due on due Goal Medication Reconciliation. D ue on due Goal Update Social History. Due o n due Goal Height. Due on d ue Goal Weight. Due on d ue Goal Tobacco Use. Due on due Goal Review Allergy List. Due on due Goal PHQ-9. Due on du e Goal ALT (SGPT). Due on due Goal UDT. Due on due Goal P[employer] Scanned. Due on due Goal Creatinine. Due on due Goal PACU RN Paperwork. Due on due Goal OARS. Due on due Goal AST (SGOT). Due on due Goal Order Annual PT. Due on due Goal Medication Reconciliation. D ue on due Goal Update Social History. Due o n due Goal Height. Due on d ue Goal Weight. Due on d ue Goal Tobacco Use. Due on due Goal Review Allergy List. Due on due Goal PHQ-9. Due on du e Goal ALT (SGPT). Due on due Goal UDT. Due on due Goal P[employer] Scanned. Due on due Goal Creatinine. Due on due Goal PACU RN Paperwork. Due on due Goal OARS. Due on due Goal AST (SGOT). Due on due Goal Order Annual PT. Due on due Goal Medication Reconciliation. D ue on due Goal Update Social History. Due o n due Goal Height. Due on d ue Goal Weight. Due on d ue Goal Tobacco Use. Due on due Goal Review Allergy List. Due on due Goal PHQ-9. Due on du e Goal OARS. Due on due Goal AST (SGOT). Due on due Goal Order Annual PT. Due on due Goal ALT (SGPT). Due on due Goal UDT. Due on due Goal [employer] Scanned. Due on due Goal Creatinine. Due on due Goal PACU RN Paperwork. Due on due Goal Medication Reconciliation. D ue on due Goal Update Social History. Due o n due Goal Height. Due on d ue Goal Weight. Due on d ue Goal Tobacco Use. Due on due Goal Review Allergy List. Due on due Goal PHQ-9. Due on du e Goal OARS. Due on due Goal AST (SGOT). Due on due Goal Order Annual PT. Due on due Goal ALT (SGPT). Due on due Goal UDT. Due on due Goal P[employer] Scanned. Due on due Goal Creatinine. Due on due Goal PACU RN Paperwork. Due on due Goal Medication Reconciliation. D ue on due Goal Update Social History. Due o n due Goal Height. Due on d ue Goal Weight. Due on d ue Goal Tobacco Use. Due on due Goal Review Allergy List. Due on due Goal PHQ-9. Due on du e Goal OARS. Due on due Goal AST (SGOT). Due on due Goal Order Annual PT. Due on due Goal ALT (SGPT). Due on due Goal UDT. Due on due Goal [employer] Scanned. Due on due Goal Creatinine. Due on due Goal PACU RN Paperwork. Due on due Goal Medication Reconciliation. D ue on due Goal Update Social History. Due o n due Goal Height. Due on d ue Goal Weight. Due on d ue Goal Tobacco Use. Due on due Goal Review Allergy List. Due on due Goal PHQ-9. Due on du e Goal OARS. Due on due Goal AST (SGOT). Due on due Goal Order Annual PT. Due on due Goal ALT (SGPT). Due on due Goal UDT. Due on due Goal [employer] Scanned. Due on due Goal Creatinine. Due on due Goal PACU RN Paperwork. Due on due Goal Medication Reconciliation. D ue on due Goal Update Social History. Due o n due Goal Height. Due on d ue Goal Weight. Due on d ue Goal Tobacco Use. Due on due Goal Review Allergy List. Due on due Goal PHQ-9. Due on du e Goal OARS. Due on due Goal AST (SGOT). Due on due Goal Order Annual PT. Due on due Goal ALT (SGPT). Due on due Goal UDT. Due on due Goal [employer] Scanned. Due on due Goal Creatinine. Due on due Goal PACU RN Paperwork. Due on due Goal Medication Reconciliation. D ue on due Goal Update Social History. Due o n due Goal Height. Due on d ue Goal Weight. Due on d ue Goal Tobacco Use. Due on due Goal Review Allergy List. Due on due Goal PHQ-9. Due on du e Goal OARS. Due on due Goal AST (SGOT). Due on due Goal Order Annual PT. Due on due Goal ALT (SGPT). Due on due Goal UDT. Due on due Goal [employer] Scanned. Due on due Goal Creatinine. Due on due Goal PACU RN Paperwork. Due on due Goal Medication Reconciliation. D ue on due Goal Update Social History. Due o n due Goal Height. Due on d ue Goal Weight. Due on d ue Goal Tobacco Use. Due on due Goal Review Allergy List. Due on due Goal PHQ-9. Due on du e Goal OARS. Due on due Goal AST (SGOT). Due on due Goal Order Annual PT. Due on due Goal ALT (SGPT). Due on due Goal UDT. Due on due Goal [employer] Scanned. Due on due Goal Creatinine. Due on due Goal PACU RN Paperwork. Due on due Goal Medication Reconciliation. D ue on due Goal Update Social History. Due o n due Goal Height. Due on d ue Goal Weight. Due on d ue Goal Tobacco Use. Due on due Goal Review Allergy List. Due on due Goal PHQ-9. Due on du e Goal OARS. Due on due Goal AST (SGOT). Due on due Goal Order Annual PT. Due on due Goal ALT (SGPT). Due on due Goal UDT. Due on due Goal [employer] Scanned. Due on due Goal Creatinine. Due on due Goal PACU RN Paperwork. Due on due Goal Medication Reconciliation. D ue on due Goal Update Social History. Due o n due Goal Height. Due on d ue Goal Weight. Due on d ue Goal Tobacco Use. Due on due Goal Review Allergy List. Due on due Goal PHQ-9. Due on du e Goal OARS. Due on due Goal AST (SGOT). Due on due Goal Order Annual PT. Due on due Goal ALT (SGPT). Due on due Goal UDT. Due on due Goal P[employer] Scanned. Due on due Goal Creatinine. Due on due Goal PACU RN Paperwork. Due on due Goal Medication Reconciliation. D ue on due Goal Update Social History. Due o n due Goal Height. Due on d ue Goal Weight. Due on d ue Goal Tobacco Use. Due on due Goal Review Allergy List. Due on due Goal PHQ-9. Due on du e Goal Medication Reconciliation. D ue on due Goal Update Social History. Due o n due Goal Height. Due on d ue Goal Weight. Due on d ue Goal Tobacco Use. Due on due Goal Review Allergy List. Due on due Goal PHQ-9. Due on du e Goal OARS. Due on due Goal AST (SGOT). Due on due Goal Order Annual PT. Due on due Goal ALT (SGPT). Due on due Goal UDT. Due on due Goal [employer] Scanned. Due on due Goal Creatinine. Due on due Goal PACU RN Paperwork. 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 Lito Rajan ordered Appointment Rukhsana Manzo BOOKED Appointment Rukhsana Manzo BOOKED Appointment Rukhsana Manzo BOOKED Appointment Rukhsana Manzo BOOKED History Of Present Illness Encounter Date Complaint History Of Prese nt Illness low back pain Severity level i s 6. Duration: chronic. The problem is stable. It occurs persistently. Symptoms are relieved by pain meds/drugs. Comments: Rukhsana is a 57 y/o female who presents via [place] for virtual follow up and medication refill in the setting of chronic low back pain. Pain has been stable this month. Notes fluctuation of pain due to the change in weather. Continues to use her Medtronic SCS with benefit.S/p R C5-C6 microdisectomy on 09/07/22. Recently started PT through [facility] in [place] for strengthening and conditioning of the neck. Notes some benefit and improvement of neck pain. Reports current medication regimen provides 90% pain relief and allows for increased functionality. Continues to utilize Percocet 7.5-325mg TID with significant benefit. Endorses intermittent OIC which is managed with OTC. Denies other side effects from current medication regimen. No other concerns today. Comments: Rukhsana is a 57 y/o female who presents for follow up and medication refill in the setting of chronic low back pain. Pain has been stable this month. Denies any new symptoms or changes. Continues to use her Medtronic SCS with benefit.S/p R C5-C6 microdisectomy on 09/07/22. Continues to recover from the surgery. She states she is planning to start PT soon in order to work on strengthening and conditioning for the neck. Reports current medication regimen provides 90% pain relief and allows for increased functionality. Rates her pain as 7/10 without medications and 2/10 with medications. Continues to utilize Percocet 10-325mg 2x/day, #1tab in the AM and #1tab in the PM, with significant benefit. Denies OIC, which is managed with stool softener, or other side effects from current medication regimen. No other concerns today. low back pain Severity level i s 2. Duration: chronic. The problem is stable. It occurs persistently. The client describes the pain as an ache. Symptoms are aggravated by bending, lifting, lying/rest, sitting, standing, twisting, walking, housework, movement, stairs and prolonged positioning. Symptoms are relieved by heat, massage, pain meds/drugs, stretching, TENs and changing positions. Comments: Rukhsana is a 57 y/o female who presents via [facility] for virtual follow up and medication refill in the setting of chronic low back pain. Pain has been stable this month. Continues to recover from the R C5-C6 microdisectomy on 09/07/22. Notes she can feel it whenever she is more active than usual.Reports current medication regimen provides 90% pain relief and allows for increased functionality. Continues to utilize Percocet 10-325mg 2x/day, #1tab in the AM and #1tab in the PM, with significant benefit. Denies OIC, which is managed with stool softener, or other side effects from current medication regimen. No other concerns today. low back pain Severity level i s 5. Duration: chronic. The problem is stable. It occurs persistently. Location of pain is bilateral hips. Symptoms are relieved by pain meds/drugs. low back pain Severity level i s 6. Duration: chronic. The problem is stable. It occurs persistently. Location of pain is bilateral hips. The client describes the pain as an ache, burning and sharp. Symptoms are aggravated by bending, lifting, running, sitting, standing, twisting, walking, housework, movement, stairs and prolonged positioning. Symptoms are relieved by pain meds/drugs and rest. Comments: Rukhsana is a 57 y/o female who presents via [facility] for virtual follow up and medication refill in the setting of chronic low back pain. Pain has been stable this month. She states she is back to receiving biologic injections through Rheumatology. Notes she was able to notice the difference when she was off the injections.Reports current medication regimen provides 85% pain relief and allows for increased functionality. Continues to utilize Percocet 10-325mg 2x/day, #1tab in the AM and #1tab in the PM, with significant benefit. She has restarted Ibuprofen. Inquires about being prescribed Methocarbamol. Denies OIC, which is managed with stool softener, or other side effects from current medication regimen. No other concerns today. low back pain Severity level i s 7. Duration: chronic. The problem is stable. It occurs persistently. Location of pain is neck. The client describes the pain as an ache, burning, sharp and tingling. Symptoms are aggravated by bending, lifting, running, sitting, standing, twisting, walking, housework, movement, stairs and prolonged positioning. Symptoms are relieved by pain meds/drugs and rest. Comments: Rukhsana is a 57 y/o female who presents via [facility] for virtual follow up and medication refill in the setting of chronic low back pain. Pain has been stable this month. S/p R C5-C6 microdiscectomy on 09/07/22 with [facility]. She states she is still sore from the surgery. Notes she was prescribed Gabapentin 300mg and Oxycodone [address] Andreas Alex and have since finished the Oxycodone 5mg. Reports current medication regimen provides 90% pain relief and allows for increased functionality. Have been utilizing Percocet 10-325mg 2x/day, #1tab in the AM and #1tab in the PM, with moderate benefit. Inquires about temporarily increasing her Percocet as the pain from the surgery continues to persist. Denies OIC, which is managed with stool softener, or other side effects from current medication regimen. No other concerns today. Comments: Rukhsana is a 57 y/o female who presents via telephone for phone follow up and medication refill in the setting of chronic low back pain. Phone visit started at 10:10am and ended at 10:18am. Pain has been fluctuating this month. Notes she has been traveling recently and believes it may have contributed to the worsening of her pain at times.Patient states she has an upcoming appointment for R cervical surgery on 09/07/22 with [facility]. Notes she will be staying for one night at [facility] after her surgery. Inquires what the correct procedure is for receiving medications post-op. Understands she can contact [facility] if her surgeon is not comfortable with prescribing her pain medications.Reports current medication regimen provides 90% pain relief and allows for increased functionality. Have been utilizing Percocet 10-325mg 2x/day, #1tab in the AM and #1tab in the PM, with moderate benefit. Notes she takes an extra tablet when the pain worsens. Denies OIC or other side effects from current medication regimen. No other concerns today. low back pain Severity level i s 5. Duration: chronic. The problem is fluctuating. It occurs persistently. Location of pain is neck and right arm. The client describes the pain as an ache, burning, sharp and tingling. Symptoms are aggravated by bending, lifting, running, sitting, standing, twisting, walking, housework, movement, stairs and prolonged positioning. Symptoms are relieved by pain meds/drugs and rest. Comments: Rukhsana is a 56 y/o female who presents for follow up and medication refill in the setting of chronic low back pain. Pain has been fluctuating this month. She states her low back and hips have been sore lately. Believes her stimulator have been running low in battery more quickly. Notes she charges the stimulator every other day. Willing to try charging the device everyday in order to see an improvement. Reports current medication regimen provides 90% pain relief and allows for increased functionality. Have been utilizing Percocet 10-325mg 2x/day, #1tab in the AM and #1tab in the PM, with moderate benefit. Notes she takes an extra tablet when the pain worsens. She states she recently ran out of the Celebrex 200mg and could tell it helped with the pain when it was absent. Endorses some OIC which is the result of the medication for her head cold. Denies other side effects from current medication regimen. No other concerns today. low back pain Severity level i s 6. Duration: chronic. The problem is stable. It occurs persistently. Location of pain is upper back, lower back, neck, hips and hands. The client describes the pain as an ache, burning and tingling. Symptoms are aggravated by bending, lifting, running, sitting, standing, twisting, walking, housework, movement, stairs and prolonged positioning. Symptoms are relieved by heat, ice, massage, pain meds/drugs, stretching, rest, sitting, chiropractic, standing and changing positions. low back pain Severity level i s 7. Duration: chronic. The problem is fluctuating. It occurs persistently. Location of pain is lower back, legs and bilateral hips. The client describes the pain as an ache, burning, sharp and tingling. Symptoms are aggravated by bending, lifting, running, standing, twisting, walking, housework, movement, stairs and prolonged positioning. Symptoms are relieved by pain meds/drugs and rest. Comments: Rukhsana is a 56 y/o female who presents via [place] for virtual follow up and medication refill in the setting of chronic low back pain. Pain has been fluctuating this month. Continues to utilize her SCS with moderate relief. She states she has been turning the stimulator up at higher levels in order to relieve the pain with no success. Inquires about possible reprogramming with [facility].Secondarily c/o pain in the neck/right shoulder with radiation down into the right arm. Her shoulder and neck MRI have been completed at [facility]. She states neck MRI results showed nerve compression and notes she might need neck surgery in the near future. Reports current medication regimen provides 85% pain relief and allows for increased functionality. She states she usually takes Percocet 7.5-325mg 3x/day but has cut down to 1x/day d/t improvement of pain. Endorses some OIC, managed with medications. Denies other SE from current medication regimen. No other concerns today. Comments: Rukhsana is a 56 y/o female who presents via [place] for virtual follow up and medication refill in the setting of chronic low back pain. Her pain is stable since she was last seen.Secondarily c/o pain in the neck/right shoulder with radiation down into the right arm. Her shoulder and neck MRI were rescheduled at [facility].Reports current medication regimen provides 90% pain relief and allows for increased functionality. She reports Gabapentin 300mg #1x/day has also been helpful. Reports some OIC, managed with medications. Denies other SE from current medication regimen. She continues to use medical cannabis 2x day. No other concerns today. low back pain Severity level i s 5. Duration: chronic. The problem is stable. It occurs intermittently. Location of pain is lower back and bilateral hips. The client describes the pain as an ache and burning. Symptoms are aggravated by bending, lifting, running, sitting, standing, twisting, walking, housework, movement, stairs and prolonged positioning. Symptoms are relieved by heat, ice, pain meds/drugs, stretching and rest. low back pain Severity level i s 5. Duration: chronic. The problem is stable. It occurs intermittently. Location of pain is middle back, neck and BL shoulders. The client describes the pain as an ache and burning. Symptoms are aggravated by bending, lifting, sitting, standing, walking, housework, stairs, movement and prolonged positioning. Symptoms are relieved by heat, pain meds/drugs and sitting. Comments: Rukhsana is a 56 y/o female who presents via [place] for virtual follow up and medication refill in the setting of chronic low back pain. She states her pain is improved since she was last seen. She reports TPI on 04/06/22 was especially beneficial and it helped a lot.At [facility] she reported pain in the neck/right shoulder with radiation down into the right arm. She reports she has scheduled her shoulder and neck MRI on 04/20/22 at [facility].Reports current medication regimen provides 90% pain relief and allows for increased functionality. She reports Gabapentin 300mg #1x/day has also been helpful. Reports some OIC, managed with medications. Denies other SE from current medication regimen. She continues to use medical cannabis 2x day. No other concerns today. Comments: Rukhsana is a 56 y/o female who presents for follow up and medication refill. She is followed for chronic low back pain which has been fluctuating since she was last seen. She does report pain flare-up of the neck/right shoulder over the past several weeks. She endorses radiating pain down into the right arm. She would like to consider [facility] for pain management if symptoms persist or worsen. Of note, patient has appointment scheduled with her PCP for 03/17/22. Reports current medication regimen provides 90% pain relief and allows for increased functionality. Reports some OIC, managed with medications. Denies other SE from current medication regimen. She continues to use medical cannabis 2x day. No other concerns today. low back pain Severity level i s 7. Duration: chronic. The problem is stable. It occurs intermittently. Location of pain is upper back, right shoulder and right arm. The client describes the pain as burning and tingling. Symptoms are aggravated by ascending stairs, bending, descending stairs, lifting, sitting, standing, walking, housework and movement. Symptoms are relieved by heat, ice, pain meds/drugs, stretching, rest and changing positions. low back pain Severity level i s 3. Duration: chronic. The problem is fluctuating. It occurs intermittently. The client describes the pain as an ache. Symptoms are aggravated by ascending stairs, bending, descending stairs, lifting, lying/rest, sitting, standing, twisting, walking, housework, movement and prolonged positioning. Symptoms are relieved by heat, ice, pain meds/drugs, stretching and chiropractic. Comments: Rukhsana is a 56 y/o female who presents for follow up and medication refill. She is followed for chronic low back pain, stable overall. She states the soreness around her SCS sometimes has a pinching sensation but it is improved since DANK. Notes she is increasing icing. Reports hip injections at [facility] were only temporarily helpful and notes it is easily flared. Notes her human resources project manager told her the Piriformis muscle might be tight. She notes she will be doing chiropractic therapy later today 02/16/22.Reports she has been traveling the past week and they recently drove down to [place]. States she went to the [facility] for her jaw pain and they recommended a jaw MRI. She details her insurance will not pay for it but the specialist believes her pain may be r/t arthritis. She is using moist heat and ice in the interim. Reports current medication regimen provides 90% pain relief and allows for increased functionality. Reports some OIC, managed with medications. Denies other SE from current medication regimen. She notes she still has Belbuca at home but doesn't use it as she doesn't find it very helpful so does not take it. She continues to use medical cannabis 2x day. No other concerns today. Comments: Rukhsana presents for a virtual follow up and medication refill. She is followed for chronic low back pain, stable overall. The hips and upper back pain been a little worse this month, "A little more sore than usual with the weather. It is not the area where the SCS is. 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 Reports current medication regimen provides 90% pain relief and allows for increased functionality. Denies SE from current medication regimen. Admits to taking a belbuca today due to the increased pain, she is not sure if the belbuca is helping with the increased pain. No other concerns today. low back pain Severity level i s 8. Duration: chronic. The problem is worsening. It occurs intermittently. Location of pain is upper back and bilateral hips. The client describes the pain as an ache and burning. Symptoms are aggravated by bending, lifting, sitting, standing, walking, housework, lying down, movement, prolonged positioning and stairs. Symptoms are relieved by ice, pain meds/drugs and stretching. low back pain Severity level i s 2. Duration: chronic. The problem is fluctuating. It occurs intermittently. Location of pain is upper back, middle back, lower back, neck, shoulders and hips.The patient describes the pain as an ache and burning. Symptoms are aggravated by ascending stairs, bending, descending stairs, lifting, lying/rest, standing, walking and prolonged positioning. Symptoms are relieved by heat, ice, lying down, massage, pain meds/drugs, stretching and chiropractic. low back pain (comments) Rukhsana presents to clinic for follow up and medication refill. She is followed for chronic low back pain. She states her pain has been relatively stable since last OV. S/p Lumbar [employer] Intellis SCS Implant on 07/07/[address] Reyes Richardson with 85-90% relief. She continues to report bothersome BL hip and shoulder pain. She states she has continued to feel off following returning home from [place]. States she has a follow-up scheduled with rheumatology later today. Reports current medication regimen provides 90% pain relief and allows for increased functionality. States she d/c Belbuca since last OV d/t lack of benefit. Denies SE from current medication regimen. She is not accompanied and has no other concerns today. low back pain Severity level i s 8. Duration: chronic. The problem is worsening. It occurs persistently. Location of pain is neck, BL hips and BL shoulders.The patient describes the pain as an ache, burning and sharp. Symptoms are aggravated by lifting, housework, prolonged positioning and movement. low back pain (comments) Rukhsana is a 56 y/o female, meeting with us via [facility] for virtual follow up and medication refill in the setting of chronic low back pain. She states her pain is worse this month. She reports she went on a girl's trip to [place] recently and was sick for 5 days with dehydration. She states she was hospitalized and given potassium and hydration therapy in [place]. She states recovering from this has made her pain worse and her whole body hurts.S/p Lumbar [employer] Intellis SCS Implant on 07/07/[address] Reyes Richardson with 85-90% relief. She states she continues to adjust the programs. BL hips and BL shoulders are the areas of worst pain today. She continues to report that her BL hip injections from [facility] in [place] on 08/24/21 have not been helpful and has scheduled a repeat of this. She continues to alternate THC cream and diclofenac gel for her hips, which is helpful. She will also be meeting with [facility] to see if she can receive BL shoulder injections. Reports current medication regimen provides 90% pain relief and allows for increased functionality. She reports she reaches for Tylenol first and topical creams before her pain medication. She continues to utilize medical cannabis with benefit and using CBD tablets #2 in AM and #2 in the PM, and #1 THC tablet at night for sleeping. Since DANK she has increased her Trazodone dosage to 100mg. She reports some intermittent constipation but she states she does not need anything to help with this. Denies other side effects from current medication regimen. No other concerns today. low back pain Severity level i s 8. Duration: chronic. The problem is worsening. It occurs intermittently. Location of pain is R shoulder.The patient describes the pain as an ache, burning and sharp. Symptoms are aggravated by ascending stairs, bending, descending stairs, lifting, lying/rest, running, sitting, standing, walking, housework, movement and prolonged positioning. Symptoms are relieved by ice, pain meds/drugs, rest and changing positions. low back pain (comments) Rukhsana is a 56 y/o female, meeting with us via [facility] for virtual follow up and medication refill in the setting of chronic low back pain. She states her pain is fluctuating this month. S/p Lumbar [employer] Intellis SCS Implant on 07/07/[address] Reyes Richardson with 85-90% relief. She states the A program works the best, whereas the B and C programs cause some tingling. She states this is becoming less and less frequent as she completes the healing process.She continues to report that her BL hip injections from [facility] in [place] on 08/24/21 have not been helpful and is waiting to schedule a repeat of these. At [facility] she reported she has been alternating THC cream and diclofenac gel for her hips, which is helpful. Reports current medication regimen provides 90% pain relief and allows for increased functionality. She reports she reaches for Tylenol first and topical creams before her pain medication. She states she takes her Percocet in the AM and in the PM to help with sleep. She states she would like to go back to 150mcg Belbuca as she states with the cold weather she still ended up using #2 of the Belbuca 75mcg. She continues to utilize medical cannabis with benefit and using CBD tablets #2 in AM and #2 in the PM, and #1 THC tablet at night for sleeping. She reports some intermittent constipation but she states she does not need anything to help with this. Denies other side effects from current medication regimen. No other concerns today. low back pain Severity level i s 9. Duration: chronic. The problem is stable. It occurs intermittently. Location of pain is upper back, lower back and bilateral hips.The patient describes the pain as an ache and burning. Symptoms are aggravated by ascending stairs, bending, descending stairs, lifting, lying/rest, sitting, standing, twisting, walking, housework, movement and prolonged positioning. Symptoms are relieved by ice, lying down, massage, pain meds/drugs, stretching, rest, sitting, changing positions and standing. low back pain (comments) Rukhsana is a 56 y/o female, meeting with us via [facility] for virtual follow up medication refill in the setting of chronic low back pain. She states her pain is improved this month. S/p Lumbar [employer] Intellis SCS Implant on 07/07/[address] Reyes Richardson with 85-90% relief. She completed a reprogramming 08/20/21 with Rosana from [employer]. She states she feels like her SCS has stabilized although she reports some tingling and zinging where the leads are. She states she is unsure if this is d/t scar tissue forming around the leads and notes the pain is internal and not near the skin.She states her BL hip injections from [facility] in [place] on 08/24/21have not been helpful. She reports she has been using the creams the most for her hips the meantime. She alternating THC cream and diclofenac gel which is helpful. Reports current medication regimen provides 90% pain relief and allows for increased functionality. She reports she reaches for Tylenol first and topical creams before her pain medication. She inquires about decreasing her Belbuca dosage as she states she sometimes forgets to take them. She continues to utilize medical cannabis with benefit and using CBD tablets #2 in AM and #2 in the PM, and #1 THC tablet at night for sleeping. Denies any side effects from current medication regimen, including constipation. No other concerns today. low back pain (comments) Rukhsana is a 56 y/o female, meeting with us today for follow up medication refill in the setting of chronic low back pain. She states her pain is improved this month. S/p Lumbar [employer] Intellis SCS Implant on 07/07/[address] Reyes Richardson with 85-90% relief. She states when she turns up her SCS device her legs tingle, L>R, and is scheduled for a reprogramming later today 08/20/21 with Rosana from [employer].She states her hip injections from [facility] in [place] on 06/05/21 have worn off and so her hip pain tends to wake her up at 5am. She alternating THC cream and diclofenac gel for this which is helpful. She has switched rheumatologists to a provider at [facility] Reports current medication regimen provides 85% pain relief and allows for increased functionality. She reports she reaches for Tylenol first and topical creams before her pain medication. She continues to utilize medical cannabis with benefit. Denies any side effects from current medication regimen, including constipation. No other concerns today. low back pain Severity level i s 4. Duration: chronic. The problem is fluctuating. It occurs intermittently. The patient describes the pain as an ache, burning, sharp and tingling. Symptoms are aggravated by ascending stairs, bending, descending stairs, lifting, lying/rest, sitting, twisting, walking, housework, movement and prolonged positioning. Symptoms are relieved by ice, massage, pain meds/drugs, stretching, rest, sitting, changing positions, chiropractic and standing. lumbago Patient is a 55 year old female presenting 4 weeks s/p SCS implant. She is experiencing 80%. She notes that she has already been able to cut her pain medication in half following the implant. She notes that she has some soreness around the incision sites, but overall is feeling good. She notes some feelings of instability in her legs. She would like to improve her overall strength and stability. low back pain Severity level i s 4. The problem is improving. It occurs persistently. Location of pain is lower back. Pain is radiated to the bilateral lateral thighs.The patient describes the pain as an ache, burning and sharp. Symptoms are aggravated by bending, standing and walking. Symptoms are relieved by heat, ice, pain meds/drugs and spinal cord stimulator. low back pain (comments) Rukhsana is here for 2 week post-op f/u s/p Lumbar SCS implantation on 07/07/21 / Reports 80% pain relief thus far . complains of aching lateral thigh pain and mid-line incision post-procedure pain. Denies fevers and chills. She has decreased her percocet need form 4-6/day to now 1-3/day. Denies SE from opioids. Reminded about restrictions for next 6 weeks. She would like [facility] to twick her SCS a little bit in next OVNo other concerns Back Pain Severity level i s moderate. Duration: chronic. The problem is worsening. It occurs persistently. Location of pain is lower back. Pain is radiated to the buttocks and lateral legs.The patient describes the pain as an ache, burning and sharp. Symptoms are aggravated by bending, lifting, pushing and prolonged positioning. Symptoms are relieved by heat, ice, pain meds/drugs and rest. Back Pain (comments) Rukhsana is m eeting with us today for follow up and SCS pre-op, scheduled for 07/07/21. Low back pain persists this month, but medication does help to some extent. Pt had a pre-op on 06/25/21 with PCP. Pt had a flare up on labor day but it improved after taking pain meds and OTC pain relief. Pt is unsure if she took more pain meds on the day she had a flare up. Reports current medication regimen provides 40% pain relief and allows for increased functionality. Denies any side effects from current medication regimen, including constipation.Pt claims she has 12 Belbuca films at home, however states she forgets to take it sometimes. Pt has an upcoming event this - that may cause pain flare ups. No other concerns today. Back Pain (comments) Rukhsana is m kofi with us today via [facility] for follow up and SCS pre-trial education. Low back pain persists this month, but medication does help to some extent. She feels her pain is moderately managed at this time. She is looking forward to her SCS trial on 05/26/21. She would like to walk farther than 3 blocks and complete housework without severe pain. She would also like to steep until 6 or 7am without the pain interrupting her sleep. The pain is most severe int he morning.She is scheduled for bilateral hip joint injection with ultrasound at [facility].Foot pain persists. Her surgeon determined the pain may be from swelling of a ligament that is pushing on a nerve.Reports current medication regimen provides 85% pain relief and allows for increased functionality. Denies side effects from current medication regimen. She has been using topical essential oils with benefit.No other concerns today. Back Pain Severity level i s 6. Duration: chronic. The problem is stable. It occurs persistently. Location of pain is middle back, lower back, legs and hips.The patient describes the pain as an ache and burning. Symptoms are aggravated by ascending stairs, bending, descending stairs, lifting, running, standing, twisting, walking, housework and prolonged positioning. Symptoms are relieved by pain meds/drugs, stretching, rest, sitting, changing positions and walking. Back Pain Severity level i s 8. Duration: chronic. The problem is worsening. It occurs persistently. Location of pain is middle back, lower back, knees, hips and legs.The patient describes the pain as an ache, burning and sharp. Symptoms are aggravated by ascending stairs, bending, descending stairs, lifting, sitting, standing, twisting, walking, housework, movement, prolonged positioning and. Symptoms are relieved by heat, ice and pain meds/drugs. Back Pain (comments) Rukhsana is m eeting with us via virtual follow up and medication refill for her chronic back pain. The low and mid back pain has been worse this month. Her pain was worse especially over the past couple days. States that she can no longer ride a motorcycle for a long trip due to increased pain. States that she is planning on following up with [facility] to schedule injections for the hips. She requests to review recent MRI and continues to express interest in the SCS trial. Reports current medication regimen provides 85% pain relief and allows for increased functionality. Denies side effects from current medication regimen. States that she is pleased with the current medication regimen and can tell if she misses a dose of the Belbuca. No other concerns today. lumbago Patient is a 55 year old female presenting with complaints of chronic low back pain that has been on going for many years. She notes that her pain is progressively worsening over the years. Patient's symptoms began insidiously. Her symptoms include severe pain in her low back and hips radicular pain into her lower legs. Patient notes associated weakness. Her symptoms are constant but increased with activity. She notes walking on hard surfaces seems to flair her symptoms. Symptoms are somewhat relieved with pain medications, lying on her back with her knees tucked to her chest. She has tried multiple different interventions, including physical therapy but has not had lasting relief of her symptoms. She notes that her current level of discomfort limits everything she is able to do each day and is currently limiting her overall quality of life. She would like to decrease her overall discomfort to allow her to perform her daily, functional activities with less limitation and an improved quality of life. Back Pain Severity level i s 10. Duration: chronic. The problem is fluctuating. It occurs intermittently. The patient describes the pain as an ache, burning, sharp and tingling. Symptoms are aggravated by ascending stairs, bending, descending stairs, lifting, lying/rest, sitting, twisting, walking, housework,movement andprolonged positioning. Symptoms are relieved by heat, ice, lying down, massage, pain meds/drugs, rest, changing positions and chiropractic. Additional information: 75-85% relief. Back Pain (comments) Rukhsana is m eeting with us for follow up and medication refill. Diffuse back and hip pain are worse this month, but medication does help to some extent. Pain is most bothersome in low back today, radiates to B hips, buttocks and occasional intermittent legs. Denies radicular symptoms down legs. She feels her pain is moderately managed at this time. She is interested in pursuing SCS trial. Reports current medication regimen provides 75% pain relief and allows for increased functionality. Denies side effects from current medication regimen. Patient says she was only able to fill #60 tabs of Percocet at the pharmacy last month. She called [facility] to get the remaining amount sent, but says the pharmacist would not fill it and she had already mixed her new Rx bottle with her older Rx bottle. She has also been taking OTC allergy medication for seasonal allergies and NyQuil for sleep.No other concerns today. Back Pain (comments) Rukhsana is m jocyting with us today via JIAN Virtual Visit for following up and medication refill. Low back and hip pain is worse this month, but medication does help to some extent. She feels her pain is moderately managed at this time. She continues to complete PT exercises at home.She has been following up with [facility] for neck and shoulder pain. They ordered cervical MRI to be completed at [facility].Reports current medication regimen provides 75% pain relief and allows for increased functionality. Denies side effects from current medication regimen. Inquires about increasing belbuca for elevated pain during allergy season. She has also been taking allergy medication for seasonal allergies and NyQuil for sleep.No other concerns today. Back Pain Severity level i s 6. Duration: chronic. The problem is worsening. It occurs persistently. Location of pain is upper back, lower back and neck.The patient describes the pain as an ache, burning and sharp. Symptoms are aggravated by ascending stairs, bending, descending stairs, lifting, lying/rest, sitting, standing, twisting, walking, housework and prolonged positioning. Symptoms are relieved by massage, pain meds/drugs and rest. Back Pain Severity level i s 4. Duration: chronic. The problem is stable. It occurs intermittently. Location of pain is upper back, neck and hands.The patient describes the pain as an ache and burning. Symptoms are aggravated by bending, lifting, lying/rest, sitting, standing, walking, prolonged positioning and housework. Symptoms are relieved by heat, ice, massage, stretching, chiropractic and medications. Back Pain (comments) Rukhsana is h ere for a virtual follow up and medications refill. Low back and hip pain persists this month, stable overall. Recently started PT for the hips in [place]. Details recent appt at [facility] on 01/29/21. She had a cervical DOMINIC, providing benefit so far. Neck pain goes into the right arm.Reports current medication regimen provides moderate pain relief and allows for increased functionality. Denies side effects from current medication regimen, except mild constipation. No other concerns today. Back Pain Duration: chroni c. The problem is fluctuating. It occurs persistently. Location of pain is lower back. Pain is radiated to the left thigh and right thigh.The patient describes the pain as an ache and sharp. Symptoms are aggravated by ascending stairs, bending, standing and walking. Symptoms are relieved by heat, ice, pain meds/drugs, physical therapy and rest. Back Pain (comments) Rukhsana is h ere for a follow up and medications refill. Low back and hip pain persists this month, but medication does help to some extent. She feels her pain is well managed at this time. She was helping out a friend at the [facility] and found that walking and standing on concrete aggravates her hip and lateral thigh pain. She was able to tolerate the 2 day car ride down better with belbuca and percocet.Her foot pain is stable, aggravated by change in weather, especially rain. She will be following up with PT at [facility].She has been following up with Dr. Pablo Oliver at [facility] for IBS and psoriasis. She was struggling with headaches and stomach upset while taking cosentyx, so he will be switching her medication. She has tried Enbrel, Remicaide, and Humira in the past without benefit. Humira caused 5 days of migraines after the injection.Reports current medication regimen provides moderate pain relief and allows for increased functionality. Denies side effects from current medication regimen, except mild constipation. He pain has been more stable with garrett fluctuation during the day since starting belbuca. She also takes less percocet due to relief from belbuca. Reports Insomnia and headaches, has bene using some recreational marijuana. She used to have her certification, but it and she has not gotten the chance to renew it.No other concerns today. Back Pain Severity level i s 7. Duration: chronic. The problem is worsening. It occurs intermittently. Location of pain is upper back, legs, neck, hands and hips.The patient describes the pain as an ache and burning. Symptoms are aggravated by ascending stairs, descending stairs, lying/rest, sitting, standing, movement and prolonged positioning. Symptoms are relieved by pain meds/drugs. Back Pain (comments) Rukhsana is m jocyting with us today via BPT Virtual Visit for following up and medication refill. Upper back and bilateral hip/leg pain is worse this month, but medication does help to some extent. She feels her pain is not well managed at this time. She describes the pain as located in the lateral legs and hip bursas. She distinguishes this pain from the radiating low back into the back of the legs. The pain is aggravated by laying on her side and cold weather. She is following up with rheumatology. She continues to complete PT for her ankle at [facility].Reports current medication regimen provides 85% pain relief and allows for increased functionality. Denies side effects from current medication regimen. Reports better relief with taking 2 tab percocet at a time. Otherwise the medication is not providing lasting relief for the whole day. She has been using the diclofenac cream on her legs BID with some benefit.No other concerns today. Back Pain (comments) Rukhsana is m jocyting with us today via BPT Virtual Visit for following up and medication refill. Upper back pain persists this month but tolerable with medication.Low back pain is stable, continues to receive pain relief from the RFA.Reports current medication regimen provides 90% pain relief and allows for increased functionality. Denies side effects from current medication regimen. She has resumed meloxicam at night due to increased pain. She is trying to find out what might be causing her nausea in the morning.No other concerns today. Back Pain Severity level i s 6. Duration: chronic. The problem is stable. It occurs intermittently. Location of pain is upper back, lower back and hips.The patient describes the pain as an ache and burning. Symptoms are aggravated by sitting, standing, movement and housework. Symptoms are relieved by heat, ice, pain meds/drugs and rest. Back Pain Severity level i s 4. Duration: chronic. The problem is stable. It occurs intermittently. Location of pain is lower back.The patient describes the pain as an ache and burning. Symptoms are aggravated by bending, lifting, standing, walking, movement and housework. Symptoms are relieved by heat, ice, pain meds/drugs and changing positions. Back Pain (comments) Rukhsana is m jocyting with us today via Zwittle Visit for following up and medication refill. Low back pain persists this month but tolerable with medication. Reports 95% pain relief from lumbar RFA on 10/03/20.She has been following up with Dr. Suresh for fractured foot. She completed a tendon repair and fascia release of calf.Reports current medication regimen provides 85% pain relief and allows for increased functionality. Denies side effects from current medication regimen.No other concerns today. Back Pain Severity level i s 3. Duration: chronic. The problem is stable. It occurs intermittently. Location of pain is lower back and legs.The patient describes the pain as burning and sharp. Symptoms are aggravated by ascending stairs, bending, descending stairs, lifting, lying/rest, sitting, standing, twisting, walking, housework and prolonged positioning. Symptoms are relieved by heat, ice and pain meds/drugs. Back Pain (comments) Rukhsana is m kofi with us today via Zwittle Visit for following up and RFA pre-procedure education. Low back and leg pain persists this month but tolerable with medication. She is interested in taking less meds, hence looking forward to RFA. She recently had surgery on her right foot. Denies fever and chillsReports current medication regimen provides 75% pain relief and allows for increased functionality. Denies side effects from current medication regimen.No other concerns today. Back Pain (comments) Rukhsana is m eeting with us today via JIAN Virtual Visit for following up and medication refill. Low back pain persists this month, tolerable with medication. Reports 95% relief from RF confirmatory test and is looking forward to the RFA. This test was much less painful than the last since MAC sedation was used.She is scheduled for ankle surgery on 09/16/20.Reports current medication regimen provides 75% pain relief and allows for increased functionality. Denies side effects from current medication regimen.No other concerns today. Back Pain Severity level i s 8. Duration: chronic. The problem is stable. It occurs intermittently. Location of pain is lower back and legs.The patient describes the pain as an ache, burning and sharp. Symptoms are aggravated by ascending stairs, bending, descending stairs, lifting, lying/rest, sitting, standing, walking, movement and prolonged positioning. Symptoms are relieved by heat, massage, pain meds/drugs, stretching, changing positions and stranding. Back Pain Severity level i s 7. Duration: chronic. The problem is fluctuating. It occurs intermittently. Location of pain is lower back.The patient describes the pain as an ache. Symptoms are aggravated by lying/rest, sitting, twisting and walking. Symptoms are relieved by massage, pain meds/drugs and rest. Back Pain (comments) Rukhsana is h ere for a follow up and medications refill. Low back pain persists this month, tolerable with medication. Reports about 100% pain relief for a few hours after the lumbar RF work up on 08/08/20. However reports significant pain during the procedure. Requests MAC sedation for confirmatory work up.Reports current medication regimen provides 50-70% pain relief and allows for increased functionality. Denies side effects from current medication regimen. No other concerns today. Back Pain (comments) Rukhsana is h ere for a follow up and medications refill. Low back pain is worse this month. She recently injured her foot walking in her yard, tripped on a root. She completed imaging at the ER which showed fracture . recently dx with osteopetrosis. This event has aggravated her back pain as well. Reports low back pain flare today, using heat/ice, pain medication, and lidocaine cream with minimal to no benefit.Reports current medication regimen provides 50-70% pain relief and allows for increased functionality. Denies side effects from current medication regimen. Reports significant pain relief from diclofenac cream in arthritis pain in hand/finger knuckles. Meloxicam caused GI upset - but she thinks she will try it with food again, if she gets GI upset advised to stopNo other concerns today. Back Pain Severity level i s 5. Duration: chronic. The problem is worsening. It occurs intermittently. Location of pain is upper back, middle back and lower back.The patient describes the pain as an ache, burning, sharp and tingling. Symptoms are aggravated by bending, lifting, lying/rest, sitting, standing, walking and prolonged positioning. Symptoms are relieved by heat, massage, pain meds/drugs, sitting and changing positions. Back Pain (comments) Rukhsana is h ere for a follow up and medications refill. Upper-low back pain persists this month, tolerable with medication. The pain is aggravated by changes in the weather.Reports recently on antibiotics for sinus injection, now resolvedReports current medication regimen provides significant pain relief and allows for increased functionality. Denies side effects from current medication regimen. She has been tolerating meloxicam better since she has been taking it with for. repots significant relief from diclofenac gel. she explains that she only needs to take 2-3 percocet/day instead of rx'ed MAX 4/day.No other concerns today. Back Pain Severity level i s 6. Duration: chronic. The problem is fluctuating. It occurs intermittently. The patient describes the pain as an ache and burning. Symptoms are aggravated by ascending stairs, bending, descending stairs, lifting, sitting, standing, walking, prolonged positioning, housework and weather. Symptoms are relieved by massage, pain meds/drugs, stretching and changing positions. Back Pain (comments) Rukhsana is h ere for a followup after initial consult via JIAN Virtual Visit, however due to connection issues, the majority of the visit was conducted via Phone call (10:20AM - 10:28AM). Low-mid back pain persists. Reports stomach upset with meloxicam. She does receive significant relief from diclofenac gel.Would like to switch from hydrocodone to oxycodone, . UDT results reviewed which showed presence of Alcohol, - discussed must stop use. No other concerns today. Back Pain Severity level i s 7. Duration: chronic. The problem is worsening. It occurs intermittently. Location of pain is middle back, lower back and legs.The patient describes the pain as an ache and burning. Symptoms are aggravated by ascending stairs, bending, descending stairs, lifting, lying/rest, sitting, standing, twisting, walking and movement. Symptoms are relieved by heat, ice, massage, pain meds/drugs, stretching and sitting. Back Pain Severity level i s 7. Duration: chronic. It occurs intermittently. Location of pain is middle back, lower back, legs, neck and arms.The patient describes the pain as an ache, burning, stabbing and pins and needles. Symptoms are aggravated by ascending stairs, descending stairs, lifting, lying/rest, sitting, standing and walking. Symptoms are relieved by heat, ice and pain meds/drugs. Back Pain (comments) Rukhsana is h ere for an initial consult and presents with low-mid back pain, initial onset 7 years ago. The pain radiates down the side of her legs, through her calves, and into her toes. She describes the pain is throbbing in calves and tingling in toes. She consulted [facility] who diagnosed her with ankylosing spondylitis and osteoarthritis. She describes a localized area on her low back that swells and enlarges during pain flares.She also has neck pain with radiation into arms. Reports hx of headaches, currently managed with Imitrex and naltrexone.Reports hx rheumatoid arthritis in widespread joints, worst in knuckles, hands, and knees.Referred by PCP.Treatment Tried:cervical nerve block at [facility] - helpful for radiating pain in arms.lumbar DOMINIC - first helpful, repeat not helpful.PT at [facility] in [place] and [facility] in [place] - not helpful.Chiropractic and massage - somewhat helpful.Gabapentin - causes extreme fatigue, not helpful.topiramate - not helpful, causes itching and nausea.Cymbalta - no helpful.Lyrica - caused fatigue, not helpful.Vicodin - minimal reliefmedical cannabis - not helpful.Tylenol, ibuprofen, naproxen, tizanidine, prednisone, amitriptyline, tramadol.Pt goal: [facility] to take over pain management. Functional Status Date Functional Assessmen t No Information Instructions Date Instruction Additional Infor kimmy No Information Assessments Type Assessment Date assessment Chronic pain syndrome impression Rukhsana is a 57 y/o f emale here with chronic neck pain, mid back pain, low back pain with radiation into the BL legs (L>R), and R hip pain. Hx of fibromyalgia, ankylosing spondylitis, RA and osteoarthritis. Pain has progressively worsened over the past several years.Currently receiving injections for the R hip through [facility] in [place] and biologic injections with rheumatology through [facility] assessment Ankylosing spondylitis of unspec ified sites in spine impression Hx of ankylosing spo ndylitis of cervical and lumbar region diagnosed by [facility]. Previous MOY through [facility] was beneficial and RFA provided significant relief for ~2-3 months. PT with no benefit.Cervical MRI on 06/01/22CONCLUSION: Study challenged by motion artifact, with multilevel spondylosis not significantly changed from prior study, with these findings:1. Mild to moderate C3-4 through C5-6 and minimal C6-7 central stenosis with encroachment or mild impingement of ventral cord.2. Marked left C3-4 and bilateral C5-C6 chronic foraminal stenosis with nerve root impingement assessment Radiculopathy, lumbar region Dec impression Ongoing low back ad n with radiation into the BL legs (L>R). S/p Lumbar [employer] Intellis SCS Implant on 07/07/21 with 85-90% relief. Patient has been able to decrease Percocet from #120tabs to #90 tabs due to SCS effectiveness. Reports A program works the best, whereas the B and C programs causes some tingling. This is becoming less and less frequent as she completes the healing process. Continues to work on finding appropriate programming.Lumbar MRI on 04/08/21CONCLUSION: 1. Minimal ventral spondylosis of the lumbar spine without stenosis or neural impingement.2. No acute fracture, osseous destructive lesion, disc herniation, stenosis or neural impingement assessment Postlaminectomy syndrome, not el sewhere classified impression S/p R C5-C6 microdis cectomy on 09/07/[address] Andreas Alex through [facility] assessment senior care (current) use of opiat e analgesic impression The medication provi scooby 90% pain relief, does not cause significant side effects, increases the patient's daily activity level, and the patient presents with a surplus of the prescribed medications today.MME is 33.75mg/day. Patient has been managing medications appropriately, and is not confused or oversedated during our office visit. MNPMP queried and shows no outside prescriptions. UDT results from 12/13/22 was appropriate for the prescribed medications. Appropriate to continue with opioid therapy assessment Other long term care pharmacist (current) drug t herapy impression The patient has intr actable pain. Limited relief or cure has been obtained despite reasonable treatment options, including multiple Rx regimens, PT. Patient's last UDT dated 07/20/22 was appropriate. The patient is an appropriate candidate for medical cannabis. Patient certified for medical cannabis.Patient is currently using CBD tablets #2 in AM, #2 in PM + #1 THC tab in the evening for sleep. Also using THC cream for hip pain Mental Status Date Cognitive Assessment Orientation - Rosanky ed to time, place, person, situation. Patient Care Teams Name Effective Dates (start - stop) Status Members No Information
== END 2023-01-25 10:23 | disposition home or self-care (01) ==
LOC: NFLDREF 10:23
PROVIDERS: PCP Internal Medicine; Visit Provider Internal Medicine
DX: D64.9 Anemia, unspecified (principal); F41.9 Anxiety disorder, unspecified
CPT/HCPCS: 85045

== ENCOUNTER 2023-02-14 11:15 | Outpatient (RCR) | payer MEDICAID, SELFPAY | END 2023-03-31 09:54 | disposition home or self-care (01) | PROVIDERS: PCP Internal Medicine; Visit Provider Orthopaedic Surgery | DX: M54.2 Cervicalgia (principal); Z51.89 Encounter for other specified aftercare | CPT/HCPCS: 97110; 97112; 97140; 97162 ==

== ENCOUNTER 2023-08-18 11:50 | Outpatient (CLI) | payer MEDICAID, SELFPAY ==
--- OUTSIDE RECORDS SUMMARY | 2023-08-22 07:00 | XMS_ITS | Continuity of Care Document ---
Author Name Unknown Organization [facility] Address [address] [facility] [address] [place] [address] Phone Care Team Providers Care Orthopedically Impaired Teacher Name Role Phone Polly Mcarthur MD Unavailable Unavailable Results Test Name Date and Time Measure Units Reference Range Abnormal Flag Status Comments Panel Description: ESR Final ESR 2009 11:02:0 0 17 mm/hr 0-25 Final Panel Description: CRP Final CRP 2009 13:11:0 0 0.18 MG/DL 0.00-0.60 Final Panel Description: CYCLIC CI TRULLINATED PEPTIDE (CCP) AB (IGG) Final CYCLIC CITRULLINATED PEPTIDE (CCP) AB (IGG) 2009 18:00:0 0 <16 UNITS N Final Reference RangeNegative: <20Weak Positive: 20-39Moderate Positive: 40-59Strong Positive: >59 Test Performed at:[facility] [address] [address] LAYNE MEEKS MD Panel Description: HEPATITIS B SURFACE ANTIGEN W /REFL CONFIRM Final HEPATITIS B SURFACE ANTIGEN 2009 18:00:0 0 NON-REACT KIMI NON-REACTIV E N Final Test Performed at:[facility] [address] [address] LAYNE MEEKS MD Panel Description: HEPATITIS C ANTIBODY (REFL) Final HEPATITIS C ANTIBODY (REFL) 2009 18:00:0 0 NON-REACT KIMI NON-REACTIV E N Final SIGNAL TO CUT-OFF 2009 18:00:0 0 0.07 <1.00 N Final Test Performed at:[facility] [place] [address] LAYNE MEEKS MD Panel Description: PROTEIN, TOTAL AND PROTEIN ELECTROPHORESIS W/ REFL SANDY Final PROTEIN, TOTAL 2009 18:00:0 0 6.4 g/dL 6.2-8.3 N Final Test Performed at:[facility] [place] [id number] LAYNE MEEKS MD ALBUMIN 2009 18:00:0 0 3.7 g/dL 3.5-4.7 N Final [id number] 2009 18:00:0 0 0.1 g/dL 0.1-0.3 N Final [id number] 2009 18:00:0 0 0.6 g/dL 0.5-1.0 N Final BETA GLOBULINS 2009 18:00:0 0 1.0 g/dL 0.8-1.4 N Final GAMMA GLOBULINS 2009 18:00:0 0 0.9 g/dL 0.6-1.6 N Final INTERPRETATION 2009 18:00:0 0 Final Protein electrophoresis pattern appears normal. Test Performed at:[facility] [address] [address] LAYNE MEEKS MD Panel Description: IRON AND TOTAL IRON BINDING C APACITY Final IRON, TOTAL 2009 18:00:0 0 65 mcg/dL 40-175 N Final IRON BINDING CAPACITY 2009 18:00:0 0 405 mcg/dL 250-450 N Final % SATURATION 2009 18:00:0 0 16 % (calc) 15-50 N Final Test Performed at:[facility] [place] [id number] LAYNE MEEKS MD Advance Directives Directive Yes / No Effective Date File Name No Information Encounters Encounter Description Practice Location Reason(s) For Visit Diagnoses Date Provider Providers Copied on Encounter [facility], [address], [place], [address], [place] tel:[phone] No Information Jun- 3 [place]. [facility] [address], [place], [address], [place]. tel:[phone] Family History Family Member Type Diagnosis Age At Onset No Information Payers Payer name Insurance type Covered alliance party ID Authoriza tion(s) No Information Social History Type Description Quantity Date Captured Comments Sex Female Smoking Status No Information Chief Complaint And Reason For Visit No Information Reason For Referral Reason For Referral No Information History Of Present Illness Encounter Date Complaint History Of Prese nt Illness No Information Functional Status Date Functional Assessmen t No Information Instructions Date Instruction Additional Infor mation No Information Assessments Type Assessment Date No Information Patient Care Teams Name Effective Dates (start - stop) Status Members No Information
--- OUTSIDE RECORDS SUMMARY | 2023-08-22 07:04 | XMS_ITS | Continuity of Care Document ---
Author Name Unknown Organization [facility] Address [address] [place] [address] Phone Care Team Providers Care Well Digger Name Role Phone Lorenzo Alanis MD Unavailable Unavailable Allergies, Adverse Reactions, Alerts Substance Reaction Status Criticality adalimumab daily migraines Active No Informati on morphine Nausea Active No Information Medications Medication Instructions Dosage Effective Dates (start - stop) Status Comments NALTREXONE HCL (unknown strength) Not Available - Active VITAMIN C (unknown strength) Not Available - Active IBUPROFEN (unknown strength) Not Available - Active ADDERALL (unknown strength) Not Available - Active MULTIVITAMINS (unknown strength) Not Available - Active TRIPLE HELIX COLLAGEN (unknown strength) Not Available - Active TYLENOL ARTHRITIS (unknown strength) Not Available - Active Vicodin (unknown strength) Not Available - Active VITAMIN D3 (unknown strength) Not Available - Active Procedures Procedure Date Office/Outpatient Visit,New, [facility] [place] 2019 Advance Directives Directive Yes / No Effective Date File Name No Information Encounters Encounter Description Practice Location Reason(s) For Visit Diagnoses Date Provider Providers Copied on Encounter Office/Outpat ient Visit,New, [facility], [address], [place], [place], [id number], [place] tel:[phone] [facility] Rheumatoid arthritis, unspecifiedOther spondylosis, cervical regionAnkylosing spondylitis lumbar region Sep-2 0 Zeke [place]. [facility] [address] [place] [address], [place] [address], [place], [place], [id number] , [place]. tel:[phone] Referring Provider: Lorenzo Mc, [facility] [address], [address], [place], [place], [address] . tel:[phone] Family History Family Member Type Diagnosis Age At Onset No Information Payers Payer name Insurance type Covered republican ID Authorgiovanny nova(s) No Information Social History Type Description Quantity Date Captured Comments Sex Female Smoking Status No Information Vital Signs Date / Time: Height Weight BMI Pulse Rate Blood Pressure Temperature Respiratory Rate Body Surface Area Head Circumference Head Circ. Percentile Wt./Hugh. Percentile BMI percentile Pulse Ox Inhaled Ox 10:14 AM 66.00 in 76.204 kg (168.00 lbs) 27.1 2 kg/m eter (2) 98.30 F Chief Complaint And Reason For Visit No Information Reason For Referral Reason For Referral No Information History Of Present Illness Encounter Date Complaint History Of Prese nt Illness No Information Functional Status Date Functional Assessmen t No Information Instructions Date Instruction Additional Infor mation No Information Assessments Type Assessment Date assessment Rheumatoid arthritis, unspecifie d assessment Other spondylosis, cervical miguel on assessment Ankylosing spondylitis lumbar re gion Patient Care Teams Name Effective Dates (start - stop) Status Members No Information
== END 2023-08-18 11:51 | disposition home or self-care (01) ==
LOC: NFLDREF 08-22 06:59
PROVIDERS: PCP Internal Medicine; Referring Provider Internal Medicine; Visit Provider Internal Medicine
DX: M06.9 Rheumatoid arthritis, unspecified (principal)
CPT/HCPCS: 86039

== ENCOUNTER 2023-10-04 09:48 | Outpatient (CLI) | payer MEDICAID, SELFPAY ==
--- NOTE | 2023-10-04 10:38 | W.ANESCHARGE ---
Anesthesia Charges Start Date/Time Anesthesia Start Date: 10/04/23 Anesthesia Start Time: 10:20 Stop Date/Time Anesthesia Stop Date: 10/04/23 Anesthesia Stop Time: 10:40
--- NOTE | 2023-10-04 13:18 | W.ANESCHARGE ---
Anesthesia Charges Start Date/Time Anesthesia Start Date: 10/04/23 Anesthesia Start Time: 10:20 Stop Date/Time Anesthesia Stop Date: 10/04/23 Anesthesia Stop Time: 10:40
== END 2023-10-04 09:49 | disposition home or self-care (01) ==
LOC: OP CLINIC 09:48
PROVIDERS: PCP Internal Medicine; Visit Provider Internal Medicine
DX: R13.10 Dysphagia, unspecified (principal)
CPT/HCPCS: 00731; 43239; 88305; J2704

== ENCOUNTER 2023-10-13 12:51 | Outpatient (CLI) | payer MEDICAID, SELFPAY ==
--- NOTE | 2023-10-13 13:00 | CRLHL7_ITS ---
For Patients: As a result of the Century Cures Act, medical imaging exams and procedure reports are released immediately into your electronic medical record. You may view this report before your referring provider. If you have questions, please contact your health care provider. BILATERAL SCREENING MAMMOGRAM WITH COMPUTER-AIDED DETECTION AND TOMOSYNTHESIS TECHNIQUE: CC, MLO and Implant displaced views were obtained. These mammographic images have been obtained using full-field digital technique. These mammographic images were interpreted with the benefit of computer-aided detection. Breast Tomosynthesis was used in this interpretation. COMPARISON FILM: 02/03/16, 04/22/14, 08/24/11. FINDINGS: The breasts are almost entirely fatty IMPRESSION: There is no radiographic evidence for malignancy. ASSESSMENT: BI-RADS Category 2: Benign RECOMMENDATION: Routine screening mammogram in 1 year. A lay language report of this examination will be provided to the patient. Pablo Lemos M.D. Diagnostic Radiologist [email or web address] YAMILET/Dictated by: Pablo Lemos MD @ 10/14/2023 1:02:00 PM (Electronically Signed)
== END 2023-10-13 12:52 | disposition home or self-care (01) ==
LOC: MAMMO 12:52
PROVIDERS: PCP Internal Medicine; Visit Provider Internal Medicine
DX: Z12.31 Encounter for screening mammogram for malignant neoplasm of breast (principal)
CPT/HCPCS: 77063; 77067

== ENCOUNTER 2024-01-03 09:54 | Outpatient (CLI) | payer MEDICAID, SELFPAY ==
--- NOTE | 2024-01-03 10:00 | CT_ITS ---
Patient: GOSIA MOLINA Facility:?[facility] Patient ID:?[id number] Site Patient ID:?[id number]. Site :?[id number] Study:?CT-Sinus w/o-01/03/2024 10:13:24 AM Ordering Physician:?Eber Saiin Final Report: Indication: Chronic sinus disease Technique: Performed without IV contrast Comparison: 05/24/2014 Findings: Frontal sinuses: Moderate opacification of the right frontal sinus. Mild mucosal thickening left frontal sinus. Ethmoid sinuses: Partial opacification of both ethmoid sinuses, right greater than left. Maxillary sinuses: Mucosal thickening within both maxillary sinuses along with moderate fluid in the right maxillary sinus postop changes are present. The right-sided nasal antral window is patent. At least partial obstruction of the left-sided drainage pathway. Sphenoid sinuses: Moderate opacification of the right sphenoid sinus with mucosal thickening and fluid. Mild mucosal thickening left sphenoid sinus. Right sphenoethmoidal recess is occluded. At least partial occlusion of the left sphenoethmoidal recess. Nasal Cavity: Leftward curvature of the anterior nasal septum noted with a small posterior right-sided nasal septal spur. No nasal polyps. Atrophy of the nasal turbinate mucosa. No TMJ abnormalities identified. The visualized portions of the orbits, intracranial contents and upper soft tissue neck are grossly negative. Impression: 1. Bilateral pansinus disease, [id number]-left. 2. Obstruction of the sinus drainage pathways with the exception of patency regarding the right nasal antral window. Please note that all CT scans at this facility use dose modulation, iterative reconstruction, and/or weight-based dosing when appropriate to reduce radiation dose to as low as reasonably achievable. Dictated by Pablo Lemos MD @ 01/04/2024 9:51:01 AM Signed by:?Pablo Lemos MD @01/04/2024 9:51:01 AM (Electronic Signature)
== END 2024-01-03 09:55 | disposition home or self-care (01) ==
LOC: CT 09:55
PROVIDERS: PCP Internal Medicine; Visit Provider Otolaryngology
DX: J32.9 Chronic sinusitis, unspecified (principal); J34.89 Other specified disorders of nose and nasal sinuses
CPT/HCPCS: 70486

== ENCOUNTER 2024-02-07 16:46 | Emergency (ER) | payer MEDICAID, SELFPAY ==
[2024-02-07 16:59] VITALS: BP 143/92; PULSE 76; RESP 18; TEMP 36.8; O2SAT 96; BMI 28.6
--- NOTE | 2024-02-07 17:20 | ED.GENADULT ---
HPI - General Adult General Chief complaint: Fall/Minor Trauma Stated complaint: Fell approx 5.5 feet, hit head Time Seen by Provider: 02/07/24 16:59 History of Present Illness HPI narrative: Tripped in driveway, falling onto rock alongside it. No LOC. Glasses cut face above left eye. Right ankle pain/ swelling. 58-year-old woman presenting to the emergency department following a fall. She did strike her head somewhat. Denies any neck or back pain. There was no loss of consciousness. History of left ankle sprain. But she has managed to injure her right ankle. This is the primary complaint here today. Was wearing her glasses at the time of the fall and believes that is what has contributed to a cut in her left brow. No visual changes Prior to this fall had just taken her Tylenol arthritis and oxycodone. She notes that she is allowed 3 oxycodone per day. I believe this is for arthritis pain with a history of rheumatoid arthritis Related Data Home Medications Medication Instructions Recorded Confirmed acetaminophen 650 mg 1,300 mg PO Q12H 09/29/22 02/14/24 tablet,extended release (Arthritis Pain Relief (acetaminophen) ER) certolizumab pegol 400 mg/2 mL syringe subcut 09/29/22 02/14/24 (200 mg/mL x2) subcutaneous syringe kit (Cimzia) estradiol 0.01% (0.1 mg/gram) g vaginal 09/29/22 02/14/24 vaginal cream oxycodone-acetaminophen 7.5 mg-325 2 tab PO BID 09/29/22 02/14/24 mg tablet cyclobenzaprine 10 mg tablet 10 mg PO BID PRN 11/29/23 02/14/24 Previous Rx's Medication Instructions Recorded escitalopram oxalate 20 mg tablet 20 mg PO QDAY #90 tabs 02/23/23 (Lexapro) trazodone 100 mg tablet 100 mg PO QDAY Insomnia #90 tabs 02/23/23 triamcinolone acetonide 0.5 % 1 applic topical BID Rash #15 grams 08/16/23 topical cream sumatriptan succinate 50 mg tablet 50 mg PO .PRN #9 tabs 09/26/23 (Imitrex) fluticasone propionate 50 2 spray intranasal QDAY Seasonal 11/29/23 mcg/actuation nasal Allergies #16 grams spray,suspension omeprazole 20 mg capsule,delayed 20 mg PO QDAY #30 caps 12/23/23 release dextroamphetamine-amphetamine 15 15 mg PO BID PRN ADHD #60 tabs 01/20/24 mg tablet celecoxib 100 mg capsule (Celebrex) 100 mg PO BID Pain #60 caps 01/25/24 cephalexin 250 mg capsule 250 mg PO TID #18 caps 02/10/24 oxycodone 5 mg tablet,oral ONLY 5 mg PO Q4-6H PRN pain #30 ea 02/10/24 (not feeding tubes) Allergies Allergy/AdvReac Type Severity Reaction Status Date / Time adalimumab Allergy Severe Headache Verified 02/14/24 09:01 etanercept Allergy Intermediate Headache Verified 02/14/24 09:01 methotrexate Allergy Mild Rash Verified 02/14/24 09:01 morphine Allergy Mild Nausea Verified 02/14/24 09:01 topiramate Allergy Mild Irritable Verified 02/14/24 09:01 Review of Systems Status of ROS: Reports: 6 or more systems reviewed and unremarkable except as noted in History and below [facility] Medical History Rheumatoid arthritis ?M06.9 - Rheumatoid arthritis, unspecified (ICD-10) Moderate major depression ?F32.1 - Major depressive disorder, single episode, moderate (ICD-10) Heart murmur ?R01.1 - Cardiac murmur, unspecified (ICD-10) Gastroesophageal reflux disease ?K21.9 - Gastro-esophageal reflux disease without esophagitis (ICD-10) Fibromyalgia (05/08/10) ?M79.7 - Fibromyalgia (ICD-10) Migraines ?G43.909 - Migraine, unspecified, not intractable, without status migrainosus (ICD-10) Sinusitis ?J32.9 - Chronic sinusitis, unspecified (ICD-10) Dysphagia ?R13.10 - Dysphagia, unspecified (ICD-10) Rash ?R21 - Rash and other nonspecific skin eruption (ICD-10) Seasonal allergies ?J30.2 - Other seasonal allergic rhinitis (ICD-10) Anxiety ?F41.9 - Anxiety disorder, unspecified (ICD-10) Wound infection ?T14.8XXA - Other injury of unspecified body region, initial encounter (ICD-10) ?L08.9 - Local infection of the skin and subcutaneous tissue, unspecified (ICD-10) Anemia ?D64.9 - Anemia, unspecified (ICD-10) Insomnia ?G47.00 - Insomnia, unspecified (ICD-10) Pain ?R52 - Pain, unspecified (ICD-10) ADHD ?F90.9 - Attention-deficit hyperactivity disorder, unspecified type (ICD-10) Surgical History History of sinus surgery (2005) ?Z98.890 - Other specified postprocedural states (ICD-10) History of hysterectomy with bilateral oophorectomy (2005) ?Z90.710 - Acquired absence of both cervix and uterus (ICD-10) ?Z90.722 - Acquired absence of ovaries, bilateral (ICD-10) History of bladder surgery (2006) ?Z98.890 - Other specified postprocedural states (ICD-10) History of bilateral breast implants (2004) ?Z98.82 - Breast implant status (ICD-10) Family History Other Breast cancer 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 Easily conversant. Cranial nerves 2-12 intact. Favoring the right ankle understandably but otherwise moving all extremities without difficulty. Neck is supple nontender. On reexamination a little sore in the right paracervical musculature. Back nontender. Dentition intact. No TMJ pain. No fluid in ear canals. No Márquez sign. Is icing her palms and looks to have landed on her palms moving these without difficulty. No discrete area of pain to palpation. Moving her fingers without difficulty. There is some slight speckling from impact on the base of the left palm. Extraocular movements are full. At the left upper brow there is a semi circular arc of a cut. This is intradermal. Slightly gapping. Wheezes a little bit of blood with manipulation. 1-1/4 inch total length. Light abrasion at the left knee without swelling. Flexes the knee without difficulty. The right ankle is swollen over the lateral malleolus and tender to palpation over the tip and posterior aspect. No medial malleolar pain. No navicular or base of 5th metatarsal pain. No instability to varus or valgus or AP stressors Const: Vital Signs, click to edit/add: Vital Signs - 24 hr 02/07/24 16:59 Temperature 98.3 F Pulse Rate [Pulse Oximeter] 76 Respiratory Rate 18 Blood Pressure [Ri ght Upper Arm] 143/92 H Pulse Oximetry 96 Oxygen Delivery Me thod Room Air Documenting provider has reviewed patient's vital signs: yes Course Vital Signs Vital signs: Initial Vital Signs Temperature 98.3 F 02/07/24 16:59 Temperature Source Temporal Artery Scan 02/07/24 16:59 Pulse Rate 76 02/07/24 16:59 Respiratory Rate 18 02/07/24 16:59 Blood Pressure 143/92 H 02/07/24 16:59 Blood Pressure Mean 109 H 02/07/24 16:59 Blood Pressure Position Sitting 02/07/24 16:59 Pulse Oximetry 96 02/07/24 16:59 Oxygen Delivery Method Room Air 02/07/24 16:59 Vital Signs Temperature 98.3 F 02/07/24 16:59 Pulse Rate 76 02/07/24 16:59 Respiratory Rate 18 02/07/24 16:59 Blood Pressure 143/92 H 02/07/24 16:59 Pulse Oximetry 96 02/07/24 16:59 Oxygen Delivery Method Room Air 02/07/24 16:59 Temperature 98.3 F 02/07/24 16:59 Pulse Rate 76 02/07/24 16:59 Respiratory Rate 18 02/07/24 16:59 Blood Pressure 143/92 H 02/07/24 16:59 Pulse Oximetry 96 02/07/24 16:59 Oxygen Delivery Method Room Air 02/07/24 16:59 Medical Decision Making MDM Narrative Medical decision making narrative: I would have concerns of ankle injury. Will be imaging this. We did discuss also scanning her head but she would prefer to not do that. Thinks she is fine. I admit that it would be low yield but prudent. Ice pack to the right ankle. X-ray of the right ankle reviewed by me shows a small fracture off of the tip of the lateral malleolus. Nondisplaced. Mortise intact. --she says oh that's what I did to my left ankle Radiology over-read below Study:?XRay-Extremity Right ANKLE-02/07/2024 5:53:31 PM Ordering Physician:?DR. WILKINS Final Report: IMPRESSION: Fall, swollen ankle. TECHNIQUE: Right ankle 3 view. COMPARISON: None. FINDINGS: There is an acute nondisplaced fracture through the tip of the lateral malleolus. Additional tiny osseous densities inferior to the lateral malleolus and within the medial clear space of uncertain chronicity. No dislocation. Ankle mortise is symmetric. Plantar and Achilles calcaneal spurs. Soft tissue swelling adjacent to the lateral malleolus. IMPRESSION: Acute nondisplaced fracture through the tip of the lateral malleolus. In the meantime I did return to cleanse the left brow with Shur-Clens equivalent. Discussed methods for treatment. Rather soft tissue here. On reexamination appears to have maybe some a small amount of full dermal on the medial aspect. I think this can be well approximated with Steri-Strips. Benzoin placed. Steri-Strips also applied with very good wound approximation and bleeding controlled. Recommendations for the ankle would be to place in a cam walker; tall cam walker. This was done. She says she has ice packs. Offered Hima wrap. See patient discharge plan for further discussion. Medical Records Medical records reviewed: Yes I reviewed the patient's medical records Discharge Plan Discharge Clinical Impression: Laceration of brow without complication, Closed head injury, Ankle fracture, right Patient Disposition: Home w/ Parent or Adult Condition: Stable Additional Instructions: Ice your ankle a few times daily over the next few days. Compression. Elevation. Wear the cam boot/walker when up and about until further recommendations at follow-up. Sounds like you have a relationship with orthopedics. I would suggest being seen by them in the next 1-2 weeks. can trim steri-strip ends as they begin to peel away. try to encourage steri-strips to remain on for 7 days. try not to soak while steri-strips on. antibiotic ointment probably not necessary and will encourage steri-strips to fall off. Signs or symptoms of a concussion might be nausea or headache upon exertion which can also be an indication to back off that level of activity and reassess in a week.? Concussion can also be represented by smoldering nausea or smoldering headache, difficulty with concentration, mood lability, general somnolence, sense of persistent fog or dizziness/lightheadedness.? If these symptoms are becoming apparent and continuing beyond 7-10 days, be re-evaluated for further recommendations. Prescriptions: No Action Cimzia 400 mg/2 mL (200 mg/mL x 2) syringe kit subcut oxycodone-acetaminophen 7.5-325 mg tablet 2 tab PO BID estradiol 0.01 % (0.1 mg/gram) cream vaginal Patient Comments: INSERT 1 GRAM VAGINALLY 5 TIMES A WEEK IN THE EVENING acetaminophen [Arthritis Pain Relief (acetam)] 650 mg tablet extended release 1,300 mg PO Q12H trazodone 100 mg tablet 100 mg PO QDAY Qty: 90 3RF escitalopram oxalate [Lexapro] 20 mg tablet 20 mg PO QDAY Qty: 90 3RF triamcinolone acetonide 0.5 % cream 1 applic topical BID Qty: 15 0RF cyclobenzaprine 10 mg tablet 10 mg PO BID PRN fluticasone propionate 50 mcg/actuation spray,suspension 2 spray intranasal QDAY Qty: 16 2RF Rx Instructions: administer into each nostril cephalexin 250 mg capsule 250 mg PO TID Qty: 18 0RF oxycodone 5 mg tablet, oral only 5 mg PO Q4-6H PRN (Reason: pain) Qty: 30 0RF sumatriptan succinate [Imitrex] 50 mg tablet 50 mg PO .PRN Qty: 9 10RF Rx Instructions: ONE TAB AT ONSET OF HEADACHE, MAY REPEAT Q2H PRN, MAX 200 MG/24 HRS omeprazole 20 mg capsule,delayed release(DR/EC) 20 mg PO QDAY Qty: 30 2RF dextroamphetamine-amphetamine 15 mg tablet 15 mg PO BID PRN (Reason: ADHD) Qty: 60 0RF Rx Instructions: administer doses at least 4-6 hours apart celecoxib [Celebrex] 100 mg capsule 100 mg PO BID Qty: 60 0RF Follow Up/Referrals: Lito Rajan MD [Primary Care Provider] - Stand Alone Forms: [facility] Info Instructions
--- NOTE | 2024-02-07 17:29 | XR_ITS ---
Patient: RUKHSANA Hung [facility] Facility:?[facility] Patient ID:?[id number] Site Patient ID:?[id number]. Site :?1965 Study:?XRay-Extremity Right ANKLE-02/07/2024 5:53:31 PM Ordering Physician:?DR. BLANKENSHIP Final Report: IMPRESSION: Fall, swollen ankle. TECHNIQUE: Right ankle 3 view. COMPARISON: None. FINDINGS: There is an acute nondisplaced fracture through the tip of the lateral malleolus. Additional tiny osseous densities inferior to the lateral malleolus and within the medial clear space of uncertain chronicity. No dislocation. Ankle mortise is symmetric. Plantar and Achilles calcaneal spurs. Soft tissue swelling adjacent to the lateral malleolus. IMPRESSION: Acute nondisplaced fracture through the tip of the lateral malleolus. Dictated by Rukhsana Hanson MD @ 02/07/2024 6:05:45 PM Signed by:?Rukhsana Hanson MD @02/07/2024 6:05:45 PM (Electronic Signature)
--- OUTSIDE RECORDS SUMMARY | 2024-02-07 17:38 | XMS_ITS | Clinical Summary ---
Author Name Unknown Organization [facility] Address [place], [place] [address] Care Team Providers Care Hydrator Name Role Phone Lito Rajan MD Primary Care Provider Pablo Oliver MD Unavailable [phone] Allergies Active Allergy Reactions Criticality Noted Date Comments Etanercept Headache 12/24/2014 PN: Headaches Adalimumab Headache 06/26/2020 Methotrexate Itching 04/12/2018 Morphine Nausea And Vomiting 07/22/2006 Prednisone Agitation Unknown 09/30/2016 Pregabalin Headache 12/24/2014 PN: Headache, brain fogginess Infliximab Headache 06/26/2020 Medications Medication Sig Dispensed Refills Start Date End Date Status fluticasone, 50 mcg per actuation, nasal (FLONASE) 50 mcg/Actuation nasal spray Inhale 2 Sprays into both nostrils once daily. Active acetaminophen SR (TYLENOL ARTHRITIS) 650 mg Extended-Release tablet Take 2 tablets by mouth. 01/12/2014 Active diphenhydrAMINE-ac etaminophen 25-500 mg (TYLENOL PM) 25-500 mg tablet Take 2 tablets by mouth. Active estrogens, conjugated (PREMARIN) 0.625 mg/gram vaginal cream 04/06/2018 Active dextroamphetamine- amphetamine (ADDERALL) 5 mg tablet Take 5 mg by mouth 2 times daily 0 03/11/2019 Active tiZANidine (ZANAFLEX) 4 mg tablet TK 1 T PO Q 8 H PRN 04/06/2019 Activ e Ascorbic Acid-Collagen (COLLAGEN PLUS VITAMIN C) 125-740 mg cap Take by mouth. 0 06/26/2020 Active lactobacillus combination no.4 (PROBIOTIC) 3 billion cell cap 0 Active cholecalciferol, Vitamin D3, (VITAMIN D-3) 2,000 unit tablet 0 Active oxyCODONE-acetamin ophen, 7.5-325 mg, (PERCOCET) per tablet Take 1 tablet by mouth every 4 hours if needed for Pain 0 06/26/2020 Active diclofenac sodium (SOLARAZE) 3 % gel Apply topically to affected area(s) 2 times daily. 0 06/26/2020 Active secukinumab (COSENTYX) 150 mg/mL syrg Inject subcutaneous. 0 06/26/2020 Active biotin 1 mg cap Take 1 capsule by mouth. 0 06/26/2020 Active multivitamin capsule 0 Active romosozumab-aqqg (EVENITY) 210mg/2.34mL ( 105mg/1.17mLx2) syringe Inject 2.34 mL subcutaneous every 4 weeks. 0 08/07/2020 Active ergocalciferol (VITAMIN D2; DRISDOL) 50,000 unit capsule Take 50,000 units by mouth. Active Magnesium Oxide 500 mg tab Take by mouth. Active sumatriptan succinate (IMITREX ORAL) Take by mouth. Active VITAMIN A ORAL Take by mouth. Active CALCIUM ORAL Take by mouth. Active WalkerIndications: Ankle instability, left Walker with front wheels for home use. 1 Device 09/16/2020 Active celecoxib (CELEBREX) 100 mg capsuleIndications :Peroneal tendonitis, left Take 1 Capsule (100 mg) by mouth 2 times daily if needed for Pain. 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 Peroneal tendon injury, left, subsequent encount er 08/07/2020 Ankle instability, left 08/07/2020 Osteoporosis with current pathological fracture 06/26/2020 Routine adult health maintenance 11/04/2016 Overview: Colonoscopy 10/2016 normal repeat in 10 years History of marijuana use 09/15/2016 Chronic back pain greater than 3 months duration 09/15/2016 ARTHRITIS, RHEUMATOID 01/11/2013 Trochanteric and glut medius bursitis 01/12/2012 Esophageal reflux 12/22/2005 HEADACHE 08/10/2005 ARTHRITIS, RHEUMATOID 02/13/2004 ALLERGIES 06/23/2001 DISORDER, DEPRESSIVE NEC 10/11/2000 Resolved Problems Problem Noted Date Diagnosed Date Resolved Date SINUSITIS 12/16/2003 12/30/2003 MOOD SWINGS 12/10/2003 01/12/2012 OBESITY - NOS 12/10/2003 09/15/2016 Immunizations Name Administration Dates Next Due Influenza, IIV3 (Age >=3 years) 08/31/2006,08/10 Td, Preservative Free (age >= 7 Years) 6 Tuberculin (PPD) 06/24/2004 Family History Medical History Relation Name Comments Skin cancer Father Skin cancer Maternal Grandfather Relation Name Status Comments Father Maternal Grandfather Social History Tobacco Use Types Packs/Day Years Used Date Smoking Tobacco: Never Smokeless Tobacco: Never Tobacco Cessation:Counseling Given: Yes Alcohol Use Standard Drinks/Week Comments Yes 0 (1 standard drink = 0.6 oz pur e alcohol) Alcoholic Drinks - occasional Exercise Vital Sign Answer Date Recorde d On average, how many days pe r week do you engage in moderate to strenuous exercise (like a brisk walk)? 0 days Minutes of Exercise per Session Not on file 06/26/2020 Social Connections Answer Date Recorded Frequency of Communication with Friends and Fami ly Not on file 10/17/2021 Financial Resource Strain Answer Date R ecorded Difficulty of Paying Living Expenses Not on file 10/17/2021 Difficulty of Paying Living Expenses Not on file 10/17/2021 Sex and Gender Information Value Date Recorded Sex Assigned at Not on file Gender Identity Not on file Sexual Orientation Not on file Obstetrics History Last Filed Vital Signs Vital Sign Reading Time Taken Comments Blood Pressure 117/63 09/16/2020 3:30 PM SHIP PURSER Pulse 72 09/16/2020 3:30 PM SHIP PURSER Temperature 36 ??C (96.8 ??F) 09/16/2020 3:30 PM SHIP PURSER Respiratory Rate 16 09/16/2020 3:30 PM SHIP PURSER Oxygen Saturation 98% 09/16/2020 3:30 PM SHIP PURSER Inhaled Oxygen Concentration - - Weight 75.1 kg (165 lb 9.1 oz) 09/16/2020 8:30 A M SHIP PURSER Height 167.6 cm (5' 6) 09/16/2020 8:30 AM SHIP PURSER Body Mass Index 26.72 09/16/2020 8:30 AM SHIP PURSER Plan of Treatment Scheduled Procedures Name Priority Associated Diagnoses Date/Ti me SURGICAL PROCEDURE (TYPE PROCEDURE DESCRIPTION BELOW) Traumatic compartment syndrome of right lower extremity, subsequent encounter Health Maintenance Due Date Last Done Comments Tdap 1977 Depression screening for age 12+ 1978 HIV for age 15-65 1981 Mammogram for age 45-75 05/16/2013 05/16/2012 Tetanus booster 07/18/2016 07/18/2006 Zoster (shingles) series for age 50+ (1 of 2) 2016 Lipids for age 45-75 05/16/2017 05/16/2012, 04/22/2004, 04/22/2004 Pap test for age 21-65 03/21/2021 8, 03/21/2018, 08/17/2011, Additional history exists BMI (ht and wt on same day) for age 18+ 06/26/2021 06/26/2020, 04/01/2017, 06/11/2016 COVID-19 vaccine series (2022- season) 2023 Influenza for age 50-64 06/17/2024 08/31/2006, 08/10 Colonoscopy through age 75 11/04/202611/04, 11/04/2016, 11/04/2016 Hepatitis C screening for age 18-79 Completed 01/17/2004 Pneumococcal series for age 6-64 Aged Out No longer eligible based on patient's age to complete this topic Medical Devices Implanted Type Area Commuter Pilot Device Identifier Shelf Expiration Date Model / Serial / Lot Ancr Sut 2.3mm Iconix 2 W/2 Strand #2 Force Fiber - [id number] Implanted:Qty: 1 on 09/16/2020 by Dwayne Suresh MD at [facility] Left: [employer] 07/09/2021 [id number] / / [id number] Procedures Procedure Name Priority Date/Time Associated Diagnosis Comments LOOM OPERATOR APPRENTICE THIN PREP PAP SCREEN IMAGED Routine 03/21/2018 2:51 PM CDT COLONOSCOPY 11/04/2016 10:09 AM SHIP PURSER CHOLESTEROL,TOTAL Routine 04/22/2004 9:0 0 AM CDT ANTI HCV Routine 01/17/2004 3:00 PM SHIP PURSER from Last 3 Months or Most Recently Relevant to Health Maintenance Results * LOOM OPERATOR APPRENTICE THIN PREP PAP SCREEN IMAGED (03/21/2018 2:51 PM CDT) Case Report Gynecologic Cytology Report ? Case: [id number] ? Authorizing Provider: ??Rhina Moore ??Collected: ? 03/21/2018 1451 ? M, MD ? First Screen: ?Barbara Tai ? Received: ?03/23/2018 1612 ? Specimen: ?LOOM OPERATOR APPRENTICE ThinPrep Vial Screening, Cervical/Vaginal ? 03/29/2018 12:25 PM CDT [facility] INTERPRETATION/ RESULT NEGATIVE FOR INTRAEPITHELIAL LESION OR MALIGNANCY (NIL) (none) 03/29/2018 12:25 PM CDT [facility] IMEN ADEQUACY Satisfactory for evaluation Endocervical component present 03/29/2018 12:25 PM CDT [facility] HPV REQUEST HPV and PAP 03/29/2018 12:25 PM CDT [facility] Menstrual Status 03/29/2018 12:25 PM CDT [facility] Comment:Menopause Automated Review Successful 03/29/2018 12:25 PM CDT [facility] Comment:Specimen processed s uccessfully by automated computer systems design analyst device, ValconPrep Imaging System, [employer] ANCILLARY TESTING LOOM OPERATOR APPRENTICE HPV Ordered, Please see separate report 03/29/2018 12:25 PM CDT [facility] Note The pap test is a screening technique, not a diagnostic procedure. ??It is used primarily to screen for squamous cancers and precursor lesions. ??Published studies have shown that it is subject to both false negative and false positive results. ??The pap test should not be used as the sole means to diagnose or exclude pre-malignant and malignant lesions. Cytology is screened and interpreted at [facility] - [address], [place] [address] and - [address]; [place] [address] and [facility] - [address]; [place] [address] and [facility] [address]; [place] [address] 03/29/2018 12:25 PM CDT [facility] Other (Cervical/Vagina l) 03/21/2018 2:51 PM CDT 03/23/2018 4:12 PM CDT Rhina Moore MD PATHOLOGY/ CYTOLOGY [facility] [address] [place] [address], [place] * COLONOSCOPY (11/04/2016 10:09 AM SHIP PURSER) 11/04/2016 10:0 9 AM SHIP PURSER Narrative Transcriptions Cody Mercedes MD - 12/06/2016 5:00 PM CST Patient Name: Rukhsana Manzo Procedure Date: 11/04/2016 Gender: Female Date of : 1965 Admit Type: Outpatient Procedure: Colonoscopy Proceduralist: Cody Mercedes MD Referring MD: Cody Mercedes Indications/Pre-Op Diagnosis: Screening for colorectal malignant neoplasm, This is the patient's first colonoscopy Medications: Fentanyl 100 micrograms IV, Midazolam 4 mgIV, The level of sedation administered wasmoderate Procedure Description: The patient had risks, benefits and alternatives explained to andgave informed consent. The patient had a stable cardiopulmonary status and judged an adequate candidate for conscious sedation. The [id number] was passed through the anus and advanced tothe terminal ileum. The colonoscopy was performed without difficulty. The patient tolerated the procedure well. The quality of the bowel preparation was excellent. The terminal ileum, ileocecal valve, appendiceal orifice, and rectum were photographed. Moderate(conscious) sedation was administered by the endoscopist. The followingparameters were monitored: oxygen saturation, heart rate, blood pressure, and response to care. Total physician intra-service time was 15 minutes. Please see endoscopy/nursing flowsheet and notes for moderatesedation information and documentation. Complications: No immediate complications. Estimated Blood Loss & Specimen: Estimated blood loss: none. Specimen collected - None Findings: The perianal and digital rectal examinations were normal. The entire examined colon appeared normal on direct and retroflexion views. The terminal ileum appeared normal. Impressions/Post-Op Diagnosis: - The entire examined colon is normal on direct and retroflexionviews. - The examined portion of the ileum was normal. - No specimens collected. Recommendation: - Patient has a contact number available for emergencies. The signsand symptoms of potential delayed complications were discussed with the patient. Return to normal activities tomorrow. Written discharge instructions were provided to the patient. - Resume previous diet. - Continue present medications. - Repeat colonoscopy in 10 years for screening purposes. Cody Mercedes MD 11/04/2016 10:54:50 AM This report has been signed electronically. Note Initiated On: 11/04/2016 10:09 AM Procedure Code(s): --- Professional --- G0121, Colorectal cancer screening;colonoscopy on individual not meeting criteria for highrisk Diagnosis Code(s): --- Professional --- Z12.11, Encounter for screening formalignant neoplasm of colon CPT copyright 2015 [employer]. All rights reserved. The codes documented in this report are preliminary and upon hospital coder reviewmay be revised to meet current compliance requirements. Scope In: 10:31:54 AM Scope Withdrawal Time 0 hours 8 minutes 8 seconds Scope Out: 10:46:23 AM Cody Mercedes MD PROCEDURE ORD * CHOLESTEROL,TOTAL (04/22/2004 9:00 AM CDT) CHOLESTEROL,TOT AL 174 110 - 199 mg/dL 04/22/2004 9:00 AM CDT Narrative 04/29/2004 2:27 AM CDT Ordered by an unspecified provider. Other Clinical Staff CHEMISTRY * ANTI HCV (01/17/2004 3:00 PM SHIP PURSER) ANTI HCV Non-reactiv e 01/17/2004 3:00 PM SHIP PURSER Narrative 03/29/2004 3:29 AM CDT Ordered by an unspecified provider. Other Clinical Staff SEND OUTS from Last 3 Months or Most Recently Relevant to Health Maintenance Advance Directives * Full Code (Latest Code Status on File) Date Activated Date Inactivated Comments 09/16/2020 7:37 AM 09/16/2020 5:31 PM Question Answer Comments Code Status Discussion: Per Existing OrderDiscus sed * Full Code Date Activated Date Inactivated Comments 07/25/2006 6:08 PM 07/28/2006 2:46 PM * Full Code Date Activated Date Inactivated Comments 07/25/2006 8:50 AM 07/25/2006 6:08 PM Care Teams Hydrator Relationship Specialty Start Date End Date Lito Rajan MD PCP - General 01/31/08 Pablo Oliver MD Internal Medicine 07/02/20
--- OUTSIDE RECORDS SUMMARY | 2024-02-07 17:38 | XMS_ITS | Continuity of Care Document ---
Author Name Unknown Organization [facility] Address [address] [place] [address] [address] [place] [address] Phone Care Team Providers Care Manager Air Name Role Phone [facility] Unavailable Unava ilable Procedures Procedure Date RF Cerv/Thor Single Level BILATERAL RF Cerv/Thor 2nd Level RIGHT RF Cerv/Thor 2nd Level LEFT RF Cerv/Thor Single Level BILATERAL Facet Jt Inj Cervical/Thoracic RIGHT Oct Facet Jt Inj Cervical/Thoracic LEFT Facet Jt Inj Cerv/Thor 2nd Level RIGHT J Facet Jt Inj Cerv/Thor 2nd Level LEFT Ja Facet Jt Inj Cervical/Thoracic RIGHT Sep Facet Jt Inj Cervical/Thoracic LEFT Facet Jt Inj Cerv/Thor 2nd Level RIGHT D Facet Jt Inj Cerv/Thor 2nd Level LEFT De RF Lumb/Sacral 2nd Level RIGHT RF Lumb/Sacral 2nd Level LEFT RF Lumb/Sacral Single Level BILATERAL De RF Lumb/Sacral Single Level BILATERAL De IMPLANT NEUROELECTRODES INSRT/REDO SPINE N GENERATOR Implt neurostim elctr each IMPLANT NEUROELECTRODES Imp neurosti pls gn any type IMPLANT NEUROELECTRODES Aug-10-2021 Implt neurostim elctr each IMPLANT NEUROELECTRODES Advance Directives Directive Yes / No Effective Date File Name No Information Encounters Encounter Description Practice Location Reason(s) For Visit Diagnoses Date Provider Providers Copied on Encounter [facility], [address] [place] [address], [id number], tel:[phone] [place] [address] No Information 4 [facility]. [address] [place] [address], [id number], [place]. tel:[phone] Referring Provider: Kari Clifton, [address] [facility] [place], [address] . tel:[phone] [place] [address], [address] [place] [address], [id number], tel:[phone] [place] [address] No Information 4 [facility]. [address] [place] [address], [id number], [place]. tel:[phone] Referring Provider: Kari Clifton, [address] [facility] [place], [address] . tel:[phone] [place] [address], [address] [place] [address], [id number], tel:[phone] [place] [address] No Information 3 [facility]. [address] [place] [address], [id number], [place]. tel:[phone] Referring Provider: Kari Clifton, [address] [facility] [place], [address] . tel:[phone] [place] [address], [address] [place] [address], [id number], tel:[phone] [place] [address] No Information 3 [facility]. [address] [place] [address], [id number], [place]. tel:[phone] Referring Provider: Kari Clifton, [address] [facility] [place], [address] . tel:[phone] [facility], [address] [place] [address], [id number], tel:[phone] [facility] No Information [facility]. [address] [place] [address], [id number], [place]. tel:[phone] Referring Provider: Reyes Gaffney ArtBinder [address], [place], [address]. tel:[phone] [facility], [address] [place] [address], [id number], tel:[phone] [facility] No Information [facility]. [address] [place] [address], [id number], . tel:[phone] Referring Provider: Reyes Gaffney ArtBinder [address], [place], [address]. tel:[phone] Family History Family Member Type Diagnosis Age At Onset No Information Payers Payer name Insurance type Covered constitution party ID Ron nova(s) ROBERTvu [facility] [id number] Social History Type Description Quantity Date Captured [...]
--- OUTSIDE RECORDS SUMMARY | 2024-02-07 17:38 | XMS_ITS | Continuity of Care Document ---
Author Name Unknown Organization [facility] Address [address] [place] [id number] Care Team Providers Care Union Carpenter Name Role Phone [facility] Unavailable Unav ailable Procedures Procedure Date RF [...] Diagnoses Date Provider Providers Copied on Encounter [facility], [address] [place] [address], [id number], [facility] No Information [facility]. [address] [place], [place], [id number], [place]. tel:[phone] Referring Provider: Kari Clifton, [address] [place], [address]. tel:[phone] [facility], [address] [place], [place], [id number], [facility] No Information [facility]. [address] [place], [place], [id number], [place]. tel:[phone] Referring Provider: Kari Clifton, [address] [place], [address]. tel:[phone] [facility], [address] [place], [place], [id number], [place] [facility] No Information [facility]. [address] [facility] [place], [place], [id number], . tel:[phone] Referring Provider: Kari Clifton, [address] [place], [address]. tel:[phone] Family History Family Member Type Diagnosis Age [...]
--- OUTSIDE RECORDS SUMMARY | 2024-02-07 17:38 | XMS_ITS | Continuity of Care Document ---
Author Name Unknown Organization [facility] Address [address] [place] [address] Care Team Providers Care Retail Marketing Coordinator Name Role Phone Jaison Tamayo CRNA Unavailable Unavailable Procedures Procedure Date Percutaneous Image guided destruction pr ocedures B Percutaneous Image guided injection, migdalia inage, or Percutaneous Image guided injection, migdalia inage, or Percutaneous Image guided destruction pr ocedures B ANESTH, HEAD/NECK/PTRUNK ANESTH PERC IMG TX SP PROC ANESTH PERC IMG TX SP PROC ANESTH PERC IMG TX SP PROC Advance Directives Directive Yes / No Effective Date File Name No Information Encounters Encounter Description Practice Location Reason(s) For Visit Diagnoses Date Provider Providers Copied on Encounter [facility], [address] [place], [place], [id number], [facility] No Information 4 Roni Blackwood. [address] [facility], [place], [place], [id number], . tel:[phone] Referring Provider: Kari Clifton, [address] [facility] [place], [address] . tel:[phone] [facility], [address] [place], [place], [id number], [facility] No Information 4 Luis Sheppard. [address] [facility], [place], [place], [id number], . tel:[phone] Referring Provider: Kari Clifton, [address] [place], [address] . tel:[phone] [facility], [address], [place], [place], [id number], [facility] No Information 4 Luis Koenigneth. [address], [facility], [place], [place], [id number], . tel:[phone] Referring Provider: Kari Clifton, [address] [place], [address] . tel:[phone] [facility], [address] [place], [id number], [facility] No Information 3 Shawna Portillo. [address], [place], [place], [id number], . tel:[phone] Referring Provider: Kari Clifton, [address] [place], [address] . tel:[phone] [facility], [address] [place], [id number], [facility] No Information 1 Tl Vargas. [address], [facility], [place], [place], [id number], . tel:[phone] Referring Provider: Reyes Gaffney [facility] [address], [place], [address]. tel:[phone] [facility], [address] [place], [id number], [facility] No Information 1 Margaret Skinner. [address], [place], [place], [id number], . tel:[phone] Referring Provider: Reyes Gaffney [facility] [address], [place], [address]. tel:[phone] [facility], [address] [facility] [place], [id number], [facility] No Information 1 Michael Srivastava. [address] [facility] [address], [place], [place], [id number], . tel:[phone] Referring Provider: Kari Clifton, [address] [place], [address] . tel:[phone] [facility], [address] [place], [place], [id number], [facility] No Information 0 Ellyn Singh. [address] [facility] [address], [place], [place], [id number], . tel:[phone] Referring Provider: Kari Clifton, [address] [facility] [place], [address] . tel:[phone] Family History Family Member Type Diagnosis Age At Onset No Information Payers Payer name Insurance type Covered constitution party ID Ron nova(s) Albert [facility] [id number] Social History Type Description Quantity Date Captured [...]
--- OUTSIDE RECORDS SUMMARY | 2024-02-07 17:40 | XMS_ITS | Continuity of Care Document ---
Author Name Unknown Organization [facility] rosales Address [address] [facility] [place] [address] Phone Care Team Providers Care Product Analyst Name Role Phone Darien Shirlene MESSER Unavailable [...] /day, acute on chronic pain - Active may fill today cyclobenzaprine 10 mg tablet TAKE ONE TABLET BY MOUTH TWICE A DAY - Active Lexapro 20 mg tablet take 1 tablet by oral route every day 20 MG - Active trazodone 100 mg tablet [...] - Active medical cannabis ORAL - Active Imitrex 50 mg tablet take [...] dissolve and/or chew. 1300 MG - Active Percocet 7.5 mg-325 mg tablet take 1 tablet by oral route every 4 hours as needed, max 3 /day, acute on chronic pain - No Longer Active may fill today Procedures Procedure Date OFFICE VISIT, EST TELEMEDICINE OFFICE VISIT, EST TELEMEDICINE Drug test def 8-14 classes Drug Urine Toxology With Chromatography RF Cerv/Thor Single Level BILATERAL RF Cerv/Thor 2nd Level RIGHT RF Cerv/Thor 2nd Level LEFT OFFICE VISIT, EST TELEMEDICINE 24 Facet Jt Inj Or MBB Cervical/Thoracic BI LATERAL Facet Jt Inj Or MBB Cerv/Thor 2nd Level BILATERAL OFFICE VISIT, EST TELEMEDICINE 24 Facet Jt Inj Or MBB Cervical/Thoracic BI LATERAL Facet Jt Inj Or MBB Cerv/Thor 2nd Level BILATERAL RF Lumb/Sacral Single Level BILATERAL RF Lumb/Sacral 2nd Level RIGHT RF Lumb/Sacral 2nd Level LEFT OFFICE VISIT, EST TELEMEDICINE OFFICE/OUTPATIENT VISIT, EST 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, COMPLEX OFFICE/OUTPATIENT VISIT, EST Drug Urine Toxology With Chromatography Drug test def 8-14 classes Drug Urine Toxology With Chromatography Drug test def 8-14 classes OFFICE/OUTPATIENT VISIT, EST OFFICE VISIT, EST TELEMEDICINE OFFICE VISIT, EST TELEMEDICINE OFFICE VISIT, EST TELEMEDICINE Foll-up eval q3mo [...] q3mo opiod tx OFFICE VISIT, EST TELEMEDICINE RF Lumb/Sacral Single Level BILATERAL De RF Lumb/Sacral 2nd Level RIGHT 20 RF Lumb/Sacral 2nd Level LEFT Foll-up eval q3mo opiod tx OFFICE VISIT, EST TELEMEDICINE Foll-up eval q3mo opiod tx OFFICE VISIT, EST TELEMEDICINE Facet Jt In Or MBB j Lumbar [...] q3mo opiod tx OFFICE VISIT, EST TELEMEDICINE OFFICE/OUTPATIENT VISIT, NEW DAST 15-30 MIN Drug test def 8-14 classes Advance Directives Directive Yes / No Effective Date File Name No Information Encounters Encounter Description Practice Location Reason(s) For Visit Diagnoses Date Provider Providers Copied on Encounter OFFICE VISIT, EST TELEMEDICINE [facility], [address] [place] [address] [place], [id number] , [place] [phone] [facility] low back pain (chief complaint) Chronic pain syndromePain in right shoulderAnkylosing spondylitis of unspecified sites in spineOther spondylosis, thoracic regionOther spondylosis, lumbar regionPostlaminect eve syndrome, not elsewhere classifiedLong term (current) use of opiate analgesicOther watermelon harvesting supervisor (current) drug therapy 4 [facility]. [address] [facility]ly [facility] [address], [place], [id number] , [place]. tel:[phone] Referring Provider: Braxton Burnette, [address] [place] [address] [place], [address] . tel:[phone] OFFICE VISIT, EST [facility], [address] [place] [address], [id number] , [place] tel:[phone] [facility] low back pain (chief complaint) Chronic pain syndromeAnkylosing spondylitis of unspecified sites in spineOther spondylosis, thoracic regionOther spondylosis, lumbar regionPostlaminect eve syndrome, not elsewhere classifiedLong term (current) use of opiate analgesicOther retirement (current) drug therapyPain in right shoulderEncounter for therapeutic drug level monitoring 4 [facility] Shirlene. [address] Formerly [facility] [address], [place], [id number] , [place]. [phone] Referring Provider: Braxton Burnette, [address] [facility] [place], [address] . tel:[phone] [facility], [address] [place] [address] [place], [id number] , [place] [phone] [facility] Other spondylosis, thoracic region 4 Elodia Pierce. [address] [place] [address] Rachid Zhao [place], [place], [id number] , [place]. tel:[phone] Referring Provider: Braxton Burnette, [address] [place] [address] [place], [address] . tel:[phone] OFFICE VISIT, EST TELEMEDICINE [facility], [address] [place] [address] [place], [id number] , [place] tel:[phone] [facility] low back pain (chief complaint) Chronic pain syndromeAnkylosing spondylitis of unspecified sites in spineOther spondylosis, thoracic regionOther spondylosis, lumbar regionPostlaminect eve syndrome, not elsewhere classifiedLong term (current) use of opiate analgesicOther watermelon harvesting supervisor (current) drug therapy 4 [facility] Shirlene. [address] [facility] [address] [facility] [address], [place], [id number] , [place]. tel: [phone] Referring Provider: Braxton Burnette, [address] [place] [address] [place], [address] . tel:[phone] [facility], [address] [place] [address] [place], [id number] , [place] [phone] [facility] Other spondylosis, thoracic region 4 Elodia Pierce. [address] [place] [address] Rachid Zhao [place], [place], [id number] , [place]. tel:[phone] Referring Provider: Braxton Burnette, [address] [place] [address] [place], [address] . tel:[phone] OFFICE VISIT, EST TELEMEDICINE [facility], [address] [place] [address] [place], [id number] , [place] tel:[phone] [facility] low back pain (chief complaint) Chronic pain syndromeAnkylosing spondylitis of unspecified sites in spineOther spondylosis, thoracic regionOther spondylosis, lumbar regionPostlaminect eve syndrome, not elsewhere classifiedLong term (current) use of opiate analgesicOther watermelon harvesting supervisor (current) drug therapy 4 Hijuan Shirlene. [address] [facility] [facility] [address], [place], [place], [id number] , [place]. tel: [phone] [facility], [address] [facility] [place], [id number] , [place] tel: [phone] [facility] Other spondylosis, thoracic region 4 Darien Garber. [address] [facility] [address] [facility] [address], [place], [id number] , [place]. tel: [phone] [facility], [address] [place] [address] [place], [id number] , [place] tel: [phone] [facility] Other spondylosis, thoracic region 3 Elodia Pierce. [address] [place] [address] [place], [id number] , [place]. tel: [phone] Referring Provider: Braxton Burnette, [address] [place] [address] [place], [address] . tel:[phone] [facility], [address] [place] [address] [place], [id number] , [place] tel: [phone] [facility] Other spondylosis, lumbar region 3 Elodia Pierce. [address] [place] [address] Rachid Zhao [place], [place], [id number] , [place]. tel: [phone] Referring Provider: Braxton Burnette, [address] [place] [address] [place], [address] . tel:[phone] [facility], [address] [place] [address] [place], [place], [address] , [place] tel: [phone] [facility] Other spondylosis with myelopathy, lumbar region [address] [facility] Gar[facility]. [address] [facility] [address] [facility] [address], [place], [id number] , [place]. tel: [phone] OFFICE VISIT, EST TELEMEDICINE [facility], [address] [place] [address] [place], [id number] , [place] tel: [phone] [facility] low back pain (chief complaint) Chronic pain syndromeAnkylosing spondylitis of unspecified sites in spinePostlaminecto my syndrome, not elsewhere classifiedLong term (current) use of opiate analgesicOther retirement (current) drug therapyOther spondylosis, lumbar regionOther spondylosis, thoracic region 3 [facility] Shirlene. [address] [facility]ly [facility] [address], [place]ki avelar [place], [id number] , [place]. tel: [phone] OFFICE/OUTPAT IENT VISIT, [facility], [address] [facility] [place], [place], [id number] , [place] tel:[phone] [facility] low back pain (chief complaint) Radiculopathy, lumbar regionChronic pain syndromeAnkylosing spondylitis of unspecified sites in spinePostlaminecto my syndrome, not elsewhere classifiedLong term (current) use of opiate analgesicOther retirement (current) drug therapy 3 [facility] Shirlene. [address] Formerly [facility] [address], Aki [place]velar [place], [id number] , [place]. tel:[phone] Referring Provider: Braxton Burnette, [address] [place] [address] [place], [address] . tel:[phone] [facility], [address] [place] [address] [place], [id number] , [place] tel:[phone] [facility] Radiculopathy, lumbar region 3 [facility]. [address] [facility]ly [facility] [address], [place], [id number] , [place]. tel:[phone] Referring Provider: Braxton Burnette, [address] [place] [address] [place], [address] . tel:[phone] OFFICE/OUTPAT IENT VISIT, [facility], [address] [place] [address] Yuan Zhaoa [place], [id number] , [place] tel:[phone] [facility] low back pain (chief complaint) Chronic pain syndromeAnkylosing spondylitis of unspecified sites in spineRadiculopathy , lumbar regionPostlaminect eve syndrome, not elsewhere classifiedLong term (current) use of opiate analgesicOther retirement (current) drug therapy 3 Darien Garber. [address] [facility] [address], [place], [id number] , [place]. tel:[phone] Referring Provider: Braxton Burnette, [address] [place], [address] . tel:[phone] [facility], [address] [facility] [place], [address] , [place] tel: [phone] [facility] No Information 3 Darien Garber. [address] [facility] [address], [place], [id number] , [place]. tel: [phone] [facility], [address] [place] [address] [place], [address] , [place] tel: [phone] [facility] No Information 3 Darien Garber. [address] [facility] [address], [place], [id number] , [place]. tel: [phone] OFFICE/OUTPAT IENT VISIT, EST [facility], [address] [place] [address] [place], [id number] , [place] tel: [phone] [facility] low back pain (chief complaint) Chronic pain syndromeAnkylosing spondylitis of unspecified sites in spineRadiculopathy , lumbar regionPostlaminect eve syndrome, not elsewhere classifiedLong term (current) use of opiate analgesicOther retirement (current) drug therapyEncounter for therapeutic drug level monitoring 3 Darien Garber. [address] [facility]ly [facility] [address], [place], [id number] , [place]. tel:[phone] Referring Provider: Braxton Burnette, [address] [facility] [place], [address] . tel:[phone] OFFICE VISIT, EST TELEMEDICINE [facility], [address] [place] [address] [place], [id number] , [place] tel: [phone] [facility] low back pain (chief complaint) Radiculopathy, lumbar regionPostlaminect eve syndrome, not elsewhere classifiedLong term (current) use of opiate analgesicOther watermelon harvesting supervisor (current) drug therapyChronic pain syndromeAnkylosing spondylitis of unspecified sites in spine 3 [facility] Shirlene. [address] [facility] [address], [place], [id number] , [place]. tel:[phone] OFFICE VISIT, [facility], [address] [place], [address] , [place] tel: [phone] [facility] low back pain (chief complaint) Chronic pain syndromeAnkylosing spondylitis of unspecified sites in spineRadiculopathy , lumbar regionPostlaminect eve syndrome, not elsewhere classifiedLong term (current) use of opiate analgesicOther retirement (current) drug therapy 3 [facility]. [address] [facility] [address], [place], [id number] , [place]. tel: [phone] Referring Provider: Braxton Burnette, [address] [place], [address] . tel:[phone] OFFICE VISIT, [facility], [address] [place] [address], [id number] , [place] tel: [phone] [facility] low back pain (chief complaint) Chronic pain syndromeAnkylosing spondylitis of unspecified sites in spineRadiculopathy , lumbar regionPostlaminect eve syndrome, not elsewhere classifiedLong term (current) use of opiate analgesicOther watermelon harvesting supervisor (current) drug therapy 3 [facility]. [address] [facility] [address], [place], [id number] , [place]. tel: [phone] OFFICE/OUTPAT IENT VISIT, [facility], [address] [place], [id number] , [place] tel: [phone] [facility] low back pain (chief complaint) Chronic pain syndromeAnkylosing spondylitis of unspecified sites in spineRadiculopathy , lumbar regionPostlaminect eve syndrome, not elsewhere classifiedLong term (current) use of opiate analgesicOther watermelon harvesting supervisor (current) drug therapy 3 Violetta Shirlene. [address] [facility] [address], [place], [id number] , [place]. tel: [phone] Referring Provider: Braxton Burnette, [address] [place] [address] [place], [address] . tel:[phone] OFFICE VISIT, RUST TELEMEDICINE [facility], [address] [place] [address] [place], [address] , [place] tel: [phone] [facility] low back pain (chief complaint) Chronic pain syndromeAnkylosing spondylitis of unspecified sites in spineRadiculopathy , lumbar regionPostlaminect eve syndrome, not elsewhere classifiedLong term (current) use of opiate analgesicOther retirement (current) drug therapy 3 Michellejuan Shirlene. [id number] [place] [address] [address], [place], [id number] , [place]. tel: [phone] OFFICE/OUTPAT IENT VISIT, [facility], [address] [place] [address], [id number] , [place] tel: [phone] [facility] low back pain (chief complaint) Chronic pain syndromeAnkylosing spondylitis of unspecified sites in spineRadiculopathy , lumbar regionLong term (current) use of opiate analgesicOther watermelon harvesting supervisor (current) drug therapyPostlaminec miguel syndrome, not elsewhere classified 3 Nyongesa Shirlene. [address] [facility]ly [facility] [address], [place], [id number] , [place]. tel: [phone] Referring Provider: Braxton Burnette, [address] [place] [address] [place], [address] . tel:[phone] [facility], [address] [place] [address] [place], [address] , [place] tel: [phone] [facility] No Information 3 Nyongesa Shirlene. [address] [place] [address] [address], [place], [id number] , [place]. tel: [phone] OFFICE VISIT, EST TELEMEDICINE [facility], [address] [place], [place], [id number] , [place] tel: [phone] [facility] low back pain (chief complaint) DepressionChronic pain syndromeRheumatoid arthritisPain in right hipAnkylosing spondylitis of unspecified sites in spineRadiculopathy , lumbar regionMyalgia, other siteFibromyalgiaLo ng term (current) use of opiate analgesicOther watermelon harvesting supervisor (current) drug therapy 3 Nyongesa Shirlene. [address] [facility] [address], [place], [id number] , [place]. tel: [phone] OFFICE VISIT, EST TELEMEDICINE [facility], [address] [place] [address], [id number] , [place] tel: [phone] [facility] low back pain (chief complaint) DepressionChronic pain syndromeRheumatoid arthritisPain in right hipAnkylosing spondylitis of unspecified sites in spineRadiculopathy , lumbar regionMyalgia, other siteFibromyalgiaLo ng term (current) use of opiate analgesicOther retirement (current) drug therapy 2 Nyongesa Shirlene. [address] [facility]ly [facility] [address] [facility] [address], [place], [id number] , [place]. tel: [phone] Referring Provider: Braxton Burnette, [address] [place], [place] [address], [address] . tel:[phone] OFFICE VISIT, EST TELEMEDICINE [facility], [address] [place], [place], [id number] , [place] tel: [phone] [facility] [place] low back pain (chief complaint) DepressionChronic pain syndromeRheumatoid arthritisPain in right hipAnkylosing spondylitis of unspecified sites in spineRadiculopathy , lumbar regionMyalgia, other siteFibromyalgiaLo ng term (current) use of opiate analgesicOther watermelon harvesting supervisor (current) drug therapy 2 Nyongesa Shirlene. [address] [facility] [address], [place], [id number] , [place]. tel: [phone] OFFICE VISIT, RUST TELEMEDICINE [facility], [address] [facility] [place], [address] , [place] tel: [phone] [facility] low back pain (chief complaint) DepressionChronic pain syndromeRheumatoid arthritisPain in right hipAnkylosing spondylitis of unspecified sites in spineRadiculopathy , lumbar regionMyalgia, other siteFibromyalgiaLo ng term (current) use of opiate analgesicOther watermelon harvesting supervisor (current) drug therapy 2 Nyongesa Shirlene. [address] [facility] [address], [place]ar [place], [id number] , [place]. tel: [phone] Referring Provider: Braxton Burnette, [address] [place] [address] [place], [address] . tel:[phone] [facility], [address] [place] [address] [place], [id number] , [place] tel: [phone] [facility] No Information 2 Nyongesa Shirlene. [address] [facility] [facility] [address], [place], [id number] , [place]. tel: [phone] OFFICE/OUTPAT IENT VISIT, [facility], [address] [facility] [place], [address] , [place] tel: [phone] [facility] low back pain (chief complaint) DepressionChronic pain syndromeRheumatoid arthritisPain in right hipAnkylosing spondylitis of unspecified sites in spineRadiculopathy , lumbar regionMyalgia, other siteFibromyalgiaLo ng term (current) use of opiate analgesicOther watermelon harvesting supervisor (current) drug therapy 2 Nyongesa Shirlene. [address] [facility] [address], [place], [id number] , [place]. tel: [phone] Referring Provider: Braxton Burnette, [address] [facility] [place], [address] . tel:[phone] OFFICE VISIT, EST TELEMEDICINE [facility], [address] [facility] [place], [address] , [place] tel: [phone] [facility] low back pain (chief complaint) DepressionChronic pain syndromeRheumatoid arthritisPain in right hipAnkylosing spondylitis of unspecified sites in spineRadiculopathy , lumbar regionMyalgia, other siteFibromyalgiaLo ng term (current) use of opiate analgesicOther retirement (current) drug therapy Sep-0 2 Nyongesa Shirlene. [address] [facility] [address], [place], [id number] , [place]. tel: [phone] OFFICE VISIT, EST TELEMEDICINE [facility], [address] [facility] [place], [id number] , [place] tel: [phone] [facility] low back pain (chief complaint) DepressionChronic pain syndromeRheumatoid arthritisPain in right hipAnkylosing spondylitis of unspecified sites in spineMyalgia, other siteRadiculopathy, lumbar regionFibromyalgia retirement (current) use of opiate analgesicOther retirement (current) drug therapy May-0 2 Nyongesa Shirlene. [address] [facility] [address], [place], [id number] , [place]. tel: [phone] Referring Provider: Braxton Burnette, [address] [place], [address] . tel:[phone] OFFICE VISIT, EST TELEMEDICINE [facility], [address] [facility] [place], [id number] , [place] tel: [phone] [facility] low back pain (chief complaint) DepressionChronic pain syndromeRheumatoid arthritisPain in right hipAnkylosing spondylitis of unspecified sites in spineRadiculopathy , lumbar regionFibromyalgia retirement (current) use of opiate analgesicOther retirement (current) drug therapyMyalgia, other site Sim[place]- 2 Nyongesa Shirlene. [address] [facility] [address], [place], [id number] , [place]. tel: [phone] Referring Provider: Lito Rajan, [address], [address]. tel:[phone] [facility], [address] [place], [place], [id number] , [place] tel: [phone] [facility] Myalgia, other site 2 Nyjuan Shirlene. [address] [facility] [address] [facility] [address], [place], [id number] , [place]. tel: [phone] Referring Provider: Braxton Burnette, [address] [place], [address] . 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 [address] [facility]ly [facility] [address], [place] valent[place]BU[place], [id number] , [place]. tel: [phone] OFFICE/OUTPAT IENT VISIT, [facility], [address] [place] [address], [id number] , [place] tel: [phone] [facility] low back pain (chief complaint) DepressionChronic pain syndromeRheumatoid arthritisPain in right hipFibromyalgiaLon g term (current) use of opiate analgesicAnkylosin g spondylitis of unspecified sites in spineRadiculopathy , lumbar regionEncounter for therapeutic drug level monitoring 2 Nyongesa Shirlene. [address] Formerly [facility] [address], [place], [id number] , [place]. tel: [phone] Referring Provider: Lito Rajan [address], [address]. tel:[phone] [facility], [address] [facility] [place], [place], [id number] , [place] tel:[phone] [facility] [place] No Information February-0 2 Darien Garber. [address] [facility] [address], Aki avelar [place], [id number] , [place]. tel:[phone] Referring Provider: Lito Rajan, [address], [address]. tel:[phone] OFFICE VISIT, [facility], [address] [place] [address], [id number] , [place] tel:[phone] [facility] [place] low back pain (chief complaint) Rheumatoid arthritisDepressio nChronic pain syndromePain in right hipFibromyalgiaLon g term (current) use of opiate analgesic Apr-0 2 Darien Garber. [address] Formerly [facility] [address], [place], [id number] , [place]. tel:[phone] Referring Provider: Braxton Burnette, [address] [place] [address] [place], [address] . tel:[phone] OFFICE/OUTPAT IENT VISIT, [facility], [address] [place] [address] P[place], [place], [id number] , [place] tel:[phone] [facility] low back pain (chief complaint) Ankylosing spondylitis of unspecified sites in spineRadiculopathy , lumbar regionFibromyalgia DepressionLong term (current) use of opiate analgesicChronic pain syndromeRheumatoid arthritisMyalgia, other sitePain in right hip Mar-0 2 Shipley Aron. [address] [facility] [address], [place], [id number] , [place]. [phone] Referring Provider: Braxton Burnette, [address] [facility] [place], [address] . tel:[phone] OFFICE VISIT, [facility], [address] [place] [address], [id number] , [place] tel:[phone] [facility] low back pain (chief complaint) Ankylosing spondylitis of unspecified sites in spineRadiculopathy , lumbar regionFibromyalgia DepressionLong term (current) use of opiate analgesicChronic pain syndromeRheumatoid arthritisMyalgia, other sitePain in right hip 2 Nyongesa Shirlene. [address] [facility] [address], [place], [id number] , [place]. tel:[phone] Referring Provider: Lito Rajan, [address], [address]. tel:[phone] OFFICE VISIT, EST TELEMEDICINE [facility], [address] [place] [address], [id number] , [place] [phone] [facility] low back pain (chief complaint) Ankylosing spondylitis of unspecified sites in spineRadiculopathy , lumbar regionFibromyalgia DepressionLong term (current) use of opiate analgesicChronic pain syndromeRheumatoid arthritisMyalgia, other sitePain in right hip 0- 2 Nyongesa Shirlene. [address] [facility] [address], [place], [id number] , [place]. [phone] Referring Provider: Braxton Burnette, [address] [place], [address] . tel:[phone] OFFICE VISIT, EST TELEMEDICINE [facility], [address] [place], [place], [id number] , [place] tel:[phone] [facility] low back pain (chief complaint) Ankylosing spondylitis of unspecified sites in spineRadiculopathy , lumbar regionFibromyalgia DepressionLong term (current) use of opiate analgesicChronic pain syndromeRheumatoid arthritisMyalgia, other sitePain in right hip 1 Nyongesa Shirlene. [address] [facility] [address], [place], [id number] , [place]. tel:[phone] Referring Provider: Braxton Burnette, [facility], [address] . tel:[phone] [facility], [address] [place], [place] [address]Corina [place], [id number] , [place] tel: [phone] [facility] [place] Radiculopathy, lumbar region 1 Dave Limon. [address] [place] [address] PavelRachid galiBUFFY, [id number] , [place]. tel: [phone] [facility], [address] [place] [address] Corina Zhao [place], [id number] , [place] tel: [phone] [facility] [place] No Information 1 [facility] Shirlene. [address] [facility] [address], [place]velar [place], [id number] , [place]. tel: [phone] Referring Provider: Braxton Burnette, [address] [place] [address] [place], [address] . tel:[phone] OFFICE/OUTPAT IENT VISIT, EST [facility], [address] [place] [address] Corina [place], [id number] , [place] tel: [phone] [facility] [place] low back pain (chief complaint) Ankylosing spondylitis of unspecified sites in spineRadiculopathy , lumbar regionFibromyalgia DepressionLong term (current) use of opiate analgesicChronic pain syndromeRheumatoid arthritisMyalgia, other sitePain in right hipEncounter for therapeutic drug level monitoring 1 [facility] Shirlene. [address] [facility] [address], [place]velar [place], [id number] , [place]. tel: [phone] Referring Provider: Braxton Burnette, [address] [place] [address] [place], [address] . tel:[phone] [facility], [address] [place], [place] [address]Corina [place], [id number] , [place] tel: [phone] [facility] lumbago (chief complaint) Ankylosing spondylitis of unspecified sites in spineRadiculopathy , lumbar regionSpondylosis without myelopathy or radiculopathy, lumbar region Oct- 1 Enma Alexander. [address] [place] [address] Rachid Zhao [place], [id number] , [place]. tel:[phone] Referring Provider: Braxton Burnette, [address] [place] [address] [place], [address] . tel:[phone] OFFICE/OUTPAT IENT VISIT, [facility], [address] [place] [address] [place], [place], [id number] , [place] tel:[phone] [facility] Pain [facility] low back pain (chief complaint) Radiculopathy, lumbar regionFibromyalgia Rheumatoid arthritisDepressio nLong term (current) use of opiate analgesicAnkylosin g spondylitis of unspecified sites in spineChronic pain syndrome Jul-0 1 Michelleleslie Garber. [address] [facility] [address], [place]ar [place], [id number] , [place]. [phone] Referring Provider: Braxton Burnette, [address] [place] [address] [place], [address] . tel:[phone] [facility], [address] [place] [address] [place], [id number] , [place] tel:[phone] [facility] Radiculopathy, lumbar region Sep-2 1 [facility] Garber. [address] Formerly [facility] [address], [place]ki [place]entino [place], [id number] , [place]. tel:[phone] Referring Provider: Braxton Burnette, [address] [place] [address] [place], [address] . tel:[phone] [facility], [address] [place] [address] [place], [id number] , [place] [phone] [facility] Radiculopathy, lumbar region Sep-2 1 Gulshan Chambers. [facility], [address], [place], [address], [place]. tel: [phone] Referring Provider: Braxton Burnette, [address] [facility] [place], [address] . tel:[phone] OFFICE/OUTPAT IENT VISIT, EST [facility], [facility] [place], [id number] , [place] tel: [phone] [facility] Back Pain (chief complaint) FibromyalgiaRheuma toid arthritisDepressio nLong term (current) use of opiate analgesicMyalgia, other sitePain in right hipPain in left hipRadiculopathy, lumbar regionChronic pain syndromeAnkylosing spondylitis of unspecified sites in spine [facility] Shirlene. [address] Formerly [facility] [address], [place], [id number] , [place]. tel: [phone] Referring Provider: Braxton Burnette, [address] [place] [address] [place], [address] . tel:[phone] [facility], [address] [place] [address] [place], [id number] , [place] tel: [phone] [facility] [place] No Information [facility] Shirlene. [address] Formerly [facility] [address], [place], [id number] , [place]. tel: [phone] Referring Provider: Braxton Burnette, [address] [place] [address] [place], [address] . tel:[phone] [facility], [address] [place] [address] [place], [id number] , [place] tel: [phone] [facility] Radiculopathy, lumbar region [facility] Shirlene. [address] Formerly [facility] [address], [place], [id number] , [place]. tel:[phone] Referring Provider: Braxton Burnette, [address] [place] [address] [place], [address] . tel:[phone] [facility], [address] [place] [address] Pavel [place], [id number] , [place] tel: [phone] [facility] [place] No Information 1 Michelleleslie Garber. [address] [facility] [address], [place], [id number] , [place]. tel: [phone] Referring Provider: Braxton Burnette, [address] [place] [address] [place], [address] . tel:[phone] [facility], [address] [place] [address] [place], [id number] , [place] tel: [phone] [facility] Radiculopathy, lumbar region 1 Shipley Aron. [address] [facility] [address], [place]ar [place], [id number] , [place]. tel: [phone] Referring Provider: Braxton Burnette, [address] [place] [address] [place], [address] . tel:[phone] [facility], [address] [place] [address] [place], [id number] , [place] tel: [phone] [facility] Radiculopathy, lumbar region 1 Gaffney Reyes. [facility], [address], [place], [address], [place]. tel: [phone] Referring Provider: Braxton Burnette, [address] [place] [address] [place], [address] . tel:[phone] OFFICE VISIT, EST TELEMEDICINE [facility], [address] [place] [address] [place], [place], [id number] , [place] tel: [phone] [facility] Back Pain (chief complaint) Chronic pain syndromeAnkylosing spondylitis of unspecified sites in spineFibromyalgiaR heumatoid arthritisDepressio nLong term (current) use of opiate analgesicMyalgia, other sitePain in right hipPain in left hipRadiculopathy, lumbar region 1 Violetta Shirlene. [address] [facility] [address], [place], [id number] , [place]. tel: [phone] Referring Provider: Braxton Burnette, [address] [place] [address] Pavel [place], [address] . tel:[phone] OFFICE VISIT, EST TELEMEDICINE [facility], [address] [place] [address] Corina Zhao [place], [id number] , [place] tel: [phone] [facility] Back Pain (chief complaint) Chronic pain syndromeAnkylosing spondylitis of unspecified sites in spineFibromyalgiaR heumatoid arthritisDepressio nLong term (current) use of opiate analgesicMyalgia, other sitePain in right hipPain in left hipRadiculopathy, lumbar region 1 Darien Garber. [address] [facility] [address], [place], [id number] , [place]. tel: [phone] Referring Provider: Braxton Burnette, [address] [place] [address] [place], [address] . tel:[phone] [facility], [address] [place] [address] Corina Zhao [place], [id number] , [place] tel: [phone] [facility] lumbago (chief complaint) Ankylosing spondylitis of unspecified sites in spineRadiculopathy , lumbar regionSpondylosis without myelopathy or radiculopathy, lumbar region 1 Enma Alexander. [address] [place] [address] Rachid [place], [id number] , [place]. tel: [phone] Referring Provider: Braxton Burnette, [address] [place] [address] [place], [address] . tel:[phone] Psych Dx Eval [facility], [address] [place] [address] Corina Zhao [place], [id number] , [place] tel:[phone] Telehealth Pain disorder with related psychological factors 1 Karen Coronado. [address] [place] [address] Rachid Zhao [place], [id number] , [place]. tel: [phone] Referring Provider: Braxton Burnette, [address] [place] [address] [place], [address] . tel:[phone] [facility], [address] [place] [address] Yuan Zhaoa [place], [id number] , [place] tel: [phone] [facility] No Information 1 [facility]. [address] Formerly [facility] [address], [place], [id number] , [place]. tel: [phone] Referring Provider: Braxton Burnette, [address] [facility] [place], [address] . tel:[phone] [facility], [address] [place] [address] Corina [place], [id number] , [place] tel:[phone] [facility] Back Pain (chief complaint) Chronic pain syndromeAnkylosing spondylitis of unspecified sites in spineFibromyalgiaR heumatoid arthritisDepressio nLong term (current) use of opiate analgesicMyalgia, other sitePain in right hipPain in left hipEncounter for therapeutic drug level monitoringRadiculo inga, lumbar region 1 [facility]. [address] [facility] [address], [place]ra [place]ent[place], [id number] , [place]. tel:[phone] Referring Provider: Braxton Burnette, [place], [address] . tel:[phone] OFFICE VISIT, EST TELEMEDICINE [facility], [address] [place] [address] [place], [place], [id number] , [place] tel: [phone] [facility] Back Pain (chief complaint) Spondylosis without myelopathy or radiculopathy, lumbar regionChronic pain syndromeAnkylosing spondylitis of unspecified sites in spineFibromyalgiaR heumatoid arthritisDepressio nLong term (current) use of opiate analgesicMyalgia, other sitePain in right hipPain in left hip 1 [facility]. [address] [facility]ly [facility] [address], [place], [place], [id number] , [place]. tel: [phone] Referring Provider: Braxton Burnette, 72Heriberto [facility] [place], [address] . tel:[phone] OFFICE VISIT, RUST TELEMEDICINE [facility], [address] [facility] [place], [place], [id number] , [place] tel: [phone] [facility] [place] Back Pain (chief complaint) Spondylosis without myelopathy or radiculopathy, lumbar regionChronic pain syndromeAnkylosing spondylitis of unspecified sites in spineFibromyalgiaR heumatoid arthritisDepressio nLong term (current) use of opiate analgesicMyalgia, other sitePain in right hipPain in left hip Apr-2 0-202 1 Nyongesa Shirlene. [address] [facility] [address], [place], [id number] , [place]. tel: [phone] Referring Provider: Braxton Burnette, [address] [place] [address] [place], [address] . tel:[phone] OFFICE/OUTPAT IENT VISIT, [facility], [address] [place] [address] [place], [id number] , [place] tel: [phone] [facility] [place] Back Pain (chief complaint) Spondylosis without myelopathy or radiculopathy, lumbar regionChronic pain syndromeAnkylosing spondylitis of unspecified sites in spineFibromyalgiaR heumatoid arthritisDepressio nLong term (current) use of opiate analgesicMyalgia, other sitePain in right hipPain in left hipEncounter for therapeutic drug level monitoring 1 Nyongesa Shirlene. [address] [facility] [address], [place], [id number] , [place]. tel: [phone] Referring Provider: Braxton Burnette, [address] [place] [address] [place], [address] . tel:[phone] [facility], [address] [place] [address] [place], [place], [id number] , [place] tel: [phone] [facility] [place] No Information 1 Nyongesa Shirlene. [address] [facility] [address], [place], [id number] , [place]. tel: [phone] Referring Provider: Braxton Burnette, [address] [place] [address] [place], [address] . tel:[phone] OFFICE VISIT, EST TELEMEDICINE [facility], [address] [place] [address] [place], [id number] , [place] tel: [phone] [facility] [place] Back Pain (chief complaint) Spondylosis without myelopathy or radiculopathy, lumbar regionChronic pain syndromeAnkylosing spondylitis of unspecified sites in spineFibromyalgiaR heumatoid arthritisDepressio nLong term (current) use of opiate analgesicMyalgia, other sitePain in right hipPain in left hip 1 Nyongesa Shirlene. [address] [facility] [address], [place], [id number] , [place]. tel: [phone] Referring Provider: Braxton Burnette, [address] [place] [address] [place], [address] . tel:[phone] OFFICE VISIT, EST TELEMEDICINE [facility], [address] [place] [address], [id number] , [place] tel: [phone] [facility] Back Pain (chief complaint) Spondylosis without myelopathy or radiculopathy, lumbar regionChronic pain syndromeAnkylosing spondylitis of unspecified sites in spineFibromyalgiaR heumatoid arthritisDepressio nLong term (current) use of opiate analgesicMyalgia, other site 1 Nyongesa Shirlene. [address] [facility]ly [facility] [address], [place], [id number] , [place]. tel:[phone] Referring Provider: Braxton Burnette, [address] [place] [address] [place], [address] . tel:[phone] OFFICE VISIT, EST TELEMEDICINE [facility], [address] [place] [address] [place], [id number] , [place] tel: [phone] [facility] [place] Back Pain (chief complaint) Spondylosis without myelopathy or radiculopathy, lumbar regionChronic pain syndromeAnkylosing spondylitis of unspecified sites in spineFibromyalgiaR heumatoid arthritisDepressio nLong term (current) use of opiate analgesicMyalgia, other site 0 Hiongesa Shirlene. [address] [facility] [address], [place], [place], [id number] , [place]. tel: [phone] Referring Provider: Braxton Burnette, [address] [place] [address] [place], [address] . tel:[phone] [facility], [address] [place] [address] Corina Zhao [place], [id number] , [place] tel: [phone] [facility] Spondylosis without myelopathy or radiculopathy, lumbar region 0 Elodia Pierce. [address] Rachid Zhao [place], [id number] , [place]. tel: [phone] Referring Provider: Braxton Burnette, [address] [place] [address] [place], [address] . tel:[phone] OFFICE VISIT, EST TELEMEDICINE [facility], [address] [place] [address] Corina Zhao [place], [id number] , [place] tel: [phone] [facility] Pain [facility] Back Pain (chief complaint) Spondylosis without myelopathy or radiculopathy, lumbar regionChronic pain syndromeAnkylosing spondylitis of unspecified sites in spineFibromyalgiaR heumatoid arthritisDepressio nLong term (current) use of opiate analgesicMyalgia, other site Sep- 0 Hiongesa Shirlene. [address] [facility] [address], [place], [place], [id number] , [place]. tel: [phone] Referring Provider: Braxton Burnette, [address] [place] [address] [place], [address] . tel:[phone] OFFICE VISIT, EST TELEMEDICINE [facility], [address] [place] [address] Corina Zhao [place], [id number] , [place] tel: [phone] [facility] [place] Back Pain (chief complaint) Chronic pain syndromeAnkylosing spondylitis of unspecified sites in spineFibromyalgiaR heumatoid arthritisDepressio nLong term (current) use of opiate analgesicMyalgia, other siteSpondylosis without myelopathy or radiculopathy, lumbar region 0 Nyongesa Shirlene. [address] [facility] [address], [place], [place], [id number] , [place]. tel: [phone] Referring Provider: Braxton Burnette, [address] [place] [address] [place], [address] . tel:[phone] [facility], [address] [place] [address] Corina Zhao [place], [id number] , [place] tel: [phone] [facility] Spondylosis without myelopathy or radiculopathy, lumbar region 0 Elodia Pierce. [address] MdRachid Gross [place], [id number] , [place]. tel: [phone] Referring Provider: Braxton Burnette, [address] [place] [address] [place], [address] . tel:[phone] OFFICE/OUTPAT IENT VISIT, EST [facility], [address] [place], [id number] , [place] tel: [phone] [facility] Pain [facility] Back Pain (chief complaint) Spondylosis without myelopathy or radiculopathy, lumbar regionChronic pain syndromeAnkylosing spondylitis of unspecified sites in spineFibromyalgiaR heumatoid arthritisDepressio nLong term (current) use of opiate analgesicMyalgia, other site 0 Hiongesa Shirlene. [address] [place] [address], Aki avelar, [place], [id number] , [place]. tel: [phone] Referring Provider: Braxton Burnette, [address] [place] [address] [place], [address] . tel:[phone] [facility], [address] [place] [address] Corina [place], [id number] , [place] tel: [phone] [facility] [place] Spondylosis without myelopathy or radiculopathy, lumbar region Jul- 0 Darien Garber. [address] [place] [address], Aki avelar [place], [id number] , [place]. tel:[phone] [facility], [address] [facility] [place], [id number] , [place] tel:[phone] [facility] Center Spondylosis without myelopathy or radiculopathy, lumbar region 0 Elodia Pierce. [address] [facility] [place], [place], [id number] , [place]. tel:[phone] Referring Provider: Braxton Burnette, [address] [place] [address] [place], [address] . tel:[phone] OFFICE/OUTPAT IENT VISIT, [facility], [address] [place] [address], [id number] , [place] tel:[phone] [facility] Pain [facility] Back Pain (chief complaint) Chronic pain syndromeAnkylosing spondylitis of unspecified sites in spineFibromyalgiaR heumatoid arthritisDepressio nLong term (current) use of opiate analgesicMyalgia, other siteSpondylosis without myelopathy or radiculopathy, lumbar region Jun-2 0 Darien Shirlene. [address] [facility] [address], Ailynsahra valentino [place], [id number] , [place]. tel:[phone] Referring Provider: Lito Rajan, [address], [address]. tel:[phone] OFFICE/OUTPAT IENT VISIT, EST [facility], [address] [facility] [place], [id number] , [place] tel:[phone] [facility] Pain [facility] Back Pain (chief complaint) Chronic pain syndromeAnkylosing spondylitis of unspecified sites in spineFibromyalgiaR heumatoid arthritisDepressio nLong term (current) use of opiate analgesicEncounter for therapeutic drug level monitoring 0 Michelleongesa Shirlene. [address], [place], [id number] , [place]. tel:[phone] Referring Provider: Braxton Burnette, [address] [facility] [place], [address] . tel:[phone] OFFICE VISIT, [facility], [address] [place] [address], [id number] , [place] tel:[phone] [facility] Pain [facility] Back Pain (chief complaint) Chronic pain syndromeAnkylosing spondylitis of unspecified sites in spineFibromyalgiaR heumatoid arthritisDepressio nLong term (current) use of opiate analgesic 0 Nyongesa Shirlene. [address] [facility] [address], [place], [id number] , [place]. tel:[phone] Referring Provider: Lito Rajan, [address], [address]. tel:[phone] OFFICE/OUTPAT IENT VISIT, [facility], [address] [place] [address], [id number] , [place] tel:[phone] [facility] Pain [facility] Back Pain (chief complaint) Chronic pain syndromeAnkylosing spondylitis of unspecified sites in spineFibromyalgiaR heumatoid arthritisDepressio nEncounter for therapeutic drug level monitoringLong term (current) use of opiate analgesic 0 Nyongesa Shirlene. [address] [facility] [address], [place], [id number] , [place]. tel:[phone] Referring Provider: Lito Rajan, [address], [address]. tel:[phone] Family History Family Member Type Diagnosis Age At Onset Daughter Problem RA Payers Payer name Insurance type Covered republican ID Ron nova(s) Albert BULLOCK [id number] Social History Type Description Quantity Date Captured Comments Alcohol Use Details 3 drinks monthly 4 Caffeine Use Details Unknown Tobacco Use Status Current non-smoker 24 Smoking Status Never smoker Sex Female Chief Complaint And Reason For Visit From encounter dated '01/24/2024 07:57'. low back pain (chief complaint). Description: Severity level is 5. Duration: chronic. The problem is improving. It occurs persistently. Symptoms are relieved by pain meds/drugs. Reason For Referral Reason For Referral No Information Plan Of Treatment Date Type Action Status Goal CIRCULAR STUFFER Scanned. Due on due Goal UDT. Due on due Goal HPV. Due on due Goal Creatinine. Due on due Goal PHQ-9. Due on du e Goal Unhealthy drug use screening . Due on due Goal Review Allergy List. 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 Due on due Goal ALT (SGPT). Due on due Goal Lipid panel. Due on due Goal AST (SGOT). Due on due Goal Order Annual PT. Due on due Goal Tobacco Use. Due on due Goal OARS. Due on due Goal Zoster vaccine (1st). Due on due Goal FIT-DNA. Due on due Goal FIT. Due on due Goal Hepatitis C screening. Due o n due Goal CT-Colonography. Due on due Goal Update Social History. Due o n due Goal Medication Reconciliation. D ue on due Goal Weight. Due on d ue Goal Height. Due on d ue Goal OARS. Due on due Goal PHQ-9. Due on du e Goal Order Annual PT. Due on due Goal Zoster vaccine (1st). Due on due Goal Review Allergy List. Due on due Goal Tobacco Use. Due on due Goal Creatinine. Due on due Goal AST (SGOT). Due on due Goal FIT. Due on due Goal Height. Due on d ue Goal ALT (SGPT). Due on due Goal UDT. Due on due Goal CIRCULAR STUFFER Scanned. Due on due Goal Hepatitis C screening. Due o n due Goal FACING CUTTING MACHINE OPERATOR Paperwork. Due on due Goal Update Social History. Due o n due Goal FIT-DNA. Due on due Goal Unhealthy drug use screening . Due on due Goal CT-Colonography. Due on due Goal Weight. Due on d ue Goal Medication Reconciliation. D ue on due Goal Lipid panel. Due on due Goal HPV. Due on due Goal Creatinine. Due on due Goal ALT (SGPT). Due on due Goal Order Annual PT. Due on due Goal OARS. Due on due Goal CIRCULAR STUFFER Scanned. Due on due Goal AST (SGOT). Due on due Goal UDT. 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 Due on due Goal Unhealthy drug use screening . Due on due Goal CT-Colonography. Due on due Goal Review Allergy List. Due on due Goal Lipid panel. Due on due Goal Medication Reconciliation. D ue on due Goal FIT-DNA. Due on due Goal PHQ-9. Due on du e Goal Tobacco Use. Due on due Goal Zoster vaccine (1st). Due on due Goal HPV. Due on due Goal Weight. Due on d ue Goal Hepatitis C screening. Due o n due Goal FIT. Due on due Goal Update Social History. Due o n due Goal Height. Due on d ue Goal FACING CUTTING MACHINE OPERATOR Paperwork. Due on due Goal ALT (SGPT). Due on due Goal CIRCULAR STUFFER Scanned. Due on due Goal Order Annual PT. Due on due Goal OARS. Due on due Goal UDT. Due on due Goal Creatinine. Due on due Goal Zoster vaccine (). Due on due Goal AST (SGOT). Due on due Goal Tobacco Use. Due on due Goal FIT. Due on due Goal PHQ-9. Due on du e Goal Update Social History. Due o n due Goal Review Allergy List. Due on due Goal Lipid panel. Due on due Goal Height. Due on d ue Goal Medication Reconciliation. D ue on due Goal Weight. Due on d ue Goal Hepatitis C screening. Due o n due Goal FIT-DNA. Due on due Goal CT-Colonography. Due on due Goal HPV. Due on due Goal Unhealthy drug use screening . Due on due Goal Zoster vaccine (1st). Due on due Goal Creatinine. Due on due Goal FIT. Due on due Goal Lipid panel. Due on due Goal CIRCULAR STUFFER Scanned. Due on due Goal UDT. Due on due Goal Hepatitis C screening. Due o n due Goal Medication Reconciliation. D ue on due Goal Height. Due on d ue Goal FIT-DNA. Due on due Goal Review Allergy List. Due on due Goal ALT (SGPT). 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 Due on due Goal Tobacco Use. Due on due Goal Weight. Due on d ue Goal OARS. Due on due Goal Order Annual PT. Due on due Goal PHQ-9. Due on du e Goal HPV. Due on due Goal Unhealthy drug use screening . Due on due Goal AST (SGOT). Due on due Goal Update Social History. Due o n due Goal CT-Colonography. Due on due Goal Tobacco Use. Due on due Goal Order Annual PT. Due on due Goal AST (SGOT). Due on due Goal CT-Colonography. Due on due Goal HPV. Due on due Goal Height. Due on d ue Goal CIRCULAR STUFFER Scanned. Due on due Goal Hepatitis C screening. Due o n due Goal Lipid panel. 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 Due on due Goal PHQ-9. Due on du e Goal ALT (SGPT). Due on due Goal UDT. Due on due Goal Update Social History. Due o n due Goal Weight. Due on d ue Goal Review Allergy List. Due on due Goal Unhealthy drug use screening . Due on due Goal Medication Reconciliation. D ue on due Goal FIT-DNA. Due on due Goal FIT. Due on due Goal Creatinine. Due on due Goal OARS. Due on due Goal Zoster vaccine (1st). Due on due Goal CIRCULAR STUFFER Scanned. 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 Due on due Goal FIT-DNA. Due on due Goal PHQ-9. Due on du e Goal Hepatitis C screening. Due o n due Goal OARS. Due on due Goal Height. Due on d ue Goal FIT. Due on due Goal Tobacco Use. Due on due Goal Creatinine. Due on due Goal Order Annual PT. Due on due Goal Lipid panel. Due on due Goal AST (SGOT). Due on due Goal Medication Reconciliation. D ue on due Goal ALT (SGPT). Due on due Goal CT-Colonography. Due on due Goal Unhealthy drug use screening . Due on due Goal Review Allergy List. Due on due Goal UDT. Due on due Goal HPV. Due on due Goal Update Social History. Due o n due Goal Weight. Due on d ue Goal Zoster vaccine (1st). Due on due Goal CIRCULAR STUFFER Scanned. Due on due Goal UDT. Due on due Goal ALT (SGPT). Due on due Goal OARS. 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 Due on due Goal Order Annual PT. Due on due Goal Lipid panel. Due on due Goal FIT-DNA. Due on due Goal Medication Reconciliation. D ue on due Goal HPV. Due on due Goal Zoster vaccine (1st). Due on due Goal Weight. Due on d ue Goal Update Social History. Due o n due Goal Tobacco Use. Due on due Goal Hepatitis C screening. Due o n due Goal FIT. Due on due Goal Height. Due on d ue Goal Review Allergy List. Due on due Goal CT-Colonography. Due on due Goal Unhealthy drug use screening . Due on due Goal AST (SGOT). Due on due Goal Creatinine. Due on due Goal PHQ-9. Due on du e Goal ALT (SGPT). Due on due Goal Order Annual PT. 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 Due on due Goal CIRCULAR STUFFER Scanned. Due on due Goal Creatinine. Due on due Goal OARS. Due on due Goal FIT-DNA. Due on due Goal AST (SGOT). Due on due Goal UDT. Due on due Goal Weight. Due on d ue Goal Tobacco Use. Due on due Goal Lipid panel. Due on due Goal CT-Colonography. Due on due Goal Hepatitis C screening. Due o n due Goal Zoster vaccine (1st). Due on due Goal Height. Due on d ue Goal HPV. Due on due Goal Review Allergy List. Due on due Goal Medication Reconciliation. D ue on due Goal Unhealthy drug use screening . Due on due Goal Update Social History. Due o n due Goal PHQ-9. Due on du e Goal FIT. Due on due Goal UDT. 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 Due on due Goal ALT (SGPT). Due on due Goal FIT. Due on due Goal Order Annual PT. Due on due Goal CIRCULAR STUFFER Scanned. Due on due Goal AST (SGOT). Due on due Goal OARS. Due on due Goal Creatinine. Due on due Goal Hepatitis C screening. Due o n due Goal HPV. Due on due Goal Unhealthy drug use screening . Due on due Goal PHQ-9. Due on du e Goal FIT-DNA. Due on due Goal Weight. Due on d ue Goal Lipid panel. Due on due Goal Height. Due on d ue Goal CT-Colonography. Due on due Goal Review Allergy List. Due on due Goal Zoster vaccine (). Due on due Goal Update Social History. Due o n due Goal Tobacco Use. Due on due Goal Medication Reconciliation. D ue on due Goal Zoster vaccine (1st). 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 Due on due Goal UDT. Due on due Goal Tobacco Use. Due on due Goal Unhealthy drug use screening . Due on due Goal Medication Reconciliation. D ue on due Goal AST (SGOT). Due on due Goal Creatinine. Due on due Goal Height. Due on d ue Goal Order Annual PT. Due on due Goal Review Allergy List. Due on due Goal ALT (SGPT). Due on due Goal CT-Colonography. Due on due Goal OARS. Due on due Goal CIRCULAR STUFFER Scanned. Due on due Goal FIT. Due on due Goal HPV. Due on due Goal Weight. Due on d ue Goal PHQ-9. Due on du e Goal Update Social History. Due o n due Goal Hepatitis C screening. Due o n due Goal Lipid panel. Due on due Goal FIT-DNA. 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 Due on due Goal Creatinine. Due on due Goal OARS. Due on due Goal UDT. Due on due Goal Order Annual PT. Due on due Goal AST (SGOT). Due on due Goal CIRCULAR STUFFER Scanned. Due on due Goal ALT (SGPT). Due on due Goal Weight. Due on d ue Goal PHQ-9. Due on du e Goal Hepatitis C screening. Due o n due Goal Zoster vaccine (1st). Due on due Goal Review Allergy List. Due on due Goal Unhealthy drug use screening . Due on due Goal Lipid panel. Due on due Goal HPV. Due on due Goal Update Social History. Due o n due Goal FIT-DNA. Due on due Goal CT-Colonography. Due on due Goal Height. Due on d ue Goal Tobacco Use. Due on due Goal Medication Reconciliation. D ue on due Goal FIT. Due on due Goal CIRCULAR STUFFER Scanned. Due on due Goal AST (SGOT). 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 Due on due Goal UDT. Due on due Goal OARS. Due on due Goal FIT. Due on due Goal Review Allergy List. Due on due Goal Unhealthy drug use screening . Due on due Goal Order Annual PT. Due on due Goal Weight. Due on d ue Goal ALT (SGPT). Due on due Goal Medication Reconciliation. D ue on due Goal CT-Colonography. Due on due Goal Height. Due on d ue Goal Creatinine. Due on due Goal Zoster vaccine (1st). Due on due Goal PHQ-9. Due on du e Goal FIT-DNA. Due on due Goal Hepatitis C screening. Due o n due Goal Update Social History. Due o n due Goal HPV. Due on due Goal Lipid panel. Due on due Goal Tobacco Use. Due on due Goal OARS. Due on due Goal AST (SGOT). Due on due Goal UDT. Due on due Goal CIRCULAR STUFFER Scanned. Due on due Goal Unhealthy drug use screening . Due on due Goal Zoster vaccine (1st). Due on due Goal HPV. Due on due Goal Order Annual PT. Due on due Goal Review Allergy List. Due on due Goal Weight. Due on d ue Goal PHQ-9. Due on du e Goal Lipid panel. Due on due Goal Height. Due on d ue Goal FIT-DNA. Due on due Goal Medication Reconciliation. D ue on due Goal Tobacco Use. Due on due Goal Creatinine. Due on due Goal Update Social History. Due o n due Goal FIT. 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 Due on due Goal CT-Colonography. Due on due Goal ALT (SGPT). Due on due Goal Hepatitis C screening. Due o n due Goal UDT. Due on due Goal Unhealthy drug use screening . Due on due Goal Update Social History. Due o n due Goal CIRCULAR STUFFER Scanned. Due on due Goal Weight. Due on d ue Goal FIT-DNA. Due on due Goal Tobacco Use. Due on due Goal Review Allergy List. Due on due Goal OARS. Due on due Goal AST (SGOT). Due on due Goal Hepatitis C screening. Due o n due Goal FACING CUTTING MACHINE OPERATOR Paperwork. Due on due Goal CT-Colonography. Due on due Goal HPV. Due on due Goal Height. Due on d ue Goal PHQ-9. Due on du e Goal Zoster vaccine (1st). Due on due Goal FIT. Due on due Goal Medication Reconciliation. D ue on due Goal Order Annual PT. Due on due Goal Lipid panel. Due on due Goal ALT (SGPT). Due on due Goal Creatinine. Due on due Goal Zoster vaccine (1st). Due on due Goal Height. Due on d ue Goal Medication Reconciliation. D ue on due Goal Hepatitis C screening. Due o n due Goal CIRCULAR STUFFER Scanned. Due on due Goal Review Allergy List. Due on due Goal Weight. Due on d ue Goal Lipid panel. Due on due Goal FIT-DNA. Due on due Goal OARS. Due on due Goal AST (SGOT). Due on due Goal Unhealthy drug use screening . Due on due Goal Order Annual PT. 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 Due on due Goal Tobacco Use. Due on due Goal HPV. Due on due Goal PHQ-9. Due on du e Goal Creatinine. Due on due Goal Update Social History. Due o n due Goal ALT (SGPT). Due on due Goal UDT. Due on due Goal CT-Colonography. Due on due Goal FIT. Due on due Goal Update Social History. Due o n due Goal FIT-DNA. Due on due Goal Review Allergy List. Due on due Goal HPV. Due on due Goal Order Annual PT. Due on due Goal Unhealthy drug use screening . Due on due Goal PHQ-9. Due on du e Goal AST (SGOT). Due on due Goal UDT. Due on due Goal ALT (SGPT). Due on due Goal Weight. Due on d ue Goal Zoster vaccine (1st). Due on due Goal Lipid panel. Due on due Goal CIRCULAR STUFFER Scanned. Due on due Goal Hepatitis C screening. Due o n due Goal Height. Due on d ue Goal Tobacco Use. Due on due Goal Medication Reconciliation. D ue on due Goal Creatinine. Due on due Goal OARS. Due on due Goal CT-Colonography. 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 Due on due Goal FIT. Due on due Goal Hepatitis C screening. Due o n due Goal Order Annual PT. Due on due Goal FIT. Due on due Goal UDT. Due on due Goal Lipid panel. Due on due Goal Tobacco Use. Due on due Goal HPV. Due on due Goal Weight. Due on d ue Goal ALT (SGPT). Due on due Goal FIT-DNA. Due on due Goal Review Allergy List. Due on due Goal AST (SGOT). Due on due Goal Zoster vaccine (1st). Due on due Goal Height. Due on d ue Goal CIRCULAR STUFFER Scanned. Due on due Goal CT-Colonography. 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 Due on due Goal OARS. Due on due Goal Medication Reconciliation. D ue on due Goal Update Social History. Due o n due Goal Creatinine. Due on due Goal PHQ-9. Due on du e Goal Unhealthy drug use screening . Due on due Goal Order Annual PT. Due on due Goal Creatinine. Due on due Goal ALT (SGPT). Due on due Goal Tobacco Use. Due on due Goal CIRCULAR STUFFER Scanned. Due on due Goal FIT. Due on due Goal Medication Reconciliation. D ue on due Goal UDT. Due on due Goal FIT-DNA. Due on due Goal AST (SGOT). Due on due Goal PHQ-9. Due on du e Goal OARS. Due on due Goal Hepatitis C screening. Due o n due Goal Review Allergy List. Due on due Goal Height. Due on d ue Goal Lipid panel. Due on due Goal Update Social History. Due o n due Goal CT-Colonography. Due on due Goal Zoster vaccine (1st). Due on due Goal Weight. Due on d ue Goal HPV. 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 Due on due Goal Unhealthy drug use screening . Due on due Goal Order Annual PT. Due on due Goal HPV. Due on due Goal Weight. Due on d ue Goal Unhealthy drug use screening . Due on due Goal Tobacco Use. Due on due Goal Creatinine. Due on due Goal UDT. Due on due Goal Lipid panel. Due on due Goal FIT. 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 Due on due Goal PHQ-9. Due on du e Goal OARS. Due on due Goal Zoster [...] Goal Height. Due on d ue Goal CIRCULAR STUFFER Scanned. Due on due Goal ALT (SGPT). Due on due Goal UDT. Due on due Goal Order Annual PT. Due on due Goal CIRCULAR STUFFER Scanned. Due on due Goal ALT (SGPT). Due on due Goal AST (SGOT). Due on due Goal Height. Due on d ue Goal CT-Colonography. 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 Due on due Goal OARS. Due on due Goal Review Allergy List. Due on due Goal HPV. Due on due Goal Medication Reconciliation. D ue on due Goal Lipid panel. Due on 023 due Goal Creatinine. Due on due Goal Weight. Due on d ue Goal PHQ-9. Due on du e Goal Zoster vaccine (1st). Due on due Goal Tobacco Use. Due on 023 due Goal Update Social History. Due o n due Goal Unhealthy drug use screening . Due on due Goal FIT. Due on due Goal Hepatitis C screening. Due o n due Goal FIT-DNA. Due on due Goal UDT. Due on due Goal Creatinine. Due on due Goal AST (SGOT). Due on due Goal ALT (SGPT). Due on due Goal PHQ-9. Due on du e Goal CT-Colonography. Due on due Goal Unhealthy drug use screening . Due on due Goal Lipid panel. Due on due Goal Review Allergy List. Due on due Goal Hepatitis C screening. Due o n due Goal OARS. Due on due Goal Weight. Due on d ue Goal CIRCULAR STUFFER Scanned. Due on due Goal Order Annual PT. 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 Due on due Goal Medication Reconciliation. D ue on due Goal HPV. Due on due Goal FIT. Due on due Goal Zoster vaccine (1st). Due on due Goal Tobacco Use. Due on due Goal FIT-DNA. Due on due Goal Update Social History. Due o n due Goal Height. Due on d ue Goal CIRCULAR STUFFER Scanned. Due on due Goal Review Allergy List. Due on due Goal ALT (SGPT). Due on due Goal Creatinine. Due on due Goal FIT. Due on due Goal AST (SGOT). Due on due Goal UDT. Due on due Goal CT-Colonography. Due on due Goal Unhealthy drug use screening . Due on due Goal Medication Reconciliation. D ue on due Goal Weight. Due on d ue Goal Order Annual PT. 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 Due on due Goal OARS. Due on due Goal Height. Due on d ue Goal FIT-DNA. Due on due Goal PHQ-9. Due on du e Goal Update Social History. Due o n due Goal Tobacco Use. Due on due Goal HPV. Due on due Goal Lipid panel. Due on due Goal Zoster vaccine (1st). Due on due Goal Hepatitis C screening. Due o n due Goal Medication Reconciliation. D ue on due Goal FIT-DNA. 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 Due on due Goal AST (SGOT). Due on due Goal ALT (SGPT). Due on due Goal Review Allergy List. Due on due Goal Creatinine. Due on due Goal Hepatitis C screening. Due o n due Goal Update Social History. Due o n due Goal Zoster vaccine (). Due on due Goal OARS. Due on due Goal CIRCULAR STUFFER Scanned. Due on due Goal Unhealthy drug use screening . Due on due Goal Order Annual PT. Due on due Goal UDT. Due on due Goal Lipid panel. Due on due Goal HPV. Due on due Goal Height. Due on d ue Goal Weight. Due on d ue Goal PHQ-9. Due on du e Goal CT-Colonography. Due on due Goal FIT. Due on due Goal Tobacco Use. Due on due Goal CT-Colonography. Due on due Goal CIRCULAR STUFFER Scanned. Due on due Goal OARS. Due on due Goal HPV. Due on due Goal UDT. Due on due Goal Zoster vaccine (). Due on due Goal Tobacco Use. Due on due Goal Medication Reconciliation. D ue on due Goal Hepatitis C screening. Due o n due Goal AST (SGOT). Due on due Goal FIT. Due on due Goal Height. Due on d ue Goal Weight. Due on d ue Goal FIT-DNA. Due on due Goal Unhealthy drug use screening . 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 Due on due Goal PHQ-9. Due on du e Goal Creatinine. Due on due Goal ALT (SGPT). Due on due Goal Order Annual PT. Due on due Goal Update Social History. Due o n due Goal Lipid panel. Due on 022 due Goal Review Allergy List. Due on due Goal Creatinine. Due on due Goal AST (SGOT). Due on due Goal OARS. Due on due Goal ALT (SGPT). Due on due Goal Weight. Due on d ue Goal FACING CUTTING MACHINE OPERATOR Paperwork. Due on due Goal Medication Reconciliation. D ue on due Goal Hepatitis C screening. Due o n due Goal Zoster vaccine (1st). Due on due Goal Unhealthy drug use screening . Due on due Goal UDT. Due on due Goal Tobacco Use. Due on due Goal FIT-DNA. Due on due Goal CIRCULAR STUFFER Scanned. Due on due Goal Lipid panel. Due on due Goal HPV. Due on due Goal FIT. Due on due Goal Update Social History. Due o n due Goal Order Annual PT. Due on due Goal Height. Due on d ue Goal Review Allergy List. Due on due Goal PHQ-9. Due on du e Goal CT-Colonography. Due on due Goal OARS. Due on due Goal CIRCULAR STUFFER Scanned. Due on due Goal UDT. Due on due Goal Creatinine. Due on due Goal Order Annual PT. 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 Due on due Goal AST (SGOT). Due on due Goal Weight. Due on d ue Goal Update Social History. Due o n due Goal FIT. Due on due Goal Review Allergy List. Due on due Goal Medication Reconciliation. D ue on due Goal HPV. Due on due Goal ALT (SGPT). Due on due Goal Lipid panel. Due on due Goal CT-Colonography. Due on due Goal Height. Due on d ue Goal Unhealthy drug use screening . Due on due Goal Zoster vaccine (1st). Due on due Goal PHQ-9. Due on du e Goal Hepatitis C screening. Due o n due Goal FIT-DNA. Due on due Goal Tobacco Use. Due on due Goal AST (SGOT). Due on due Goal UDT. Due on due Goal Lipid panel. Due on due Goal CT-Colonography. Due on due Goal HPV. Due on due Goal Update Social History. Due o n due Goal PHQ-9. Due on du e Goal FIT-DNA. Due on due Goal Creatinine. Due on due Goal Tobacco Use. Due on due Goal Review Allergy List. Due on due Goal Hepatitis C screening. Due o n due Goal OARS. 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 Due on due Goal Weight. Due on d ue Goal Zoster vaccine (1st). Due on due Goal Order Annual PT. Due on due Goal Medication Reconciliation. D ue on due Goal CIRCULAR STUFFER Scanned. Due on due Goal Height. Due on d ue Goal FIT. Due on due Goal Unhealthy drug use screening . Due on due Goal ALT (SGPT). 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 Due on due Goal AST (SGOT). Due on due Goal Order Annual PT. Due on due Goal Creatinine. Due on due Goal Tobacco Use. Due on due Goal ALT (SGPT). Due on due Goal OARS. Due on due Goal UDT. Due on due Goal CIRCULAR STUFFER Scanned. Due on due Goal Medication Reconciliation. D ue on due Goal Weight. Due on d ue Goal CT-Colonography. Due on due Goal HPV. Due on due Goal Zoster vaccine (1st). Due on due Goal Height. Due on d ue Goal Unhealthy drug use screening . Due on due Goal Review Allergy List. Due on due Goal PHQ-9. Due on du e Goal Lipid panel. Due on due Goal FIT. Due on due Goal Update Social History. Due o n due Goal Hepatitis C screening. Due o n due Goal FIT-DNA. Due on due Goal CIRCULAR STUFFER Scanned. Due on due Goal Creatinine. Due on due Goal Order Annual PT. Due on due Goal Hepatitis C screening. Due o n due Goal Lipid panel. Due on due Goal PHQ-9. Due on du e Goal FIT-DNA. Due on due Goal AST (SGOT). Due on due Goal ALT (SGPT). Due on due Goal Unhealthy drug use screening . Due on due Goal OARS. 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 Due on due Goal UDT. Due on due Goal Tobacco Use. Due on due Goal CT-Colonography. Due on due Goal HPV. Due on due Goal FIT. Due on due Goal Medication Reconciliation. D ue on due Goal Weight. Due on d ue Goal Review Allergy List. Due on due Goal Zoster vaccine (1st). Due on due Goal Height. Due on d ue Goal Update Social History. Due o n due Goal UDT. Due on due Goal CIRCULAR STUFFER Scanned. 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 Due on due Goal FIT-DNA. Due on due Goal Order Annual PT. Due on due Goal ALT (SGPT). Due on due Goal Creatinine. Due on due Goal AST (SGOT). Due on due Goal OARS. Due on due Goal Height. Due on d ue Goal Zoster vaccine (1st). Due on due Goal Medication Reconciliation. D ue on due Goal FIT. Due on due Goal CT-Colonography. Due on due Goal Review Allergy List. Due on due Goal Weight. Due on d ue Goal HPV. Due on due Goal Update Social History. Due o n due Goal Tobacco Use. Due on due Goal PHQ-9. Due on du e Goal Hepatitis C screening. Due o n due Goal Unhealthy drug use screening . Due on due Goal Lipid panel. Due on due Goal Order Annual PT. Due on due Goal ALT (SGPT). Due on due Goal Creatinine. Due on due Goal Medication Reconciliation. D ue on due Goal UDT. Due on due Goal CIRCULAR STUFFER Scanned. 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 Due on due Goal FIT. Due on due Goal PHQ-9. Due on du e Goal Weight. Due on d ue Goal OARS. Due on due Goal AST (SGOT). Due on due Goal Tobacco Use. Due on due Goal CT-Colonography. Due on due Goal Lipid panel. Due on due Goal Unhealthy drug use screening . Due on due Goal Hepatitis C screening. Due o n due Goal HPV. Due on due Goal Update Social History. Due o n due Goal Review Allergy List. Due on due Goal Zoster vaccine (1st). Due on due Goal Height. Due on d ue Goal FIT-DNA. Due on due Goal UDT. Due on due Goal Creatinine. Due on due Goal Order Annual PT. 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 Due on due Goal CIRCULAR STUFFER Scanned. Due on due Goal AST (SGOT). Due on due Goal ALT (SGPT). Due on due Goal OARS. Due on due Goal HPV. Due on due Goal Lipid panel. Due on due Goal Zoster vaccine (1st). Due on due Goal Weight. Due on d ue Goal Hepatitis C screening. Due o n due Goal CT-Colonography. Due on due Goal Update Social History. Due o n due Goal FIT-DNA. Due on due Goal PHQ-9. Due on du e Goal Unhealthy drug use screening . Due on due Goal Tobacco Use. Due on due Goal Review Allergy List. Due on due Goal FIT. Due on due Goal Medication Reconciliation. D ue on due Goal Height. Due on d ue Goal ALT (SGPT). Due on due Goal AST (SGOT). Due on due Goal UDT. 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 Due on due Goal CT-Colonography. Due on due Goal Hepatitis C screening. Due o n due Goal Tobacco Use. Due on due Goal Review Allergy List. Due on due Goal Height. Due on d ue Goal OARS. Due on due Goal Update Social History. Due o n due Goal CIRCULAR STUFFER Scanned. Due on due Goal FIT-DNA. Due on due Goal Creatinine. Due on due Goal Unhealthy drug use screening . Due on due Goal Lipid panel. Due on due Goal PHQ-9. Due on du e Goal Weight. Due on d ue Goal Medication Reconciliation. D ue on due Goal Order Annual PT. Due on due Goal FIT. Due on due Goal Zoster vaccine (1st). Due on due Goal HPV. Due on due Goal Tobacco Use. Due on due Goal AST (SGOT). Due on due Goal Order Annual PT. 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 Due on due Goal UDT. Due on due Goal PHQ-9. Due on du e Goal CIRCULAR STUFFER Scanned. Due on due Goal OARS. Due on due Goal Medication Reconciliation. D ue on due Goal Weight. Due on d ue Goal Creatinine. Due on due Goal Height. Due on d ue Goal Update Social History. Due o n due Goal ALT (SGPT). Due on due Goal Review Allergy List. Due on due Goal FIT-DNA. Due on due Goal HPV. Due on due Goal CT-Colonography. Due on due Goal FIT. Due on due Goal Hepatitis C screening. Due o n due Goal Zoster vaccine (1st). Due on due Goal Unhealthy drug use screening . Due on due Goal Lipid panel. Due on due Goal Medication Reconciliation. D ue on due Goal Height. Due on d ue Goal OARS. Due on due Goal Update Social History. Due o n due Goal PHQ-9. Due on du e Goal Weight. Due on d ue Goal UDT. Due on due Goal AST (SGOT). Due on due Goal Order Annual PT. Due on due Goal Creatinine. 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 Due on due Goal ALT (SGPT). Due on due Goal Review Allergy List. Due on due Goal Tobacco Use. Due on due Goal CIRCULAR STUFFER Scanned. Due on due Goal UDT. Due on due Goal Medication Reconciliation. D ue on due Goal Update Social History. Due o n due Goal Creatinine. Due on due Goal Order Annual PT. Due on due Goal AST (SGOT). Due on due Goal ALT (SGPT). Due on due Goal OARS. 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 Due on due Goal CIRCULAR STUFFER Scanned. Due on due Goal Tobacco Use. Due on due Goal Height. Due on d ue Goal PHQ-9. Due on du e Goal Review Allergy List. Due on due Goal Weight. Due on d ue Goal Order Annual PT. Due on due Goal ALT (SGPT). Due on due Goal AST (SGOT). Due on due Goal UDT. Due on due Goal Review Allergy List. Due on due Goal Tobacco Use. Due on due Goal Update Social History. Due o n due Goal Creatinine. Due on due Goal OARS. Due on due Goal Medication Reconciliation. D ue on due Goal Height. Due on d ue Goal FACING CUTTING MACHINE OPERATOR Paperwork. Due on due Goal PHQ-9. Due on du e Goal Weight. Due on d ue Goal CIRCULAR STUFFER Scanned. Due on due Goal CIRCULAR STUFFER Scanned. Due on due Goal AST (SGOT). Due on due Goal Order Annual PT. Due on due Goal ALT (SGPT). Due on due Goal UDT. Due on due Goal Medication Reconciliation. D ue on due Goal Review Allergy List. Due on due Goal OARS. Due on due Goal Creatinine. Due on due Goal Update Social History. Due o n due Goal FACING CUTTING MACHINE OPERATOR Paperwork. Due on due Goal Weight. Due on d ue Goal Height. Due on d ue Goal Tobacco Use. Due on due Goal PHQ-9. Due on du e Goal Medication Reconciliation. D ue on due Goal AST (SGOT). Due on due Goal Order Annual PT. Due on due Goal Tobacco Use. Due on due Goal PHQ-9. Due on du e Goal ALT (SGPT). Due on due Goal Weight. Due on d ue Goal Creatinine. 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 Due on due Goal OARS. Due on due Goal CIRCULAR STUFFER Scanned. Due on due Goal Update Social History. Due o n due Goal Height. Due on d ue Goal Review Allergy List. Due on due Goal UDT. Due on due Goal UDT. Due on due Goal CIRCULAR STUFFER Scanned. Due on due Goal Weight. Due on d ue Goal ALT (SGPT). Due on due Goal Height. Due on d ue Goal Creatinine. Due on due Goal Medication Reconciliation. D ue on due Goal Order Annual PT. Due on due Goal Update Social History. Due o n due Goal OARS. Due on due Goal Tobacco Use. 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 Due on due Goal AST (SGOT). Due on due Goal Review Allergy List. Due on due Goal PHQ-9. Due on du e Goal Review Allergy List. Due on due Goal OARS. Due on due Goal Medication Reconciliation. D ue on due Goal Weight. Due on d ue Goal Tobacco Use. Due on due Goal UDT. Due on due Goal Order Annual PT. Due on due Goal AST (SGOT). 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 Due on due Goal Creatinine. Due on due Goal PHQ-9. Due on du e Goal Update Social History. Due o n due Goal ALT (SGPT). Due on due Goal Height. Due on d ue Goal CIRCULAR STUFFER Scanned. Due on due Goal Weight. Due on d ue Goal PHQ-9. Due on du e Goal Medication Reconciliation. D ue on due Goal Review Allergy List. Due on due Goal ALT (SGPT). 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 Due on due Goal UDT. Due on due Goal AST (SGOT). Due on due Goal OARS. Due on due Goal Height. Due on d ue Goal Order Annual PT. Due on due Goal CIRCULAR STUFFER Scanned. Due on due Goal Creatinine. Due on due Goal Tobacco Use. Due on due Goal Update Social History. Due o n due Goal ALT (SGPT). Due on due Goal UDT. Due on due Goal Creatinine. Due on due Goal OARS. Due on due Goal CIRCULAR STUFFER Scanned. 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 Due on due Goal Weight. Due on d ue Goal Order Annual PT. Due on due Goal Medication Reconciliation. D ue on due Goal AST (SGOT). Due on due Goal Review Allergy List. Due on due Goal Tobacco Use. Due on due Goal Height. Due on d ue Goal Update Social History. Due o n due Goal PHQ-9. Due on du e Goal Weight. Due on d ue Goal PHQ-9. Due on du e Goal AST (SGOT). Due on due Goal Medication Reconciliation. D ue on due Goal Review Allergy List. Due on due Goal Creatinine. Due on due Goal ALT (SGPT). Due on due Goal Update Social History. Due o n due Goal Height. Due on d ue Goal UDT. Due on due Goal Order Annual PT. Due on due Goal CIRCULAR STUFFER Scanned. 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 Due on due Goal Tobacco Use. Due on due Goal OARS. Due on due Goal UDT. Due on due Goal PHQ-9. Due on du e Goal CIRCULAR STUFFER Scanned. Due on due Goal Weight. Due on d ue Goal Medication Reconciliation. D ue on due Goal Update Social History. Due o n due Goal Height. Due on d ue Goal Order Annual PT. Due on due Goal ALT (SGPT). Due on due Goal Creatinine. 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 Due on due Goal OARS. Due on due Goal Tobacco Use. Due on due Goal AST (SGOT). Due on due Goal Review Allergy List. Due on due Goal CIRCULAR STUFFER Scanned. Due on due Goal Update Social History. Due o n due Goal ALT (SGPT). Due on due Goal Review Allergy List. Due on due Goal UDT. Due on due Goal AST (SGOT). Due on due Goal PHQ-9. Due on du e Goal Tobacco Use. Due on due Goal Weight. Due on d ue Goal OARS. Due on due Goal Creatinine. 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 Due on due Goal Height. Due on d ue Goal Medication Reconciliation. D ue on due Goal Order Annual PT. Due on due Goal AST (SGOT). Due on due Goal Order Annual PT. Due on due Goal OARS. Due on due Goal Update Social History. Due o n due Goal Weight. Due on d ue Goal Review Allergy List. Due on due Goal Tobacco Use. Due on due Goal PHQ-9. Due on du e Goal Medication Reconciliation. D ue on due Goal Height. Due on d ue Goal FACING CUTTING MACHINE OPERATOR Paperwork. Due on due Goal CIRCULAR STUFFER Scanned. Due on due Goal ALT (SGPT). Due on due Goal UDT. Due on due Goal Creatinine. Due on due Goal OARS. Due on due Goal Creatinine. Due on due Goal Update Social History. Due o n due Goal AST (SGOT). Due on due Goal Height. Due on d ue Goal Weight. Due on d ue Goal UDT. Due on due Goal Order Annual PT. Due on due Goal PHQ-9. Due on du e Goal CIRCULAR STUFFER Scanned. 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 Due on due Goal Medication Reconciliation. D ue on due Goal ALT (SGPT). Due on due Goal Tobacco Use. Due on due Goal Review Allergy List. Due on due Goal AST (SGOT). Due on due Goal Order Annual PT. Due on due Goal OARS. Due on due Goal Tobacco Use. Due on due Goal Weight. Due on d ue Goal Review Allergy List. Due on due Goal Creatinine. Due on due Goal PHQ-9. Due on du e Goal Update Social History. Due o n due Goal Medication Reconciliation. D ue on due Goal UDT. 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 Due on due Goal ALT (SGPT). Due on due Goal Height. Due on d ue Goal CIRCULAR STUFFER Scanned. Due on due Goal AST (SGOT). Due on due Goal PHQ-9. Due on du e Goal Creatinine. Due on due Goal Order Annual PT. 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 Due on due Goal Review Allergy List. Due on due Goal CIRCULAR STUFFER Scanned. Due on due Goal Height. Due on d ue Goal Update Social History. Due o n due Goal ALT (SGPT). Due on due Goal Medication Reconciliation. D ue on due Goal Weight. Due on d ue Goal Tobacco Use. Due on due Goal OARS. Due on due Goal UDT. Due on due Goal Tobacco Use. Due on due Goal UDT. Due on due Goal CIRCULAR STUFFER Scanned. Due on due Goal AST (SGOT). Due on due Goal Weight. Due on d ue Goal PHQ-9. Due on du e Goal FACING CUTTING MACHINE OPERATOR Paperwork. Due on due Goal Review Allergy List. Due on due Goal Height. Due on d ue Goal OARS. Due on due Goal Update Social History. Due o n due Goal Creatinine. Due on due Goal Medication Reconciliation. D ue on due Goal Order Annual PT. Due on due Goal ALT (SGPT). Due on due Goal Height. Due on d ue Goal Order Annual PT. Due on due Goal UDT. 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 Due on due Goal CIRCULAR STUFFER Scanned. Due on due Goal Medication Reconciliation. D ue on due Goal ALT (SGPT). Due on due Goal PHQ-9. Due on du e Goal Tobacco Use. Due on due Goal OARS. Due on due Goal Review Allergy List. Due on due Goal Creatinine. Due on due Goal Update Social History. Due o n due Goal Weight. Due on d ue Goal AST (SGOT). Due on due Goal Order Annual PT. Due on due Goal ALT (SGPT). Due on due Goal AST (SGOT). Due on due Goal OARS. Due on due Goal UDT. Due on due Goal PHQ-9. Due on du e Goal Update Social History. Due o n due Goal Medication Reconciliation. D ue on due Goal Weight. Due on d ue Goal Height. Due on d ue Goal Review Allergy List. 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 Due on due Goal Tobacco Use. Due on due Goal CIRCULAR STUFFER Scanned. Due on due Goal Creatinine. Due on due Goal OARS. Due on due Goal CIRCULAR STUFFER Scanned. Due on due Goal Order Annual PT. Due on due Goal AST (SGOT). Due on due Goal UDT. Due on due Goal ALT (SGPT). Due on due Goal Review Allergy List. Due on due Goal Creatinine. Due on due Goal Weight. Due on d ue Goal FACING CUTTING MACHINE OPERATOR Paperwork. Due on due Goal Tobacco Use. Due on due Goal Medication Reconciliation. D ue on due Goal Height. Due on d ue Goal PHQ-9. Due on du e Goal Update Social History. Due o n due Goal UDT. Due on due Goal OARS. Due on due Goal Medication Reconciliation. D ue on due Goal Weight. Due on d ue Goal Height. Due on d ue Goal FACING CUTTING MACHINE OPERATOR Paperwork. Due on due Goal CIRCULAR STUFFER Scanned. Due on due Goal AST (SGOT). Due on due Goal Order Annual PT. Due on due Goal Creatinine. Due on due Goal ALT (SGPT). Due on due Goal Update Social History. Due o n due Goal Tobacco Use. Due on due Goal Review Allergy List. Due on due Goal PHQ-9. Due on du e Goal Medication Reconciliation. D ue on due Goal OARS. Due on due Goal AST (SGOT). Due on due Goal Update Social History. Due o n due Goal Order Annual PT. Due on due Goal Height. Due on d ue Goal Weight. Due on d ue Goal Tobacco Use. Due on due Goal ALT (SGPT). Due on due Goal UDT. Due on due Goal CIRCULAR STUFFER Scanned. Due on 021 due Goal Review Allergy List. Due on due Goal Creatinine. Due on 21 due Goal FACING CUTTING MACHINE OPERATOR Paperwork. Due on due Goal PHQ-9. Due on du e Referral Ordered: Lito Rajan -Allopathic & Osteopathic [...] region) ordered Referral Referred To: Lito Rajan [facility] DIVISION [place], [place], [phone] Ordered: Referrals: Allopathic & Osteopathic Physicians : Internal Medicine. Lito Rajan ordered Appointment Anais Rukhsana BOOKED History Of Present Illness Encounter Date Complaint History Of Prese nt Illness low back pain Severity level i s 5. Duration: chronic. The problem is improving. It occurs persistently. Symptoms are relieved by pain meds/drugs. Comments: Rukhsana is a 58 y/o female who presents via [facility] for virtual follow up and medication refill in the setting of chronic neck pain, mid back pain, and low back pain with radiation into the BL legs. Pain has been improving this month. Continues to use Medtronic SCS.S/p BL T8-T9, T9-T10 RFA on 11/24/[address] Clifton have been providing >80% benefit. Will be starting PT at [facility] soon for R shoulder pain with radiation into the elbow and down to the hand.Of note, patient is currently on antibiotics for a sinus infection for the next 10 days. Reports current medication regimen provides >99% pain relief and allows for increased functionality. Continues to utilize Percocet 7.5-325mg TID with significant benefit. Denies OIC, which is managed with OTC, or other side effects from current medication regimen. No other concerns today. Comments: Rukhsana is a 58 y/o female who presents for follow up and medication refill in the setting of chronic neck pain, mid back pain, and low back pain with radiation into the BL legs. Pain has been improving this month. Continues to use Medtronic SCS.S/p BL T8-T9, T9-T10 RFA on 11/24/[address] Clifton have been providing significant benefit.Complains of continued R shoulder pain with radiation into the elbow and down to the hand. Notes the pain is primarily in the deltoid muscle. She states she has been doing massage therapy intermittently with slightly decreased pain. Per her report, [facility] did not recommended PT.Reports current medication regimen provides 95% pain relief and allows for increased functionality. Continues to utilize Percocet 7.5-325mg TID with significant benefit. Denies OIC, which is managed with OTC, or other side effects from current medication regimen. No other concerns today. low back pain Severity level i s 3. Duration: chronic. The problem is improving. It occurs intermittently. The client describes the pain as burning, sharp and tingling. Symptoms are aggravated by bending, lifting and lying/rest. Symptoms are relieved by heat, massage, pain meds/drugs and rest. Comments: Rukhsana is a 58 y/o female who presents via [facility] for a virtual follow up and medication refill in the setting of chronic neck pain, mid back pain, and low back pain with radiation into the BL legs. Pain has been fluctuating this month.S/p Repeat BL L4-L5, L5-S1 RFA on 09/28/[address] Clifton, has now began feeling 100% pain relief. Patient notes being able to turn down their SCS due to relief from RFA.S/p BL T8-T9, T9-T10 Confirmatory RFW completed on 11/02/[address] Clifton. Patient is looking forward to their BL T8-T9, T9-T10 RFA scheduled on 4Continues to follow up with [facility] for management of the ongoing R shoulder pain. Per her report, imaging showed thickening. Unsure what the specialist meant but will follow up with them again later this month for further discussion.Reports current medication regimen provides 100% pain relief and allows for increased functionality. Continues to utilize Percocet 7.5-325mg TID with significant benefit. Denies OIC, which is managed with OTC, or other side effects from current medication regimen. No other concerns today. low back pain Severity level i s 4. Duration: chronic. The problem is stable. It occurs persistently. low back pain Severity level i s 8. Duration: chronic. The problem is fluctuating. It occurs persistently. Symptoms are relieved by pain meds/drugs. Comments: Rukhsana is a 58 y/o female who presents via [facility] for a virtual follow up and medication refill in the setting of chronic neck pain, mid back pain, and low back pain with radiation into the BL legs. Pain has been fluctuating this month.S/p Repeat BL L4-L5, L5-S1 RFA on 09/28/[address] Clifton have yet to provide any benefit. Have yet to see any improvement in pain but will continue to monitor the potential relief. After much consideration, she states there is radicular symptoms down the legs.S/p BL T8-T9, T9-T10 Diagnostic RFW on 10/14/[address] Clifton provided 100% relief. Expressed interest in proceeding with the Confirmatory. Notes the Confirmatory RFW is scheduled on 11/02/23.Continues to follow up with [facility] for management of the ongoing R shoulder pain. Per her report, imaging showed thickening. Unsure what the specialist meant but will follow up with them again later this month for further discussion.Reports current medication regimen provides 90% pain relief and allows for increased functionality. Continues to utilize Percocet 7.5-325mg TID with significant benefit. Denies OIC, which is managed with OTC, or other side effects from current medication regimen. No other concerns today. Comments: Rukhsana is a 58 y/o female who presents via [facility] for a virtual follow up and medication refill in the setting of chronic low back pain with radiation into the R hip. Pain has been worse this month.States mid back pain has been progressively worsening and inquires today about possible procedures to relieve increased pain. Notes she is also experiencing increased pain in her low back that radiates anteriorly to her BL hips (R>L) and groin, and inquires about a repeat RFA at this time. 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 Notes there were no significant findings for her shoulder and states she had a shoulder cortisone injection on 08/30/2023 with relief. States she has an appointment with her bituminous distributor operator in 2023. Reports current medication regimen provides moderate pain relief and allows for increased functionality. Continues to utilize Percocet 7.5-325mg TID with benefit. Endorses intermittent OIC which is managed with OTC. Denies other side effects from current medication regimen. No other concerns today. low back pain Severity level i s 6. Duration: chronic. The problem is worsening. Location of pain is lower back and bilateral hips. low back pain Severity level i s mild-moderate. Duration: chronic. The problem is fluctuating. It occurs persistently. Location of pain is lower back. The client describes the pain as an ache and burning. Comments: Rukhsana is a 58 y/o female who presents for follow up and medication refill in the setting of chronic low back pain with radiation into the R hip. Pain has been stable this month. Denies any new symptoms or changes. Continues to use the Medtronic SCS with some benefit and states her most recent reprogramming has provided relief.S/p right foot surgery with Dr. Suresh at [facility] in [place]. Notes she has had increased soreness and bruising on dorsal foot, ankle, and posterior knee following the procedure, and she has a follow up appointment on 09/01/2023. 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 Notes there were no signifigant findings for her shoulder and states she will have shoulder cortisone injection on 08/30/2023. States she has an appointment with her bituminous distributor operator in 2023. Reports current medication regimen provides moderate pain relief and allows for increased functionality. Presents short of prescribed medication today and states she took more medication for post-operative pain. Continues to utilize Percocet 7.5-325mg TID with benefit. Notes she isn't utilizing medical cannabis regularly and only takes sparingly with increased pain. Endorses intermittent OIC which is managed with OTC. Denies other side effects from current medication regimen. No other concerns today. low back pain Severity level i s 2. Duration: chronic. The problem is stable. It occurs persistently. The client describes the pain as an ache. Symptoms are aggravated by bending, lifting, standing, twisting, housework, movement, stairs and prolonged positioning. Symptoms are relieved by massage, pain meds/drugs, stretching and changing positions. Comments: Rkuhsana is a 57 y/o female who presents for follow up and medication refill in the setting of chronic low back pain with radiation into the R hip. Pain has been stable this month. Denies any new symptoms or changes. Continues to use the Medtronic SCS with some benefit and will be meeting with the reps today for the intermittent tingling down the anterior legs when she flexes and extends.Patient will be following up with [facility] for management of the migraines and neck pain with radiation into the R arm.Reports current medication regimen provides 90% pain relief and allows for increased functionality. Continues to utilize Percocet 7.5-325mg TID and medical cannabis with significant benefit. Endorses intermittent OIC which is managed with OTC. Denies other side effects from current medication regimen. No other concerns today. Comments: Rukhsana is a 57 y/o female who presents for follow up and medication refill in the setting of chronic low back pain with radiation into the R hip. Pain has been fluctuating this month. Mid-low back pain with radiation into the R hip have been the most bothersome. Notes the mid back pain occurs more frequently than the low back pain. Continues to use the Medtronic SCS with benefit. Reports intermittent tingling down the legs when she flexes and extends. Believes the tingling is from the SCS. Also states the device have been alerting her of low battery despite being charged up. Notes the IPG site is touchy and she tries to not move when it's on. Complains of ongoing neck pain with radiation down the R arm. Notes she has been experiencing tingling in the pointer finger and middle finger on the R hand. Reports current medication regimen provides significant pain relief and allows for increased functionality. Rates her pain as 7/10 without medications and 3/10 with medications. Continues to utilize Percocet 7.5-325mg TID and medical cannabis with significant benefit. Endorses intermittent OIC which is managed with OTC. Denies other side effects from current medication regimen. No other concerns today. low back pain Severity level i s 3. Duration: chronic. The problem is fluctuating. It occurs intermittently. The client describes the pain as an ache, burning and tingling. Symptoms are aggravated by lifting, standing, walking, lifting and prolonged positioning. Symptoms are relieved by heat, massage, pain meds/drugs, stretching and sitting. Comments: Rukhsana is a 57 y/o female who presents for virtual follow up and medication refill in the setting of chronic low back pain with radiation into the BL legs (L>R). Pain has been stable this month. Denies any new symptoms or changes. Continues to use the Medtronic SCS with benefit.Notes she recently returned back from [place] and was able to manage her pain well. She will be following up with rheumatology soon.Reports current medication regimen provides 90% pain relief and allows for increased functionality. Continues to utilize Percocet 7.5-325mg TID and medical cannabis with significant benefit. Presents with a small surplus today. Endorses intermittent OIC which is managed with OTC. Denies other side effects from current medication regimen. No other concerns today. low back pain Severity level i s 7. Duration: chronic. The problem is stable. It occurs persistently. low back pain Severity level i s 7. Duration: chronic. The problem is stable. It occurs persistently. Comments: Rukhsana is a 57 y/o female who presents for virtual follow up and medication refill in the setting of chronic low back pain with radiation into the BL legs (L>R). Pain has been stable this month. Denies any new symptoms or changes. Continues to use the Medtronic SCS with benefit.Mentions she recently came back from a trip and will be heading to [place] next week. Has had increasing arm pain, but will follow up with orthopedics soon. Intends to start HEP.Reports current medication regimen provides 90% pain relief and allows for increased functionality. Continues to utilize Percocet 7.5-325mg TID and medical cannabis with significant benefit. Endorses intermittent OIC which [...] in the setting of chronic low back pain with radiation into the BL legs (L>R). Pain has been stable this month. Denies any new symptoms or changes. Continues to use the Medtronic SCS with benefit.Patient states she experienced a fall recently when she was out walking her dog and got yanked to her knees. Had followed up with orthopedics for the knee pain and was assured nothing was broken. Reports current medication regimen provides 99+% pain relief and allows for increased functionality. Continues to utilize Percocet 7.5-325mg TID and medical cannabis with significant benefit. Endorses intermittent OIC which is managed with OTC. Denies other side effects from current medication regimen. No other concerns today. Comments: Rukhsana is a 57 y/o female who presents for follow up and medication refill in the setting of chronic low back pain with radiation into the BL legs (L>R). Pain has been stable this month. Denies any new symptoms or changes. Continues to use the Medtronic SCS with benefit.S/p R C5-C6 microdisectomy on 09/07/22. Continues to do PT through [facility] in [place] for strength and conditioning. Have been seeing an improvement in neck pain but does note intermittent R arm pain.Of note, patient has been prescribed Lexapro. She states she has obtained better sleep, decreased agitation, and improvement in mood. Reports current medication regimen provides 90% pain relief and allows for increased functionality. Continues to utilize Percocet 7.5-325mg TID and medical cannabis with significant benefit. Requests for recertification of medical cannabis. Endorses intermittent OIC which is managed with OTC. Denies other side effects from current medication regimen. No other concerns today. low back pain Severity level i s 5. Duration: chronic. The problem is stable. It occurs persistently. Symptoms are relieved by pain meds/drugs. low back pain Severity level i s 6. Duration: chronic. The problem is stable. It occurs persistently. Symptoms are relieved by pain meds/drugs. Comments: Rukhsana is a 57 y/o female who presents via [employer] for virtual follow up and medication refill in the setting of chronic low back pain. Pain has been stable this month. Notes fluctuation of pain due to the change in weather. Continues to use her Medtronic SCS with benefit.S/p R C5-C6 microdisectomy on 09/07/22. Recently started PT through [facility] in [place] for strengthening and conditioning of the neck. [...] a 57 y/o female who presents via [facility] for virtual follow up and medication refill [...] a 57 y/o female who presents via [facility] for virtual follow up and medication refill [...] S/p R C5-C6 microdiscectomy on 09/07/22 with [facility]. She states she is still sore [...] for R cervical surgery on 09/07/22 with [facility]. Notes she will be staying for one night at [facility] after her surgery. Inquires what the correct procedure is for receiving medications post-op. Understands she can contact [facility] if her surgeon is not comfortable with [...] a 56 y/o female who presents via [employer] for virtual follow up and medication refill in the setting of chronic low back pain. Pain has been fluctuating this month. Continues to utilize her SCS with moderate relief. She states she has been turning the stimulator up at higher levels in order to relieve the pain with no success. Inquires about possible reprogramming with [email or web address].Secondarily c/o pain in the neck/right shoulder with radiation down into the right arm. Her shoulder and neck MRI have been completed at [facility]. She states neck MRI results showed [...] a 56 y/o female who presents via [employer] [facility] for virtual follow up and medication refill in the setting of chronic low back pain. Her pain is stable since she was last seen.Secondarily c/o pain in the neck/right shoulder with radiation down into the right arm. Her shoulder and neck MRI were rescheduled at [facility].Reports current medication regimen provides 90% pain [...] a 56 y/o female who presents via [employer] for virtual follow up and medication refill in the setting of chronic low back pain. She states her pain is improved since she was last seen. She reports TPI on 04/06/22 was especially beneficial and it helped a lot.At [facility] she reported pain in the neck/right shoulder with radiation down into the right arm. She reports she has scheduled her shoulder and neck MRI on 04/20/22 at [facility].Reports current medication regimen provides 90% pain [...] is increasing icing. Reports hip injections at [facility] were only temporarily helpful and notes it is easily flared. Notes her bituminous distributor operator told her the Piriformis muscle might be tight. She notes she will be doing chiropractic therapy later today 02/16/22.Reports she has been traveling the past week and they recently drove down to [place]. States she went to the [facility] for her jaw pain and they [...] relief with most recent hip injections at [facility] and stretches recommended by her bituminous distributor operator. Reports current medication regimen provides 90% pain [...] to feel off following returning home from [place]. States she has a follow-up scheduled with [...] 56 y/o female, meeting with us via [employer] for virtual follow up and medication refill in the setting of chronic low back pain. She states her pain is worse this month. She reports she went on a girl's trip to [place] recently and was sick for 5 days with dehydration. She states she was hospitalized and given potassium and hydration therapy in [place]. She states recovering from this has made her pain worse and her whole body hurts.S/p Lumbar Medtronic Intellis SCS Implant on 07/07/[address] Reyes Richardson with 85-90% relief. She states she continues to adjust the programs. BL hips and BL shoulders are the areas of worst pain today. She continues to report that her BL hip injections from [facility] in [place] on 08/24/21 have not been helpful and has scheduled a repeat of this. She continues to alternate THC cream and diclofenac gel for her hips, which is helpful. She will also be meeting with [facility] to see if she can receive BL [...] report that her BL hip injections from [facility] in [place] on 08/24/21 have not been helpful and is waiting to schedule a repeat of these. At [facility] she reported she has been [...] us via [facility] for virtual follow up medication refill in [...] skin.She states her BL hip injections from [facility] in [place] on 08/24/21have not been helpful. She reports [...] from Medtronic.She states her hip injections from [facility] in [place] on 06/05/21 have worn off and so her hip pain tends to wake her up at 5am. She alternating THC cream and diclofenac gel for this which is helpful. She has switched rheumatologists to a provider at [facility] Reports current medication regimen provides 85% [...] for next 6 weeks. She would like [employer] [facility] to twick her SCS a little bit [...] sometimes. Pt has an upcoming event this weekend - that may cause pain flare ups. [...] bilateral hip joint injection with ultrasound at [facility].Foot pain persists. Her surgeon determined the [...] she is planning on following up with [facility] to schedule injections for the hips. She [...] relief. Back Pain (comments) Rukhsana is m jocyting with us for follow up and medication [...] at the pharmacy last month. She called [facility] to get the remaining amount sent, but [...] at home.She has been following up with [facility] for neck and shoulder pain. They ordered cervical MRI to be completed at [facility].Reports current medication regimen provides 75% pain [...] Recently started PT for the hips in [place]. Details recent appt at [facility] on 01/29/21. She had a cervical DOMINIC, [...] was helping out a friend at the [facility] and found that walking and standing on concrete aggravates her hip and lateral thigh pain. She was able to tolerate the 2 day car ride down better with belbuca and percocet.Her foot pain is stable, aggravated by change in weather, especially rain. She will be following up with PT at [facility].She has been following up with Dr. Pablo Oliver at [facility] for IBS and psoriasis. She was [...] to complete PT for her ankle at [facility].Reports current medication regimen provides 85% pain relief [...] positions. Back Pain (comments) Rukhsana is m eeting [...] [facility] Virtual Visit for following up and RFA pre-procedure [...] is m eeting with us today via [facility] Virtual Visit for following up and medication [...] calves and tingling in toes. She consulted [facility] who diagnosed her with ankylosing spondylitis and osteoarthritis. She describes a localized area on her low back that swells and enlarges during pain flares.She also has neck pain with radiation into arms. Reports hx of headaches, currently managed with Imitrex and naltrexone.Reports hx rheumatoid arthritis in widespread joints, worst in knuckles, hands, and knees.Referred by PCP.Treatment Tried:cervical nerve block at [facility] - helpful for radiating pain in arms.lumbar DOMINIC - first helpful, repeat not helpful.PT at [facility] in [place] and [facility] in [place] - not helpful.Chiropractic and massage - somewhat [...] Chronic pain syndrome impression Rukhsana is a 58 y/o f emale here with chronic neck pain, mid back pain, low back pain with radiation into the BL legs (L>R), and R hip pain. Hx of fibromyalgia, ankylosing spondylitis, RA and osteoarthritis.[Forwarded Hx]Currently receiving injections for the R hip through [facility] in [place] and biologic injections with rheumatology through [facility] assessment Pain in right shoulder impression Ongoing R shoulder p ain, primarily at the deltoid muscle, with radiation into the elbow and down to the hand.[Forwarded Hx]Recent imaging showed thickening of the shoulder assessment Ankylosing spondylitis of unspec ified sites in spine impression Hx of ankylosing spo ndylitis of cervical and lumbar region diagnosed by [facility]. [Forwarded Hx]Previous C7-T1 IESI through [facility] was beneficial and Cervical RFA provided significant relief for ~2-3 months. PT for neck and mid back pain with short-term relief assessment Other spondylosis, thoracic miguel on impression Ongoing pain in mid back. S/p BL T8-T9, T9-T10 RFA on 11/24/[address] Clifton provided >80% pain relief.[Forwarded Hx]Thoracic CT on 08/16/23CONCLUSION:1. No significant stenosis or CT evidence of neural impingement.2. Mild multilevel thoracic disc degeneration.3. Autofusion across T2-T4 facet joints bilaterally.4. Neurostimulator leads course within the dorsal thoracic canal and terminate at T8 level assessment Other spondylosis, lumbar region impression Ongoing pain in low back with radiation into the hips (R>L) and groin, down the BL legs.[Forwarded Hx]S/p Medtronic SCS implant on 07/07/21. Continues to use the SCS with benefit. Have been able to turn off the device for a bit with the relief from the most recent RFA.S/p Repeat BL L4-L5, L5-S1 RFA on 09/28/[address] Clifton provided 100% pain relief.Previous BL L4-L5, L5-S1 RFA with benefit for 3+ months.Lumbar MRI on 04/08/21CONCLUSION: 1. Minimal ventral spondylosis of the lumbar spine without stenosis or neural impingement.2. No acute fracture, osseous destructive lesion, disc herniation, stenosis or neural impingement assessment Postlaminectomy syndrome, not el sewhere classified impression Ongoing neck pain wi th associated headaches and radiation into the R arm.[Forwarded Hx]Hx of R C5-C6 microdiscectomy on 09/07/[address] Andreas Alex through [facility].Cervical MRI on 06/01/22CONCLUSION: Study challenged by motion artifact, with multilevel spondylosis not significantly changed from prior study, with these findings:1. Mild to moderate C3-4 through C5-6 and minimal C6-7 central stenosis with encroachment or mild impingement of ventral cord.2. 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 Patient has been managing medications appropriately, and is not confused or oversedated during our office visit. MNPMP queried and shows no outside prescriptions. UDT results from 12/27/23 previously reviewed and are consistent with current medication regimen. 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 Limited relief or cure has been obtained despite reasonable treatment options, including multiple Rx regimens, PT. Patient's last UDT dated 12/27/23 was appropriate. The patient is an appropriate candidate for medical cannabis. Patient certified for medical cannabis Mental Status Date Cognitive Assessment Orientation - [place] ed to time, place, person, situation. Patient Care Teams Name Effective Dates (start - stop) Status Members No Information
--- OUTSIDE RECORDS SUMMARY | 2024-02-07 17:40 | XMS_ITS | Continuity of Care Document ---
Author Name Unknown Organization [facility] Address [address] [place] [address] Phone Care Team Providers Care Industrial Refrigeration Mechanic Name Role Phone Unavailable Unavailable Unavailable Allergies, Adverse Reactions, Alerts Substance Reaction Status Criticality etanercept headaches Active No Information morphine vomiting Active No Information Medications Medication Instructions Dosage Effective Dates (start - stop) Status Comments tramadol 50 mg tablet take 2 tablets by oral route nightly - Active biestrogen one pump daily of topical cream - Active PROGESTERONE 40MG ORAL take 150 mg daily - Active hydrocodone 7.5 mg-acetaminophen 325 mg tablet take 1 tablet by oral route every 6 hours as needed for pain 1.00 tablet - Active cyclobenzaprine 5 mg tablet take 1 tablet by oral route 2 times every day 5 MG - Active Mucinex 600 mg tablet,extended release bi-layer take twice daily - Active Iron (ferrous sulfate) 325 mg (65 mg iron) tablet take one tab daily - Active Lexapro 20 mg tablet take 1 tablet by oral route every day 20 MG - Active Lyrica 100 mg capsule take 1 Capsule by ORAL route 2 times every day 100 MG - No Longer Active Lyrica 50 mg capsule take 1 capsule by oral route 2 times every day 50 MG - No Longer Active Lyrica 50 mg capsule take 1 capsule by oral route 2 times every day 50 MG - No Longer Active Samples: [id number] Exp 12/2015 Procedures Procedure Date Est Pt Eval 15 Min New Pt Eval 30 Min Advance Directives Directive Yes / No Effective Date File Name No Information Encounters Encounter Description Practice Location Reason(s) For Visit Diagnoses Date Provider Providers Copied on Encounter Est Pt Eval 15 Min [facility] Dai, [address], [place] [id number], [place] tel:[phone] [facility] No Information 4 No Information Referring Provider: REFERRAL SELF, [place]. New Pt Eval 30 Min MADAI [facility]aiC, [address], [place], [id number], [place] tel:[phone] [facility] No Information 4 No Information Referring Provider: REFERRAL SELF, [place]. Family History Family Member Type Diagnosis Age At Onset N/A Problem (finding) rheumatoid arthritis Payers Payer name Insurance type Covered democrat ID Ron nova(s) [employer] MC [id number] Social History Type Description Quantity Date Captured Comments Alcohol Use Details 3-5 drinks weekly Caffeine Use Details coffee 1 cup per day Tobacco Use Status No Information Smoking Status Never smoker Sex Female Vital Signs Date / Time: Height Weight BMI Pulse Rate Blood Pressure Temperature Respiratory Rate Body Surface Area Head Circumference Head Circ. Percentile Wt./Hugh. Percentile BMI percentile Pulse Ox Inhaled Ox 78 /min 110/77 mm[Hg] 16 /min 98 % Chief Complaint And Reason For Visit No [...]
--- OUTSIDE RECORDS SUMMARY | 2024-02-07 17:40 | XMS_ITS | Clinical Summary ---
Author Name Unknown Organization [facility] Address [address] [place] [address] Care Team Providers Care Chemist Intern Name Role Phone Lito Rajan MD Primary Care Provider [phone] Source Comments You are receiving this document as you are listed as the primary care provider,follow-up provider, or the patient has been referred to you for consultation.This is in compliance with the Medicare and[facility] EHR Incentive Program,which states Providers who transition their patient to another setting of careor provider of care or refers their patient to another provider of care shouldprovide summary care record for each transition of care or referral. the Shelf Allergies Active Allergy Reactions Criticality Noted Date Comments Etanercept 12/24/2014 PN: Headaches Morphine 12/24/2014 PN: Nausea and vomiting Pregabalin 12/24/2014 PN: Headache, brain fogginess Medications Medication Sig Dispensed Refills Start Date End Date Status fluticasone (AKA FLONASE) 50 MCG/ACT nasal solutionIndications :MILAN ROBLEDODec 24, 2014 9:21 AM Received from: External Pharmacy Indications: PN: MILAN ROBLEDO Dec 24, 2014 9:21 AM Received from: External Pharmacy 3 12/07/2014 Active SUMAtriptan (AKA IMITREX) 50 MG tabletIndications:MILAN YANEZ Dec 24, 2014 9:21 AM Received from: External Pharmacy Indications: PN: MILAN ROBLEDO Dec 24, 2014 9:21 AM Received from: External Pharmacy 4 12/05/2014 Active amphetamine-dextroa mphetamine (ADDERALL) 10 MG tablet Take 10 mg by mouth two times a day. 08/12/2021 Active celecoxib (CELEBREX) 100 MG capsule TAKE 1 CAPSULE (100 MG) BY MOUTH 2 TIMES DAILY 08/05/2021 Active estradiol (ESTRACE) 0.1 MG/GM vaginal cream INSERT 1 GRAM VAGINALLY 2 TIMES A WEEK IN THE EVENING 06/16/2021 Active oxyCODONE-acetamino phen (PERCOCET) 7.5-325 MG tablet TAKE ONE TABLET BY MOUTH EVERY SIX HOURS NEEDED, MAX 3/DAY FOR CHRONIC PAIN 07/20/2021 Active traZODone (DESYREL) 50 MG tablet Take 2 Tablets (100 mg) by mouth daily at bedtime. 08/12/2021 Active fexofenadine (HIPOLITO) 180 MG tablet Take 1 Tablet (180 mg) by mouth daily as needed. Active drug not in computerIndications :Vit D and K [place] benadryl mucinex Indications: Vit D and K [place] benadryl mucinex Active diclofenac (VOLTAREN) 1 % gel Apply 2 g to skin 4 times a day. Active injection certolizumab pegol (CIMZIA PREFILLED) 2 X 200 MG/MLIndications:An kylosing Spondylitis,M45.9 Inject 2 mL (400 mg) subcutaneously every 4 weeks. Indications: Rheumatic Disease causing Vertebrae Inflammation, M45.9 2 Each 11 07/26/2022 Active escitalopram (LEXAPRO) 10 MG tablet Take 1 Tablet (10 mg) by mouth daily. 01/04/2023 Active medical cannabis patient certifiedIndication s:Chronic Pain Take as instructed . for 365 doses. Indications: Chronic Pain 01/19/2023 Active certolizumab pegol (CIMZIA) 2 X 200 MG injectionIndication s:Ankylosing Spondylitis,M45.9 Inject 2 mL (400 mg) subcutaneously every 4 weeks. Indications: Rheumatic Disease causing Vertebrae Inflammation, M45.9 1 Kit 11 01/19/2023 Active Active Problems Problem Noted Date Diagnosed Date Chronic pain syndrome 01/19/2023 Ankylosing spondylitis 01/19/2023 Osteoporosis 08/13/2021 Depression 12/24/2014 Fibromyalgia 12/24/2014 Migraine 12/24/2014 Spondyloarthropathy 09/18/2007 Immunizations Name Administration Dates Next Due Flu Vac (3+ yrs) 08/31/2006 HepB Adult (Engerix-B, 20+ yrs, 3 dose series) 0 03/28/2018 Influenza IIV4 (Quadrivalent) 0.5mL (41942) 06/18 PCV13 (Prevnar) 07/13/2018 Tdap 08/21/2020,06/12/2009 Zoster RZV (Shingrix) 01/19/2023 Social History Tobacco Use Types Packs/Day Years Used Date Smoking Tobacco: Never Smokeless Tobacco: Never Alcohol Use Standard Drinks/Week Comments Yes 0 (1 standard drink = 0.6 oz pur e alcohol) Sex and Gender Information Value Date Recorded Sex Assigned at Not on file Gender Identity Not on file Sexual Orientation Not on file Last Filed Vital Signs Vital Sign Reading Time Taken Comments Blood Pressure 128/86 01/19/2023 2:12 PM CDT Pulse 62 01/19/2023 2:12 PM CDT Temperature 36.2 ??C (97.1 ??F) 01/19/2023 2:11 PM CD T Respiratory Rate - - Oxygen Saturation 98% 12/28/2021 10: 55 AM CDT Inhaled Oxygen Concentration - - Weight 74.8 kg (164 lb 14.4 oz) 01/19/2023 2:11 PM CDT Height 172.7 cm (5' 8) 08/13/2021 9:21 AM CDT Body Mass Index 25.07 08/13/2021 9:21 AM CDT Plan of Treatment Health Maintenance Due Date Last Done Comments Cervical Cancer Screening Due 1966 Colon Cancer Screening Plan Due 1966 Mammogram 1966 Adult Preventive Visit 1984 Cholesterol 2011 HepB (2) 04/25/2018 03/28/2018 Zoster/Shingles (2 of 2) 03/16/2023 01/19/2023 COVID-19 Vaccine ( - season) 2023 Influenza (#1) 2023 07/13/2018, 06/19, 07/16/2013, Additional history exists DTaP/Tdap/Td (3 - Tdap) 08/21/2030 08/21/2020, 06/12 HepA Aged Out 03/28/2018 No longer eligi ble based on patient's age to complete this topic Pneumococcal Aged Out 07/13/2018 No longer eligi ble based on patient's age to complete this topic HIV Screening (Preventive Services) Completed 08/13/2021 Hep C Screening (Preventive Services) Completed 01/19/2023, 08/13/2021 Hib Aged Out No longer eligi ble based on patient's age to complete this topic IPV (Polio) Aged Out No longer eligi ble based on patient's age to complete this topic MCV4 Aged Out No longer eligi ble based on patient's age to complete this topic Procedures Procedure Name Priority Date/Time Associated Diagnosis Comments HEPATITIS C ANTIBODY, WITH REFLEX Routine 01/19/2023 3:03 PM CDT Ankylosing spondylitis, unspecified site of spine ([facility]) HIV 1/2 AG/AB 4TH GEN Routine 08/13/2021 10:19 AM CDT Spondyloarthropathy Encounter for long-term (current) use of medications Ankylosing spondylitis, unspecified site of spine ([facility]) from Last 3 Months or Most Recently Relevant to Health Maintenance Results * Hepatitis C Antibody, with Reflex (01/19/2023 3:03 PM CDT) Hepatitis C Antibody Negative (Non Reactive) Negative (Non Reactive) 01/19/2023 8:51 PM CDT [facility] Comment:Antibodies to HCV no t detected. Does not exclude the possiblity of exposure to HCV. Blood Venipuncture / Unknown 01/19/2023 3:03 PM CDT 01/19/2023 3:03 PM CDT Raymundo Mcmullen MD LAB_1 [facility] [address] * HIV 1/2 Ag/Ab 4th Generation (08/13/2021 10:19 AM CDT) HIV 1/2 Antigen/Antib neal (4th generation) Negative (Non Reactive) Negative (Non Reactive) 08/13/2021 4:29 PM CDT [facility] Comment:HIV-1 p24 Antigen an d HIV-1/HIV-2 Antibody not detected Blood Venipuncture / Unknown 08/13/2021 10:19 AM CDT 08/13/2021 10:19 AM CDT Ashley Q Malcolm DO LAB[facility] [address] [place], [place] [address] from Last 3 Months or Most Recently Relevant to Health Maintenance Care Teams Chemist Intern Relationship Specialty Start Date End Date Lito Rajan MD [address] [place] [address] PCP - General 11/11/14
--- OUTSIDE RECORDS SUMMARY | 2024-02-07 17:40 | XMS_ITS | Continuity of Care Document ---
Author Name Unknown Organization [facility] Address [address] [place] [address] Phone Care Team Providers Care Multimedia Programmer Name Role Phone Polly Mcarthur MD Unavailable [...] 20-39Moderate Positive: 40-59Strong Positive: >59 Test Performed at:[facility] [address] [address] LAYNE MEEKS MD Panel Description: HEPATITIS B SURFACE ANTIGEN W /REFL CONFIRM Final HEPATITIS B SURFACE ANTIGEN 2009 18:00:0 0 NON-REACT KIMI NON-REACTIV E N Final Test Performed at:[facility] [address] [address] LAYNE MEEKS MD Panel Description: HEPATITIS C ANTIBODY (REFL) Final HEPATITIS C ANTIBODY (REFL) 2009 18:00:0 0 NON-REACT KIMI NON-REACTIV E N Final SIGNAL TO CUT-OFF 2009 18:00:0 0 0.07 <1.00 N Final Test Performed at[facility] [place] [address] LAYNE MEEKS MD Panel Description: PROTEIN, TOTAL AND PROTEIN ELECTROPHORESIS W/ REFL SANDY Final PROTEIN, TOTAL 2009 18:00:0 0 6.4 g/dL 6.2-8.3 N Final Test Performed at:[facility] [place] [address] LAYNE MEEKS MD ALBUMIN 2009 18:00:0 0 3.7 g/dL 3.5-4.7 N Final [id number]-2-[id number] 2009 18:00:0 0 0.1 g/dL 0.1-0.3 N Final GWLQT-6-EUHFNOTCA 2009 18:00:0 0 0.6 g/dL 0.5-1.0 N Final BETA GLOBULINS 2009 18:00:0 0 1.0 g/dL 0.8-1.4 N Final GAMMA GLOBULINS 2009 18:00:0 0 0.9 g/dL 0.6-1.6 N Final INTERPRETATION 2009 18:00:0 0 Final Protein electrophoresis pattern appears normal. Test Performed at:[facility] [address] [address] LAYNE MEEKS MD Panel Description: IRON AND TOTAL IRON BINDING C APACITY Final IRON, TOTAL 2009 18:00:0 0 65 mcg/dL 40-175 N Final IRON BINDING CAPACITY 2009 18:00:0 0 405 mcg/dL 250-450 N Final % SATURATION 2009 18:00:0 0 16 % (calc) 15-50 N Final Test Performed at:[facility] [place] [id number] LAYNE MEEKS MD Advance Directives Directive Yes / No Effective Date File Name No Information Encounters Encounter Description Practice Location Reason(s) For Visit Diagnoses Date Provider Providers Copied on Encounter [facility], [address], [place], [address], [place] tel:[phone] No Information Jun- 3 [place]. [facility] [address], [place], [address], [place]. tel:[phone] Family History Family Member Type Diagnosis Age [...]
--- OUTSIDE RECORDS SUMMARY | 2024-02-07 17:40 | XMS_ITS | Continuity of Care Document ---
Author Name Unknown Organization [facility] Address [address] [place] [address] Phone Care Team Providers Care Pathologist Name Role Phone Lorenzo Alanis MD Unavailable [...] - Active Procedures Procedure Date Office/Outpatient Visit,New, [facility] 2019 Advance Directives Directive Yes / No Effective Date File Name No Information Encounters Encounter Description Practice Location Reason(s) For Visit Diagnoses Date Provider Providers Copied on Encounter Office/Outpat ient Visit,New, [facility], [address], [place], [place], [id number], [place] tel:[phone] [facility] Rheumatoid arthritis, unspecifiedOther spondylosis, cervical regionAnkylosing spondylitis lumbar region Sep-2 0 [place]. [facility], [address] [place] [address], [place] [address], [place], [place], [id number] , [place]. tel:[phone] Referring Provider: Lorenzo Mc, [facility] [address], [address], [place], [address] . tel:[phone] Family History Family Member Type Diagnosis Age [...]
--- OUTSIDE RECORDS SUMMARY | 2024-02-07 17:40 | XMS_ITS | Data Portability ---
Author Name Unknown Address [address] [place] [address] Phone [phone] Organization [facility], [id number] Address [address] [place] [address] Assessment No assessment recorded. Plan of Treatment Reminders Order Date Submit Date Provider Last Modified By Organization Details Last Modified Time Details Appointments None recorded. Lab hemoglobin (Hb), fingerstick , blood 2020 021 [place] [address] [id number] _[facility] , [address] [place] [address], [address], [place], [address], 14:47:32 pap, LB 2020 021 [facility], [address] [place], [address], 1 14:35:57 HPV DNA, high-risk 2020 021 [facility], [address] [place], [address], 1 14:35:56 Referral None recorded. Procedures None recorded. Surgeries None recorded. Imaging None recorded. Medication Orders estradiol 0.01% (0.1 mg/gram) vaginal cream [address], [address], 3 12:28:23 estradiol 0.01% (0.1 mg/gram) vaginal cream 2021 [facility]22 [facility], [address] [place], [address], 2 14:28:31 Estrace 0.01% (0.1 mg/gram) vaginal cream 2020 021 [id number], [address] [place], [place], [id number], 14:47:38 Patient TargetsNo targets recorded. Patient Instructions Encounter Date Encounter Id Patient Instructions Last Modified By Organization Details Last Modified Time 01/27/2021 [id number] - Encouraged breast self-awareness and monthly breast exams. - Recommend mammogram annually starting at age 40. - Encouraged regular exercise. - Discussed calcium, vitamin D, and weight bearing exercise for bone health. - Recommend colonoscopy starting at age 45. 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 - Reviewed current cervical cancer screening guidelines. [email or web address] Not available 01/27/2021 22:46:14 Reason for Referral None Reported. Results Created Date Observation Date Name Description Value Unit Range Abnormal Flag LastModifiedBy Organization Detail LastModifiedTime 01/27/2021 hemog lobin (Hb), finge rstic k, blood fingerstick hemoglobin 12.0 g/dL 12.0-1 5.0 Not Available [id number], [place], [address], 01/27/2021 14:32:30 01/28/2001/27/2021 HPV DNA, high- risk HPV high risk type 16 negati ve for HPV type 16. negati ve for HPV type 16. Not Available [facility] [address] [place], [address], 02/03/2021 14:35:56 01/28/20 21 01/27/2021 HPV DNA, high- risk HPV high risk type 18 negati ve for HPV type 18. negati ve for HPV type 18. Not Available [facility] [address] [place], [address], 02/03/2021 14:35:56 01/28/20 21 01/27/2021 HPV DNA, high- risk HPV other high risk types negati ve for other high risk HPV types. negati ve for other high risk HPV types. Not Available [facility] [address] [place], [address], 02/03/2021 14:35:56 01/28/20 21 01/27/2021 pap, LB case report see note Not Available [facility] [address] [place], [address], 02/03/2021 14:35:57 Result Notes None recorded. Problems No Known Problems Procedures Surgical History Date Name Laterality Status Provider Name and Address Organization Details Recorded Time 01/28/20 21 Date of Last Pap Smear completed CHARITY DELGADILLO, [facility] [address] [facility],[address], [place], [address], [facility] 02/03/2021 14:55:28 09/17/20 20 Unlisted px foot/toes completed Caty [facility]cgill [facility] 01/27/2021 14:26:55 10/17/19 17 Date of Last Colonoscopy completed Caty mcgill [facility] 01/27/2021 12:58:39 operation on bladder completed Not Available [facility] 05/26/2020 01:05:15 hysterectomy NOS completed Not Available [facility] 05/26/2020 01:05:15 augmentation of breast with immediate insertion of breast prosthesis completed Not Available [facility] 05/26/2020 01:05:15 Gastric bypass for obesity completed Not Available [facility] 05/26/2020 01:05:15 Imaging Results None recorded. Procedure Notes None recorded. Medical Equipment None Reported. Allergies Allergen ID Allergen Name Allergen Category Reaction Reaction Severity Criticality Documentation Date Start Date Code Code System Note Provider Name and Address Organization Details Recorded Time 920121 Topamax medicatio n Not available Not available Not available 05/23/2020 13601 3 RxNorm *Note : 09/17 - Not Available [facility] 0 16:56:51 854291 Enbrel medicatio n Not available Not available Not available 05/23/2020 28063 1 RxNorm *Note : 09/17 - Not Available [facility] 0 16:56:51 460033 morphine sulfate medicatio n Not available Not available Not available 05/23/2020 82318 RxNorm *Note : 09/17 - Not Available [facility] 0 16:56:51 230505 trazodone medicatio n Not available Not available Not available 05/23/2020 77781 RxNorm *Note : 09/17 - Not Available [facility] 0 16:56:51 682661 Humira medicatio n headache severe Not available 01/27/2021 01814 4 RxNorm Caty mcgill [place] [facility] 1 14:27:52 [id number] Remicade medicatio n headache Not available Not available 01/27/2021 15105 0 RxNorm Caty mcgill [place] [facility] 1 14:28:03 Medications Name Sig Start Date Stop Date Status Note LastModified by Organization Details LastModified Time acetaminoph en 325 mg tablet TAKE 1-2 TABLETS BY MOUTH EVERY 6 HOURS NEEDED. active Not Available Not Available No t Available clindamycin HCl 300 mg capsule TAKE 1 CAPSULE BY MOUTH EVERY 6 HOURS. active Not Available Not Available No t Available trazodone 50 mg tablet TAKE ONE TABLET BY MOUTH DAILY 06/07 completed Not Available Not Available Not Available tizanidine 4 mg tablet TK 1 T PO Q 8 H PRN 01/27 completed Not Available Not Available Not Available fluconazole 150 mg tablet TAKE ONE TABLET BY MOUTH ONCE 06/07 completed Not Available Not Available Not Available hydrocodone 5 mg-acetamin ophen 325 mg tablet TK 1 TO 2 TS PO Q 6 H PRN 01/27 completed Not Available Not Available Not Available meloxicam 15 mg tablet TAKE 1 TABLET BY MOUTH EVERY DAY WITH FOOD NEEDED 01/27 completed Not Available Not Available Not Available dextroamphe tamine-amph etamine 10 mg tablet TAKE ONE TABLET BY MOUTH TWICE A DAY 06/07 completed Not Available Not Available Not Available clobetasol 0.05 % topical cream TWICE A DAY TO AFFECTED AREA ON FEET FOR UP TO 2 WEEKS PER MONTH 06/07 completed Not Available Not Available Not Available sumatriptan 50 mg tablet TAKE ONE TABLET BY MOUTH AT ONSET OF HEADACHE, MAY REPEAT EVERY 2 HOURS NEEDED. MAX 200MG/24H RS active Not Available Not Available No t Available ciprofloxac in 500 mg tablet TAKE 1 TABLET BY MOUTH TWICE DAILY 01/27 completed Not Available Not Available Not Available ketorolac 10 mg tablet TAKE ONE TABLET BY MOUTH THREE TIMES DAILY NEEDED 06/07 completed Not Available Not Available Not Available methocarbam ol 750 mg tablet TAKE ONE TABLET BY MOUTH TWICE A DAY NEEDED active Not Available Not Available No t Available trazodone 100 mg tablet TAKE ONE TABLET BY MOUTH EVERY DAY FOR INSOMNIA active Not Available Not Available No t Available dicyclomine 20 mg tablet TAKE 1/2 TABLET (10MG) BY MOUTH FOUR TIMES A DAY 06/07 completed Not Available Not Available Not Available cephalexin 500 mg capsule TAKE ONE CAPSULE BY MOUTH THREE TIMES A DAY FOR INFECTION FOR 7 DAYS 06/07 completed Not Available Not Available Not Available dextroamphe tamine-amph etamine 15 mg tablet TAKE ONE TABLET BY MOUTH TWICE A DAY NEEDED FOR ADHD; ADMINISTE R DOSES AT LEAST 4-6 HOURS APART active Not Available Not Available No t Available gabapentin 300 mg capsule TAKE ONE CAPSULE BY MOUTH TWICE A DAY 06/07 completed Not Available Not Available Not Available hydroxyzine HCl 25 mg tablet 06/07 completed Not Available Not Available Not Available cefuroxime axetil 500 mg tablet TAKE 1 TABLET BY MOUTH TWICE DAILY 06/07 completed Not Available Not Available Not Available oxycodone-a cetaminophe n 7.5 mg-325 mg tablet TAKE ONE TABLET BY MOUTH EVERY FOUR HOURS NEEDED, MAX 3 /DAY, ACUTE ON CHRONIC PAIN active Not Available Not Available No t Available estradiol 0.01% (0.1 mg/gram) vaginal cream INSERT 1 GRAM VAGINALLY 5 TIMES A WEEK IN THE EVENING active Not Available Not Available No t Available methylpredn isolone 4 mg tablets in a dose pack TAKE DIRECTED ON PACKAGE 06/07 completed Not Available Not Available Not Available celecoxib 100 mg capsule TAKE ONE CAPSULE BY MOUTH TWICE A DAY FOR PAIN 06/07 completed Not Available Not Available Not Available ondansetron 4 mg disintegrat ing tablet take 1 tablet by mouth every 8 hours if needed for nausea 06/07 completed Not Available Not Available Not Available fluticasone propionate 50 mcg/actuati on nasal spray,suspe nsion INSTILL 2 SPRAYS INTO EACH NOSTRIL EVERY DAY FOR SEASONAL ORDERS active Not Available Not Available No t Available dicyclomine 10 mg capsule TAKE 1 CAPSULE BY MOUTH FOUR TIMES DAILY 06/07 completed Not Available Not Available Not Available dextroamphe tamine-amph etamine 5 mg tablet TAKE 1 TABLET BY MOUTH TWICE DAILY 06/07 completed Not Available Not Available Not Available amoxicillin 875 mg-potassiu m clavulanate 125 mg tablet TAKE 1 TABLET EVERY 12 HOURS DAILY. 06/07 completed Not Available Not Available Not Available oxycodone 5 mg tablet TAKE 1 TABLET EVERY 4 TO 6 HOURS NEEDED FOR PAIN. 06/07 completed Not Available Not Available Not Available escitalopra m 10 mg tablet TAKE ONE TABLET BY MOUTH EVERY DAY FOR ANXIETY 06/07 completed Not Available Not Available Not Available escitalopra m 20 mg tablet TAKE ONE TABLET BY MOUTH EVERY DAY active Not Available Not Available No t Available chlorhexidi ne gluconate 0.12 % mouthwash RINSE MOUTH WITH 15ML (1 CAPFUL) FOR 30 SECONDS AM AND PM AFTER TOOTHBRUS BERNADINE. EXPECTORA TE AFTER RINSING, DO NOT SWALLOW active Not Available Not Available No t Available vitamin A 06/07 completed Not Available Not Available Not Available cholecalcif carin (vitamin D3) 1,250 mcg (50,000 unit) capsule TK 1 C PO 1 TIME A WK FOR 12 WKS 06/07 completed Not Available Not Available Not Available oxycodone 10 mg tablet 01/27 completed Not Available Not Available Not Available diclofenac 1 % topical gel APPLY TOPICALLY 3 TIMES EVERY DAY TO THE AFFECTED AREA(S) FOR RO/OA 06/07 completed Not Available Not Available Not Available Cimzia 400 mg/2 mL (200 mg/mL x 2) subcutaneou s syringe kit active Not Available Not Available Not Available Senexon-S 8.6 mg-50 mg tablet TAKE TWO TABLETS BY MOUTH TWICE DAILY EVERY DAY NEEDED. 06/07 completed Not Available Not Available Not Available Cosentyx Pen 150 mg/mL subcutaneou s 01/27 completed Not Available Not Available Not Available Belbuca [address] FILM BY BUCCAL ROUTE TWICE DAILY AGAINST THE INSIDE OF THE CHEEK, HOLDING IN PLACE FOR 5 SECONDS, 06/07 completed Not Available Not Available Not Available Belbuca [address] 1 FILM BY BUCCAL ROUTE TWICE DAILY AGAINST THE INSIDE OF THE CHEEK, HOLDING IN PLACE FOR 5 SECONDS, 06/07 completed Not Available Not Available Not Available Evenity 210 mg/2.34 mL (105 mg/1.17 mL x 2) subcutaneou s syringe Inject by subcutane ous route. 06/07 completed Not Available Not Available Not Available Vitals Date Recorded Body height Body mass index (BMI) Body weight Systolic blood pressure Diastolic blood pressure Provider Name and Address Organization Details Last Updated DateTime 06/07/2022 167.64 cm 23.4 kg/m2 67606.89 g 120 mm[Hg] 72 mm[Hg] BUFFY Toussaint [facility] 2 12:11:44 Date Recorded Body height Body mass index (BMI) Body weight Systolic blood pressure Diastolic blood pressure Provider Name and Address Organization Details Last Updated DateTime 06/07/2023 167.64 cm 27.1 kg/m2 00481.52 g 124 mm[Hg] 80 mm[Hg] BUFFY Toussaint [facility] 3 11:47:36 Date Recorded Body weight Body mass index (BMI) Body height Systolic blood pressure Diastolic blood pressure Provider Name and Address Organization Details Last Updated DateTime 09/17/2019 65659.61 2683 g 28.67 kg/m2 167.64 cm 122 mm[Hg] 84 mm[Hg] Not Available [facility] 0 10:53:11 Date Recorded Body height Body mass index (BMI) Body weight Systolic blood pressure Diastolic blood pressure Provider Name and Address Organization Details Last Updated DateTime 04/05/2018 167.64 cm 29.54 kg/m2 92349.40 371 g 132 mm[Hg] 84 mm[Hg] Not Available [facility] 0 10:53:11 Date Recorded Body weight Body height Body mass index (BMI) Systolic blood pressure Diastolic blood pressure Provider Name and Address Organization Details Last Updated DateTime 04/25/2018 01660.40 371 g 167.64 cm 29.54 kg/m2 110 mm[Hg] 76 mm[Hg] Not Available [facility] 0 10:53:11 Date Recorded Body height Body mass index (BMI) Body weight Systolic blood pressure Diastolic blood pressure Provider Name and Address Organization Details Last Updated DateTime 01/27/2021 167.64 cm 27.4 kg/m2 57587.7 g 134 mm[Hg] 82 mm[Hg] BUFFY Toussaint [facility] 14:25:24 Social History Question Answer Notes LastModified by [email or web address] Details LastModified Time Tobacco Smoking Status Never Smoker Pazlopez Acosta BUFFY mcgill [facility] 01/29/2021 07:32:41 What Is Your Level Of Alcohol Consumption? Occasional 4dr/week Information not available 01/29/2021 What Is Your Level Of Caffeine Consumption? Moderate 1-2c/day [email or web address] Information not available 06/07/2023 History Of Domestic Violence No Denies All Domestic Violence Information not available 05/26/2020 Spouse/Partn ers Name Kobe Information not available 01/29/2021 Marital Status [email or web address] Information not available 06/07/2023 Sex: Female Functional Status Question Answer Note LastModified by [email or web address] Details LastModified Time What is your exercise level? Occasional Minimal Amount of Exercise (Once weekly or less) Information not available 05/26/2020 Mental Status None recorded. Family History Relationship Description Onset Age of this Age Resolved Age Notes Maternal Grandfather Family history of stroke Stroke Maternal Grandmother Family history of stroke Stroke Maternal Grandmother Family history of breast cancer Cancer Breast Notes:05/26/2020: *Relative: Aunt *Problem: Melanoma Of Skin: Vaginal Melanoma ( passed from disease) Medical History Condition Response GI- Hemorrhoids GI- Crohn's/Ulcerative Colitis Endocrinology- Osteoporosis Y Neurology- Headaches/Migraines Rheumatology- Autoimmune Disease Y Gynecological History Statement/Question Response Date of Last Pap Smear 01/27/2021 Age at Menarche: 14 Date of Last Colonoscopy 10/17/2016 Obstetrics History GPAL:G 4 P 3 0 0 3 Type Value Multiple Births 0 Full Term 3 Induced 0 Spontaneous 0 Premature 0 Living 3 Ectopics 0 Total 4 Past Encounters Encounter ID Performer Location Encounter Start Date Encounter Closed Date Diagnosis/Indication Diagnosis SNOMED-CT Code [id number] RON LAMB, JESICA [id number] [facility] [address] [facility], [address] [place] [phone] 01/27/2021 14:18:25 01/28/2021 08:23:57 Gynecologic examination [id number] Atrophic vaginitis 66627 015 [id number] HARSHA MELENDEZ, DO [id number] [facility] [address] [facility], [address] [place] [address] 06/07/2022 11:48:10 06/09/2022 11:52:47 Gynecologic examination [id number] Dyspareunia 23179440 Atrophic vulva [id number] HARSHA MELENDEZ, DO [id number] [facility] [address] [facility], [address] [place] [address] 06/07/2023 11:31:05 06/07/2023 14:09:03 Gynecologic examination [id number] Dyspareunia 37410285 Atrophic vulva 751004316 Osteoporosis 81262155 Health Concerns Section Related Observation LastModified by Organization Detai ls LastModified Time None Recorded Concern Status LastModified by Organization Details LastModified Time None Recorded Advance Directives Directive None Recorded Payers Encounter Date Sequence Insurance Name Policy Number Policy Mcgregor Covered Member ID Mcgregor Member ID Guarantor Name 06/07/2023 1 [employer] - DOS PRIOR TO 2023 (MEDICAID REPLACEMENT - HMO) [id number] 1 Rukhsana Manzo [id number] Rukhsana Manzo 06/07/2022 1 [employer] - DOS PRIOR TO 2023 (MEDICAID REPLACEMENT - HMO) [id number] Rukhsana Andrew [facility] [id number] Rukhsana Andrew [facility] 01/27/2021 1 [employer] - DOS PRIOR TO 2021 (MEDICAID REPLACEMENT - HMO) DAGO [place] [id number] Rukhsana Manzo Notes Date Note Type Note Provider Name and Address Organization Details Recorded Time 01/27/2021 text/html HPI Notes: Annua l Gynecologic Exam This patient presents today for an annual gynecologic exam. She is post-hysterectomy The patient reports rare symptoms of perimenopause. These symptoms include hot flashesnight sweats She reports no changes to breasts. The patient denies vaginal itching and burning. The patient's past medical and surgical history were reviewed again today. The medication and allergy list was made current. Sexual History She is sexually active. The patient reports that she is experiencing decreased libido. She denies new partners since last visit. She reports feeling safe in her relationships. The patient declines STD testing today. Healthcare Maintenance The patient's last pap smear was 2017. I reviewed with the patient today ASCCP guidelines for recommended frequency of pap smear testing. Dr. Melendez recommending vaginal paps every 3 years until 2025 due to abnormal results in the past. The patient expressed understanding. The patient was notborn between 1944 and 1964. The patient has osteoporosis and sees rheumatology for this. Her CAGE screen was negative. The patient's depression screening PHQ-2 Score is 1 and the LINSEY-7 is 6States that she is having some situational anxiety due to her plrjgpvs-ja-izf being again after a previous stillbirth. The patient has no additional complaints. RON LAMB, DHRUV [id number] [facility],[address], [place], [address], [place] [facility] 01/27/2021 22:47:01 06/07/2022 text/html HPI Notes: Annua l Gynecologic Exam This patient presents today for an annual gynecologic exam. She is post-hysterectomy The patient reports rare symptoms of perimenopause. These symptoms include hot flashesnight sweats She reports no changes to breasts. The patient denies vaginal itching and burning. The patient's past medical and surgical history were reviewed again today. The medication and allergy list was made current. Sexual History She is sexually active. The patient reports that she is experiencing decreased libido. She denies new partners since last visit. She reports feeling safe in her relationships. The patient declines STD testing today. Healthcare Maintenance The patient's last pap smear was 1 year ago. I reviewed with the patient today ASCCP guidelines for recommended frequency of pap smear testing. Dr. Melendez recommending vaginal paps every 3 years until 2025 due to abnormal results in the past. The patient expressed understanding. The patient was notborn between 1943 and 1963. The patient has osteoporosis and sees rheumatology for this. Her CAGE screen was negative. The patient's depression screening PHQ-2 Score is 1 and the LINSEY-7 is 6States that she is having some situational anxiety due to her clqbkipy-ov-vlh being again after a previous stillbirth. The patient has no additional [place] [id number] [facility],[address], [place], [address], [facility] 07/06/2022 14:28:28 06/07/2023 text/html HPI Notes: Tawanna andrew Gynecologic Exam This patient presents today for an annual gynecologic exam. She is post-hysterectomy The patient reports rare symptoms of perimenopause. These symptoms include hot flashesnight sweats She reports no changes to breasts. The patient denies vaginal itching and burning. The patient's past medical and surgical history were reviewed again today. The medication and allergy list was made current. Sexual History She is sexually active. The patient reports that she is experiencing decreased libido. She denies new partners since last visit. She reports feeling safe in her relationships. The patient declines STD testing today. Healthcare Maintenance The patient's last pap smear was 2 years ago. I reviewed with the patient today ASCCP guidelines for recommended frequency of pap smear testing. Dr. Melendez recommending vaginal paps every 3 years until 2025 due to abnormal results in the past. The patient expressed understanding. The patient was notborn between 1943 and 1963. The patient has osteoporosis and sees rheumatology for this. Her CAGE screen was negative. The patient's depression screening PHQ-2 Score is 1 and the LINSEY-7 is 6States that she is having some situational anxiety due to her umtpabti-as-ldo being again after a previous stillbirth. The patient has no additional [place] [id number] [facility],[address], [place], [address], [place] [facility] 06/07/2023 13:56:39 OBGyn Episode Ob Episode Information Episode Created Date Number of Fetuses Patient Bloodtype Patient rh Status Prepregnancy Weight lbs Domestic Partner Domestic Partner Phone Father Name Triple Drum Operator Status 01/28/20 21 1 CLOSED Fetus Data First Name Last Name Admitted to NICU Weight (g) Sex Living Outcome Pediatric Complications Fetus ID Race Codes Race Delivery Type 4564.04 2704 F Full Term [id number] Ruperto Calculation Initial Ruperto Date Initial Exam Date Initial Exam Provider Initial Ultrasound Date Last Menstrual Period Date Ultra Sound Weeks Gestation 0 Eighteen To Twenty Week Ruperto Update Ultra Sound Date Fundal Height At Umbil Quickening Date Ultra Sound Latest Weeks Gestation Final Ruperto Confirmed By Final Ruperto Confirmed Date Final Ruperto Date Ultra Sound Latest Days Gestation 0 0 Menstrual History Last Menstrual Date Menses Monthly On Bcp Conception Prior Menses Frequency Hcg Plus Date Menarche Onset Age Delivery Information Delivery Date Delivery Type Labor Anesthesia Weeks Gestation Incision Type Labor Labor Length Hrs Delivered By Post Complications Tubal Sterilization Discharge Date Comments 7 42 Discharge Information Feeding Method Contraceptive Method Maternal HG B and HCT Levels Ob Episode Information Episode Created Date Number of Fetuses Patient Bloodtype Patient rh Status Prepregnancy Weight lbs Domestic Partner Domestic Partner Phone Father Name Triple Drum Operator Status 01/28/20 21 1 CLOSED Fetus Data First Name Last Name Admitted to NICU Weight (g) Sex Living Outcome Pediatric Complications Fetus ID Race Codes Race Delivery Type 4847.53 7704 M Full Term [id number] Ruperto Calculation Initial Ruperto Date Initial Exam Date Initial Exam Provider Initial Ultrasound Date Last Menstrual Period Date Ultra Sound Weeks Gestation 0 Eighteen To Twenty Week Ruperto Update Ultra Sound Date Fundal Height At Umbil Quickening Date Ultra Sound Latest Weeks Gestation Final Ruperto Confirmed By Final Ruperto Confirmed Date Final Ruperto Date Ultra Sound Latest Days Gestation 0 0 Menstrual History Last Menstrual Date Menses Monthly On Bcp Conception Prior Menses Frequency Hcg Plus Date Menarche Onset Age Delivery Information Delivery Date Delivery Type Labor Anesthesia Weeks Gestation Incision Type Labor Labor Length Hrs Delivered By Post Complications Tubal Sterilization Discharge Date Comments 8 42 Discharge Information Feeding Method Contraceptive Method Maternal HG B and HCT Levels Ob Episode Information Episode Created Date Number of Fetuses Patient Bloodtype Patient rh Status Prepregnancy Weight lbs Domestic Partner Domestic Partner Phone Father Name Triple Drum Operator Status 01/28/20 21 1 CLOSED Fetus Data First Name Last Name Admitted to NICU Weight (g) Sex Living Outcome Pediatric Complications Fetus ID Race Codes Race Delivery Type 4564.04 2704 M Full Term [id number] Ruperto Calculation Initial Ruperto Date Initial Exam Date Initial Exam Provider Initial Ultrasound Date Last Menstrual Period Date Ultra Sound Weeks Gestation 0 Eighteen To Twenty Week Ruperto Update Ultra Sound Date Fundal Height At Umbil Quickening Date Ultra Sound Latest Weeks Gestation Final Ruperto Confirmed By Final Ruperto Confirmed Date Final Ruperto Date Ultra Sound Latest Days Gestation 0 0 Menstrual History Last Menstrual Date Menses Monthly On Bcp Conception Prior Menses Frequency Hcg Plus Date Menarche Onset Age Delivery Information Delivery Date Delivery Type Labor Anesthesia Weeks Gestation Incision Type Labor Labor Length Hrs Delivered By Post Complications Tubal Sterilization Discharge Date Comments 3 42 Discharge Information Feeding Method Contraceptive Method Maternal HG B and HCT Levels
== END 2024-02-07 19:03 | disposition home or self-care (01) ==
PROVIDERS: Emergency Provider Family Medicine; PCP Internal Medicine
DX: S01.112A Laceration without foreign body of left eyelid and periocular area, initial encounter (principal); S82.64XA Nondisplaced fracture of lateral malleolus of right fibula, initial encounter for closed fracture; W01.0XXA Fall on same level from slipping, tripping and stumbling without subsequent striking against object, initial encounter
CPT/HCPCS: 73610; 99284

== ENCOUNTER 2024-02-10 09:29 | Day surgery (SDC) | payer MEDICAID, SELFPAY ==
[2024-02-10] VITALS (14 sets, daily range): BP systolic 102–134; BP diastolic 63–88; PULSE 60–77; RESP 16; TEMP 36.7–36.8; O2SAT 95–100; BMI 29.7
--- OUTSIDE RECORDS SUMMARY | 2024-02-10 09:32 | XMS_ITS | Referral Summary ---
Author Name Unknown Organization [facility] Address [address] [place] [address] Care Team Providers Care Labor And Delivery Registered Nurse Name Role Phone Frw, None Unavailable Unavailable Clinic, [facility] Primary Care Provider Allergies Active Allergy Reactions Criticality Noted Date Comments Adalimumab Headache 06/26/2020 Etanercept Headache 12/24/2014 PN: Headaches Infliximab Headache 06/26/2020 Methotrexate Itching 04/12/2018 Morphine GI Disturbance 05/24/2006 Nausea and vomiting Prednisone Other (See Comments) 09/30/2016 Pregabalin Headache 12/24/2014 PN: Headache, brain fogginess Medications Medication Sig Dispensed Refills Start Date End Date Status TYLENOL ARTHRITIS EXT RELIEF 650 MG OR TBCR 2 TABLETS EVERY 8 HOURS NEEDED Active diphenhydrAMINE-aceta minophen (TYLENOL PM) 25-500 MG tablet Take 2 tablets by mouth nightly as needed Active Magnesium Oxide 500 MG TABS Take by mouth 2 times daily Active multivitamin w/minerals (THERA-VIT-M) tablet Take 1 tablet by mouth daily Active NONFORMULARY daily Lemon [place] Active SUMAtriptan (IMITREX) 25 MG tablet Take by mouth at onset of headache for migraine Not sure of dose Active oxyCODONE-acetaminoph en (PERCOCET) 7.5-325 MG per tablet Take 1 tablet by mouth every 6 hours as needed for severe pain Up to 4 times per day as needed Active TRAZODONE HCL PO Take 100 mg by mouth nightly as needed for sleep Active NONFORMULARY daily Medical Cannibus THC (liquid), CBD (pills) Active acetaminophen (TYLENOL) 325 MG tabletIndications:Cer vical radiculopathy Take 2 tablets (650 mg) by mouth every 4 hours as needed for mild pain 50 tablet 09/07/2022 Active oxyCODONE (ROXICODONE) 5 MG tabletIndications:Cer vical radiculopathy Take 1-2 tablets (5-10 mg) by mouth every 4 hours as needed for moderate to severe pain 26 tablet 09/07/2022 Active hydrOXYzine (ATARAX) 25 MG tabletIndications:Cer vical radiculopathy Take 1 tablet (25 mg) by mouth every 6 hours as needed for itching (and nausea) 30 tablet 09/07/2022 Active senna-docusate (SENOKOT-S/PERICOLACE ) 8.6-50 MG tabletIndications:Cer vical radiculopathy Take 1 tablet by mouth daily 30 tablet 09/07/2022 Active methocarbamol (ROBAXIN) 750 MG tabletIndications:Cer vical radiculopathy Take 1 tablet (750 mg) by mouth every 6 hours as needed for muscle spasms (muscle spasm) 60 tablet 09/07/2022 Active gabapentin (NEURONTIN) 300 MG capsuleIndications:Ce rvical radiculopathy Take two capsules by mouth at bedtime first night, then increase to three capsules by mouth at bedtime second night and following nights 45 capsule 09/07/2022 Active Active Problems Problem Noted Date Diagnosed Date Rheumatoid arthritis 03/18/2006 Overview: Problem list name updated by automated process. Provider to review Female stress incontinence 03/18/2006 Rectocele 03/18/2006 Cystocele, midline 03/18/2006 Social History Tobacco Use Types Packs/Day Years Used Date Smoking Tobacco: Never Smokeless Tobacco: Never Tobacco Cessation:Counseling Given: Not Answered Comments:Vape pen for cannibus Alcohol Use Standard Drinks/Week Comments Not Currently 0 (1 standard drink = 0.6 oz pur e alcohol) Adolescent Education Answer Date Record ed Getting School Help Needed Not on file 07/16 Sex and Gender Information Value Date Recorded Sex Assigned at Female 08/31/2022 2:31 PM QUILL CLEANER Gender Identity Female 08/31/2022 2:31 PM QUILL CLEANER Sexual Orientation Choose not to disclose 2021 2:31 PM QUILL CLEANER Last Filed Vital Signs Vital Sign Reading Time Taken Comments Blood Pressure 100/61 09/08/2022 7:26 AM QUILL CLEANER Pulse 60 09/08/2022 7:26 AM QUILL CLEANER Temperature 36.7 ??C (98 ??F) 09/08/2022 7:26 AM QUILL CLEANER Respiratory Rate 13 09/08/2022 7:26 AM QUILL CLEANER Oxygen Saturation 98% 09/08/2022 7:26 AM QUILL CLEANER Inhaled Oxygen Concentration - - Weight 65.9 kg (145 lb 4.8 oz) 09/07/2022 1:10 P M QUILL CLEANER Height 165.1 cm (5' 5) 08/25/2022 1:00 PM QUILL CLEANER Body Mass Index 24.18 08/25/2022 1:00 PM QUILL CLEANER Plan of Treatment Not on file Medical Devices Implanted Type Area Psychiatrist Device Identifier Shelf Expiration Date Model / Serial / Lot Graft Bone Putty Gates Dbm 1ml [id number] - [id number] Implanted:Qty: 1 on 09/07/2022 by Andreas Acevedo MD at [facility] Bone/Tissu e/Biologic N/A: Spine Cervical [employer] [id number] 06/19/2025 [id number] / [id number] / Cage Spnl 16x6mm Endoskeleton Tc 6d 14mm Med Crv [id number] - [id number] Implanted:Qty: 1 on 09/07/2022 by Andreas Acevedo MD at [facility] Metallic Hardware/A nchor N/A: Spine Cervical [employer] [id number] 05/20/2027 [id number] / / [id number] Imp Plate Cerv Medt Zevo 19mm 1 Lvl [id number] - [id number] Implanted:Qty: 1 on 09/07/2022 by Andreas Acevedo MD at [facility] Metallic Hardware/A nchor N/A: Spine Cervical [employer] [id number] / / [id number] Imp Scr Medt Zevo 3.5x15mm Sd Va [id number] - [id number] Implanted:Qty: 4 on 09/07/2022 by Andreas Acevedo MD at [facility] Metallic Hardware/A nchor N/A: Spine Cervical [employer] [id number] / / [id number] Procedures Procedure Name Priority Date/Time Associated Diagnosis Comments C MAMMOGRAM, SCREENING Routine 09/12/2006 10:26 AM QUILL CLEANER from Last 3 Months or Most Recently Relevant to Health Maintenance Results * MAMMOGRAM, SCREENING (09/12/2006 10:26 AM QUILL CLEANER) MAMMOGRAM IMAGING IMPRESSION: ARC BIRADS Category No. 1, negative. RADIOLOGY RESULTS Anatomical Region Laterality Modality Other 09/12/2006 10:2 6 AM QUILL CLEANER Impressions 09/16/2006 11:36 PM QUILL CLEANER BILATERAL SCREENING MAMMOGRAM: Breast symptoms: ??None. Previous mammography: Baseline. ?? Breast parenchyma: Heterogeneously dense. Comment: Bilateral subpectoral implants are seen and appear intact. ?? I believe these are saline. ??Breast tissue is felt to be unremarkable without radiographic sign of malignancy. ?? IMAGING IMPRESSION: ??ARC BIRADS Category No. 1, negative. A letter has been sent to the patient. This study was evaluated with the assistance of CAD (R2 v5.3). Suzanna Weber M.D. Polly Ashford MD SPECIAL IMAGING STUDIES from Last 3 Months or Most Recently Relevant to Health Maintenance Advance Directives For more information, please contact: [phone] * Full Code (Latest Code Status on File) Date Activated Date Inactivated Comments 09/07/2022 7:56 PM 09/08/2022 1:01 PM All basic and advanced life-sustaining interventions are performed as appropriate Question Answer Comments Code status determined by: Discussion with ethel nt/ legal decision maker Care Teams Labor And Delivery Registered Nurse Relationship Specialty Start Date End Date Frw, None PCP - Obstetrics/Gynecology Family Practice 12/31/[address] [address] PCP - General 09/07/22
--- OUTSIDE RECORDS SUMMARY | 2024-02-10 09:32 | XMS_ITS | Clinical Summary ---
Author Name Unknown Organization [facility] Address [address] [place] [address] Care Team Providers Care Doctor Of Nurse Anesthesia Name Role Phone Lito Rajan MD Primary Care Provider [phone] Source Comments You are receiving this document as you are listed as the primary care provider,follow-up provider, or the patient has been referred to you for consultation.This is in compliance with the Medicare and[facility] EHR Incentive Program,which states Providers who transition their patient to another setting of careor provider of care or refers their patient to another provider of care shouldprovide summary care record for each transition of care or referral. [employer] Allergies Active Allergy Reactions Criticality Noted Date [...] in computerIndications :Vit D and K Lemon [place] benadryl mucinex Indications: Vit D and K Lemon [place] benadryl mucinex Active diclofenac (VOLTAREN) 1 [...] series) 0 03/28/2018 Influenza IIV4 (Quadrivalent) 0.5mL (69761) 06/18 PCV13 (Prevnar) 07/13/2018 Tdap 08/21/2020,06/12/2009 Zoster [...] Negative (Non Reactive) 01/19/2023 8:51 PM CDT [facility] Comment:Antibodies to HCV no t detected. Does not exclude the possiblity of exposure to HCV. Blood Venipuncture / Unknown 01/19/2023 3:03 PM CDT 01/19/2023 3:03 PM CDT Raymundo Mcmullen MD LAB_1 [facility] [address] * HIV 1/2 Ag/Ab 4th Generation (08/13/2021 10:19 AM CDT) HIV 1/2 Antigen/Antib neal (4th generation) Negative (Non Reactive) Negative (Non Reactive) 08/13/2021 4:29 PM CDT [facility] Comment:HIV-1 p24 Antigen an d HIV-1/HIV-2 Antibody not detected Blood Venipuncture / Unknown 08/13/2021 10:19 AM CDT 08/13/2021 10:19 AM CDT Ashley Q Malcolm DO LAB_1 [facility] [address] [place], [place] [address] from Last 3 Months or Most Recently Relevant to Health Maintenance Care Teams Doctor Of Nurse Anesthesia Relationship Specialty Start Date End Date Lito Rajan MD [address] [place] [address] PCP - General 11/11/14
--- OUTSIDE RECORDS SUMMARY | 2024-02-10 09:32 | XMS_ITS | Clinical Summary ---
Author Name Unknown Organization [facility] Address [place], [place] [address] Care Team Providers Care Centrifuge Separator Tender Name Role Phone Lito Rajan MD Primary Care Provider Pablo Oliver MD Unavailable [phone] Allergies Active Allergy Reactions Criticality Noted [...] 12/10/2003 01/12/2012 OBESITY - NOS 12/10/2003 09/15/2016 Encounters Date Type Department Care Team Description 02/09/2024 11:15 AM CDT Office Visit [facility] [address] [place] [address] Dwayne Suresh MD Ankle Pain/problem 02/09/2024 Travel from Last 3 Months Immunizations Name Administration Dates Next Due Influenza, [...] Comments Blood Pressure 117/63 09/16/2020 3:30 PM CIRCULAR KNIFE CUTTER MACHINE Pulse 72 09/16/2020 3:30 PM CIRCULAR KNIFE CUTTER MACHINE Temperature 36 ??C (96.8 ??F) 09/16/2020 3:30 PM CIRCULAR KNIFE CUTTER MACHINE Respiratory Rate 16 09/16/2020 3:30 PM CIRCULAR KNIFE CUTTER MACHINE Oxygen Saturation 98% 09/16/2020 3:30 PM CIRCULAR KNIFE CUTTER MACHINE Inhaled Oxygen Concentration - - Weight 75.1 kg (165 lb 9.1 oz) 09/16/2020 8:30 A M CIRCULAR KNIFE CUTTER MACHINE Height 167.6 cm (5' 6) 09/16/2020 8:30 AM CIRCULAR KNIFE CUTTER MACHINE Body Mass Index 26.72 09/16/2020 8:30 AM CIRCULAR KNIFE CUTTER MACHINE Plan of Treatment Upcoming Encounters Date Type Department Care Team (Late st Contact Info) Description 03/15/2024 10:30 AM CDT Office Visit [facility] [address] [place] [address] Dwayne Suresh MD [address] [place] [address] [place] [id number] Scheduled Procedures Name Priority Associated Diagnoses Date/Ti [...] this topic Medical Devices Implanted Type Area Financial Solutions Advisor Device Identifier Shelf Expiration Date Model / Serial / Lot Ancr Sut 2.3mm Iconix 2 W/2 Strand #2 Force Fiber - [id number] Implanted:Qty: 1 on 09/16/2020 by Dwayne Suresh MD at Left: Foot [facility] 07/09/2021 [id number] / / [id number] Procedures Procedure Name Priority Date/Time Associated Diagnosis Comments PACKER DRIED BEEF THIN PREP PAP SCREEN IMAGED Routine 03/21/2018 2:51 PM CDT COLONOSCOPY 11/04/2016 10:09 AM CIRCULAR KNIFE CUTTER MACHINE CHOLESTEROL,TOTAL Routine 04/22/2004 9:0 0 AM CDT ANTI HCV Routine 01/17/2004 3:00 PM CIRCULAR KNIFE CUTTER MACHINE from Last 3 Months or Most Recently Relevant to Health Maintenance Results * PACKER DRIED BEEF THIN PREP PAP SCREEN IMAGED (03/21/2018 2:51 PM CDT) Case Report Gynecologic Cytology Report ? Case: [id number] ? Authorizing Provider: ??Rhina Moore ??Collected: ? 03/21/2018 1451 ? MD Jalen ? First Screen: ?Barbara Tai ? Received: ?03/23/2018 1612 ? Specimen: ?PACKER DRIED BEEF ThinPrep Vial Screening, Cervical/Vaginal ? 03/29/2018 12:25 PM CDT [facility] INTERPRETATION/ RESULT NEGATIVE FOR INTRAEPITHELIAL LESION OR MALIGNANCY (NIL) (none) 03/29/2018 12:25 PM CDT [facility] IMEN ADEQUACY Satisfactory for evaluation Endocervical component present 03/29/2018 12:25 PM CDT [facility] HPV REQUEST HPV and PAP 03/29/2018 12:25 PM CDT [facility] Menstrual Status 03/29/2018 12:25 PM CDT [facility] Comment:Menopause Automated Review Successful 03/29/2018 12:25 PM CDT [facility] Comment:Specimen processed s uccessfully by automated wellness program coordinator device, ThinPrep Imaging System, [employer] ANCILLARY TESTING PACKER DRIED BEEF HPV Ordered, Please see separate report 03/29/2018 12:25 PM CDT [facility] Note The pap test is a [...] lesions. Cytology is screened and interpreted at [facility], Central Laboratory - [address], [place] [address] and [facility] - [address] [place] [address]; [place] [address] and - [address]; [place] [address] and [facility] [address]; [place], [place] [address] 03/29/2018 12:25 PM CDT [facility] Other (Cervical/Vagina l) 03/21/2018 2:51 PM CDT 03/23/2018 4:12 PM CDT Rhina Moore MD PATHOLOGY/ CYTOLOGY [facility] [address] [place] [address], [place] * COLONOSCOPY (11/04/2016 10:09 AM CIRCULAR KNIFE CUTTER MACHINE) 11/04/2016 10:0 9 AM CIRCULAR KNIFE CUTTER MACHINE Narrative Transcriptions Cody Mercedes MD - 12/06/2016 [...] adequate candidate for conscious sedation. The [id number] was passed through the anus and advanced [...] formalignant neoplasm of colon CPT copyright 2015 [employer]. All rights reserved. The codes documented in this report are preliminary and upon surgical coder reviewmay be revised to meet current [...] CHEMISTRY * ANTI HCV (01/17/2004 3:00 PM CIRCULAR KNIFE CUTTER MACHINE) ANTI HCV Non-reactiv e 01/17/2004 3:00 PM CIRCULAR KNIFE CUTTER MACHINE Narrative 03/29/2004 3:29 AM CDT Ordered by [...] 8:50 AM 07/25/2006 6:08 PM Care Teams Centrifuge Separator Tender Relationship Specialty Start Date End Date Lito Rajan MD PCP - General 01/31/08 Pablo Oliver MD Internal Medicine 07/02/20
--- OUTSIDE RECORDS SUMMARY | 2024-02-10 09:32 | XMS_ITS | Encounter Summary ---
Author Name Unknown Organization [facility] Address [address] [place] [address] Care Team Providers Care Road Worker Name Role Phone Polly Ashford MD Unavailable [phone] Frw, None Unavailable Unavailable Clinic, [facility] Primary Care Provider Encounter Details Date Type Department Care Team (Late st Contact Info) Description 05/25/2006 [facility] Inpatient Dept [address] [place] [phone] Frw, Inpatient Provider Social History Tobacco Use Types Packs/Day Years Used Date Smoking Tobacco: Never Smokeless Tobacco: Never Comments:Vape pen for cannib us Alcohol Use Standard Drinks/Week Comments Not Currently 0 (1 standard drink = 0.6 oz pur e alcohol) Sex and Gender Information Value Date Recorded Sex Assigned at Female 08/31/2022 2:31 PM AUTOMATIC CASTING MACHINE OPERATOR Gender Identity Female 08/31/2022 2:31 PM AUTOMATIC CASTING MACHINE OPERATOR Sexual Orientation Choose not to disclose 2021 2:31 PM AUTOMATIC CASTING MACHINE OPERATOR documented as of this encounter Progress Notes * Polly Ashford - 05/25/2006 12:15 PM CDTPROCEDURE/OPERATIVE REPORT Date of Procedure: 05/25/2006 PREOPERATIVE DIAGNOSES: [...] lateral to the urethra after an 18 Thai Dotson was placed into the vagina. The [...] instrument counts were correct. Polly Ashford M.D. SIERRAG/robin cc: Diana Strauss [place], [place] documented in this encounter Plan of Treatment Not on file documented as of this encounter Visit Diagnoses Not on filedocumented in this encounter Care Teams Road Worker Relationship Specialty Start Date End Date Polly Ashford MD PCP - Obstetrics/Gynecology 05/05/06 12/30/11 Frw, None PCP - Obstetrics/Gynecology Family Practice 12/31/[address] [address] PCP - General 09/07/22 documented as of this encounter
--- OUTSIDE RECORDS SUMMARY | 2024-02-10 09:32 | XMS_ITS | Encounter Summary ---
Author Name Unknown Organization [facility] Address [address] [place] [address]. [place] [address] Care Team Providers Care Casino Surveillance Officer Name Role Phone Frw, None Unavailable Unavailable [facility] Primary Care Provider Encounter Details Date Type Department Care Team (Late st Contact Info) Description 08/25/2022 Orders Only [facility] [address] [place] [address] Andreas Alex MD [facility] [address] [place] [address] Pre-operative laboratory examination (Primary Dx) Social History Tobacco Use Types Packs/Day Years Used Date Smoking Tobacco: Never Smokeless Tobacco: Never Comments:Vape pen for cannib us Alcohol Use Standard Drinks/Week Comments Not Currently 0 (1 standard drink = 0.6 oz pur e alcohol) Sex and Gender Information Value Date Recorded Sex Assigned at Female 08/31/2022 2:31 PM TEAM LEAD Gender Identity Female 08/31/2022 2:31 PM TEAM LEAD Sexual Orientation Choose not to disclose 2021 2:31 PM TEAM LEAD COVID-19 Exposure Response Date Recorded In the last 10 days, have yo u been in contact with someone who was confirmed or suspected to have Coronavirus/COVID-19? No / Unsure 08/25/2022 11:54 AM TEAM LEAD documented as of this encounter Plan of Treatment Not on file documented as of this encounter Visit Diagnoses Diagnosis Pre-operative laboratory examination- Primary Pre-procedural laboratory examination documented in this encounter Care Teams Casino Surveillance Officer Relationship Specialty Start Date End Date Frw, None PCP - Obstetrics/Gynecology Family Practice 12/31/11 [facility], [address] [address] PCP - General 09/07/22 documented as of this encounter
--- OUTSIDE RECORDS SUMMARY | 2024-02-10 09:32 | XMS_ITS | Clinical Summary ---
Author Name Unknown Organization [facility] Address [address] [place] [address] Care Team Providers Care Air Table Operator Name Role Phone Frw, None Unavailable Unavailable Clinic, [facility] Primary Care Provider Allergies Active Allergy Reactions [...] by mouth daily Active NONFORMULARY daily Lemon [place] Active SUMAtriptan (IMITREX) 25 MG tablet Take [...] incontinence 03/18/2006 Rectocele 03/18/2006 Cystocele, midline 03/18/2006 Family History Medical History Relation Comments Hypertension [...] Sex Assigned at Female 08/31/2022 2:31 PM DARKROOM WORKER Gender Identity Female 08/31/2022 2:31 PM DARKROOM WORKER Sexual Orientation Choose not to disclose 2021 2:31 PM DARKROOM WORKER Last Filed Vital Signs Vital Sign Reading Time Taken Comments Blood Pressure 100/61 09/08/2022 7:26 AM DARKROOM WORKER Pulse 60 09/08/2022 7:26 AM DARKROOM WORKER Temperature 36.7 ??C (98 ??F) 09/08/2022 7:26 AM DARKROOM WORKER Respiratory Rate 13 09/08/2022 7:26 AM DARKROOM WORKER Oxygen Saturation 98% 09/08/2022 7:26 AM DARKROOM WORKER Inhaled Oxygen Concentration - - Weight 65.9 kg (145 lb 4.8 oz) 09/07/2022 1:10 P M DARKROOM WORKER Height 165.1 cm (5' 5) 08/25/2022 1:00 PM DARKROOM WORKER Body Mass Index 24.18 08/25/2022 1:00 PM DARKROOM WORKER Plan of Treatment Health Maintenance Due Date Last Done Comments ADVANCE CARE PLANNING 1966 ANNUAL REVIEW OF HM ORDERS 1966 CT COLONOGRAPHY 1966 FIT 1966 FLEX SIG 1966 GLUCOSE 1966 sDNA (Cologuard) 1966 COLONOSCOPY 1976 COLORECTAL CANCER SCREENING 1976 HIV SCREENING 1981 HEPATITIS C SCREENING 1984 PAP 1987 LIPID 2006 YEARLY PREVENTIVE VISIT 09/12/2007 09/12/2006 MAMMO SCREENING 09/12/2008 09/12/2006, 09/12/2006 ZOSTER IMMUNIZATION (1 of 2) 2016 HEPATITIS B IMMUNIZATION (2 of 3 - 19+ 3-dose series) 04/25/2018 03/28/2018 COVID-19 Vaccine ( season) 2023 INFLUENZA VACCINE (#1) 2023 8, 07/16/2013, 07/24/2012, Additional history exists PHQ-2 (once per calendar year) 2023 DTAP/TDAP/TD IMMUNIZATION (3 - Td or Tdap) 08/21/2030 08/21/2020, 06/12/2009, 07/18/2006 Pneumococcal Vaccine: Pediatrics (0 to 5 Years) and At-Risk Patients (6 to 64 Years) Aged Out 07/13/2018 No longer eligible based on patient's age to complete this topic HPV IMMUNIZATION Aged Out No longer e ligible based on patient's age to complete this topic IPV IMMUNIZATION Aged Out No longer e ligible based on patient's age to complete this topic MENINGITIS IMMUNIZATION Aged Out No l onger eligible based on patient's age to complete this topic RSV MONOCLONAL ANTIBODY Aged Out No l onger eligible based on patient's age to complete this topic Medical Devices Implanted Type Area Imaging Scheduler Device Identifier Shelf Expiration Date Model / Serial / Lot Graft Bone Putty Baxter Dbm 1ml [id number] - [id number] Implanted:Qty: 1 on 09/07/2022 by Andreas Acevedo MD at [facility] Bone/Tissu e/Biologic N/A: Spine Cervical [employer] [id number] 06/19/2025 [id number] / [id number] / Cage Spnl 16x6mm Endoskeleton Tc 6d 14mm Med Crv [id number] - [id number] Implanted:Qty: 1 on 09/07/2022 by Andreas Acevedo MD at [facility] Metallic Hardware/A nchor N/A: Spine Cervical [employer] [id number] 05/20/2027 [id number] / / [id number] Imp Plate Cerv Medt Zevo 19mm 1 Lvl [id number] - [id number] Implanted:Qty: 1 on 09/07/2022 by Andreas Acevedo MD at [facility] Metallic Hardware/A nchor N/A: Spine Cervical [employer] [id number] / / [id number] Imp Scr Medt Zevo 3.5x15mm Sd Va [id number] - [id number] Implanted:Qty: 4 on 09/07/2022 by Andreas Acevedo MD at [facility] Metallic Hardware/A nchor N/A: Spine Cervical [employer] [id number] / / [id number] Procedures Procedure Name Priority Date/Time Associated Diagnosis Comments C MAMMOGRAM, SCREENING Routine 09/12/2006 10:26 AM DARKROOM WORKER from Last 3 Months or Most Recently Relevant to Health Maintenance Results * MAMMOGRAM, SCREENING (09/12/2006 10:26 AM DARKROOM WORKER) MAMMOGRAM IMAGING IMPRESSION: ARC BIRADS Category No. 1, negative. RADIOLOGY RESULTS Anatomical Region Laterality Modality Other 09/12/2006 10:2 6 AM DARKROOM WORKER Impressions 09/16/2006 11:36 PM DARKROOM WORKER BILATERAL SCREENING MAMMOGRAM: Breast symptoms: ??None. Previous [...] Advance Directives For more information, please contact: [phone] * Full Code (Latest Code Status on File) Date Activated Date Inactivated Comments 09/07/2022 7:56 PM 09/08/2022 1:01 PM All basic and advanced life-sustaining interventions are performed as appropriate Question Answer Comments Code status determined by: Discussion with patie nt/ legal decision maker Care Teams Air Table Operator Relationship Specialty Start Date End Date Frw, None PCP - Obstetrics/Gynecology Family Practice 12/31/[address] [address] PCP - General 09/07/22
[2024-02-10] MEDS: LACTATED RINGERS 1000 ML 1,000 ML 100 ML IV (10:00)
[2024-02-10] MEDS: COCAINE HCL 4 % 4 ML SOLUTION NOSTRIL-B (11:50)
[2024-02-10] MEDS: MUPIROCIN 1 GM PACKET 1 APPLIC TOPICAL (12:10)
[2024-02-10] MEDS: AYR SALINE NASAL GEL 1 APPLIC NOSTRIL-B (12:12)
[2024-02-10] MEDS: BUPIVACAINE 0.5 %/EPI 1:200K 30 ML INJECTION (12:13)
--- NOTE | 2024-02-10 12:25 | W.ANESCHARGE ---
Anesthesia Charges Start Date/Time Anesthesia Start Date: 02/10/24 Anesthesia Start Time: 11:27 Stop Date/Time Anesthesia Stop Date: 02/10/24 Anesthesia Stop Time: 12:25
[2024-02-10] MEDS: fentaNYL 100 MCG/2 ML inj 50 MCG IVP ×2 (12:32→12:44)
--- NOTE | 2024-02-10 12:44 | P.ENTPROC_ITS ---
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 The nose was injected decongested in the image guidance system verified. And the septal biopsy was taken from the posterior aspect of the perforation approximately a 3 x 4 mm biopsy of mucosa was taken and sent to rule out a vasculitic process. The right middle turbinate was medialized and the ethmoid sent and this was opened anteriorly. The frontal recess was explored and then the balloon placed into the frontal recess a 2 dilations were performed both at the interosseus sinus and further into the sinus. A propel implant was then placed. The right maxillary sinus was occluded by polypoid mucosa. The natural opening was reopened and a large amount of purulent material was removed including thickened mucosa as well as pus. The left maxillary sinus inferior 4th of the uncinate process was taken down and the natural opening open and connected to the pre-existing os. Moderate amount of polypoid material and purulent fluid was aspirated from the sinus. The S anterior ethmoid was explored and polypoid material removed. The septal mucosa was undermined posteriorly in the septum moved back to m idline. Merocel packing coated in Bactroban was placed on each side the septum and also in the in will also within the middle meatus. The patient procedure well was taken recovery in satisfactory condition blood loss was less than 25 mL. Surgeon: Eber Strong MD
--- NOTE | 2024-02-10 13:28 | W.ANESCHARGE ---
Anesthesia Charges Start Date/Time Anesthesia Start Date: 02/10/24 Anesthesia Start Time: 11:27 Stop Date/Time Anesthesia Stop Date: 02/10/24 Anesthesia Stop Time: 12:25
[2024-02-10] MEDS: ACETAMINOPHEN 325 MG TABLET PO (13:50)
[2024-02-10] MEDS: OXYCODONE 5 MG TABLET PO (13:50)
--- NOTE | 2024-02-10 14:39 | SUR.PHASEII ---
Patient ambulated to bathroom and voided. Patient verbalized readiness to be discharged and understanding of discharge instructions.
== END 2024-02-10 14:34 | disposition home or self-care (01) ==
PROVIDERS: PCP Internal Medicine; Visit Provider Otolaryngology
PROC: (CPT 31231; principal; 2024-02-10 10:45)
DX: J32.1 Chronic frontal sinusitis (principal); J32.0 Chronic maxillary sinusitis; J32.2 Chronic ethmoidal sinusitis; J34.2 Deviated nasal septum; J34.89 Other specified disorders of nose and nasal sinuses
CPT/HCPCS: 31255; 31276; 31267; 30520; 30100; 00160; 88304; 88305; A9270; C1726; J0330; J1100; J2405; J2704; J3010; J3490; J7120

== ENCOUNTER 2024-02-24 09:51 | Outpatient (CLI) | payer MEDICAID, SELFPAY ==
--- OUTSIDE RECORDS SUMMARY | 2024-02-24 09:54 | XMS_ITS | Continuity of Care Document ---
Author Name Unknown Organization [facility] Address [address] [place] [address] Care Team Providers Care Research Development Director Name Role Phone [facility] Unavailable Unav ailable Procedures Procedure Date RF [...] Diagnoses Date Provider Providers Copied on Encounter [facility], [address] [place] [address], [id number], [facility] No Information [facility]. [address] [place], [place], [id number], [place]. tel:[phone] Referring Provider: Kari Clifton, [address] [place], [address]. tel:[phone] [facility], [address] [place], [place], [id number], [facility] No Information [facility]. [address] [place], [place], [id number], [place]. tel:[phone] Referring Provider: Kari Clifton, [address] [place], [address]. tel:[phone] [facility], [address] [place], [place], [id number], [place] [facility] [place] No Information [facility]. [address] [facility] [place], [place], [id number], . tel:[phone] Referring Provider: Kari Clifton, [address] [place], [address]. tel:[phone] Family History Family Member Type Diagnosis Age At Onset No Information Payers Payer name Insurance type Covered libertarian ID Authoriza tion(s) No Information Social History [...]
--- OUTSIDE RECORDS SUMMARY | 2024-02-24 09:54 | XMS_ITS | Continuity of Care Document ---
Author Name Unknown Organization [facility] Address [address] [place] [address] Phone Care Team Providers Care Horse Trader Name Role Phone Lorenzo Alanis MD Unavailable Unavailable Allergies, Adverse Reactions, Alerts Substance Reaction Status Criticality adalimumab daily migraines Active No Informati on morphine Nausea Active No Information Medications Medication Instructions Dosage Effective Dates (start - stop) Status Comments VITAMIN D3 (unknown strength) Not Available - Active Vicodin (unknown strength) Not Available - Active TYLENOL ARTHRITIS (unknown strength) Not Available - Active TRIPLE HELIX COLLAGEN (unknown strength) Not Available - Active MULTIVITAMINS (unknown strength) Not Available - Active ADDERALL (unknown strength) Not Available - Active IBUPROFEN (unknown strength) Not Available - Active VITAMIN C (unknown strength) Not Available - Active NALTREXONE HCL (unknown strength) Not Available - Active Procedures Procedure Date Office/Outpatient Visit,[facility], [facility] 2019 Advance Directives Directive Yes / No Effective Date File Name No Information Encounters Encounter Description Practice Location Reason(s) For Visit Diagnoses Date Provider Providers Copied on Encounter Office/Outpat ient Visit,[place], [facility], [address], [place], [place], [id number], [place] tel:[phone] [facility] [place] Rheumatoid arthritis, unspecifiedOther spondylosis, cervical regionAnkylosing spondylitis lumbar region Sep-2 0 Zeke Ventura. [facility], [address] [place] [address], [place] [address], [place], [place], [id number] , [place]. tel:[phone] Referring Provider: Lorenzo Mc, [facility] [place] [address], [place], [address] . tel:[phone] Family History Family Member Type Diagnosis Age At Onset No Information Payers Payer name Insurance type Covered constitution party ID Authorgiovanny nova(s) No Information Social History [...]
--- OUTSIDE RECORDS SUMMARY | 2024-02-24 09:54 | XMS_ITS | Continuity of Care Document ---
Author Name Unknown Organization [facility] enter Address [address] [place] [address] [address] [place] [address] Phone Care Team Providers Care Plugging Machine Operator Name Role Phone [facility] Unavailable Unava ilable Procedures Procedure Date RF [...] Diagnoses Date Provider Providers Copied on Encounter [facility], [address] [place] [address], [id number], tel:[phone] [place] [address] No Information 4 [facility]. [address] [place] [address], [id number], [place]. tel:[phone] Referring Provider: Kari Clifton, [address] [facility], [address] . tel:[phone] [place] [address], [address] [place] [place] [address], [id number], tel:[phone] [place] [address] No Information 4 [facility]. [address] [place] [address], [id number], [place]. tel:[phone] Referring Provider: Kari Clifton, [address] [facility] [place], [address] . tel:[phone] [place] [address], [address] [place] [address], [id number], tel:[phone] [place] [address] No Information 3 [facility]. [address] [place] [address], [id number], [place]. tel:[phone] Referring Provider: Kari Clifton, [address] [facility] [place], [address] . tel:[phone] [place] [address], [address] [place] [address], [id number], tel:[phone] [place] [address] No Information 3 [facility]. [address] [place] [address], [id number], [place]. tel:[phone] Referring Provider: aKri lCifton, [address] [facility] [place], [address] . tel:[phone] [facility], [address] [place] [address], [id number], tel:[phone] [facility] No Information [facility]. [address] [place] [address], [id number], [place]. tel:[phone] Referring Provider: Reyes Gaffney [employer] [address], [place], [address]. tel:[phone] [facility], [address] [place] [address], [id number], tel:[phone] [facility] No Information [facility]. [address] [place] [address], [id number], . tel:[phone] Referring Provider: Reyes Gaffney [employer] [address], [place], [address]. tel:[phone] Family History Family Member Type Diagnosis Age At Onset No Information Payers Payer name Insurance type Covered republican ID Ron nova(s) [facility] [id number] Social History Type Description Quantity Date Captured [...]
--- OUTSIDE RECORDS SUMMARY | 2024-02-24 09:54 | XMS_ITS | Clinical Summary ---
Author Name Unknown Organization [facility] Address [place], [place] [address] Care Team Providers Care Neuropsychology Service Director Name Role Phone Lito Rajan MD Primary Care Provider Pablo Oliver MD Unavailable [phone] Allergies Active Allergy Reactions Criticality Noted [...] Encounters Date Type Department Care Team Description 02/10/2024 Lab Requisition [facility] [phone] Eber Strong MD 02/09/2024 11:15 AM CDT Office Visit [facility] [place] [facility] [address] [facility] [place] [address] Dwayne Suresh MD Ankle Pain/problem 02/09/2024 Travel [...] Comments Blood Pressure 117/63 09/16/2020 3:30 PM WHOLESALE ACCOUNT MANAGER Pulse 72 09/16/2020 3:30 PM WHOLESALE ACCOUNT MANAGER Temperature 36 ??C (96.8 ??F) 09/16/2020 3:30 PM WHOLESALE ACCOUNT MANAGER Respiratory Rate 16 09/16/2020 3:30 PM WHOLESALE ACCOUNT MANAGER Oxygen Saturation 98% 09/16/2020 3:30 PM WHOLESALE ACCOUNT MANAGER Inhaled Oxygen Concentration - - Weight 75.1 kg (165 lb 9.1 oz) 09/16/2020 8:30 A M WHOLESALE ACCOUNT MANAGER Height 167.6 cm (5' 6) 09/16/2020 8:30 AM WHOLESALE ACCOUNT MANAGER Body Mass Index 26.72 09/16/2020 8:30 AM WHOLESALE ACCOUNT MANAGER Plan of Treatment Upcoming Encounters Date Type Department Care Team (Late st Contact Info) Description 03/15/2024 10:30 AM CDT Office Visit [facility] [place] [facility] [address] [place], [place] [id number] Dwayne Suresh MD [address] [place] [address] Scheduled Procedures Name Priority Associated Diagnoses Date/Ti [...] 06/26/2021 06/26/2020, 04/01/2017, 06/11/2016 COVID-19 vaccine series ( season) 2023 Influenza for age 50-64 06/17/2024 08/31/2006, 08/10 Colonoscopy through age 75 11/04/202611/04, 11/04/2016, 11/04/2016 Hepatitis C screening for age 18-79 Completed 01/17/2004 Pneumococcal series for age 6-64 Aged Out No longer eligible based on patient's age to complete this topic Medical Devices Implanted Type Area Car Oiler Device Identifier Shelf Expiration Date Model / Serial / Lot Ancr Sut 2.3mm Iconix 2 W/2 Strand #2 Force Fiber - [id number] Implanted:Qty: 1 on 09/16/2020 by Dwayne Suresh MD at [facility] Left: Foot [employer] 07/09/2021 [id number]# / / [id number] Procedures Procedure Name Priority Date/Time Associated Diagnosis Comments LAB TRACKING EVENT Routine 02/10/2024 12 :08 PM CDT PATH TISSUE EXAM Routine 02/10/2024 11:5 6 AM CDT AUTOMATIC TYPEWRITER INSPECTOR THIN PREP PAP SCREEN IMAGED Routine 03/21/2018 2:51 PM CDT COLONOSCOPY 11/04/2016 10:09 AM WHOLESALE ACCOUNT MANAGER CHOLESTEROL,TOTAL Routine 04/22/2004 9:0 0 AM CDT ANTI HCV Routine 01/17/2004 3:00 PM WHOLESALE ACCOUNT MANAGER from Last 3 Months or Most Recently Relevant to Health Maintenance Results * LAB TRACKING EVENT (02/10/2024 12:08 PM CDT) Other (Other) Client Collect / Unknown 02/10/2024 12:08 PM CDT 02/10/2024 9:47 PM CDT Eber Strong MD LAB BILL ONLY [facility] [address] [place] [address], * PATH TISSUE EXAM (02/10/2024 11:56 AM CDT) Case Report Pathology Report ?Case: [id number] ? Authorizing Provider: ??Eber Strong, ??Collected: ? 02/10/2024 1156 ? MD ? Ordering Location: ? [facility] ?Received: ?02/13/2024 0714 ? Pathologist: ? Jane Yost, ? Specimens: ?? A) - Right Sinus Contents, right ethmoid maxillary ? B) - Left Sinus Contents, left ethmoid maxillary ? C) - Nasal Septum ? 02/14/2024 12:17 PM CDT [facility] Final Diagnosis A) PARANASAL SINUSES, RIGHT ETHMOID, EXCISION: 1. Acute and chronic inflammation 2. Fragments of benign sinonasal polyp ?? 3. Negative for neoplasm ?? B) PARANASAL SINUSES, LEFT ETHMOID, EXCISION: ?? 1. Acute and chronic inflammation ?? 2. Fragments of benign sinonasal polyp ?? 3. Negative for neoplasm C) NASAL SEPTUM, BIOPSY: 1. Ulcer with acute and chronic inflammation and reactive changes 2. Negative for neoplasm 02/14/2024 12:17 PM CDT [facility] [employer] [facility] Clinical Information None provided 02/14/2024 12:17 PM T [facility] Gross Description A) Received in formalin, labeled with the patient's name and right ethmoid maxillary, is a 2.0 x 1.6 x 0.3 cm aggregate of holland-pink mucosa admixed with holland delicate apparent bone. The specimen is entirely submitted in one cassette. B) Received in formalin, labeled with the patient's name and left ethmoid maxillary, is a 1.8 x 0.9 x 0.3 cm aggregate of holland-pink mucosa admixed with holland delicate apparent bone. The specimen is entirely submitted in one cassette. C) Received in formalin, labeled with the patient's name and nasal septal, is a 0.8 x 0.5 x 0.3 cm portion of rubbery tissue. ??The specimen is bisected and entirely submitted in 1 cassette. CHLOÉ 02/13/2024 ?? 02/14/2024 12:17 PM T [facility] [employer] [facility] Microscopic Description The final diagnosis is based on microscopic examination of appropriate sections of all specimens. 02/14/2024 12:17 PM T [facility] [employer] [facility] Additional Information Interpreted at [facility] [employer] [facility] Central Laboratory - [address] [facility] [address] [address] 02/14/2024 12:17 PM T [facility] Other (Right Sinus Contents) 02/10/2024 11:56 AM CDT 02/13/2024 7:14 AM CDT Specimen (specimen) (Left Sinus Contents) 02/10/2024 12:00 PM CDT 02/13/2024 7:14 AM CDT Specimen (specimen) (Nasal Septum) 02/10/2024 12:08 PM CDT 02/13/2024 7:14 AM CDT Eber Strong MD PATHOLOGY/CYT OLOGY [facility] [address] [place] [address], * AUTOMATIC TYPEWRITER INSPECTOR THIN PREP PAP SCREEN IMAGED (03/21/2018 2:51 PM CDT) Case Report Gynecologic Cytology Report ? Case: [id number] ? Authorizing Provider: ??Rhina Moore ??Collected: ? 03/21/2018 1451 ? M, MD ? First Screen: ?Barbara Tai ? Received: ?03/23/2018 1612 ? Specimen: ?AUTOMATIC TYPEWRITER INSPECTOR ThinPrep Vial Screening, Cervical/Vaginal ? 03/29/2018 12:25 PM CDT [facility] INTERPRETATION/ RESULT NEGATIVE FOR INTRAEPITHELIAL LESION OR MALIGNANCY (NIL) (none) 03/29/2018 12:25 PM CDT [facility] IMEN ADEQUACY Satisfactory for evaluation Endocervical component present 03/29/2018 12:25 PM CDT [facility] HPV REQUEST HPV and PAP 03/29/2018 12:25 PM CDT [facility] Menstrual Status 03/29/2018 12:25 PM CDT [facility] Comment:Menopause Automated Review Successful 03/29/2018 12:25 PM CDT [facility] Comment:Specimen processed s uccessfully by automated boat mechanic device, [employer] System[employer] ANCILLARY TESTING AUTOMATIC TYPEWRITER INSPECTOR HPV Ordered, Please see separate report 03/29/2018 12:25 PM CDT [facility] Note The pap test is a [...] lesions. Cytology is screened and interpreted at [facility] - [address], [place] [address] and [facility] - [address]; [place] [address] and [facility] - [address]; [place] [address] and [facility] [address]; [place] [address] 03/29/2018 12:25 PM CDT [facility] Other (Cervical/Vagina l) 03/21/2018 2:51 PM CDT 03/23/2018 4:12 PM CDT Rhina Moore MD PATHOLOGY/ CYTOLOGY [facility] [address] [place] [address], [place] * COLONOSCOPY (11/04/2016 10:09 AM WHOLESALE ACCOUNT MANAGER) 11/04/2016 10:0 9 AM WHOLESALE ACCOUNT MANAGER Narrative Transcriptions Cody Mercedes MD - 12/06/2016 [...] adequate candidate for conscious sedation. The [id number] was passed through the anus and advanced [...] formalignant neoplasm of colon CPT copyright 2015 [employer]. All rights reserved. The codes documented in this report are preliminary and upon electrician station assistant reviewmay be revised to meet current compliance [...] CHEMISTRY * ANTI HCV (01/17/2004 3:00 PM WHOLESALE ACCOUNT MANAGER) ANTI HCV Non-reactiv e 01/17/2004 3:00 PM WHOLESALE ACCOUNT MANAGER Narrative 03/29/2004 3:29 AM CDT Ordered by [...] 8:50 AM 07/25/2006 6:08 PM Care Teams Neuropsychology Service Director Relationship Specialty Start Date End Date Lito Rajan MD PCP - General 01/31/08 Pablo Oliver MD Internal Medicine 07/02/20
--- OUTSIDE RECORDS SUMMARY | 2024-02-24 09:54 | XMS_ITS | Continuity of Care Document ---
Author Name Unknown Organization [facility] Address [address] [place] [address] Care Team Providers Care Barrelhead Inspector Name Role Phone Jaison Tamayo CRNA Unavailable [...] Diagnoses Date Provider Providers Copied on Encounter [facility], [address] [place], [place], [id number], [facility] No Information 4 Roni Blackwood. [address] [facility], [place], [place], [id number], . tel:[phone] Referring Provider: Kari Clifton, [address] [place], [address] . tel:[phone] [facility], [address] [place], [place], [id number], [facility] No Information 4 Luis Sheppard. [address] [facility], [place], [place], [id number], . tel:[phone] Referring Provider: Kari Clifton, [address] [place], [address] . tel:[phone] [facility], [address], [place], [place], [id number], [facility] No Information 4 Luis Koenigneth. [address], [facility], [place], [place], [id number], . tel:[phone] Referring Provider: Kari Clifton, [address] [place], [address] . tel:[phone] [facility], [address] [place], [id number], [facility] No Information 3 Shawna Portillo. [address], [place], [place], [id number], . tel:[phone] Referring Provider: Kari Clifton, [address] [place], [address] . tel:[phone] [facility], [address] [place], [id number], [facility] No Information 1 Tl Vargas. [address], [facility], [place], [place], [id number], . tel:[phone] Referring Provider: Reyes Gaffney [facility] [address], [place], [address]. tel:[phone] [facility], [address] [place], [id number], [facility] No Information 1 Margaret Skinner. [address], [place], [place], [id number], . tel:[phone] Referring Provider: Reyes Gaffney [facility] [address], [place], [address]. tel:[phone] [facility], [address] [facility] [place], [id number], [facility] [place] No Information 1 Michael Srivastava. [address] [facility] [address], [place], [place], [id number], . tel:[phone] Referring Provider: Kari Clifton, [address] [place], [address] . tel:[phone] [facility], [address] [place], [place], [id number], [facility] [place] No Information 0 Ellyn Singh. [address] [facility] [address], [place], [place], [id number], . tel:[phone] Referring Provider: Kari Clifton, [address] [place], [address] . tel:[phone] Family History Family Member Type Diagnosis Age At Onset No Information Payers Payer name Insurance type Covered constitution party ID Ron nova(s) [facility] [id number] Social History Type Description Quantity Date Captured [...]
--- OUTSIDE RECORDS SUMMARY | 2024-02-24 09:55 | XMS_ITS | Continuity of Care Document ---
Author Name Unknown Organization [facility] rosales Address [address] [place] [address] Phone Care Team Providers Care Configuration Specialist Name Role Phone Joselin June DNP Unavailable Unavailab le Allergies, Adverse Reactions, Alerts Substance Reaction Status [...] /day, acute on chronic pain - Active Ok to fill 02/22; rx start 02/25 cyclobenzaprine 10 mg tablet TAKE ONE TABLET [...] Active may fill today Procedures Procedure Date OFFICE/OUTPATIENT VISIT, EST OFFICE VISIT, EST TELEMEDICINE OFFICE VISIT, EST TELEMEDICINE Drug test def 8-14 classes Drug Urine Toxology With Chromatography RF Cerv/Thor Single Level BILATERAL RF Cerv/Thor 2nd Level RIGHT RF Cerv/Thor 2nd Level LEFT OFFICE VISIT, EST TELEMEDICINE Facet Jt Inj Or MBB Cervical/Thoracic BI LATERAL Facet Jt Inj Or MBB Cerv/Thor 2nd Level BILATERAL OFFICE VISIT, EST TELEMEDICINE 24 Facet Jt Inj Or MBB Cervical/Thoracic BI LATERAL Facet Jt Inj Or MBB Cerv/Thor 2nd Level BILATERAL RF Lumb/Sacral Single Level BILATERAL De RF Lumb/Sacral 2nd Level RIGHT RF [...] q3mo opiod tx OFFICE VISIT, EST TELEMEDICINE 22 Foll-up eval q3mo opiod tx OFFICE/OUTPATIENT VISIT, [...] OFFICE VISIT, EST TELEMEDICINE 20 OFFICE/OUTPATIENT VISIT, [facility] DAST 15-30 MIN Drug test def 8-14 classes Advance Directives Directive Yes / No Effective Date File Name No Information Encounters Encounter Description Practice Location Reason(s) For Visit Diagnoses Date Provider Providers Copied on Encounter OFFICE/OUTPAT IENT VISIT, [facility], [address] [place] [address], [id number] , [place] tel:[phone] [facility] low back pain (chief complaint) Chronic pain syndromePain in right shoulderAnkylos ing spondylitis of unspecified sites in spineOther spondylosis, thoracic regionOther spondylosis, lumbar regionPostlamin ectomy syndrome, not elsewhere classifiedLong term (current) use of opiate analgesicOther longterm (current) drug therapy 4 Shaylee Olivera. [address] [facility] 11, [facility] [address], [place], [id number], [place]. tel:[phone] Referring Provider: Joselin Mc, [address] [place] [address] [address], [place], [address]. tel:[phone] OFFICE VISIT, [facility], [address] [place] [address], [id number] , [place] tel:[phone] [facility] low back pain (chief complaint) Chronic pain syndromePain in right shoulderAnkylos ing spondylitis of unspecified sites in spineOther spondylosis, thoracic regionOther spondylosis, lumbar regionPostlamin ectomy syndrome, not elsewhere classifiedLong term (current) use of opiate analgesicOther longterm (current) drug therapy 0 4 Darien Garber. [address] [facility] [address], [id number], [place]. tel:[phone] Referring Provider: Braxton Burnette, [address] [place] [address], [id number]. tel:[phone] OFFICE VISIT, [facility], [address] [place] [address], [id number] , [place] tel:[phone] [facility] low back pain (chief complaint) Chronic pain syndromeAnkylos ing spondylitis of unspecified sites in spineOther spondylosis, thoracic regionOther spondylosis, lumbar regionPostlamin ectomy syndrome, not elsewhere classifiedLong term (current) use of opiate analgesicOther terminologist (current) drug therapyPain in right shoulderEncount er for therapeutic drug level monitoring 4 Violetta Shirlene. [address], [place], [id number], [place]. tel:[phone] Referring Provider: Braxton Burnette, [address] [place] [address], [id number]. tel:[phone] [facility], [address] [place] [address], [id number] , [place] tel:[phone] [facility] Other spondylosis, thoracic region 4 Elodia Pierce. [address] [place] [address], [id number], [place]. tel:[phone] Referring Provider: Braxton Burnette, [address] [place] [address], [id number]. tel:[phone] OFFICE VISIT, EST TELEMEDICINE [facility], [address] [place] [address], [id number] , [place] tel:[phone] [facility] low back pain (chief complaint) Chronic pain syndromeAnkylos ing spondylitis of unspecified sites in spineOther spondylosis, thoracic regionOther spondylosis, lumbar regionPostlamin ectomy syndrome, not elsewhere classifiedLong term (current) use of opiate analgesicOther longterm (current) drug therapy 4 Nyonge Shirlene. [address], [place], [place], [id number], [place]. tel:[phone] Referring Provider: Braxton Burnette, [address] [place] [address], [id number]. tel:[phone] [facility], [address] [place] [address], [id number] , [place] tel:[phone] [facility] Other spondylosis, thoracic region 4 Elodia Pierce. [address] [place] [address], [id number], [place]. tel:[phone] Referring Provider: Braxton Burnette, [address] [place] [address], [id number]. tel:[phone] OFFICE VISIT, EST TELEMEDICINE [facility], [address] [place] [address], [id number] , [place] tel:[phone] [facility] low back pain (chief complaint) Chronic pain syndromeAnkylos ing spondylitis of unspecified sites in spineOther spondylosis, thoracic regionOther spondylosis, lumbar regionPostlamin ectomy syndrome, not elsewhere classifiedLong term (current) use of opiate analgesicOther terminologist (current) drug therapy 4 [facility]. [address], [place], [id number], [place]. tel:[phone] [facility], [address] [place] [address], [id number] , [place] tel:[phone] [facility] Other spondylosis, thoracic region 4 [facility]. [address], [place], [id number], [place]. [phone] [facility], [address] [place] [address], [id number] , [place] tel:[phone] [facility] Other spondylosis, thoracic region 3 Elodia Pierce. [address] [place] [address], [id number], [place]. tel:[phone] Referring Provider: Braxton Burnette, [address] [place] [address], [id number]. tel:[phone] [facility], [address] [place] [address], [id number] , [place] [phone] [facility] Other spondylosis, lumbar region 3 Elodia Pierce. [address] [place] [address], [id number], [place]. tel:[phone] Referring Provider: Braxton Burnette [address] [place] [address], [id number]. [phone] [facility], [address] [place] [address], [id number] , [place] tel:[phone] [facility] Other spondylosis with myelopathy, lumbar region 3 Nyongesa Shirlene. [address] [facility], [place], [id number], [place]. tel:[phone] OFFICE VISIT, [facility] TELEMEDICINE [facility], [address] [place] [address], [id number] , [place] tel:[phone] [facility] low back pain (chief complaint) Chronic pain syndromeAnkylos ing spondylitis of unspecified sites in spinePostlamine ctomy syndrome, not elsewhere classifiedLong term (current) use of opiate analgesicOther longterm (current) drug therapyOther spondylosis, lumbar regionOther spondylosis, thoracic region 3 Nyongesa Shirlene. [address] [facility] [address], [place], [id number], [place]. [phone] OFFICE/OUTPAT IENT VISIT, [facility], [address] [place] [address], [id number] , [place] tel:[phone] [facility] low back pain (chief complaint) Radiculopathy, lumbar regionChronic pain syndromeAnkylos ing spondylitis of unspecified sites in spinePostlamine ctomy syndrome, not elsewhere classifiedLong term (current) use of opiate analgesicOther longterm (current) drug therapy 3 Nyongesa Shirlene. [address] [facility] [address], [place], [id number], [place]. [phone] Referring Provider: Braxton Burnette, [address] [place] [address], [id number]. tel:[phone] [facility], [address] [place] [address], [id number] , [place] tel:[phone] [facility] Radiculopathy, lumbar region 3 Darien Garber. [address], [id number], [place]. tel:[phone] Referring Provider: Braxton Burnette, [address] [place] [address], [id number]. tel:[phone] OFFICE/OUTPAT IENT VISIT, EST [facility], [address] [place] [address], [id number] , [place] [phone] [facility] low back pain (chief complaint) Chronic pain syndromeAnkylos ing spondylitis of unspecified sites in spineRadiculopa thy, lumbar regionPostlamin ectomy syndrome, not elsewhere classifiedLong term (current) use of opiate analgesicOther terminologist (current) drug therapy 3 Darien Garber. [address], [id number], [place]. tel:[phone] Referring Provider: Braxton Burnette, [address] [place] [address], [id number]. tel:[phone] [facility], [address] [place] [address], [id number] , [place] [phone] [facility] No Information 3 Nyleslie Garber. [address], [id number], [place]. tel:[phone] [facility], [address] [place] [address], [id number] , [place] tel:[phone] [facility] No Information 3 Darien Garber. [address], [id number], [place]. tel:[phone] OFFICE/OUTPAT IENT VISIT, EST [facility], [address] [place] [address], [id number] , [place] [phone] [facility] low back pain (chief complaint) Chronic pain syndromeAnkylos ing spondylitis of unspecified sites in spineRadiculopa thy, lumbar regionPostlamin ectomy syndrome, not elsewhere classifiedLong term (current) use of opiate analgesicOther longterm (current) drug therapyEnckaweah delta medical centere for therapeutic drug level monitoring 3 Darien Garber. [address], [id number], . tel:[phone] Referring Provider: Braxton Burnette, [address] [place] [address], [address]. tel:[phone] OFFICE VISIT, EST TELEMEDICINE [facility], [address] [place] [address], [id number] , [place] [phone] [facility] low back pain (chief complaint) Radiculopathy, lumbar regionPostlamin ectomy syndrome, not elsewhere classifiedLong term (current) use of opiate analgesicOther terminologist (current) drug therapyChronic pain syndromeAnkylos ing spondylitis of unspecified sites in spine 3 Darien Garber. [address], [id number], [place]. tel:[phone] OFFICE VISIT, EST TELEMEDICINE [facility], [address] [place] [address], [id number] , [place] tel:[phone] [facility] low back pain (chief complaint) Chronic pain syndromeAnkylos ing spondylitis of unspecified sites in spineRadiculopa thy, lumbar regionPostlamin ectomy syndrome, not elsewhere classifiedLong term (current) use of opiate analgesicOther terminologist (current) drug therapy 3 Darien Garber. [address], [place], [id number], [place]. tel:[phone] Referring Provider: Braxton Burnette, [address] [place] [address], [address]. tel:[phone] OFFICE VISIT, EST TELEMEDICINE [facility], [address] [place] [address], [id number] , [place] tel:[phone] [facility] low back pain (chief complaint) Chronic pain syndromeAnkylos ing spondylitis of unspecified sites in spineRadiculopa thy, lumbar regionPostlamin ectomy syndrome, not elsewhere classifiedLong term (current) use of opiate analgesicOther longterm (current) drug therapy 3 Darien Garber. [address] [facility] [address], [id number], [place]. tel:[phone] OFFICE/OUTPAT IENT VISIT, [facility], [address] [place] [address], [id number] , [place] tel:[phone] [facility] low back pain (chief complaint) Chronic pain syndromeAnkylos ing spondylitis of unspecified sites in spineRadiculopa thy, lumbar regionPostlamin ectomy syndrome, not elsewhere classifiedLong term (current) use of opiate analgesicOther terminologist (current) drug therapy 3 Michellejuan Shirlene. [address] [facility] [address], [id number], [place]. tel:[phone] Referring Provider: Braxton Burnette, [address] [place] [address], [id number]. tel:[phone] OFFICE VISIT, EST [facility], [address] [place] [address], [id number] , [place] tel:[phone] [facility] low back pain (chief complaint) Chronic pain syndromeAnkylos ing spondylitis of unspecified sites in spineRadiculopa thy, lumbar regionPostlamin ectomy syndrome, not elsewhere classifiedLong term (current) use of opiate analgesicOther longterm (current) drug therapy 3 Michellejuan Shirlene. [address] [facility] 11 [facility] [address], [place], [id number], [place]. tel:[phone] OFFICE/OUTPAT IENT VISIT, [facility], [address] [place] [address], [id number] , [place] tel:[phone] [facility] low back pain (chief complaint) Chronic pain syndromeAnkylos ing spondylitis of unspecified sites in spineRadiculopa thy, lumbar regionLong term (current) use of opiate analgesicOther terminologist (current) drug therapyPostlami nectomy syndrome, not elsewhere classified 3 Darien Garber. [address] [facility] [address], [place], [id number], [place]. tel:[phone] Referring Provider: Braxton Burnette, [address] [place] [address], [id number]. tel:[phone] [facility], [address] [place] [address], [id number] , [place] tel:[phone] [facility] No Information 3 Darien Garber. [address] [facility] [address] [facility] [address], [place], [id number], [place]. tel:[phone] OFFICE VISIT, EST TELEMEDICINE [facility], [address] [place] [address], [id number] , [place] [phone] [facility] low back pain (chief complaint) DepressionChron ic pain syndromeRheumat oid arthritisPain in right hipAnkylosing spondylitis of unspecified sites in spineRadiculopa thy, lumbar regionMyalgia, other siteFibromyalgi aLong term (current) use of opiate analgesicOther terminologist (current) drug therapy 3 Darien Garber. [address] [facility] [address], [id number], [place]. tel:[phone] OFFICE VISIT, EST TELEMEDICINE [facility], [address] [place] [address], [id number] , [place] [phone] [facility] low back pain (chief complaint) DepressionChron ic pain syndromeRheumat oid arthritisPain in right hipAnkylosing spondylitis of unspecified sites in spineRadiculopa thy, lumbar regionMyalgia, other siteFibromyalgi aLong term (current) use of opiate analgesicOther terminologist (current) drug therapy 2 Darien Garber. [address] [facility] 11 [facility] [address], [place], [id number], [place]. tel:[phone] Referring Provider: Braxton Burnette, [address] [place] [address], [address]. tel:[phone] OFFICE VISIT, EST TELEMEDICINE [facility], [address] [place] [address], [id number] , [place] [phone] [facility] low back pain (chief complaint) DepressionChron ic pain syndromeRheumat oid arthritisPain in right hipAnkylosing spondylitis of unspecified sites in spineRadiculopa thy, lumbar regionMyalgia, other siteFibromyalgi aLong term (current) use of opiate analgesicOther longterm (current) drug therapy 2 Nyongesa Shirlene. [address], [id number], [place]. tel:[phone] OFFICE VISIT, [facility], [address] [place] [address], [id number] , [place] tel: [phone] [facility] low back pain (chief complaint) DepressionChron ic pain syndromeRheumat oid arthritisPain in right hipAnkylosing spondylitis of unspecified sites in spineRadiculopa thy, lumbar regionMyalgia, other siteFibromyalgi aLong term (current) use of opiate analgesicOther longterm (current) drug therapy 2 Nyongesa Shirlene. [address] [facility] 11 [facility] [address], [place], [id number], [place]. tel:[phone] Referring Provider: Braxton Burnette, [address] [place] [address], [address]. tel:[phone] [facility], [address] [place] [address], [id number] , [place] [phone] [facility] No Information 2 Nyongesa Shirlene. [address] [facility] 11 [facility] [address], [place], [id number], [place]. tel:[phone] OFFICE/OUTPAT IENT VISIT, [facility], [address] [place] [address], [id number] , [place] tel:[phone] [facility] low back pain (chief complaint) DepressionChron ic pain syndromeRheumat oid arthritisPain in right hipAnkylosing spondylitis of unspecified sites in spineRadiculopa thy, lumbar regionMyalgia, other siteFibromyalgi aLong term (current) use of opiate analgesicOther longterm (current) drug therapy 2 Nyongesa Shirlene. [address] [facility] [address], [place], [id number], [place]. tel:[phone] Referring Provider: Braxton Burnette, [address] [place] [address], [address]. tel:[phone] OFFICE VISIT, EST TELEMEDICINE [facility], [address] [place] [address], [id number] , [place] [phone] [facility] low back pain (chief complaint) DepressionChron ic pain syndromeRheumat oid arthritisPain in right hipAnkylosing spondylitis of unspecified sites in spineRadiculopa thy, lumbar regionMyalgia, other siteFibromyalgi aLong term (current) use of opiate analgesicOther longterm (current) drug therapy Jun-0 2 Nyongesa Shirlene. [address] [facility] 11 [facility] [address], [place], [id number], [place]. tel:[phone] OFFICE VISIT, EST TELEMEDICINE [facility], [address] [place] [address], [id number] , [place] tel:[phone] [facility] low back pain (chief complaint) DepressionChron ic pain syndromeRheumat oid arthritisPain in right hipAnkylosing spondylitis of unspecified sites in spineMyalgia, other siteRadiculopat hy, lumbar regionFibromyal giaLong term (current) use of opiate analgesicOther longterm (current) drug therapy 2 Nyongesa Shirlene. [address] [facility] [address], [place], [id number], [place]. tel:[phone] Referring Provider: Braxton Burnette, [address] [place] [address], [address]. tel:[phone] OFFICE VISIT, EST TELEMEDICINE [facility], [address] [place] [address], [id number] , [place] tel:[phone] [facility] low back pain (chief complaint) DepressionChron ic pain syndromeRheumat oid arthritisPain in right hipAnkylosing spondylitis of unspecified sites in spineRadiculopa thy, lumbar regionFibromyal giaLong term (current) use of opiate analgesicOther terminologist (current) drug therapyMyalgia, other site 2 Nyongesa Shirlene. [address] [facility] [address], [place], [id number], [place]. tel:[phone] Referring Provider: Lito Rajan, [address], [address]. tel:[phone] [facility], [address] [place] [address], [id number] , [place] tel:[phone] [facility] Myalgia, other site 2 Nyongesa Shirlene. [address] [facility] [address], [place], [id number], [place]. tel:[phone] Referring Provider: Braxton Burnette, [address] [place], [address]. tel:[phone] OFFICE VISIT, EST TELEMEDICINE [facility], [address] [place] [address], [id number] , [place] tel:[phone] [facility] low back pain (chief complaint) DepressionChron ic pain syndromeRheumat oid arthritisPain in right hipAnkylosing spondylitis of unspecified sites in spineRadiculopa thy, lumbar regionFibromyal giaLong term (current) use of opiate analgesic 2 Nyongesa Shirlene. [address] [facility] [address], [place], [id number], [place]. tel:[phone] OFFICE/OUTPAT IENT VISIT, EST [facility], [address] [place] [address], [id number] , [place] tel:[phone] [facility] low back pain (chief complaint) DepressionChron ic pain syndromeRheumat oid arthritisPain in right hipFibromyalgia halfway (current) use of opiate analgesicAnkylo sing spondylitis of unspecified sites in spineRadiculopa thy, lumbar regionEncounter for therapeutic drug level monitoring 0 - 2 Violettasa Shirlene. [address], [id number], [place]. tel:[phone] Referring Provider: Lito Rajan, [address], [address]. tel:[phone] [facility], [address] [place] [address], [id number] , [place] tel:[phone] [facility] No Information 2 Darien Garber. [address], [id number], [place]. tel:[phone] Referring Provider: Lito Rajan, [address], [address]. tel:[phone] OFFICE VISIT, [facility] TELEMEDICINE [facility], [address] [place] [address], [id number] , [place] tel:[phone] [facility] [facility] low back pain (chief complaint) Rheumatoid arthritisDepres sionChronic pain syndromePain in right hipFibromyalgia long term (current) use of opiate analgesic Apr-0 2 Darien Garber. [address], [id number], [place]. tel:[phone] Referring Provider: Braxton Burnette, [address] [place] [address], [address]. tel:[phone] OFFICE/OUTPAT IENT VISIT, [facility], [address] [place] [address], [id number] , [place] tel:[phone] [facility] low back pain (chief complaint) Ankylosing spondylitis of unspecified sites in spineRadiculopa thy, lumbar regionFibromyal giaDepressionLo ng term (current) use of opiate analgesicChroni c pain syndromeRheumat oid arthritisMyalgi a, other sitePain in right hip Mar-0 8- 2 Violetta Sharp. 1455 [facility] 11 [facility] [address], [place], [id number], [place]. tel:[phone] Referring Provider: Braxton Burnette, [address] [place] [address], [address]. tel:[phone] OFFICE VISIT, EST TELEMEDICINE [facility], [address] [place] [address], [id number] , [place] [phone] [facility] low back pain (chief complaint) Ankylosing spondylitis of unspecified sites in spineRadiculopa thy, lumbar regionFibromyal giaDepressionLo ng term (current) use of opiate analgesicChroni c pain syndromeRheumat oid arthritisMyalgi a, other sitePain in right hip 2 Nyongesa Shirlene. [address], [id number], [place]. tel:[phone] Referring Provider: Lito Rajan, [address], [address]. tel:[phone] OFFICE VISIT, EST TELEMEDICINE [facility], [address] [place] [address], [id number] , [place] tel:[phone] [facility] low back pain (chief complaint) Ankylosing spondylitis of unspecified sites in spineRadiculopa thy, lumbar regionFibromyal giaDepressionLo ng term (current) use of opiate analgesicChroni c pain syndromeRheumat oid arthritisMyalgi a, other sitePain in right hip 0 2 Nyongesa Shirlene. [address] [facility] 11 [facility] [address], [place], [id number], [place]. tel:[phone] Referring Provider: Braxton Burnette, [address] [place] [address], [address]. tel:[phone] OFFICE VISIT, EST TELEMEDICINE [facility], [address] [place] [address], [id number] , [place] tel:[phone] [facility] low back pain (chief complaint) Ankylosing spondylitis of unspecified sites in spineRadiculopa thy, lumbar regionFibromyal giaDepressionLo ng term (current) use of opiate analgesicChroni c pain syndromeRheumat oid arthritisMyalgi a, other sitePain in right hip 1 Nyongesa Shirlene. [address] [facility] [address], [place], [id number], [place]. tel:[phone] Referring Provider: Braxton Burnette, [address] [place] [address], [address]. tel:[phone] [facility], [address] [place] [address], [id number] , [place] [phone] [facility] Pain [facility] Radiculopathy, lumbar region 1 Dave Limon. [address] [place] [address], [id number], [place]. tel:[phone] [facility], [address] [place] [address], [id number] , [place] tel:[phone] [facility] No Information 1 Nyjuan Shirlene. [address], [place], [id number], [place]. tel:[phone] Referring Provider: Braxton Burnette, [address] [place] [address], [id number]. tel:[phone] OFFICE/OUTPAT IENT VISIT, EST [facility], [address] [place] [address], [id number] , [place] [phone] [facility] low back pain (chief complaint) Ankylosing spondylitis of unspecified sites in spineRadiculopa thy, lumbar regionFibromyal giaDepressionLo ng term (current) use of opiate analgesicChroni c pain syndromeRheumat oid arthritisMyalgi a, other sitePain in right hipEncounter for therapeutic drug level monitoring 1 Nyonge Shirlene. [address] [facility] [address], [place], [id number], [place]. tel:[phone] Referring Provider: Braxton Burnette, [address] [place] [address], [address]. tel:[phone] [facility], [address] [place] [address], [id number] , [place] tel:[phone] [facility] Pain [facility] lumbago (chief complaint) Ankylosing spondylitis of unspecified sites in spineRadiculopa thy, lumbar regionSpondylos is without myelopathy or radiculopathy, lumbar region Oct-2 1 Enma Alexander. [address] [place] [address], [id number], [place]. tel:[phone] Referring Provider: Braxton Burnette, [address] [place] [address], [address]. tel:[phone] OFFICE/OUTPAT IENT VISIT, EST [facility], [address] [place] [address], [id number] , [place] [phone] [facility] low back pain (chief complaint) Radiculopathy, lumbar regionFibromyal giaRheumatoid arthritisDepres sionLong term (current) use of opiate analgesicAnkylo sing spondylitis of unspecified sites in spineChronic pain syndrome Jul-0 1 Darien Garber. [address] [facility] [address], [place], [id number], [place]. tel:[phone] Referring Provider: Braxton Burnette, [address] [place] [address], [address]. tel:[phone] [facility], [address] [place] [address], [id number] , [place] tel:[phone] [facility] Radiculopathy, lumbar region Jun-2 1 Darien Garber. [address] [facility] [address], [place], [id number], [place]. tel:[phone] Referring Provider: Braxton Burnette, [address] [place] [address], [id number]. tel:[phone] [facility], [address] [place] [address], [id number] , [place] tel:[phone] [facility] Radiculopathy, lumbar region Sep-2 1 Gulshan Chambers. [facility], [address], [place], [address], [place]. tel:[phone] Referring Provider: Braxton Burnette, [address] [place] [address], [address]. tel:[phone] OFFICE/OUTPAT IENT VISIT, EST [facility], [address] [place] [address], [id number] , [place] tel:[phone] [facility] Back Pain (chief complaint) FibromyalgiaRhe umatoid arthritisDepres sionLong term (current) use of opiate analgesicMyalgi a, other sitePain in right hipPain in left hipRadiculopath y, lumbar regionChronic pain syndromeAnkylos ing spondylitis of unspecified sites in spine Sep-1 1 Michelleongesa Shirlene. [address] [facility] [address], [place], [id number], [place]. tel:[phone] Referring Provider: Braxton Burnette, [address] [place] [address], [address]. tel:[phone] [facility], [address] [place] [address], [id number] , [place] tel:[phone] [facility] No Information May- 1 Nyongesa Shirlene. [address] [facility] [address], [place], [id number], [place]. tel:[phone] Referring Provider: Braxton Burnette, [address] [place] [address], [address]. tel:[phone] [facility], [address] [place] [address], [id number] , [place] tel:[phone] [facility] Radiculopathy, lumbar region May- 1 Nyongesa Shirleen. [address] [facility] [address], [place], [place], [id number], [place]. tel:[phone] Referring Provider: Braxton Burnette, [address] [place] [address], [address]. tel:[phone] [facility], [address] [place] [address], [id number] , [place] tel:[phone] [facility] No Information 1 Michelleleslie Garber. [address] [place] [address] [address], [place], [place], [id number], [place]. tel:[phone] Referring Provider: Braxton Burnette, [address] [place] [address], [address]. tel:[phone] [facility], [address] [place] [address], [id number] , [place] [phone] [facility] Radiculopathy, lumbar region 1 Violetta Sharp. 1455 [facility] [address], [place], [place], [id number], [place]. tel:[phone] Referring Provider: Braxton Burnette, [address] [place] [address], [address]. tel:[phone] [facility], [address] [place] [address], [id number] , [place] tel:[phone] [facility] [place] Radiculopathy, lumbar region 1 Gulshan Chambers. [facility], [address] [facility] [address] [facility] [address], [place], [address], [place]. tel:[phone] Referring Provider: Braxton Burnette, [address] [place] [address], [address]. tel:[phone] OFFICE VISIT, EST TELEMEDICINE [facility], [address] [place] [address], [id number] , [place] tel:[phone] [facility] Back Pain (chief complaint) Chronic pain syndromeAnkylos ing spondylitis of unspecified sites in spineFibromyalg iaRheumatoid arthritisDepres sionLong term (current) use of opiate analgesicMyalgi a, other sitePain in right hipPain in left hipRadiculopath y, lumbar region 1 Darien Garber. [address] [facility] [address], [place], [place], [id number], [place]. tel:[phone] Referring Provider: Braxton Burnette, [address] [place] [address], [address]. tel:[phone] OFFICE VISIT, EST TELEMEDICINE [facility], [address] [place] [address], [id number] , [place] tel:[phone] [facility] Back Pain (chief complaint) Chronic pain syndromeAnkylos ing spondylitis of unspecified sites in spineFibromyalg iaRheumatoid arthritisDepres sionLong term (current) use of opiate analgesicMyalgi a, other sitePain in right hipPain in left hipRadiculopath y, lumbar region 1 Darien Garber. [address] [facility] [address], [place], [place], [id number], [place]. tel:[phone] Referring Provider: Braxton Burnette, [address] [place] [address], [address]. tel:[phone] [facility], [address] [place] [address], [id number] , [place] tel:[phone] [facility] Pain [facility] lumbago (chief complaint) Ankylosing spondylitis of unspecified sites in spineRadiculopa thy, lumbar regionSpondylos is without myelopathy or radiculopathy, lumbar region 1 Enma Alexander. [address] [place] [address], [id number], [place]. tel:[phone] Referring Provider: Braxton Burnette, [address] [place] [address], [address]. tel:[phone] Psych Dx Eval [facility], [address] [place] [address], [id number] , [place] tel:[phone] Telehealth Pain disorder with related psychological factors 1 Karen Coronado. [address] [place] [address], [id number], [place]. tel:[phone] Referring Provider: Braxton Burnette, [address] [place] [address], [address]. tel:[phone] [facility], [address] [place] [address], [id number] , tel:[phone] [facility] No Information 1 Nyongesa Shirlene. [address] [facility] [address], [place], [id number], [place]. tel:[phone] Referring Provider: Braxton Burnette, [address] [place] [address], [address]. tel:[phone] [facility], [address] [place] [address], [id number] , [place] tel:[phone] [facility] Back Pain (chief complaint) Chronic pain syndromeAnkylos ing spondylitis of unspecified sites in spineFibromyalg iaRheumatoid arthritisDepres sionLong term (current) use of opiate analgesicMyalgi a, other sitePain in right hipPain in left hipEncounter for therapeutic drug level monitoringRadic ulopathy, lumbar region 1 Nyongesa Shirlene. [address] [facility] 11 [facility] [address], [place], [id number], [place]. tel:[phone] Referring Provider: Braxton Burnette, [address] [place] [address], [address]. tel:[phone] OFFICE VISIT, EST TELEMEDICINE [facility], [address] [place] [address], [id number] , [place] tel:[phone] [facility] Back Pain (chief complaint) Spondylosis without myelopathy or radiculopathy, lumbar regionChronic pain syndromeAnkylos ing spondylitis of unspecified sites in spineFibromyalg iaRheumatoid arthritisDepres sionLong term (current) use of opiate analgesicMyalgi a, other sitePain in right hipPain in left hip 1 Nyongesa Shirlene. [address] [facility] [address], [place], [id number], [place]. tel:[phone] Referring Provider: Braxton Burnette, [address] [place] [address], [address]. tel:[phone] OFFICE VISIT, [facility] TELEMEDICINE [facility], [address] [place] [address], [id number] , [place] tel:[phone] [facility] Back Pain (chief complaint) Spondylosis without myelopathy or radiculopathy, lumbar regionChronic pain syndromeAnkylos ing spondylitis of unspecified sites in spineFibromyalg iaRheumatoid arthritisDepres sionLong term (current) use of opiate analgesicMyalgi a, other sitePain in right hipPain in left hip Apr-2 0-202 1 Nyongesa Shirlene. [address] [facility] [address], [place], [id number], [place]. tel:[phone] Referring Provider: Braxton Burnette, [address] [place] [address], [address]. tel:[phone] OFFICE/OUTPAT IENT VISIT, [facility], [address] [place] [address], [id number] , [place] tel:[phone] [facility] Back Pain (chief complaint) Spondylosis without myelopathy or radiculopathy, lumbar regionChronic pain syndromeAnkylos ing spondylitis of unspecified sites in spineFibromyalg iaRheumatoid arthritisDepres sionLong term (current) use of opiate analgesicMyalgi a, other sitePain in right hipPain in left hipEncounter for therapeutic drug level monitoring Dec-2 2 1 Nyongesa Shirlene. [address] [facility] [address], [place], [id number], [place]. tel:[phone] Referring Provider: Braxton Burnette, [address] [place] [address], [address]. tel:[phone] [facility], [address] [place] [address], [id number] , [place] tel:[phone] [facility] No Information Dec- 1 Nyongesa Shirlene. [address] [facility] [address], [place], [id number], . tel:[phone] Referring Provider: Braxton Burnette, [address] [place] [address], [address]. tel:[phone] OFFICE VISIT, EST TELEMEDICINE [facility], [address] [place] [address], [id number] , [place] [phone] [facility] Back Pain (chief complaint) Spondylosis without myelopathy or radiculopathy, lumbar regionChronic pain syndromeAnkylos ing spondylitis of unspecified sites in spineFibromyalg iaRheumatoid arthritisDepres sionLong term (current) use of opiate analgesicMyalgi a, other sitePain in right hipPain in left hip 1 Nyongesa Shirlene. [address] [facility] [address], [place], [id number], [place]. tel:[phone] Referring Provider: Braxton Burnette, [address] [place] [address], [address]. tel:[phone] OFFICE VISIT, EST TELEMEDICINE [facility], [address] [place] [address], [id number] , [place] tel:[phone] [facility] Back Pain (chief complaint) Spondylosis without myelopathy or radiculopathy, lumbar regionChronic pain syndromeAnkylos ing spondylitis of unspecified sites in spineFibromyalg iaRheumatoid arthritisDepres sionLong term (current) use of opiate analgesicMyalgi a, other site 1 Nyongesa Shirlene. [address] [facility] [address], [place], [id number], [place]. tel:[phone] Referring Provider: Braxton Burnette, [address] [place] [address], [address]. tel:[phone] OFFICE VISIT, EST TELEMEDICINE [facility], [address] [place] [address], [id number] , [place] tel:[phone] [facility] Pain [facility] Back Pain (chief complaint) Spondylosis without myelopathy or radiculopathy, lumbar regionChronic pain syndromeAnkylos ing spondylitis of unspecified sites in spineFibromyalg iaRheumatoid arthritisDepres sionLong term (current) use of opiate analgesicMyalgi a, other site 0 Nyongesa Shirlene. [address] [facility] [address], [place], [id number], [place]. tel:[phone] Referring Provider: Braxton Burnette, [address] [place] [address], [address]. tel:[phone] [facility], [address] [place] [address], [id number] , [place] [phone] [facility] Spondylosis without myelopathy or radiculopathy, lumbar region 0 Elodia Pierce. [address] [place] [address], [id number], [place]. tel:[phone] Referring Provider: Braxton Burnette, [address] [place] [address], [address]. tel:[phone] OFFICE VISIT, EST TELEMEDICINE [facility], [address] [place] [address], [id number] , [place] tel:[phone] [facility] Back Pain (chief complaint) Spondylosis without myelopathy or radiculopathy, lumbar regionChronic pain syndromeAnkylos ing spondylitis of unspecified sites in spineFibromyalg iaRheumatoid arthritisDepres sionLong term (current) use of opiate analgesicMyalgi a, other site 0 Nyongesa Shirlene. [address] [facility] [address], [place], [id number], [place]. tel:[phone] Referring Provider: Braxton Burnette, [address] [place] [address], [address]. tel:[phone] OFFICE VISIT, EST TELEMEDICINE [facility], [address] [place] [address], [id number] , [place] tel:[phone] [facility] Back Pain (chief complaint) Chronic pain syndromeAnkylos ing spondylitis of unspecified sites in spineFibromyalg iaRheumatoid arthritisDepres sionLong term (current) use of opiate analgesicMyalgi a, other siteSpondylosis without myelopathy or radiculopathy, lumbar region 0 Nyongesa Shirlene. [address] [facility] [address], [place], [place], [id number], [place]. tel:[phone] Referring Provider: Braxton Burnette, [address] [place] [address], [address]. tel:[phone] [facility], [address] [place] [address], [id number] , [place] [phone] [facility] Spondylosis without myelopathy or radiculopathy, lumbar region 0 Elodia Pierce. [address] [place] [address], [id number], [place]. tel:[phone] Referring Provider: Braxton Burnette, [address] [place] [address], [address]. tel:[phone] OFFICE/OUTPAT IENT VISIT, EST [facility], [address] [place] [address], [id number] , [place] tel:[phone] [facility] Pain [facility] Back Pain (chief complaint) Spondylosis without myelopathy or radiculopathy, lumbar regionChronic pain syndromeAnkylos ing spondylitis of unspecified sites in spineFibromyalg iaRheumatoid arthritisDepres sionLong term (current) use of opiate analgesicMyalgi a, other site 0 Nyongesa Shirlene. [address] [facility] [address], [place], [id number], [place]. tel:[phone] Referring Provider: Braxton Burnette, [address] [place] [address], [address]. tel:[phone] [facility], [address] [place] [address], [id number] , [place] tel:[phone] [facility] Pain [facility] Spondylosis without myelopathy or radiculopathy, lumbar region 0 Nyongesa Shirlene. [address], [place], [id number], [place]. tel:[phone] [facility], [address] [place] [address], [id number] , [place] tel:[phone] [facility] Spondylosis without myelopathy or radiculopathy, lumbar region Jul- 0 Davidlizz Victoriae. [address] [place] [address], [id number], [place]. tel:[phone] Referring Provider: Braxton Burnette, [address] [place] [address], [address]. tel:[phone] OFFICE/OUTPAT IENT VISIT, [facility], [address] [place] [address], [id number] , [place] tel:[phone] [facility] Back Pain (chief complaint) Chronic pain syndromeAnkylos ing spondylitis of unspecified sites in spineFibromyalg iaRheumatoid arthritisDepres sionLong term (current) use of opiate analgesicMyalgi a, other siteSpondylosis without myelopathy or radiculopathy, lumbar region Jun-2 0 Darien Garber. [address] [facility] [address] [facility] [address], [place], [id number], [place]. tel:[phone] Referring Provider: Lito Rajan, [address], [address]. tel:[phone] OFFICE/OUTPAT IENT VISIT, [facility], [address] [place] [address], [id number] , [place] tel:[phone] [facility] Pain [facility] Back Pain (chief complaint) Chronic pain syndromeAnkylos ing spondylitis of unspecified sites in spineFibromyalg iaRheumatoid arthritisDepres sionLong term (current) use of opiate analgesicEncoun ter for therapeutic drug level monitoring May- 0 Darien Shirlene. [address] [facility] [address], [place], [id number], [place]. tel:[phone] Referring Provider: Braxton Burnette, [address] [place], [address]. tel:[phone] OFFICE VISIT, [facility], [address] [place] [address], [id number] , [place] tel:[phone] [facility] [facility] Back Pain (chief complaint) Chronic pain syndromeAnkylos ing spondylitis of unspecified sites in spineFibromyalg iaRheumatoid arthritisDepres sionLong term (current) use of opiate analgesic 0 Nyongesa Shirlene. [id number] [facility] [address] [facility] [address], [place], [id number], [place]. tel:[phone] Referring Provider: Lito Rajan [address], [address]. tel:[phone] OFFICE/OUTPAT IENT VISIT, [facility], [address] [place] [address], [id number] , [place] tel:[phone] [facility] Back Pain (chief complaint) Chronic pain syndromeAnkylos ing spondylitis of unspecified sites in spineFibromyalg iaRheumatoid arthritisDepres sionEncounter for therapeutic drug level monitoringLong term (current) use of opiate analgesic 0 Nyongesa Shirlene. [id number] [facility] [address] [facility] [address], [place], [id number], [place]. tel:[phone] Referring Provider: Lito Rajan [address], [address]. tel:[phone] Family History Family Member Type Diagnosis Age At Onset Daughter Problem RA Payers Payer name Insurance type Covered democrat ID Ron nova(s) Albert [facility] [id number] Social History Type Description Quantity Date Captured Comments Alcohol Use Details No Caffeine Use Details Unknown Tobacco Use Status Current non-smoker Smoking Status Never smoker Non-Smoking Tobacco Use Details : No Details Available : No Details Available Sex Female Chief Complaint And Reason For Visit From encounter dated '02/20/2024 10:00'. low back pain (chief complaint). Description: Severity level is 0. Duration: chronic. The problem is stable. It occurs intermittently. Symptoms are aggravated by bending, lifting, housework, movement, stairs and standing. Symptoms are relieved by heat, pain meds/drugs, stretching and rest. Reason For Referral Reason For Referral No Information Plan Of Treatment Date Type Action Status Goal Hepatitis C screening. Due o n due Goal UDT. Due on due Goal OARS. Due on due Goal Review Allergy List. Due on due Goal Update Social History. Due o n due Goal Height. Due on d ue Goal CT-Colonography. Due on due Goal EQUIPMENT MAINT TECH Paperwork. Due on due Goal Weight. Due on d ue Goal BAKER BENCH Scanned. Due on due Goal FIT-DNA. Due [...] Goal Tobacco Use. Due on due Goal BAKER BENCH Scanned. Due on due Goal UDT. Due on due Goal HPV. Due on due Goal Creatinine. Due on due Goal PHQ-9. Due on du e Goal Unhealthy drug use screening . Due on due Goal Review Allergy List. Due on due Goal EQUIPMENT MAINT TECH Paperwork. Due on due Goal OARS. Due on due Goal Zoster vaccine (1st). Due on due Goal FIT-DNA. Due on due Goal Medication Reconciliation. D ue on due Goal Height. Due on d ue Goal FIT. Due on due Goal Weight. Due on d ue Goal Hepatitis C screening. Due o n due Goal CT-Colonography. Due on due Goal Update Social History. Due o n due Goal Height. Due on d ue Goal FIT-DNA. Due on due Goal OARS. Due on due Goal PHQ-9. Due on du e Goal ALT (SGPT). Due on due Goal Order Annual PT. Due on due Goal UDT. Due on due Goal BAKER BENCH Scanned. Due on due Goal Hepatitis C screening. Due o n due Goal EQUIPMENT MAINT TECH Paperwork. Due on due Goal Update Social [...] Zoster vaccine (). Due on due Goal HPV. Due on [...] e Goal FIT-DNA. Due on due Goal CT-Colonography. Due on due Goal Unhealthy drug use screening . Due on due Goal EQUIPMENT MAINT TECH Paperwork. Due on due Goal OARS. Due on due Goal UDT. Due on due Goal AST (SGOT). Due on due Goal BAKER BENCH Scanned. Due on due Goal ALT (SGPT). Due on due Goal Creatinine. Due on due Goal Order Annual PT. Due on due Goal EQUIPMENT MAINT TECH Paperwork. Due on due Goal ALT (SGPT). Due on due Goal Unhealthy drug use screening . Due on due Goal BAKER BENCH Scanned. Due on due Goal Order Annual PT. Due on due Goal AST (SGOT). Due on due Goal Tobacco Use. Due on due Goal OARS. Due on due Goal UDT. Due on due Goal Creatinine. Due on due Goal Zoster vaccine (). Due on due Goal HPV. Due on due Goal PHQ-9. Due on du e Goal Update Social History. Due o n due Goal Review Allergy List. Due on due Goal Lipid panel. Due on due Goal Height. Due on d ue Goal Medication Reconciliation. D ue on due Goal Weight. Due on d ue Goal FIT. Due on due Goal Hepatitis C screening. Due o n due Goal FIT-DNA. Due on due Goal CT-Colonography. Due on due Goal Zoster vaccine (1st). Due on due Goal Creatinine. Due on due Goal CT-Colonography. Due on due Goal FIT. Due on due Goal Lipid panel. Due on due Goal BAKER BENCH Scanned. Due on due Goal UDT. Due on due Goal Hepatitis C screening. Due o n due Goal Medication Reconciliation. D ue on due Goal Height. Due on d ue Goal FIT-DNA. Due on due Goal Review Allergy List. Due on due Goal ALT (SGPT). Due on due Goal EQUIPMENT MAINT TECH Paperwork. Due on due Goal Tobacco Use. [...] Goal Height. Due on d ue Goal BAKER BENCH Scanned. Due on due Goal Hepatitis C screening. Due o n due Goal Lipid panel. Due on due Goal EQUIPMENT MAINT TECH Paperwork. Due on due Goal PHQ-9. Due [...] C screening. Due o n due Goal BAKER BENCH Scanned. Due on due Goal FIT. Due [...] due Goal UDT. Due on due Goal EQUIPMENT MAINT TECH Paperwork. Due on due Goal FIT-DNA. Due on due Goal OARS. Due on due Goal Height. Due on d ue Goal Update Social History. Due o n due Goal Zoster vaccine (). Due on due Goal Weight. Due on d ue Goal HPV. Due on due Goal HPV. Due on [...] Goal PHQ-9. Due on du e Goal BAKER BENCH Scanned. Due on due Goal OARS. Due on due Goal EQUIPMENT MAINT TECH Paperwork. Due on due Goal UDT. Due [...] due Goal HPV. Due on due Goal Review [...] e Goal FIT. Due on due Goal ALT (SGPT). Due on due Goal AST (SGOT). Due on due Goal OARS. Due on due Goal Order Annual PT. Due on due Goal EQUIPMENT MAINT TECH Paperwork. Due on due Goal BAKER BENCH Scanned. Due on due Goal Creatinine. Due on due Goal UDT. Due on due Goal FIT-DNA. Due on due Goal CT-Colonography. Due on due Goal Height. Due on d ue Goal Hepatitis C screening. Due o n due Goal Creatinine. Due on due Goal BAKER BENCH Scanned. Due on due Goal AST (SGOT). Due on due Goal OARS. Due on due Goal UDT. Due on due Goal EQUIPMENT MAINT TECH Paperwork. Due on due Goal ALT (SGPT). [...] due Goal OARS. Due on due Goal BAKER BENCH Scanned. Due on due Goal FIT. Due on due Goal EQUIPMENT MAINT TECH Paperwork. Due on due Goal UDT. Due on due Goal Tobacco Use. Due on due Goal HPV. Due on due Goal Update Social History. Due o n due Goal FIT-DNA. Due on due Goal Lipid panel. Due on due Goal Weight. Due on d ue Jul- Goal PHQ-9. Due on du e Goal Hepatitis C screening. Due o n due Goal Medication Reconciliation. D ue on due Goal Update Social History. Due o n due Goal FIT-DNA. Due on due Goal FIT. Due on due Goal AST (SGOT). Due on due Goal BAKER BENCH Scanned. Due on due Goal ALT (SGPT). Due on due Goal OARS. Due on due Goal EQUIPMENT MAINT TECH Paperwork. Due on due Goal UDT. Due on due Goal Order Annual PT. Due on due Goal Creatinine. Due on due Goal Lipid panel. Due on due Goal Weight. Due on d ue Oct- Goal PHQ-9. Due on du e Goal [...] due Goal OARS. Due on due Goal BAKER BENCH Scanned. Due on due Goal AST (SGOT). Due on due Goal EQUIPMENT MAINT TECH Paperwork. Due on due Goal Unhealthy drug [...] due Goal UDT. Due on due Goal BAKER BENCH Scanned. Due on due Goal OARS. Due on due Goal AST (SGOT). Due on due Goal HPV. Due on [...] due Goal FIT. Due on due Goal EQUIPMENT MAINT TECH Paperwork. Due on due Goal CT-Colonography. Due on due Goal ALT (SGPT). Due on due Goal UDT. Due on due Goal ALT (SGPT). Due on due Goal Creatinine. Due on due Goal Unhealthy drug use screening . Due on due Goal Update Social History. Due o n due Goal BAKER BENCH Scanned. Due on due Goal Weight. Due on d ue Goal FIT-DNA. Due on due Goal Tobacco Use. Due on due Goal Review Allergy List. Due on due Goal OARS. Due on due Goal AST (SGOT). Due on due Goal Hepatitis C screening. Due o n due Goal EQUIPMENT MAINT TECH Paperwork. Due on due Goal CT-Colonography. Due [...] C screening. Due o n due Goal BAKER BENCH Scanned. Due on due Goal Review Allergy List. Due on due Goal Weight. Due on d ue Goal Lipid panel. Due on due Goal FIT-DNA. Due on due Goal OARS. Due on due Goal AST (SGOT). Due on due Goal Unhealthy drug use screening . Due on due Goal Order Annual PT. Due on due Goal EQUIPMENT MAINT TECH Paperwork. Due on due Goal Tobacco Use. Due on due Goal HPV. Due on due Goal PHQ-9. Due on du e Goal Creatinine. Due on due Goal Update Social History. Due o n due Goal ALT (SGPT). Due on due Goal UDT. Due on due Goal CT-Colonography. Due on due Goal FIT. Due on due Goal Height. Due on d ue Goal EQUIPMENT MAINT TECH Paperwork. Due on due Goal FIT. Due on due Goal Tobacco Use. Due on due Goal Update Social History. Due o n due Goal FIT-DNA. Due on due Goal Review Allergy List. Due on due Goal HPV. Due on due Goal Medication Reconciliation. D ue on due Goal Creatinine. Due on due Goal OARS. Due on due Goal CT-Colonography. Due on due Goal Order Annual PT. Due on due Goal Unhealthy drug use screening . Due on due Goal PHQ-9. Due on du e Goal AST (SGOT). Due on due Goal UDT. Due on due Goal ALT (SGPT). Due on due Goal Weight. Due on d ue Goal Zoster vaccine (1st). Due on due Goal Lipid panel. Due on due Goal BAKER BENCH Scanned. Due on due Goal Hepatitis C screening. Due o n due Goal CT-Colonography. Due on due Goal Hepatitis C screening. Due o n due Goal EQUIPMENT MAINT TECH Paperwork. Due on due Goal Order Annual [...] Goal Height. Due on d ue Goal BAKER BENCH Scanned. Due on due Goal OARS. Due [...] ue Goal HPV. Due on due Goal EQUIPMENT MAINT TECH Paperwork. Due on due Goal Unhealthy drug use screening . Due on due Goal UDT. Due on due Goal FIT-DNA. Due on due Goal AST (SGOT). Due on due Goal Order Annual PT. Due on due Goal Creatinine. Due on due Goal ALT (SGPT). Due on due Goal Tobacco Use. Due on due Goal BAKER BENCH Scanned. Due on due Goal FIT. Due on due Goal Order Annual PT. Due on due Goal BAKER BENCH Scanned. Due on due Goal ALT (SGPT). Due on due Goal HPV. Due on due Goal Weight. Due on d ue Goal Unhealthy drug use screening . Due on due Goal Tobacco Use. Due on 023 due Goal Creatinine. Due on due Goal UDT. Due on due Goal Lipid panel. Due on 023 due Goal FIT. Due on due Goal EQUIPMENT MAINT TECH Paperwork. Due on due Goal PHQ-9. Due [...] ue Goal CT-Colonography. Due on due Goal EQUIPMENT MAINT TECH Paperwork. Due on due Goal OARS. Due on due Goal Review Allergy List. Due on due Goal HPV. Due on due Goal Medication Reconciliation. D ue on due Goal Lipid panel. Due on due Goal Zoster vaccine (). Due on due Goal Tobacco Use. Due on due Goal Update Social History. Due o n due Goal Unhealthy drug use screening . Due on due Goal FIT. Due on due Goal Order Annual PT. Due on due Goal UDT. Due on due Goal ALT (SGPT). Due on due Goal AST (SGOT). Due on due Goal BAKER BENCH Scanned. Due on due Goal Creatinine. Due on due Goal Hepatitis C screening. Due o n due Goal Weight. Due on d ue Goal EQUIPMENT MAINT TECH Paperwork. Due on due Goal Medication Reconciliation. D ue on due Goal HPV. Due on due Goal FIT. Due on due Goal Zoster vaccine (1st). Due on due Goal PHQ-9. Due on du e Goal CT-Colonography. Due on due Goal Unhealthy drug use screening . Due on due Goal Lipid panel. Due on due Goal Review Allergy List. Due on due Goal BAKER BENCH Scanned. Due on due Goal Order Annual [...] Order Annual PT. Due on due Goal EQUIPMENT MAINT TECH Paperwork. Due on due Goal OARS. Due on due Goal ALT (SGPT). Due on due Goal Creatinine. Due on due Goal BAKER BENCH Scanned. Due on due Goal Lipid panel. Due on due Goal Zoster vaccine (). Due on due Goal Height. Due on d ue Goal FIT-DNA. Due on due Goal PHQ-9. Due on du e Goal Update Social History. Due o n due Goal Tobacco Use. Due on due Goal Hepatitis C screening. Due o n due Goal HPV. Due on due Goal EQUIPMENT MAINT TECH Paperwork. Due on due Goal FIT. Due on due Goal Tobacco Use. Due on due Goal AST (SGOT). Due on due Goal ALT (SGPT). Due on due Goal Review Allergy List. Due on due Goal Creatinine. Due on due Goal Hepatitis C screening. Due o n due Goal Update Social History. Due o n due Goal Zoster vaccine (1st). Due on due Goal OARS. Due on due Goal BAKER BENCH Scanned. Due on due Goal Unhealthy drug use screening . Due on due Goal Order Annual PT. Due on due Goal UDT. Due on due Goal Lipid panel. Due on due Goal HPV. Due on due Goal Height. Due on d ue Goal Weight. Due on d ue Goal PHQ-9. Due on du e Goal CT-Colonography. Due on due Goal Medication Reconciliation. D ue on due Goal FIT-DNA. Due on due Goal OARS. Due on due Goal HPV. Due on due Goal UDT. Due on due Goal Zoster vaccine (1st). Due on due Goal Tobacco Use. Due on due Goal CT-Colonography. Due on due Goal BAKER BENCH Scanned. Due on due Goal FIT. Due on due Goal Height. Due on d ue Goal Weight. Due on d ue Goal FIT-DNA. Due on due Goal Unhealthy drug use screening . Due on due Goal EQUIPMENT MAINT TECH Paperwork. Due on due Goal PHQ-9. Due on du e Goal Creatinine. Due on due Goal ALT (SGPT). Due on due Goal Order Annual PT. Due on due Goal Medication Reconciliation. D ue on due Goal Hepatitis C screening. Due o n due Goal AST (SGOT). Due on due Goal Review Allergy List. Due on due Goal Lipid panel. Due on 022 due Goal Update Social History. Due o n due Goal Medication Reconciliation. D ue on due Goal PHQ-9. Due on du e Goal CT-Colonography. Due on due Goal Hepatitis C screening. Due o n due Goal Creatinine. Due on due Goal AST (SGOT). Due on due Goal OARS. Due on due Goal ALT (SGPT). Due on due Goal Weight. Due on d ue Goal EQUIPMENT MAINT TECH Paperwork. Due on due Goal Zoster vaccine (1st). Due on due Goal Unhealthy drug use screening . Due on due Goal UDT. Due on due Goal Tobacco Use. Due on due Goal FIT-DNA. Due on due Goal BAKER BENCH Scanned. Due on due Goal Lipid panel. [...] due Goal UDT. Due on due Goal BAKER BENCH Scanned. Due on due Goal EQUIPMENT MAINT TECH Paperwork. Due on due Goal Creatinine. Due on due Goal Order Annual PT. Due on due Goal FIT-DNA. Due on due Goal Weight. Due on d ue Goal FIT. Due on due Goal Review Allergy List. Due on due Goal Update Social History. Due o n due Goal CT-Colonography. Due on due Goal Medication [...] e Goal FIT-DNA. Due on due Goal Tobacco Use. Due on due Goal Review Allergy List. Due on due Goal Hepatitis C screening. Due o n due Goal OARS. Due on due Goal EQUIPMENT MAINT TECH Paperwork. Due on due Goal Weight. Due on d ue Goal Zoster vaccine (1st). Due on due Goal Order Annual PT. Due on due Goal Medication Reconciliation. D ue on due Goal BAKER BENCH Scanned. Due on due Goal Height. Due on d ue Goal FIT. Due on due Goal Unhealthy drug use screening . Due on due Goal Order Annual PT. Due on due Goal EQUIPMENT MAINT TECH Paperwork. Due on due Goal AST (SGOT). Due on due Goal UDT. Due on due Goal BAKER BENCH Scanned. Due on due Goal Creatinine. Due [...] due Goal HPV. Due on due Goal Review [...] due Goal OARS. Due on due Goal Lipid panel. Due on due Goal PHQ-9. Due on du e Goal FIT-DNA. Due on due Goal AST (SGOT). Due on due Goal Order Annual PT. Due on due Goal Hepatitis C screening. Due o n due Goal BAKER BENCH Scanned. Due on due Goal Creatinine. Due on due Goal EQUIPMENT MAINT TECH Paperwork. Due on due Goal CT-Colonography. Due [...] Zoster vaccine (1st). Due on due Goal ALT (SGPT). Due on due Goal UDT. Due on due Goal BAKER BENCH Scanned. Due on due Goal FIT-DNA. Due on due Goal Order Annual PT. Due on due Goal EQUIPMENT MAINT TECH Paperwork. Due on due Goal Creatinine. Due on due Goal CT-Colonography. Due on due Goal PHQ-9. Due on du e Goal Update Social History. Due o n due Goal Tobacco Use. Due on due Goal Hepatitis C screening. Due o n due Goal Unhealthy drug use screening . Due on due Goal Lipid panel. Due on due Goal Review Allergy List. Due on due Goal BAKER BENCH Scanned. Due on due Goal Review Allergy List. Due on due Goal FIT-DNA. Due on due Goal EQUIPMENT MAINT TECH Paperwork. Due on due Goal FIT. Due [...] Goal PHQ-9. Due on du e Goal UDT. Due on due Goal Creatinine. Due on due Goal Order Annual PT. Due on due Goal OARS. Due on due Goal UDT. Due on due Goal EQUIPMENT MAINT TECH Paperwork. Due on due Goal BAKER BENCH Scanned. Due on due Goal AST (SGOT). [...] due Goal UDT. Due on due Goal EQUIPMENT MAINT TECH Paperwork. Due on due Goal Zoster vaccine (1st). Due on due Goal HPV. Due on due Goal CT-Colonography. Due on due Goal Hepatitis C screening. Due o n due Goal Tobacco Use. Due on due Goal Review Allergy List. Due on due Goal Height. Due on d ue Goal OARS. Due on due Goal Update Social History. Due o n due Goal BAKER BENCH Scanned. Due on due Goal FIT-DNA. Due [...] Goal PHQ-9. Due on du e Goal BAKER BENCH Scanned. Due on due Goal Update Social [...] Review Allergy List. Due on due Goal EQUIPMENT MAINT TECH Paperwork. Due on due Goal UDT. Due on due Goal FIT-DNA. Due on due Goal Lipid panel. Due on due Goal FIT. Due on due Goal Hepatitis C screening. Due o n due Goal Zoster vaccine (). Due on due Goal HPV. Due on [...] due Goal Creatinine. Due on due Goal EQUIPMENT MAINT TECH Paperwork. Due on due Goal ALT (SGPT). Due on due Goal Review Allergy List. Due on due Goal Tobacco Use. Due on due Goal BAKER BENCH Scanned. Due on due Goal UDT. Due on due Goal Medication Reconciliation. D ue on due Goal Update Social History. Due o n due Goal Creatinine. Due on due Goal Order Annual PT. Due on due Goal AST (SGOT). Due on due Goal ALT (SGPT). Due on due Goal OARS. Due on due Goal EQUIPMENT MAINT TECH Paperwork. Due on due Goal BAKER BENCH Scanned. Due on due Goal Tobacco Use. Due on due Goal Height. Due on d ue Goal PHQ-9. Due on du e Goal Weight. Due on d ue Goal Review Allergy List. Due on due Goal Order Annual PT. [...] Goal Height. Due on d ue Goal EQUIPMENT MAINT TECH Paperwork. Due on due Goal PHQ-9. Due on du e Goal Weight. Due on d ue Goal BAKER BENCH Scanned. Due on due Goal BAKER BENCH Scanned. Due on due Goal Order Annual PT. Due on due Goal ALT (SGPT). Due on due Goal UDT. Due on due Goal AST (SGOT). Due on due Goal Update Social History. Due o n due Goal EQUIPMENT MAINT TECH Paperwork. Due on due Goal Weight. Due [...] ue Goal Creatinine. Due on due Goal EQUIPMENT MAINT TECH Paperwork. Due on due Goal OARS. Due on due Goal BAKER BENCH Scanned. Due on due Goal Update Social History. Due o n due Goal Height. Due on d ue Goal Review Allergy List. Due on due Goal UDT. Due on due Goal Creatinine. Due on due Goal Medication Reconciliation. D ue on due Goal Order Annual PT. Due on due Goal Update Social History. Due o n due Goal UDT. Due on due Goal BAKER BENCH Scanned. Due on due Goal Weight. Due on d ue Goal OARS. Due on due Goal Tobacco Use. Due on due Goal EQUIPMENT MAINT TECH Paperwork. Due on due Goal AST (SGOT). Due on due Goal ALT (SGPT). Due on due Goal Height. Due on d ue Goal PHQ-9. Due on du e Goal Review Allergy List. Due on due Goal EQUIPMENT MAINT TECH Paperwork. Due on due Goal Creatinine. Due on due Goal PHQ-9. Due on du e Goal Update Social History. Due o n due Goal ALT (SGPT). Due on due Goal Height. Due on d ue Goal BAKER BENCH Scanned. Due on due Goal Review Allergy [...] Order Annual PT. Due on due Goal BAKER BENCH Scanned. Due on due Goal Creatinine. Due on due Goal Tobacco Use. Due on due Goal Update Social History. Due o n due Goal Weight. Due on d ue Goal PHQ-9. Due on du e Goal Medication Reconciliation. D ue on due Goal Review Allergy List. Due on due Goal ALT (SGPT). Due on due Goal EQUIPMENT MAINT TECH Paperwork. Due on due Goal Weight. Due [...] e Goal OARS. Due on due Goal ALT (SGPT). Due on due Goal UDT. Due on due Goal Creatinine. Due on due Goal BAKER BENCH Scanned. Due on due Goal EQUIPMENT MAINT TECH Paperwork. Due on due Goal Weight. Due [...] Order Annual PT. Due on due Goal BAKER BENCH Scanned. Due on due Goal EQUIPMENT MAINT TECH Paperwork. Due on due Goal Tobacco Use. Due on due Goal OARS. Due on due Goal Height. Due on d ue Goal Order Annual PT. Due on due Goal ALT (SGPT). Due on due Goal Creatinine. Due on due Goal EQUIPMENT MAINT TECH Paperwork. Due on due Goal OARS. Due on due Goal Tobacco Use. Due on due Goal AST (SGOT). Due on due Goal Review Allergy List. Due on due Goal UDT. Due on due Goal PHQ-9. Due on du e Goal BAKER BENCH Scanned. Due on due Goal Weight. Due on d ue Goal Medication Reconciliation. D ue on due Goal Update Social History. Due o n due Goal PHQ-9. Due on du e Goal Tobacco Use. Due on due Goal Weight. Due on d ue Goal OARS. Due on due Goal Creatinine. Due on due Goal EQUIPMENT MAINT TECH Paperwork. Due on due Goal Height. Due on d ue Goal Medication Reconciliation. D ue on due Goal Order Annual PT. Due on due Goal BAKER BENCH Scanned. Due on due Goal Update Social [...] Goal Height. Due on d ue Goal EQUIPMENT MAINT TECH Paperwork. Due on due Goal BAKER BENCH Scanned. Due on due Goal OARS. Due [...] Goal PHQ-9. Due on du e Goal BAKER BENCH Scanned. Due on due Goal EQUIPMENT MAINT TECH Paperwork. Due on due Goal Medication Reconciliation. [...] due Goal UDT. Due on due Goal BAKER BENCH Scanned. Due on due Goal OARS. Due on due Goal AST (SGOT). Due on due Goal Order Annual PT. Due on due Goal EQUIPMENT MAINT TECH Paperwork. Due on due Goal ALT (SGPT). Due on due Goal Height. Due on d ue Goal BAKER BENCH Scanned. Due on due Goal Height. Due [...] Order Annual PT. Due on due Goal EQUIPMENT MAINT TECH Paperwork. Due on due Goal Review Allergy List. Due on due Goal EQUIPMENT MAINT TECH Paperwork. Due on due Goal Review Allergy [...] due Goal UDT. Due on due Goal BAKER BENCH Scanned. Due on due Goal AST (SGOT). [...] due Goal UDT. Due on due Goal EQUIPMENT MAINT TECH Paperwork. Due on due Goal BAKER BENCH Scanned. Due on due Goal Medication Reconciliation. D ue on due Goal ALT (SGPT). Due on due Goal PHQ-9. Due on du e Goal Update Social History. Due o n due Goal Medication Reconciliation. D ue on due Goal Weight. Due on d ue Goal Height. Due on d ue Goal Review Allergy List. Due on due Goal EQUIPMENT MAINT TECH Paperwork. Due on due Goal Tobacco Use. Due on due Goal BAKER BENCH Scanned. Due on due Goal Creatinine. Due on due Goal Order Annual PT. Due on due Goal ALT (SGPT). Due on due Goal UDT. Due on due Goal AST (SGOT). Due on due Goal OARS. Due on due Goal PHQ-9. Due on du e Goal Review Allergy List. Due on due Goal Creatinine. Due on due Goal Weight. Due on d ue Goal EQUIPMENT MAINT TECH Paperwork. Due on due Goal Tobacco Use. Due on due Goal Medication Reconciliation. D ue on due Goal Height. Due on d ue Goal PHQ-9. Due on du e Goal Update Social History. Due o n due Goal OARS. Due on due Goal BAKER BENCH Scanned. Due on due Goal Order Annual [...] Goal Height. Due on d ue Goal EQUIPMENT MAINT TECH Paperwork. Due on due Goal BAKER BENCH Scanned. Due on due Goal AST (SGOT). Due on due Goal Order Annual PT. Due on due Goal Creatinine. Due on due Goal ALT (SGPT). Due on due Goal Update Social History. Due o n due Goal Weight. Due on d ue Goal Tobacco Use. Due on due Goal ALT (SGPT). Due on due Goal UDT. Due on due Goal BAKER BENCH Scanned. Due on due Goal Review Allergy List. Due on due Goal Creatinine. Due on due Goal Medication Reconciliation. D ue on due Goal OARS. Due on due Goal AST (SGOT). Due on due Goal Update Social History. Due o n due Goal Order Annual PT. Due on due Goal Height. Due on d ue Goal EQUIPMENT MAINT TECH Paperwork. Due on due Goal PHQ-9. Due [...] region) ordered Referral Referred To: Lito Rajan [address] [place] [address], [phone] Ordered: Referrals: Allopathic & Osteopathic Physicians : Internal Medicine. Lito Rajan ordered Appointment Rukhsana Manzo BOOKED Appointment Rukhsana Manzo BOOKED Appointment Rukhsana Manzo BOOKED History Of Present Illness Encounter Date Complaint History Of Prese nt Illness low back pain Severity level i s 0. Duration: chronic. The problem is stable. It occurs intermittently. Symptoms are aggravated by bending, lifting, housework, movement, stairs and standing. Symptoms are relieved by heat, pain meds/drugs, stretching and rest. Comments: This i s my first evaluation of the patient, typically followed by Shirlene Ledezma DNP.Rukhsana is a 58 y/o female who presents in clinic for follow up and medication refill in the setting of chronic neck pain, mid back pain, and low back pain with radiation into the BL legs. Chronic pain has been stable this month. Continues to use her Medtronic SCS with relief.Reports she recently fell and rolled her right ankle, chipped a part of her bone, and now has to wear a boot for about 4 weeks. She also had sinus surgery since last visit and was given post-op medications. Now noticing mouth pain.S/p BL T8-T9, T9-T10 RFA on 11/24/23 with ongoing relief. She has started and continues PT at [facility] for R shoulder pain with radiation into the elbow and down to the hand.Reports current medication regimen provides >99% pain relief and allows for increased functionality. Continues to utilize Percocet 7.5-325mg TID with significant benefit. Presents without medication for count today, but states she has #24 left at home - on track. Denies OIC, which is managed with OTC, or other side effects from current medication regimen. No other concerns today.Of note, patient will be traveling out of state for work for the next 3 weeks. Comments: Rukhsana is a 58 y/o female who presents via [facility] for virtual follow up and medication refill in the setting of chronic neck pain, mid back pain, and low back pain with radiation into the BL legs. Pain has been improving this month. Continues to use Medtronic SCS.S/p BL T8-T9, T9-T10 RFA on 11/24/[address] Clifton have been providing >80% benefit. Will be starting PT at [facility] soon for R shoulder pain with radiation [...] with slightly decreased pain. Per her report, [facility] did not recommended PT.Reports current medication [...] a 58 y/o female who presents via [facility]RAKES for a virtual follow up and medication [...] scheduled on 4Continues to follow up with [facility] for management of the ongoing R [...] It occurs persistently. 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 Notes there were no significant findings for her shoulder and states she had a shoulder cortisone injection on 08/30/2023 with relief. States she has an appointment with her sandstone splitter in [facility] 20[facility]. Reports current medication regimen provides moderate [...] right foot surgery with Dr. Suresh at [facility] in [place]. Notes she has had increased soreness and bruising on dorsal foot, ankle, and posterior knee following the procedure, and she has a follow up appointment on 09/01/2023. 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 Notes there were no signifigant findings for her shoulder and states she will have shoulder cortisone injection on 08/30/2023. States she has an appointment with her sandstone splitter in [facility] 2023. Reports current medication regimen provides moderate [...] pain meds/drugs, stretching and changing positions. Comments: Rukhsana is a [...] and extends.Patient will be following up with [facility] for management of the migraines and [...] heat, massage, pain meds/drugs, stretching and sitting. low back pain Severity level i s [...] with benefit.Notes she recently returned back from [place] and was able to manage her pain [...] a trip and will be heading to [place] next week. Has had increasing arm pain, [...] a 57 y/o female who presents via [facility]RAKES for virtual follow up and medication refill [...] on 09/07/22. Continues to do PT through [facility] in [place] for strength and conditioning. Have been seeing [...] a 57 y/o female who presents via [facility] for virtual follow up and medication refill in the setting of chronic low back pain. Pain has been stable this month. Notes fluctuation of pain due to the change in weather. Continues to use her Medtronic SCS with benefit.S/p R C5-C6 microdisectomy on 09/07/22. Recently started PT through [facility] in [place] for strengthening and conditioning of the neck. [...] S/p R C5-C6 microdiscectomy on 09/07/22 with [facility]. She states she is still sore [...] for R cervical surgery on 09/07/22 with [facility]. Notes she will be staying for one night at [facility] after her surgery. Inquires what the correct procedure is for receiving medications post-op. Understands she can contact [facility] if her surgeon is not comfortable with [...] are relieved by pain meds/drugs and rest. low back pain Severity level [...] rest, sitting, chiropractic, standing and changing positions. Comments: Rukhsana is a 56 y/o female [...] a 56 y/o female who presents via [facility]KES for virtual follow up and medication refill in the setting of chronic low back pain. Pain has been fluctuating this month. Continues to utilize her SCS with moderate relief. She states she has been turning the stimulator up at higher levels in order to relieve the pain with no success. Inquires about possible reprogramming with [facility].Secondarily c/o pain in the neck/right shoulder with radiation down into the right arm. Her shoulder and neck MRI have been completed at [facility]. She states neck MRI results showed [...] a 56 y/o female who presents via [facility]KES for virtual follow up and medication refill in the setting of chronic low back pain. Her pain is stable since she was last seen.Secondarily c/o pain in the neck/right shoulder with radiation down into the right arm. Her shoulder and neck MRI were rescheduled at [facility].Reports current medication regimen provides 90% pain [...] a 56 y/o female who presents via [facility]RAKES for virtual follow up and medication refill in the setting of chronic low back pain. She states her pain is improved since she was last seen. She reports TPI on 04/06/22 was especially beneficial and it helped a lot.At [facility] she reported pain in the neck/right shoulder with radiation down into the right arm. She reports she has scheduled her shoulder and neck MRI on 04/20/22 at [facility].Reports current medication regimen provides 90% pain [...] pain meds/drugs, stretching, rest and changing positions. Comments: Rukhsana is a 56 y/o female who presents for follow up and medication refill. She is followed for chronic low back pain, stable overall. She states the soreness around her SCS sometimes has a pinching sensation but it is improved since DANK. Notes she is increasing icing. Reports hip injections at [facility] were only temporarily helpful and notes it is easily flared. Notes her sandstone splitter told her the Piriformis muscle might be tight. She notes she will be doing chiropractic therapy later today 02/16/22.Reports she has been traveling the past week and they recently drove down to [place]. States she went to the [facility] for her jaw pain and they [...] pain meds/drugs, stretching and chiropractic. Comments: Rukhsana presents for a virtual follow up and medication refill. She is followed for chronic low back pain, stable overall. The hips and upper back pain been a little worse this month, "A little more sore than usual with the weather. It is not the area where the SCS is. Notes some relief with most recent hip injections at [facility] and stretches recommended by her sandstone splitter. Reports current medication regimen provides 90% pain [...] pain meds/drugs and stretching. low back pain (comments) Rukhsana presents to [...] to feel off following returning home from [place]. States she has a follow-up scheduled with [...] and chiropractic. low back pain (comments) Rukhsana is a 56 y/o female, meeting with us via JIAN for virtual follow up and medication refill in the setting of chronic low back pain. She states her pain is worse this month. She reports she went on a girl's trip to [place] recently and was sick for 5 days with dehydration. She states she was hospitalized and given potassium and hydration therapy in [place]. She states recovering from this has made her pain worse and her whole body hurts.S/p Lumbar Medtronic Intellis SCS Implant on 07/07/[address] Reyes Richardson with 85-90% relief. She states she continues to adjust the programs. BL hips and BL shoulders are the areas of worst pain today. She continues to report that her BL hip injections from [facility] in [place] on 08/24/21 have not been helpful and has scheduled a repeat of this. She continues to alternate THC cream and diclofenac gel for her hips, which is helpful. She will also be meeting with [facility] to see if she can receive BL [...] prolonged positioning and movement. low back pain Severity level i s [...] report that her BL hip injections from [facility] in [place] on 08/24/21 have not been helpful and is waiting to schedule a repeat of these. At [facility] she reported she has been alternating THC [...] 56 y/o female, meeting with us via [employer] for virtual follow up medication refill in [...] skin.She states her BL hip injections from [facility] in [place] on 08/24/21have not been helpful. She reports [...] rest, sitting, changing positions, chiropractic and standing. low back pain (comments) Rukhsana [...] from Medtronic.She states her hip injections from [facility] in [place] on 06/05/21 have worn off and so her hip pain tends to wake her up at 5am. She alternating THC cream and diclofenac gel for this which is helpful. She has switched rheumatologists to a provider at [facility] Reports current medication regimen provides 85% pain relief and allows for increased functionality. She reports she reaches for Tylenol first and topical creams before her pain medication. She continues to utilize medical cannabis with benefit. Denies any side effects from current medication regimen, including constipation. No other concerns today. lumbago Patient is [...] for next 6 weeks. She would like [facility] to twick her SCS a little [...] bilateral hip joint injection with ultrasound at [facility].Foot pain persists. Her surgeon determined the [...] she is planning on following up with [facility] to schedule injections for the hips. She [...] relief. Back Pain (comments) Rukhsana is m kofi with us for follow up and medication [...] at the pharmacy last month. She called [facility] to get the remaining amount sent, but [...] at home.She has been following up with [facility] for neck and shoulder pain. They ordered cervical MRI to be completed at [facility].Reports current medication regimen provides 75% pain [...] Recently started PT for the hips in [place]. Details recent appt at [facility] on 01/29/21. She had a [...] was helping out a friend at the [facility] and found that walking and standing on concrete aggravates her hip and lateral thigh pain. She was able to tolerate the 2 day car ride down better with belbuca and percocet.Her foot pain is stable, aggravated by change in weather, especially rain. She will be following up with PT at [facility].She has been following up with Dr. Pablo Oliver at [facility] for IBS and psoriasis. She was [...] is m eeting with us today via [employer] Virtual Visit for following up and medication [...] to complete PT for her ankle at [facility].Reports current medication regimen provides 85% pain [...] is m eeting with us today via [employer] Virtual Visit for following up and medication [...] rest. Back Pain (comments) Rukhsana is m jocyting with us today via [employer] Virtual Visit for following up and medication [...] today. Back Pain Severity level i s 4. Duration: chronic. The problem is stable. It occurs intermittently. Location of pain is lower back.The patient describes the pain as an ache and burning. Symptoms are aggravated by bending, lifting, standing, walking, movement and housework. Symptoms are relieved by heat, ice, pain meds/drugs and changing positions. Back Pain Severity level i s 3. [...] is m jocyting with us today via [employer] Virtual Visit for following up and RFA [...] regimen. No other concerns today. Back Pain Severity [...] to stopNo other concerns today. Back Pain (comments) Rukhsana [...] pain meds/drugs, stretching and sitting. Back Pain (comments) Rukhsana is h ere for an initial consult and presents with low-mid back pain, initial onset 7 years ago. The pain radiates down the side of her legs, through her calves, and into her toes. She describes the pain is throbbing in calves and tingling in toes. She consulted [facility] who diagnosed her with ankylosing spondylitis and osteoarthritis. She describes a localized area on her low back that swells and enlarges during pain flares.She also has neck pain with radiation into arms. Reports hx of headaches, currently managed with Imitrex and naltrexone.Reports hx rheumatoid arthritis in widespread joints, worst in knuckles, hands, and knees.Referred by PCP.Treatment Tried:cervical nerve block at [facility] - helpful for radiating pain in arms.lumbar DOMINIC - first helpful, repeat not helpful.PT at [facility] in [place] and [facility] in [place] - not helpful.Chiropractic and massage - somewhat helpful.Gabapentin - causes extreme fatigue, not helpful.topiramate - not helpful, causes itching and nausea.Cymbalta - no helpful.Lyrica - caused fatigue, not helpful.Vicodin - minimal reliefmedical cannabis - not helpful.Tylenol, ibuprofen, naproxen, tizanidine, prednisone, amitriptyline, tramadol.Pt goal: [facility] to take over pain management. Back Pain Severity level i s 7. Duration: chronic. It occurs intermittently. Location of pain is middle back, lower back, legs, neck and arms.The patient describes the pain as an ache, burning, stabbing and pins and needles. Symptoms are aggravated by ascending stairs, descending stairs, lifting, lying/rest, sitting, standing and walking. Symptoms are relieved by heat, ice and pain meds/drugs. Functional Status Date Functional Assessmen t No Information Instructions Date Instruction Additional Infor kimmy No Information Assessments Type Assessment Date assessment Chronic pain syndrome impression Rukhsana is a 58 y/o f emale here with chronic neck pain, mid back pain, low back pain with radiation into the BL legs (L>R), and R hip pain. Hx of fibromyalgia, ankylosing spondylitis, RA and osteoarthritis. New onset right ankle pain.[Forwarded Hx]Currently receiving injections for the R hip through [facility] in [place] and biologic injections with rheumatology through [facility] assessment Pain in right shoulder impression Ongoing R shoulder p ain, primarily at the deltoid muscle, with radiation into the elbow and down to the hand.[Forwarded Hx]Recent imaging showed thickening of the shoulder assessment Ankylosing spondylitis of unspec ified sites in spine impression Hx of ankylosing spo ndylitis of cervical and lumbar region diagnosed by [facility]. Stable today.[Forwarded Hx]Previous C7-T1 IESI through [facility] was beneficial and Cervical RFA provided significant [...] on 09/07/[address] Andreas Alex through [facility].Cervical MRI on 06/01/22CONCLUSION: Study challenged by motion artifact, with multilevel spondylosis not significantly changed from prior study, with these findings:1. Mild to moderate C3-4 through C5-6 and minimal C6-7 central stenosis with encroachment or mild impingement of ventral cord.2. Marked left C3-4 and bilateral C5-C6 chronic foraminal stenosis with nerve root impingement assessment long term (current) use of opiat e analgesic impression The medication provi scooby >99% pain relief, does not cause significant side effects other than intermittent OIC, increases the patient's daily activity level, and the patient presents without the prescribed medication today. States she has #24 left at home - on track.Also managed on Lexapro.MME is 33.75mg/day. Patient has been managing medications appropriately, and is not confused or oversedated during our office visit. MNPMP queried and shows no outside prescriptions. UDT results from 12/27/23 previously reviewed and are consistent with current medication regimen. Appropriate to continue with opioid therapy assessment Other longterm (current) drug t herapy impression The patient has intr actable pain. Limited relief or cure has been obtained despite reasonable treatment options, including multiple Rx regimens, PT. Patient's last UDT dated 12/27/23 was appropriate. The patient is an appropriate candidate for medical cannabis. Patient certified for medical cannabis Mental Status Date Cognitive Assessment Orientation - [place] ed to time, place, person, situation. Patient Care Teams Name Effective Dates (start - stop) Status Members No Information
--- OUTSIDE RECORDS SUMMARY | 2024-02-24 09:56 | XMS_ITS | Encounter Summary ---
Author Name Unknown Organization [facility] Address [address] [place] [id number] Care Team Providers Care Digital Marketing Lead Name Role Phone Polly Ashford MD Unavailable [phone] Frw, None Unavailable Unavailable Clinic, [facility] Primary Care Provider Encounter Details Date Type Department Care Team (Late st Contact Info) Description 05/25/2006 [facility] in [place] Inpatient Dept [address] [place] [phone] Frw, Inpatient Provider Social History Tobacco Use Types Packs/Day Years Used Date Smoking Tobacco: Never Smokeless Tobacco: Never Comments:Vape pen for cannib us Alcohol Use Standard Drinks/Week Comments Not Currently 0 (1 standard drink = 0.6 oz pur e alcohol) Sex and Gender Information Value Date Recorded Sex Assigned at Female 08/31/2022 2:31 PM NURSE PRACTITIONER MANAGER Gender Identity Female 08/31/2022 2:31 PM NURSE PRACTITIONER MANAGER Sexual Orientation Choose not to disclose 2021 2:31 PM NURSE PRACTITIONER MANAGER documented as of this encounter Progress Notes [...] lateral to the urethra after an 18 Estonian Dotson was placed into the vagina. The [...] Polly Ashford M.D. SIERRAG/robin cc: Diana Strauss [place], [place] documented in this encounter Plan of Treatment Not on file documented as of this encounter Visit Diagnoses Not on filedocumented in this encounter Care Teams Digital Marketing Lead Relationship Specialty Start Date End Date Polly Ashford MD PCP - Obstetrics/Gynecology 05/05/06 12/30/11 Frw, None PCP - Obstetrics/Gynecology Family Practice 12/31/[address] [address] PCP - General 09/07/22 documented as of this encounter
--- OUTSIDE RECORDS SUMMARY | 2024-02-24 09:56 | XMS_ITS | Continuity of Care Document ---
Author Name Unknown Organization [facility] Address [address] [place] [address] Phone Care Team Providers Care Bit Sander Name Role Phone Unavailable Unavailable Unavailable Allergies, Adverse Reactions, Alerts Substance Reaction Status Criticality etanercept headaches Active No Information morphine vomiting Active No Information Medications Medication Instructions Dosage Effective Dates (start - stop) Status Comments tramadol 50 mg tablet take 2 tablets by oral route nightly - Active Lexapro 20 mg tablet take 1 tablet by oral route every day 20 MG - Active Iron (ferrous sulfate) 325 mg (65 mg iron) tablet take one tab daily - Active Mucinex 600 mg tablet,extended release bi-layer take twice daily - Active cyclobenzaprine 5 mg tablet take 1 tablet by oral route 2 times every day 5 MG - Active hydrocodone 7.5 mg-acetaminophen 325 mg tablet take 1 tablet by oral route every 6 hours as needed for pain 1.00 tablet - Active PROGESTERONE 40MG ORAL take 150 mg daily - Active biestrogen one pump daily of topical cream - Active Lyrica 100 mg capsule take 1 Capsule by ORAL route 2 times every day 100 MG - No Longer Active Lyrica 50 mg capsule take 1 capsule by oral route 2 times every day 50 MG - No Longer Active Lyrica 50 mg capsule take 1 capsule by oral route 2 times every day 50 MG - No Longer Active Samples: [id number] Exp 12/2015 Procedures Procedure Date Est Pt Eval 15 Min New Pt Eval 30 Min Advance Directives Directive Yes / No Effective Date File Name No Information Encounters Encounter Description Practice Location Reason(s) For Visit Diagnoses Date Provider Providers Copied on Encounter Est Pt Eval 15 Min CRESCENCIO Dai, [address], [place] [id number], [place] tel:[phone] [facility] No Information 4 No Information Referring Provider: REFERRAL SELF, [place]. New Pt Eval 30 Min MADAI DaiC, [address], [place], [id number], [place] tel:[phone] [facility] No Information 4 No Information Referring Provider: REFERRAL SELF, [place]. Family History Family Member Type Diagnosis Age At Onset N/A Problem (finding) rheumatoid arthritis Payers Payer name Insurance type Covered democrat ID Ron nova(s) [employer] [place] [id number] Social History Type Description Quantity Date Captured [...]
--- OUTSIDE RECORDS SUMMARY | 2024-02-24 09:56 | XMS_ITS | Referral Summary ---
Author Name Unknown Organization [place] Address [address] [place] [address] Care Team Providers Care Transportation Museum Helper Name Role Phone Frw, None Unavailable Unavailable Clinic, [facility] Primary Care Provider Allergies Active Allergy Reactions [...] by mouth daily Active NONFORMULARY daily Lemon [place] Active SUMAtriptan (IMITREX) 25 MG tablet Take [...] Sex Assigned at Female 08/31/2022 2:31 PM PARK MANAGER Gender Identity Female 08/31/2022 2:31 PM PARK MANAGER Sexual Orientation Choose not to disclose 2021 2:31 PM PARK MANAGER Last Filed Vital Signs Vital Sign Reading Time Taken Comments Blood Pressure 100/61 09/08/2022 7:26 AM PARK MANAGER Pulse 60 09/08/2022 7:26 AM PARK MANAGER Temperature 36.7 ??C (98 ??F) 09/08/2022 7:26 AM PARK MANAGER Respiratory Rate 13 09/08/2022 7:26 AM PARK MANAGER Oxygen Saturation 98% 09/08/2022 7:26 AM PARK MANAGER Inhaled Oxygen Concentration - - Weight 65.9 kg (145 lb 4.8 oz) 09/07/2022 1:10 P M PARK MANAGER Height 165.1 cm (5' 5) 08/25/2022 1:00 PM PARK MANAGER Body Mass Index 24.18 08/25/2022 1:00 PM PARK MANAGER Plan of Treatment Not on file Medical Devices Implanted Type Area Coil Spring Assembler Device Identifier Shelf Expiration Date Model / Serial / Lot Graft Bone Putty [place] Dbm 1ml [id number] - [id number] Implanted:Qty: 1 on 09/07/2022 by Andreas Acevedo MD at [facility] Bone/Tissu e/Biologic N/A: Spine Cervical [employer] [id number] 06/19/2025 [id number] / [id number] / Cage Spnl 16x6mm Endoskeleton Tc 6d 14mm Med Crv [id number] - [id number] Implanted:Qty: 1 on 09/07/2022 by Andreas Acevedo MD at [facility] Metallic Hardware/A nchor N/A: Spine Cervical [employer] [id number] 05/20/2027 [id number] -[id number] / / [id number] Imp Plate Cerv Medt Zevo 19mm 1 Lvl [id number] - [id number] Implanted:Qty: 1 on 09/07/2022 by Andreas Acevedo MD at [facility] Metallic Hardware/A nchor N/A: Spine Cervical [employer] [id number] / / [id number] Imp Scr Medt Zevo 3.5x15mm Sd [place] [id number] - [id number] Implanted:Qty: 4 on 09/07/2022 by Andreas Acevedo MD at [facility] Metallic Hardware/A nchor N/A: Spine Cervical [employer] [id number] / / [id number] Procedures Procedure Name Priority Date/Time Associated Diagnosis Comments C MAMMOGRAM, SCREENING Routine 09/12/2006 10:26 AM PARK MANAGER from Last 3 Months or Most Recently Relevant to Health Maintenance Results * MAMMOGRAM, SCREENING (09/12/2006 10:26 AM PARK MANAGER) MAMMOGRAM IMAGING IMPRESSION: ARC BIRADS Category No. 1, negative. RADIOLOGY RESULTS Anatomical Region Laterality Modality Other 09/12/2006 10:2 6 AM PARK MANAGER Impressions 09/16/2006 11:36 PM PARK MANAGER BILATERAL SCREENING MAMMOGRAM: Breast symptoms: ??None. Previous [...] Advance Directives For more information, please contact: [phone] * Full Code (Latest Code Status on File) Date Activated Date Inactivated Comments 09/07/2022 7:56 PM 09/08/2022 1:01 PM All basic and advanced life-sustaining interventions are performed as appropriate Question Answer Comments Code status determined by: Discussion with ethel nt/ legal decision maker Care Teams Transportation Museum Helper Relationship Specialty Start Date End Date Frw, None PCP - Obstetrics/Gynecology Family Practice 12/31/[address] [address] PCP - General 09/07/22
--- OUTSIDE RECORDS SUMMARY | 2024-02-24 09:56 | XMS_ITS | Clinical Summary ---
Author Name Unknown Organization [facility] Address [address] [place] [address] Care Team Providers Care Sorting Machine Operator Name Role Phone Lito Rajan MD Primary Care Provider [phone] Source Comments You are receiving this document as you are listed as the primary care provider,follow-up provider, or the patient has been referred to you for consultation.This is in compliance with the Medicare and[facility] EHR Incentive Program,which states Providers who transition their patient to another setting of careor provider of care or refers their patient to another provider of care shouldprovide summary care record for each transition of care or referral. TelePharm Allergies Active Allergy Reactions Criticality Noted Date [...] in computerIndications :Vit D and K Lemon [place] benadryl mucinex Indications: Vit D and K Lemon [place] benadryl mucinex Active diclofenac (VOLTAREN) 1 [...] (10 mg) by mouth daily. 01/04/2023 Active certolizumab pegol (CIMZIA) 2 X 200 [...] series) 0 03/28/2018 Influenza IIV4 (Quadrivalent) 0.5mL (11878) 06/18 PCV13 (Prevnar) 07/13/2018 Tdap 08/21/2020,06/12/2009 Zoster [...] COVID-19 Vaccine ( - season) 2023 Influenza (Season Ended) 2024 018, 07/16/2013, 07/16/2013, Additional history exists DTaP/Tdap/Td (3 - [...] Negative (Non Reactive) 01/19/2023 8:51 PM CDT [facility] Comment:Antibodies to HCV no t detected. Does not exclude the possiblity of exposure to HCV. Blood Venipuncture / Unknown 01/19/2023 3:03 PM CDT 01/19/2023 3:03 PM CDT Raymundo Mcmullen MD LAB_1 [facility] [address] * HIV 1/2 Ag/Ab 4th Generation (08/13/2021 10:19 AM CDT) HIV 1/2 Antigen/Antib neal (4th generation) Negative (Non Reactive) Negative (Non Reactive) 08/13/2021 4:29 PM CDT [facility] Comment:HIV-1 p24 Antigen an d HIV-1/HIV-2 Antibody not detected Blood Venipuncture / Unknown 08/13/2021 10:19 AM CDT 08/13/2021 10:19 AM CDT Ashley Malcolm DO LAB_1 [facility] [address] from Last 3 Months or Most Recently Relevant to Health Maintenance Care Teams Sorting Machine Operator Relationship Specialty Start Date End Date Lito Rajan MD [address] [place] [address] PCP - General 11/11/14
--- OUTSIDE RECORDS SUMMARY | 2024-02-24 09:56 | XMS_ITS | Continuity of Care Document ---
Author Name Unknown Organization [facility] Address [address] [facility] [address] [place] [address] Phone Care Team Providers Care Stock Or Delivery Clerk Name Role Phone Polly Mcarthur MD Unavailable [...] 20-39Moderate Positive: 40-59Strong Positive: >59 Test Performed at:[facility] [address] [address] LAYNE MEEKS MD Panel Description: HEPATITIS B SURFACE ANTIGEN W /REFL CONFIRM Final HEPATITIS B SURFACE ANTIGEN 2009 18:00:0 0 NON-REACT KIMI NON-REACTIV E N Final Test Performed at:[facility] [address] [address] ALYNE MEEKS MD Panel Description: HEPATITIS C ANTIBODY (REFL) Final HEPATITIS C ANTIBODY (REFL) 2009 18:00:0 0 NON-REACT KIMI NON-REACTIV E N Final SIGNAL TO CUT-OFF 2009 18:00:0 0 0.07 <1.00 N Final Test Performed at[facility] [place] [address] LAYNE MEEKS MD Panel Description: PROTEIN, TOTAL AND PROTEIN ELECTROPHORESIS W/ REFL SANDY Final PROTEIN, TOTAL 2009 18:00:0 0 6.4 g/dL 6.2-8.3 N Final Test Performed at:[facility] [place] [address] LAYNE MEEKS MD ALBUMIN 2009 18:00:0 0 3.7 g/dL 3.5-4.7 N Final LXWFU-1-CZYEMLMKB 2009 18:00:0 0 0.1 g/dL 0.1-0.3 N Final MVRVH-5-FHFKDTRUM 2009 18:00:0 0 0.6 g/dL 0.5-1.0 N Final BETA GLOBULINS 2009 18:00:0 0 1.0 g/dL 0.8-1.4 N Final GAMMA GLOBULINS 2009 18:00:0 0 0.9 g/dL 0.6-1.6 N Final INTERPRETATION 2009 18:00:0 0 Final Protein electrophoresis pattern appears normal. Test Performed at:[facility] [address] [address] LAYNE MEEKS MD Panel Description: IRON AND TOTAL IRON BINDING C APACITY Final IRON, TOTAL 2009 18:00:0 0 65 mcg/dL 40-175 N Final IRON BINDING CAPACITY 2009 18:00:0 0 405 mcg/dL 250-450 N Final % SATURATION 2009 18:00:0 0 16 % (calc) 15-50 N Final Test Performed at:[facility] [place] [address] LAYNE MEEKS MD Advance Directives Directive Yes / No Effective Date File Name No Information Encounters Encounter Description Practice Location Reason(s) For Visit Diagnoses Date Provider Providers Copied on Encounter [facility], [address], [place], [address], [place] tel:[phone] No Information Jun- 3 [place]. [facility] [address], [place], [address], [place]. tel:[phone] Family History Family Member Type Diagnosis Age [...]
--- OUTSIDE RECORDS SUMMARY | 2024-02-24 09:56 | XMS_ITS | Encounter Summary ---
Author Name Unknown Organization [place] Address [address] [place] [address]. [place] [address] Care Team Providers Care Photographic Artist Name Role Phone Frw, None Unavailable Unavailable [facility] Primary Care Provider Encounter Details Date Type Department Care Team (Late st Contact Info) Description 08/25/2022 Orders Only [facility] [address] [place] [address] Andreas Alex MD [facility] [address] [place] [address] Pre-operative laboratory examination (Primary Dx) Social History Tobacco Use Types Packs/Day Years Used Date Smoking Tobacco: Never Smokeless Tobacco: Never Comments:Vape pen for cannib us Alcohol Use Standard Drinks/Week Comments Not Currently 0 (1 standard drink = 0.6 oz pur e alcohol) Sex and Gender Information Value Date Recorded Sex Assigned at Female 08/31/2022 2:31 PM TECHNOLOGY SALES REPRESENTATIVE Gender Identity Female 08/31/2022 2:31 PM TECHNOLOGY SALES REPRESENTATIVE Sexual Orientation Choose not to disclose 2021 2:31 PM TECHNOLOGY SALES REPRESENTATIVE COVID-19 Exposure Response Date Recorded In the last 10 days, have yo u been in contact with someone who was confirmed or suspected to have Coronavirus/COVID-19? No / Unsure 08/25/2022 11:54 AM TECHNOLOGY SALES REPRESENTATIVE documented as of this encounter Plan of Treatment Not on file documented as of this encounter Visit Diagnoses Diagnosis Pre-operative laboratory examination- Primary Pre-procedural laboratory examination documented in this encounter Care Teams Photographic Artist Relationship Specialty Start Date End Date Frw, None PCP - Obstetrics/Gynecology Family Practice 12/31/11 [facility], [address] [address] PCP - General 09/07/22 documented as of this encounter
--- OUTSIDE RECORDS SUMMARY | 2024-02-24 09:56 | XMS_ITS | Clinical Summary ---
Author Name Unknown Organization [place] Address [address] [place] [address] Care Team Providers Care Cycle Director Name Role Phone Frw, None Unavailable Unavailable Clinic, [facility] Primary Care Provider Allergies Active Allergy Reactions [...] by mouth daily Active NONFORMULARY daily Lemon [place] Active SUMAtriptan (IMITREX) 25 MG tablet Take [...] Sex Assigned at Female 08/31/2022 2:31 PM INSOLE CHANNELER Gender Identity Female 08/31/2022 2:31 PM INSOLE CHANNELER Sexual Orientation Choose not to disclose 2021 2:31 PM INSOLE CHANNELER Last Filed Vital Signs Vital Sign Reading Time Taken Comments Blood Pressure 100/61 09/08/2022 7:26 AM INSOLE CHANNELER Pulse 60 09/08/2022 7:26 AM INSOLE CHANNELER Temperature 36.7 ??C (98 ??F) 09/08/2022 7:26 AM INSOLE CHANNELER Respiratory Rate 13 09/08/2022 7:26 AM INSOLE CHANNELER Oxygen Saturation 98% 09/08/2022 7:26 AM INSOLE CHANNELER Inhaled Oxygen Concentration - - Weight 65.9 kg (145 lb 4.8 oz) 09/07/2022 1:10 P M INSOLE CHANNELER Height 165.1 cm (5' 5) 08/25/2022 1:00 PM INSOLE CHANNELER Body Mass Index 24.18 08/25/2022 1:00 PM INSOLE CHANNELER Plan of Treatment Health Maintenance Due Date [...] 04/25/2018 03/28/2018 COVID-19 Vaccine ( season) 2023 PHQ-2 (once per calendar year) 2023 INFLUENZA VACCINE (Season Ended) 2024 07/13/2018, 07/16/2013, 07/24/2012, Additional history exists DTAP/TDAP/TD IMMUNIZATION (3 - Td or Tdap) [...] this topic Medical Devices Implanted Type Area Conservation Specialist Device Identifier Shelf Expiration Date Model / Serial / Lot Graft Bone Putty [place] Dbm 1ml [id number] - [id number] Implanted:Qty: 1 on 09/07/2022 by Andreas Acevedo MD at [facility] Bone/Tissu e/Biologic N/A: Spine Cervical [employer] [id number] 06/19/2025 [id number] / [id number] / Cage Spnl 16x6mm Endoskeleton Tc 6d 14mm Med Crv [id number] - [id number] Implanted:Qty: 1 on 09/07/2022 by Andreas Acevedo MD at [facility] Metallic Hardware/A nchor N/A: Spine Cervical [employer] [id number] 05/20/2027 [id number] -[id number] / / [id number] Imp Plate Cerv Medt Zevo 19mm 1 Lvl [id number] - [id number] Implanted:Qty: 1 on 09/07/2022 by Andreas Acevedo MD at [facility] Metallic Hardware/A nchor N/A: Spine Cervical [employer] [id number] / / [id number] Imp Scr Medt Zevo 3.5x15mm [place]d [place] [id number] - [id number] Implanted:Qty: 4 on 09/07/2022 by Andreas Acevedo MD at [facility] Metallic Hardware/A nchor N/A: Spine Cervical [employer] [id number] / / [id number] Procedures Procedure Name Priority Date/Time Associated Diagnosis Comments C MAMMOGRAM, SCREENING Routine 09/12/2006 10:26 AM INSOLE CHANNELER from Last 3 Months or Most Recently Relevant to Health Maintenance Results * MAMMOGRAM, SCREENING (09/12/2006 10:26 AM INSOLE CHANNELER) MAMMOGRAM IMAGING IMPRESSION: ARC BIRADS Category No. 1, negative. RADIOLOGY RESULTS Anatomical Region Laterality Modality Other 09/12/2006 10:2 6 AM INSOLE CHANNELER Impressions 09/16/2006 11:36 PM INSOLE CHANNELER BILATERAL SCREENING MAMMOGRAM: Breast symptoms: ??None. Previous [...] Advance Directives For more information, please contact: [phone] * Full Code (Latest Code Status on File) Date Activated Date Inactivated Comments 09/07/2022 7:56 PM 09/08/2022 1:01 PM All basic and advanced life-sustaining interventions are performed as appropriate Question Answer Comments Code status determined by: Discussion with patie nt/ legal decision maker Care Teams Cycle Director Relationship Specialty Start Date End Date Frw, None PCP - Obstetrics/Gynecology Family Practice 12/31/[address] [address] PCP - General 09/07/22
--- NOTE | 2024-02-24 10:00 | CT_ITS ---
Patient: GOSIA Hung [facility] Facility:?[facility] Patient ID:?[id number] Site Patient ID:?[id number]. Site :?[id number] Study:?CT-Sinus W/O-02/24/2024 10:14:51 AM Ordering Physician:TETE Final Report: INDICATION: Right maxillary sinus infection. TECHNIQUE: Noncontrast CT images of the paranasal sinuses. COMPARISON: CT sinus 01/03/2024. FINDINGS: Postsurgical changes of endoscopic sinus surgery including bilateral maxillary antrostomy, bilateral uncinectomy, bilateral partial ethmoidectomy, and interval resection of the right middle turbinate. Moderate right maxillary sinus air-fluid level has decreased in size. There is moderate maxillary sinus mucosal thickening. The right maxillary sinus outflow tract is widely patent. Hpth-dj-sxiwlmwd mucosal thickening in the left maxillary sinus, similar to prior. The left maxillary sinus outflow tract is narrowed, though patent. Persistent severe opacification of the right frontal recess and moderately severe opacification of the right frontal sinus. The left frontal sinus is clear. Moderate right and mild left ethmoid air cell opacification, similar to prior. Improved aeration of the right sphenoid sinus. There is minimal sphenoid sinus mucosal thickening. The sphenoethmoidal recesses are patent. There is leftward nasal septal deviation measuring 5 mm. No nasal cavity masses. Large nasal septal defect. The mastoid air cells are clear. IMPRESSION: 1. Improved aeration of the right maxillary and right sphenoid sinuses compared to the prior CT. Persistent right maxillary sinus air-fluid level can be seen in the setting of acute sinusitis. 2. Persistent severe opacification of the right frontal recess and moderately severe opacification of the right frontal sinus. 3. Postsurgical changes of endoscopic sinus surgery, including interval resection of the right middle turbinate. 4. Leftward nasal septal deviation. Large nasal septal defect. Please note that all CT scans at this facility use dose modulation, iterative reconstruction, and/or weight-based dosing when appropriate to reduce radiation dose to as low as reasonably achievable. Dictated by Benjamin Bee MD @ 02/25/2024 6:55:44 PM Signed by:?Benjamin Bee MD @02/25/2024 6:55:44 PM (Electronic Signature)
== END 2024-02-24 09:52 | disposition home or self-care (01) ==
LOC: CT 09:51
PROVIDERS: PCP Internal Medicine; Visit Provider Otolaryngology
DX: J32.0 Chronic maxillary sinusitis (principal); J32.3 Chronic sphenoidal sinusitis; J34.2 Deviated nasal septum; R20.0 Anesthesia of skin
CPT/HCPCS: 70486

== ENCOUNTER 2024-03-21 11:15 | Outpatient (RCR) | payer MEDICAID, SELFPAY | END 2024-05-04 14:31 | disposition home or self-care (01) | PROVIDERS: PCP Internal Medicine; Visit Provider Nurse Practitioner Family | DX: M96.1 Postlaminectomy syndrome, not elsewhere classified (principal); M25.511 Pain in right shoulder; M67.90 Unspecified disorder of synovium and tendon, unspecified site; Z51.89 Encounter for other specified aftercare | CPT/HCPCS: 97110; 97140; 97163 ==

== ENCOUNTER 2024-06-21 11:15 | Outpatient (RCR) | payer MEDICAID, SELFPAY | END 2024-06-27 09:21 | disposition home or self-care (01) | PROVIDERS: PCP Internal Medicine; Visit Provider Orthopaedic Surgery Foot and Ankle Surgery | DX: S82.891D Other fracture of right lower leg, subsequent encounter for closed fracture with routine healing (principal); S93.601D Unspecified sprain of right foot, subsequent encounter; Z51.89 Encounter for other specified aftercare | CPT/HCPCS: 97110; 97140; 97161 ==

== ENCOUNTER 2025-05-06 12:45 | Outpatient (CLI) | payer MEDICAID, SELFPAY ==
--- NOTE | 2025-05-06 13:00 | CRLHL7_ITS ---
For Patients: As a result of the 21st Century Cures Act, medical imaging exams and procedure reports are released immediately into your electronic medical record. You may view this report before your referring provider. If you have questions, please contact your health care provider. EXAM: MRI OF THE RIGHT ANKLE, WITHOUT CONTRAST CLINICAL INDICATION: Ankle pain. PRIOR SURGERY: None. COMPARISON PLAIN FILMS: None. COMPARISON CROSS-SECTIONAL IMAGING STUDIES: None. TECHNICAL: Axial, sagittal and coronal T1, PD, PDFS and STIR images. FINDINGS: OSSEOUS STRUCTURES: No fracture, bone marrow contusion, stress change or marrow replacement process. JOINT SPACES: Cysts and sclerosis and some surrounding edema the posteromedial talar dome. Some thinning of the overlying articular cortex but no discrete fracture fragment and no full-thickness overlying definitive cartilage defect. There is increased signal in the cartilage for some mild chondromalacia. No joint effusion. No filling defect. The talar-navicular and calcaneocuboid joint spaces are maintained. Joint spaces within the visualized midfoot and at the midfoot-forefoot junction are maintained. LIGAMENTS: Syndesmotic Ligaments: The anterior and posterior syndesmotic ligaments are intact. Lateral Ligaments: Chronic avulsion ossicle at the tip of the lateral malleolus origin of calcaneofibular and anterior talofibular ligaments which both show changes of chronic sprain. No acute edema or synovitis. Medial Ligaments: The superficial and deep components of the deltoid ligament complex are maintained. Spring Ligaments: The calcaneonavicular spring ligament complex is intact. TENDONS: Flexor Tendons: The posterior tibial, flexor digitorum longus and flexor hallucis longus tendons are intact. Type 1 accessory navicular. Extensor Tendons: The anterior extensor tendons are intact. Achilles Tendon: The Achilles tendon is intact without tendinosis, tear or peritendinitis changes. Small effusion retrocalcaneal bursa. Peroneal Tendons: The peroneus longus and brevis tendons are intact. No accessory peroneus quartus. TARSAL TUNNEL: The soft tissues of the tarsal tunnel are normal without mass or fluid collection. No abnormality along the course of the medial or lateral plantar nerves. SINUS TARSI: The structures of the sinus tarsi appear normal. No disruption of the interosseous ligaments or significant effacement of fat. PLANTAR SOFT TISSUES: The plantar fascia is intact. There is no significant plantar calcaneal spur. No atrophy or edema of the abductor digiti minimi muscle belly. Small thin os calcis spur. OTHER FINDINGS: There is no soft tissue mass or fluid collection. IMPRESSION: 1. 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 2. Remote ATFL and calcaneofibular ligament injury with small nondisplaced avulsion ossicle from the tip of the lateral malleolus. 3. Trace retrocalcaneal bursitis. Dictated by Brody Chambers MD @ 05/07/2025 10:16:57 AM (Electronically Signed)
== END 2025-05-06 12:46 | disposition home or self-care (01) ==
LOC: MRI 12:46
PROVIDERS: PCP Internal Medicine; Visit Provider Podiatrist
DX: M25.571 Pain in right ankle and joints of right foot (principal); M93.271 Osteochondritis dissecans, right ankle and joints of right foot; M77.51 Other enthesopathy of right foot and ankle
CPT/HCPCS: 73721

== ENCOUNTER 2025-05-29 10:13 | Outpatient (RCR) | payer MEDICAID, SELFPAY ==
--- NOTE | 2025-05-29 12:42 | PT.OPEX ---
PT [place] Outpatient Eval PT [facility] Outpatient Eval Start: 05/29/25 12:21 Freq: Status: Active Protocol: Document 05/29/25 12:21 ELINOR (Rec: 05/29/25 12:42 [facility] [id number]) E-signed By Polly Benavidez PT Physical Therapy Outpatient Evaluation Insurance Information Recert Due Date 08/26/25 Insurance Name Medicare B,[employer] Medical Diagnosis RIGHT RETROCALCANEAL BURSITIS Treating Diagnosis RIGHT ANKLE AND HEEL PAIN RIGHT ANKLE STIFFNESS RIGHT ANKLE WEAKNESS Imaging Report MRI: 05/06/25 Information IMPRESSION: 1. 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 2. Remote ATFL and calcaneofibular ligament injury with small nondisplaced avulsion ossicle from the tip of the lateral malleolus. 3. Trace retrocalcaneal bursitis. Referring MD CONCEPCION KIMBALL DPJalen Subjective Preferred Name GOSIA Subjective PATIENT REPORTS PAIN WITH PROLONGED STDG, WALKING OVER UNEVEN TERRAIN, AND AMB UP/DOWN STAIRS. SHE POINTS TO THE ANTERIOR TALOCRURAL REGION THAT SHE DESCRIBES, IT JUST THROBS WHEN I'M NOT ON IT BUT REALLY STABS WHEN I TRY TO WALK STAIRS AND ACROSS GRAVEL AND THE YARD. 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 SHE HAS A H/O FRACTURE TO THE RIGHT FOOT THAT SHE TREATED LAST SUMMER BY WEARING A CAM BOOT AND PHYSICAL THERAPY FOR STRENGTHENING. HER PAIN HIS POSTERIORLY ON EITHER SIDE OF HER ACHILLES RIGHT>LEFT. SHE HERE FOR STRENGTHENING AND REDUCING THE PAIN SO THAT SHE CAN CONTINUE WITH HER WORK AND PERSONAL ACTIVE LIFE. 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 Weight Bearing Full Weight Bearing Status Therapy Limitations/ Other Medical Problem Systems Review Objective Functional Test [id number] Performed & Score Assessment Assessment/ PATIENT IS A 59YO REFERRED BY CONCEPCION KIMBALL DPM TO EVAL Impression AND TREAT RIGHT RETROCALCANEAL BURSITIS . PATIENT DEMONSTRATES SIGNS AND SYMPTOMS CONSISTENT WITH RIGHT RETROCALCANEAL BURSITIS CONTRIBUTING TO THEIR FUNCTIONAL IMPAIRMENTS OF PAIN WITH PROLONGED STDG, STAIRS, AND AMB ON UNEVEN TERRAIN. PATIENT DESCRIBES THE FOLLOWING TRIGGERS PROLONGED WB, STAIRS, AND SQUATTING/STOOPING WHICH ARE ALLEVIATED BY REST, VOLTAREN GEL, ICEY HOT W/LIDOCAINE, GENTLE ROM . PATIENT HAS NOTABLE OBJECTIVE FINDING INCLUDING DECREASED ROM, PAIN WITH UNILATERAL STANCE, DECREASED BALANCE, PAIN WITH PALPATION POSTERIOR MEDIAL ANKLE> LATERAL WHICH ALL ARE CONTRIBUTING TO THE CLINICAL IMPRESSION. PATIENT IS A GOOD CANDIDATE FOR SKILLED PHYSICAL THERAPY TO ADDRESS AFOREMENTIONED DEFICITS ABOVE IN ORDER TO IMPROVE HER STRENGTH AND TOLERANCE TO MEET THE DEMANDS OF HER DAY TO DAY BOTH PERSONALLY AND WORK RELATED. INTERVENTION IS NECESSARY BY WAY OF THERAPEUTIC EXERCISE, MANUAL THERAPY, NEUROMUSCULAR RE- EDUCATION, STABILIZATION/PROPRIOCEPTION, MODALITIES FOR SYMPTOM MGMT, PATIENT EDUCATION, DRY NEEDLING PLEASE REFER TO APPROPRIATE SECTION WITHIN THIS EVALUATION FOR COMPLETE LIST OF GOALS AND PLAN OF CARE. DISCHARGE PLAN AND CRITERIA IS FOR PATIENT TO ACHIEVE THE GOALS LISTED BELOW OR UNTIL MAX POTENTIAL MET. PATIENT VERBALIZED UNDERSTANDING AND AGREEABLE TO POC, FREQ, AND GOALS ESTABLISHED. Primary Functional SEE ABOVE Limitations Plan of Care Rehabilitation Fair Potential Physical Therapy 1.REDUCE PAIN & INFLAMMATION ? DECREASE RIGHT ANKLE Goals PAIN TO =2/10 DURING ACTIVITIES OF DAILY LIVING WITHIN 4 WEEKS. 2.IMPROVE RANGE OF MOTION (ROM) ? ACHIEVE AT LEAST 0?10 ? DORSIFLEXION AND 0?40? PLANTARFLEXION PAIN-FREE WITHIN 6 WEEKS. 3.ENHANCE WEIGHT BEARING TOLERANCE ? PATIENT TO TOLERATE FULL WEIGHT BEARING IN SUPPORTIVE FOOTWEAR FOR =30 MINUTES WITHOUT INCREASED SYMPTOMS BY WEEK 6. 4.NORMALIZE GAIT MECHANICS ? DEMONSTRATE SYMMETRICAL STEP LENGTH AND ROSANNE WITHOUT COMPENSATORY GAIT PATTERNS ON A VARIETY OF SURFACES BY WEEK 8-12 Coordination/ Referral Source Communication With Treatment Plan/ Dry Needling,Electrical Stimulation,Gait Training,Ice/ Direct Interventions Cold/Vasopneumatic,Iontophoresis,Joint Mobilization, Manual Therapy,Neuromuscular Re-ed,Self-Care/Home Management,Therapeutic Activities,Therapeutic Exercises ,Ultrasound Frequency/Duration 1-2X/WK Patient Will Be Completion of LTG(s),Independent w/HEP Discharged From Therapy Evaluation Billing Untimed Code 20 Treatment Minutes PT Eval No Charge No Complexity Low Certification Information Initial 05/29/25 Certification Date Ending Certification 08/26/25 Date Provider Signature Yes Required Provider Signature POC & Medical Necessity Shows Agreement With Physician NPI Number Write NPI# Here Physician Comment/ : Change Physician Signature Please Sign/Date Here & Date Requested
== END 2025-09-26 16:04 | disposition home or self-care (01) ==
PROVIDERS: PCP Internal Medicine; Visit Provider Podiatrist
DX: M77.50 Other enthesopathy of unspecified foot and ankle (principal); Z51.89 Encounter for other specified aftercare
CPT/HCPCS: 97035; 97110; 97161

== ENCOUNTER 2025-08-05 08:01 | Outpatient (CLI) | payer MEDICAID, SELFPAY | END 2025-08-05 08:02 | disposition home or self-care (01) | LOC: NFLDREF 08-07 09:26 | PROVIDERS: PCP Internal Medicine; Referring Provider Internal Medicine; Visit Provider Internal Medicine | DX: Z13.6 Encounter for screening for cardiovascular disorders (principal); Z01.83 Encounter for blood typing | CPT/HCPCS: 80053; 80061; 86850; 86900; 86901 ==